=== PATIENT | female | born 1930 | race Caucasian/White ===

== ENCOUNTER → 2016-11-27 | Outpatient (CLI) | payer MEDICARE, OTHER | LOC: OD 15:04 | PROVIDERS: ATTEND Internal Medicine Pulmonary Disease | DX: J44.9 Chronic obstructive pulmonary disease, unspecified (principal) | CPT/HCPCS: 71020 ==

== ENCOUNTER → 2017-03-29 | Outpatient (CLI) | payer MEDICARE, OTHER ==
[2017-03-29 16:42] LABS: APPEARANCE,URINE SLIGHTLY-CLOUDY; BILIRUBIN,URINE NEGATIVE (NEGATIVE); GLUCOSE, URINE NEGATIVE (NEGATIVE); KETONES,URINE NEGATIVE (NEGATIVE); LEUKOCYTE ESTERASE,URINE SMALL (NEGATIVE); NITRITE,URINE NEGATIVE (NEGATIVE); PROTEIN,URINE NEGATIVE (NEGATIVE); URINE SPECIFIC GRAVITY 1.018
[2017-03-29 17:01] LABS: ANION GAP 9 (5-19); BLOOD UREA NITROGEN 18 mg/dL (7-20); CALCIUM 9.7 mg/dL (8.4-10.2); CARBON DIOXIDE 32 mmol/L (22-30); CHLORIDE 98 mmol/L (98-107); CREATININE RESULT 0.92 mg/dL (0.52-1.25); GLUCOSE 86 mg/dL (75-110); SODIUM 138.5 mmol/L (137-145)
[2017-03-29 17:18] LABS: POTASSIUM 6.1 mmol/L (3.6-5.0)
[2017-03-31 11:38] LABS: CREATININE URINE 171.4 mg/dL (Not Estab.); MICROALBUMIN URINE 16.4 ug/mL (Not Estab.)
== END ==
LOC: OD 15:03
PROVIDERS: ATTEND Internal Medicine Nephrology
DX: N28.9 Disorder of kidney and ureter, unspecified (principal); R80.9 Proteinuria, unspecified
CPT/HCPCS: 36415; 80048; 81001; 82043; 82570

== ENCOUNTER → 2017-04-02 | Outpatient (CLI) | payer MEDICARE, OTHER | LOC: OD 15:08 | PROVIDERS: ATTEND Internal Medicine Nephrology | DX: E87.5 Hyperkalemia (principal) | CPT/HCPCS: 36415; 84132 ==

== ENCOUNTER → 2017-05-01 | Outpatient (CLI) | payer MEDICARE, OTHER ==
[2017-05-01 16:41] LABS: ANION GAP 9 (5-19); BLOOD UREA NITROGEN 21 mg/dL (7-20); CALCIUM 9.3 mg/dL (8.4-10.2); CARBON DIOXIDE 30 mmol/L (22-30); CHLORIDE 100 mmol/L (98-107); CREATININE RESULT 0.91 mg/dL (0.52-1.25); GLUCOSE 107 mg/dL (75-110); MAGNESIUM 1.9 mg/dL (1.6-2.3); POTASSIUM 5.2 mmol/L (3.6-5.0); SODIUM 138.5 mmol/L (137-145)
== END ==
LOC: OD 15:44
PROVIDERS: ATTEND Internal Medicine Nephrology
DX: N28.9 Disorder of kidney and ureter, unspecified (principal); E87.5 Hyperkalemia
CPT/HCPCS: 36415; 80048; 83735

== ENCOUNTER → 2017-05-09 | Outpatient (CLI) | payer MEDICARE, OTHER ==
--- NOTE | 2017-05-09 14:48 | WOMENS IMAGING REPORT ---
EXAM DESCRIPTION: BILAT SCREENING MAMMO W/CAD COMPLETED DATE/TIME: 05/09/2017 8:40 am REASON FOR STUDY: Z12.31, LAUREN SCREENING MAMMO Z12.31 ENCNTR SCREEN MAMMOGRAM FOR MALIGNANT NEOPL ASM OF MP COMPARISON: 2013, 2015 TECHNIQUE: Standard craniocaudal and mediolateral oblique views of each breast recorded using [employer] acquisition. LIMITATIONS: None. FINDINGS: Findings present which are benign by mammographic criteria. No suspicious masses, calcifi cations or architectural distortion. Pertinent benign findings: Stable left breast masses. Read with the assistance of CAD. .[facility] - R2 Cenova Version 1.3 .[facility] - R2 Cenova Version 1.3 .[facility] - R2 Cenova Version 2.4 .[facility] [place] - R2 Cenova Version 2.4 .[facility] - R2 Reimbursement Liaison Version 9.2 Benign mammographic findings may include one or more of the following: Smooth masses, popcorn/rim/co arse calcifications, asymmetries, post-procedure changes, and lesions with long-standing stability. IMPRESSION: BENIGN MAMMOGRAPHIC FINDINGS. BIRADS 2 BREAST DENSITY: c. The breasts are heterogeneously dense, which may obscure small masses. BIRAD: 2 BENIGN FINDING(S) RECOMMENDATION: ROUTINE SCREENING COMMENT: The patient has been notified of the results by letter per SA requirements. Additional no tification policies are in place for contacting patient with suspicious or incomplete findings. Quality ID #[id number]: The [employer] recommends an annual screening mammogram for women aged 40 years or over. This facility utilizes a reminder system to ensure that all patients receive reminder letters, and/or direct phone calls for appointments. This includes reminders for routine scr eening mammograms, diagnostic mammograms, or other Breast Imaging Interventions when appropriate. Th is patient will be placed in the appropriate reminder system. The [employer] (ACR) has developed recommendations for screening MRI of the breast s in certain patient populations, to be used in conjunction with mammography. Breast MRI surveillanc e may be appropriate for women with more than 20% lifetime risk of developing breast cancer as deter mined by genetic testing, significant family history of the disease, or history of mantle radiation f or Hodgkins Disease. ACR Practice Guidelines 2008. TECHNICAL DOCUMENTATION: FINDING NUMBER: (1) ASSESSMENT: (1) JOB ID: [id number] [employer]- All Rights Reserved
== END ==
LOC: WI 08:10
PROVIDERS: ATTEND Specialist
DX: Z12.31 Encounter for screening mammogram for malignant neoplasm of breast (principal)
CPT/HCPCS: 77067; G0202

== ENCOUNTER → 2017-07-02 | Outpatient (CLI) | payer MEDICARE, OTHER ==
[2017-07-02 16:35] LABS: ANION GAP 9 (5-19); BLOOD UREA NITROGEN 13 mg/dL (7-20); CALCIUM 9.5 mg/dL (8.4-10.2); CARBON DIOXIDE 30 mmol/L (22-30); CHLORIDE 96 mmol/L (98-107); CREATININE RESULT 0.77 mg/dL (0.52-1.25); GLUCOSE 97 mg/dL (75-110); SODIUM 135.3 mmol/L (137-145)
== END ==
LOC: OD 15:12
PROVIDERS: ATTEND Internal Medicine Nephrology
DX: N28.9 Disorder of kidney and ureter, unspecified (principal); E87.5 Hyperkalemia
CPT/HCPCS: 36415; 80048

== ENCOUNTER 2017-10-03 20:43 | Emergency (ER) | payer MEDICARE, OTHER ==
[2017-10-03] MEDS ORDERED: HYDROCHLOROTHIAZIDE 25 MG TABLET PO ONE (22:14)
[2017-10-03] MEDS ORDERED: PROCHLORPERAZINE EDISYLATE INJ 10 MG/2 ML VIAL IV ONE (22:33)
--- NOTE | 2017-10-03 22:34 | ER Document Report ---
ED General - General Chief Complaint: Dizziness Stated Complaint: HEADACHE/ DIZZY Time Seen by Provider: 10/03/17 22:13 Notes: Patient is an 87-year-old female with past medical history of hypertension, hyperlipidemia, coronary artery disease who presents with a headache, as well as concerns about her blood pressure. Patient reports that since waking up this morning she has had a dull, constant, throbbing global headache with associated left shoulder and neck pain. Patient reports the pain is been progressively worsening throughout the day. She has not noted that anything improves or worsens the pain. She denies any focal weakness, numbness, fever, or altered mental status. She reports a history of similar headaches in the past. She has not seen her primary doctor regarding today's concerns of the office was not open when she called. She notes that her blood pressure was elevated tonight and she got scared given the headaches and wanted to be evaluated in the emergency department. She denies any associated chest pain, shortness of breath, nausea, vomiting, weakness or numbness. She notes that she did have a nosebleed from her left nares which has stopped. TRAVEL OUTSIDE OF THE [place] IN LAST 30 DAYS: No - Related Data Allergies/Adverse Reactions: ACEINHIBITORS [DC Inhibitors] Allergy (Verified 06/12/17 10:59) latex [Latex] Allergy (Verified 06/12/17 10:59) Generalized edema Tuberculin,Ppd,Multi-Puncture [From Tuberculin PPD Jeimy Test] Allergy (Verified 06/12/17 10:59) codeine [Codeine] Adverse Reaction (Verified 06/12/17 10:59) doxycycline [Doxycycline] Adverse Reaction (Verified 06/12/17 10:59) erythromycin base [Erythromycin Base] Adverse Reaction (Verified 06/12/17 10:59) Past Medical History - General Information source: Patient - Social History Smoking Status: Never Smoker Frequency of alcohol use: None Drug Abuse: None Lives with: Alone Family History: Reviewed & Not Pertinent - Past Medical History Cardiac Medical History: Reports: Hx Coronary Artery Disease, Hx Hypercholesterolemia, Hx Hypertension Denies: Hx Heart Attack Pulmonary Medical History: Reports: Hx COPD Denies: Hx Asthma Neurological Medical History: Reports: Hx Migraine. Denies: Hx Cerebrovascular Accident, Hx Seizures Endocrine Medical History: Reports: Hx Hypothyroidism Renal/ Medical History: Denies: Hx Peritoneal Dialysis Malignancy Medical History: Reports: Hx Skin Cancer GI Medical History: Reports: Hx Gastritis, Hx Gastroesophageal Reflux Disease, Hx Ulcer - TREATED. Denies: Hx Hepatitis, Hx Hiatal Hernia Musculoskeltal Medical History: Reports Hx Arthritis Skin Medical History: Reports Hx Psoriasis Psychiatric Medical History: Reports: Hx Depression Infectious Medical History: Denies: Hx Hepatitis Past Surgical History: Reports: Hx Abdominal Surgery, Hx Appendectomy, Hx Breast Surgery - bx, Hx Cardiac Catheterization - 2003--DONE IN [place], WAS NOT GIVEN AND DETAILS, Hx Cardiac Surgery - pacemaker, Hx Orthopedic Surgery - rib surgery, Hx Pacemaker - DEX. Denies: Hx Mastectomy, Hx Nose Surgery, Hx Open Heart Surgery - Immunizations Immunizations up to date: No Hx Diphtheria, Pertussis, Tetanus Vaccination: Yes Hx Pneumococcal Vaccination: 10/15/07 Review of Systems - Review of Systems Notes: Constitutional: Negative for fever. HENT: Negative for sore throat. Eyes: Negative for visual changes. Cardiovascular: Negative for chest pain. Respiratory: Negative for shortness of breath. Gastrointestinal: Negative for abdominal pain, vomiting or diarrhea. Genitourinary: Negative for dysuria. Musculoskeletal: Negative for back pain. Skin: Negative for rash. Neurological: Positive for headache 10 point ROS negative except as marked above and in HPI. Physical Exam - Vital signs Vitals: Temp Pulse Resp BP Pulse Ox 97.9 F 63 18 183/71 H 96 10/03/17 20:53 10/03/17 20:53 10/03/17 20:53 10/03/17 20:53 10/03/17 20:53 Interpretation: Hypertensive Notes: PHYSICAL EXAMINATION: GENERAL: Well-appearing, well-nourished and in no acute distress. HEAD: Atraumatic, normocephalic. EYES: Pupils equal round and reactive to light, extraocular movements intact, sclera anicteric, conjunctiva are normal. ENT: nares patent, oropharynx clear without exudates. Moist mucous membranes. NECK: Normal range of motion, supple without lymphadenopathy LUNGS: Breath sounds clear to auscultation bilaterally and equal. No wheezes rales or rhonchi. HEART: Regular rate and rhythm without murmurs ABDOMEN: Soft, nontender, normoactive bowel sounds. No guarding, no rebound. No masses appreciated. EXTREMITIES: Normal range of motion, no pitting or edema. No cyanosis. NEUROLOGICAL: Face symmetric. Tongue protrudes midline. Extraocular motions intact. Pupils are 2 mm and equally reactive. Normal speech, normal gait. 5 out of 5 strength in both the distal and proximal upper and lower extremities bilaterally. Sensation is grossly intact throughout. Finger to nose testing normal. Pronator drift normal. PSYCH: Normal mood, normal affect. SKIN: Warm, Dry, normal turgor, no rashes or lesions noted. Course - Re-evaluation Re-evalutation: 10/03/17 22:34 Presentation of a headache that appears to be most consistent with tension versus migrainous type headache. Headache was not maximal in onset, patient has no focal neurologic deficits, no nuchal rigidity, vital signs within normal limits, no papilledema, and patient is overall well in appearance. Based on clinical history and examination I do not suspect an acute subarachnoid hemorrhage, dural venous sinus thrombosis, acute meningitis, or intercranial mass. However, given patient's age will obtain a CT of the head without contrast to evaluate for any evidence of an intracranial mass. Will also obtain basic laboratories. Patient has not taken her normal dose of nifedipine today and this may be the reason for her high blood pressure and I have asked her to take it here while in the emergency department. 10/04/17 00:28 CT head does not show any acute bleed or mass, white matter lesion not clinically relevant to presentation but the patient has been informed of this finding and the need for follow-up. Her headache has now completely resolved. The remainder of her laboratories are unremarkable. At this time will discharge with return precautions and follow-up recommendations. Verbal discharge instructions given a the bedside and opportunity for questions given. Medication warnings reviewed. Patient is in agreement with this plan and has verbalized understanding of return precautions and the need for primary care follow-up in the next 24-72 hours. - Vital Signs Vital signs: Temp Pulse Resp BP Pulse Ox 97.9 F 63 11 L 178/89 H 96 10/03/17 20:53 10/03/17 20:53 10/04/17 00:03 10/04/17 00:03 10/04/17 00:03 - Laboratory Result Diagrams: 10/03/17 23:13 10/03/17 23:13 Laboratory results interpreted by me: 10/03/17 10/03/17 23:13 23:13 Hgb 11.8 L Hct 34.4 L Carbon Dioxide 31 H BUN 22 H Est GFR (Non-Af Amer) 59 L - Diagnostic Test Radiology reviewed: Image reviewed, Reports reviewed Radiology results interpreted by me: 10/04/17 00:29 CT head: No acute intracranial bleed or mass Discharge - Discharge Clinical Impression: Essential hypertension Headache Qualifiers: Headache type: unspecified Headache chronicity pattern: acute headache Intractability: not intractable Qualified Code(s): R51 - Headache Condition: Good Disposition: HOME, SELF-CARE Additional Instructions: You have been seen in the Emergency Department (ED) for a headache. Please use Tylenol (acetaminophen) or Motrin (ibuprofen) as needed for symptoms, but only as written on the box. As we have discussed, please follow up with your primary care doctor as soon as possible regarding today's ED visit and your headache symptoms. Call your doctor or return to the ED if you have a worsening headache, sudden and severe headache, confusion, slurred speech, facial droop, weakness or numbness in any arm or leg, extreme fatigue, or other symptoms that concern you. Referrals: LISA OSCAR MD [Primary Care Provider] - Follow up as needed
[2017-10-03 23:31] LABS: ABSOLUTE EOSINOPHILS # (AUTO) 0.3 10^3/uL (0.0-0.6); ABSOLUTE LYMPHOCYTES (AUTO) 1.3 10^3/uL (0.5-4.7); ABSOLUTE MONOCYTES (AUTO) 0.5 10^3/uL (0.1-1.4); ABSOLUTE NEUT (AUTO) 4.7 10^3/uL (1.7-8.2); BASOPHILS % (AUTO) 0.5 % (0-2); EOSINOPHILS % (AUTO) 4.8 % (0-6); HEMATOCRIT 34.4 % (36.0-47.0); HEMOGLOBIN 11.8 g/dL (12.0-15.5); LYMPHOCYTES % (AUTO) 18.5 % (13-45); MEAN CORPUSCULAR HEMOGLOBIN 30.7 pg (27.0-33.4); MEAN CORPUSCULAR HGB CONC 34.5 g/dL (32.0-36.0); MEAN CORPUSCULAR VOLUME 89 fl (80-97); MONOCYTES % (AUTO) 7.8 % (3-13); RED BLOOD COUNT 3.86 10^6/uL (3.72-5.28); RED CELL DISTRIBUTION WIDTH 13.5 % (11.5-14.0); SEGMENTED NEUTROPHILS % (AUTO) 68.4 % (42-78); WHITE BLOOD COUNT 6.9 10^3/uL (4.0-10.5)
[2017-10-03 23:35] LABS: ANION GAP 10 (5-19); BLOOD UREA NITROGEN 22 mg/dL (7-20); CALCIUM 9.7 mg/dL (8.4-10.2); CARBON DIOXIDE 31 mmol/L (22-30); CHLORIDE 98 mmol/L (98-107); CREATININE RESULT 0.91 mg/dL (0.52-1.25); GLUCOSE 106 mg/dL (75-110); POTASSIUM 4.4 mmol/L (3.6-5.0); SODIUM 138.8 mmol/L (137-145)
--- NOTE | 2017-10-04 00:17 | RADIOLOGY REPORT (SQ) ---
EXAM DESCRIPTION: CT HEAD WITHOUT CLINICAL HISTORY: 87 years Female, headache COMPARISON: None. TECHNIQUE: No contrast. This exam was performed according to our departmental dose-optimization program, which includes automated exposure control, adjustment of the mA and/or kV according to patient size and/or use of iterative reconstruction technique. FINDINGS: Relatively new 0.8 cm low-attenuation left parietal white matter lesion probably due to a lacunar infarct as compared with prior CT from January 20, 2015. Mild white matter microangiopathy, mild-moderate cerebral volume loss, chronic 0.9 Center pineal calcification, intracranial atherosclerotic calcification, IMPRESSION: Relatively new 0.8 cm low-attenuation left parietal white matter lesion probably due to a lacunar infarct as compared with prior CT from January 20, 2015. Otherwise white matter processes cannot be excluded. Recommend contrast MRI/CT surveillance.
[2017-10-04 01:15] VITALS: BP 175/73
--- NOTE | 2017-10-04 07:52 | EKG REPORT ---
SEVERITY:- ABNORMAL ECG - ATRIAL-PACED COMPLEXES LOW VOLTAGE IN FRONTAL LEADS : Confirmed by: Juan Montesinos MD 04-Oct-2017 07:52:06
== END 2017-10-04 01:14 | disposition home or self-care (01) ==
LOC: ER 20:43
DX: I10 Essential (primary) hypertension (principal); R51 Headache; M25.512 Pain in left shoulder; M54.2 Cervicalgia; G93.89 Other specified disorders of brain; J44.9 Chronic obstructive pulmonary disease, unspecified; I25.10 Atherosclerotic heart disease of native coronary artery without angina pectoris; Z88.8 Allergy status to other drugs, medicaments and biological substances; Z91.040 Latex allergy status; Z88.7 Allergy status to serum and vaccine; Z85.828 Personal history of other malignant neoplasm of skin; Z95.0 Presence of cardiac pacemaker
CPT/HCPCS: 93005; 99284; 96374; 36415; 85025; 80048; 84484; 70450; 93010; J0780

== ENCOUNTER → 2017-11-06 | Outpatient (CLI) | payer MEDICARE, OTHER ==
[2017-11-06 15:43] LABS: APPEARANCE,URINE CLEAR; BILIRUBIN,URINE NEGATIVE (NEGATIVE); COLOR,URINE YELLOW; GLUCOSE, URINE NEGATIVE (NEGATIVE); KETONES,URINE NEGATIVE (NEGATIVE); LEUKOCYTE ESTERASE,URINE NEGATIVE (NEGATIVE); NITRITE,URINE NEGATIVE (NEGATIVE); PROTEIN,URINE NEGATIVE (NEGATIVE); URINE SPECIFIC GRAVITY 1.014; UROBILINOGEN,URINE NEGATIVE mg/dL (<2.0)
[2017-11-06 16:04] LABS: BLOOD UREA NITROGEN 22 mg/dL (7-20); CHLORIDE 99 mmol/L (98-107); GLUCOSE 77 mg/dL (75-110); POTASSIUM 5.4 mmol/L (3.6-5.0)
[2017-11-06 16:14] LABS: ANION GAP 7 (5-19); CARBON DIOXIDE 32 mmol/L (22-30); SODIUM 138.3 mmol/L (137-145)
[2017-11-08 12:39] LABS: CREATININE URINE 62.8 mg/dL (Not Estab.); MICROALBUMIN URINE 4.3 ug/mL (Not Estab.)
== END ==
LOC: OD 14:46
PROVIDERS: ATTEND Internal Medicine Nephrology
DX: R80.9 Proteinuria, unspecified (principal); N28.9 Disorder of kidney and ureter, unspecified; I10 Essential (primary) hypertension
CPT/HCPCS: 36415; 80048; 81001; 82043; 82570

== ENCOUNTER → 2017-11-14 | Outpatient (CLI) | payer MEDICARE, OTHER | LOC: OD 15:09 | PROVIDERS: ATTEND Internal Medicine Nephrology | DX: E87.5 Hyperkalemia (principal) | CPT/HCPCS: 36415; 84132 ==

== ENCOUNTER → 2018-02-13 | Outpatient (CLI) | payer MEDICARE, OTHER ==
--- NOTE | 2018-02-13 17:20 | RADIOLOGY REPORT (SQ) ---
EXAM DESCRIPTION: CT HEAD WITH COMPLETED DATE/TIME: 02/13/2018 5:05 pm REASON FOR STUDY: R51 HEADACHE R51 HEADACHE COMPARISON: 10/03/2017 TECHNIQUE: Axial images acquired through the brain with intravenous contrast. Images reviewed with b one, brain and subdural windows. Additional sagittal and coronal reconstructions were generated. Tasneem ges stored on PACS. All CT scanners at this facility use dose modulation, iterative reconstruction, and/or weight based d osing when appropriate to reduce radiation dose to as low as reasonably achievable (ALARA). [facility]: Dose Right [facility]: CareDose [facility]: Dose Right [facility]: Teradose 4D [facility]: [employer] CONTRAST TYPE AND DOSE: contrast/concentration: Isovue mg/ml; Total Contrast Delivered: 50.0 ml; To kenneth Saline Delivered: 55.0 ml RENAL FUNCTION: BUN 13 creatinine 0.7 RADIATION DOSE: CT Rad equipment meets quality standard of care and radiation dose reduction techniq ues were employed. CTDIvol: 48.6 mGy. DLP: 929 mGy-cm.. LIMITATIONS: None. FINDINGS: VENTRICLES: Normal size and contour. CEREBRUM: No masses. No hemorrhage. No midline shift. Normal grider/white matter differentiation. No ev idence for acute infarction. No enhancing lesions. There are few scattered areas decreased attenuati on in the white matter. CEREBELLUM: No masses. No hemorrhage. No alteration of density. No evidence for acute infarction. No enhancing lesions. EXTRA-AXIAL SPACES: No fluid collections. No enhancing lesions. ORBITS AND GLOBE: No intra- or extraconal masses. Normal contour of globe without masses. CALVARIUM: No fracture. PARANASAL SINUSES: No fluid or mucosal thickening. SOFT TISSUES: No mass or hematoma. OTHER: No other significant finding. IMPRESSION: Mild microvascular ischemic changes with no acute intracranial pathology. EVIDENCE OF ACUTE STROKE: NO. TECHNICAL DOCUMENTATION: JOB ID: [id number] Quality ID # [id number]: Final reports with documentation of one or more dose reduction techniques (e.g., Au tomated exposure control, adjustment of the mA and/or kV according to patient size, use of iterative reconstruction technique) 2010 [email or web address]- All Rights Reserved Reading location - IP/workstation name: [email or web address]
== END ==
LOC: RAD 16:18
PROVIDERS: ATTEND Internal Medicine Hematology & Oncology
DX: R51 Headache (principal)
CPT/HCPCS: 70460

== ENCOUNTER → 2018-03-05 | Outpatient (CLI) | payer MEDICARE, OTHER ==
[2018-03-05 17:56] LABS: ANION GAP 7 (5-19); BLOOD UREA NITROGEN 16 mg/dL (7-20); CALCIUM 9.4 mg/dL (8.4-10.2); CARBON DIOXIDE 34 mmol/L (22-30); CHLORIDE 100 mmol/L (98-107); GLUCOSE 97 mg/dL (75-110); POTASSIUM 5.5 mmol/L (3.6-5.0); SODIUM 140.6 mmol/L (137-145)
== END ==
LOC: OD 16:10
PROVIDERS: ATTEND Internal Medicine Nephrology
DX: E87.5 Hyperkalemia (principal); N28.9 Disorder of kidney and ureter, unspecified
CPT/HCPCS: 36415; 80048

== ENCOUNTER 2018-03-11 21:28 | Observation (INO) | payer MEDICARE, OTHER ==
[2018-03-11] MEDS ORDERED: ASPIRIN 81 MG TABLET, CHEWABLE PO ONE (21:41)
--- NOTE | 2018-03-11 22:01 | ER Document Report ---
ED General - General Mode of Arrival: Medic Information source: Patient TRAVEL OUTSIDE OF THE [place] IN LAST 30 DAYS: No <ROSHNI HERNANDEZ - Last Filed: 03/11/18 23:57> <GEOVANNAHARRIETTALAYNA - Last Filed: 03/12/18 00:02> - General Chief Complaint: Chest Pain Stated Complaint: CHEST PAIN Time Seen by Provider: 03/11/18 21:39 Notes: Patient is an 88 year old female with hypertension, hyperlipidemiam CAD, COPD, and a pacemaker presents to the emergency department complaining of left sided chest pain onset today. Patient describes her chest pain as non radiating and intermittent further stating she would feel a sharp pain every minute. Patient also complained of a headache and chronic shortness of breath. At bedside patient states her chest pain is no longer sharp but sore. EMS states they gave the patient 1x nitro and recorded an blood pressure of 180/ 110. EMS states the patient reported recent potassium elevations. Patient is on 2L of O2 at home. Patient states she was told by her family practice doctor the battery in her pacemaker is about to and to observe any changes. Patients PCP is Dr. Mike. ( ROSHNI HERNANDEZ) - Related Data Allergies/Adverse Reactions: ACEINHIBITORS [DC Inhibitors] Allergy (Verified 06/12/17 10:59) latex [Latex] Allergy (Verified 06/12/17 10:59) Generalized edema Tuberculin,Ppd,Multi-Puncture [From Tuberculin PPD Jeimy Test] Allergy (Verified 06/12/17 10:59) codeine [Codeine] Adverse Reaction (Verified 06/12/17 10:59) doxycycline [Doxycycline] Adverse Reaction (Verified 06/12/17 10:59) erythromycin base [Erythromycin Base] Adverse Reaction (Verified 06/12/17 10:59) Past Medical History - General Information source: Patient - Social History Smoking Status: Former Smoker Cigarette use (# per day): No Chew tobacco use (# tins/day): No Smoking Education Provided: No Frequency of alcohol use: None Drug Abuse: None Family History: Reviewed & Not Pertinent - Past Medical History Cardiac Medical History: Reports: Hx Coronary Artery Disease, Hx Hypercholesterolemia, Hx Hypertension Pulmonary Medical History: Reports: Hx COPD Neurological Medical History: Reports: Hx Migraine Endocrine Medical History: Reports: Hx Hypothyroidism Malignancy Medical History: Reports: Hx Skin Cancer GI Medical History: Reports: Hx Gastritis, Hx Gastroesophageal Reflux Disease, Hx Ulcer - TREATED Musculoskeltal Medical History: Reports Hx Arthritis Skin Medical History: Reports Hx Psoriasis Psychiatric Medical History: Reports: Hx Depression Past Surgical History: Reports: Hx Abdominal Surgery, Hx Appendectomy, Hx Breast Surgery - bx, Hx Cardiac Catheterization - 2004--DONE IN [place], WAS NOT GIVEN AND DETAILS, Hx Cardiac Surgery - pacemaker, Hx Orthopedic Surgery - rib surgery, Hx Pacemaker - DEX - Immunizations Immunizations up to date: No Hx Diphtheria, Pertussis, Tetanus Vaccination: Yes Hx Pneumococcal Vaccination: 10/15/07 <ROSHNI HERNANDEZ - Last Filed: 03/11/18 23:57> Review of Systems - Review of Systems Constitutional: No symptoms reported EENT: No symptoms reported Cardiovascular: See HPI, Chest pain Respiratory: See HPI, Short of breath Gastrointestinal: No symptoms reported Genitourinary: No symptoms reported Female Genitourinary: No symptoms reported Musculoskeletal: No symptoms reported Skin: No symptoms reported Hematologic/Lymphatic: No symptoms reported Neurological/Psychological: No symptoms reported -: Yes All other systems reviewed and negative <ROSHNI HERNANDEZ - Last Filed: 03/11/18 23:57> Physical Exam <ROSHNI HERNANDEZ - Last Filed: 03/11/18 23:57> <ALAYNA URRUTIA - Last Filed: 03/12/18 00:02> - Vital signs Vitals: Resp BP Pulse Ox 16 147/97 H 96 03/11/18 21:41 03/11/18 21:41 03/11/18 21:41 - Notes Notes: GENERAL: Alert, interacts well. No acute distress. HEAD: Normocephalic, atraumatic. EYES: Pupils equal, round, and reactive to light. Extraocular movements intact. ENT: Oral mucosa moist, tongue midline. NECK: Full range of motion. Supple. Trachea midline. LUNGS: Clear to auscultation bilaterally, no wheezes, rales, or rhonchi. No respiratory distress. HEART: Regular rate and rhythm. No murmurs, gallops, or rubs. ABDOMEN: Soft. Epigastric tenderness to palpaiton. Non-distended. Bowel sounds present in all 4 quadrants. EXTREMITIES: Moves all 4 extremities spontaneously. Radial and dorsalis pedis pulses 2/4 bilaterally. NEUROLOGICAL: Alert and oriented x3. Normal speech. PSYCH: Normal affect, normal mood. SKIN: Warm, dry, and normal turgor. (ROSHNI HERNANDEZ) Course - Laboratory Result Diagrams: 03/11/18 21:07 03/11/18 21:07 <ROSHNI HERNANDEZ - Last Filed: 03/11/18 23:57> - Laboratory Result Diagrams: 03/11/18 21:07 03/11/18 21:07 <ALAYNA URRUTIA - Last Filed: 03/12/18 00:02> - Re-evaluation Re-evalutation: 03/11/18 23:16 CBC grossly unremarkable, CMP does not show anything that would explain the chest pain, glucose slightly elevated 145, this is not fasting, cardiac enzymes negative 1, 03/11/18 23:17 Chest x-ray is negative. Patient is chest pain-free. Discussed patient with Dr. Natarajan who is covering for Dr. Bermudez, accepts the patient to Dr. Bermudez service. Patient is on a fentanyl patch, states that is due to be replaced tonight. I have ordered her replacement fentanyl patch. Patient also requests to be allowed to take her home medications as they are quite expensive when she is admitted. I have passed this request to Dr. Natarajan who will see if he can make this work with our pharmacy. (ALAYNA URRUTIA) - Vital Signs Vital signs: Temp Pulse Resp BP Pulse Ox 15 127/75 H 96 03/11/18 23:01 03/11/18 23:01 03/11/18 21:41 - Laboratory Laboratory results interpreted by me: 03/11/18 03/11/18 21:07 21:07 Hct 35.5 L Eosinophils % 6.3 H Chloride 97 L Carbon Dioxide 31 H Glucose 145 H - EKG Interpretation by Me Additional EKG results interpreted by me: 03/11/18 23:17 EKG shows T-wave inversions in V1 through V3, the T-wave inversions in V3 are negative otherwise unchanged, atrially paced rhythm at a rate of 62, borderline left axis deviation, no ST segment elevations or depressions per my interpretation. (ALAYNA URRUTIA) Discharge <ROSHNI HERNANDEZ - Last Filed: 03/11/18 23:57> - Discharge Admitting Provider: Lara Unit Admitted: Telemetry <ALAYNA URRUTIA - Last Filed: 03/12/18 00:02> - Discharge Clinical Impression: Chest pain, rule out acute myocardial infarction Condition: Fair Disposition: ADMITTED OBSERVATION Scribe Attestation: 03/12/18 00:01 I personally performed the services described in the documentation, reviewed and edited the documentation which was dictated to the scribe in my presence, and it accurately records my words and actions. (ALAYNA URRUTIA) Scribe Documentation - Scribe Written by Quirinoibe:: Guadalupe Smith, 03/11/2018 22:03 acting as scribe for :: Kerri <ROSHNI HERNANDEZ - Last Filed: 03/11/18 23:57>
[2018-03-11 22:03] LABS: ABSOLUTE EOSINOPHILS # (AUTO) 0.3 10^3/uL (0.0-0.6); ABSOLUTE LYMPHOCYTES (AUTO) 1.2 10^3/uL (0.5-4.7); ABSOLUTE MONOCYTES (AUTO) 0.4 10^3/uL (0.1-1.4); ABSOLUTE NEUT (AUTO) 2.8 10^3/uL (1.7-8.2); BASOPHILS % (AUTO) 0.8 % (0-2); EOSINOPHILS % (AUTO) 6.3 % (0-6); HEMATOCRIT 35.5 % (36.0-47.0); HEMOGLOBIN 12.2 g/dL (12.0-15.5); LYMPHOCYTES % (AUTO) 24.6 % (13-45); MEAN CORPUSCULAR HEMOGLOBIN 30.9 pg (27.0-33.4); MEAN CORPUSCULAR HGB CONC 34.4 g/dL (32.0-36.0); MEAN CORPUSCULAR VOLUME 90 fl (80-97); MONOCYTES % (AUTO) 9.3 % (3-13); PLATELET COUNT 196 10^3/uL (150-450); RED BLOOD COUNT 3.97 10^6/uL (3.72-5.28); RED CELL DISTRIBUTION WIDTH 13.1 % (11.5-14.0); TOTAL CELLS COUNTED % (AUTO) 100 %; WHITE BLOOD COUNT 4.8 10^3/uL (4.0-10.5)
--- NOTE | 2018-03-11 22:14 | RADIOLOGY REPORT (SQ) ---
EXAM DESCRIPTION: CHEST SINGLE VIEW COMPLETED DATE/TIME: 03/11/2018 10:01 pm REASON FOR STUDY: chest pain COMPARISON: 11/27/2016. NUMBER OF VIEWS: One view. TECHNIQUE: Single frontal radiographic view of the chest acquired. LIMITATIONS: None. FINDINGS: LUNGS AND PLEURA: No opacities, masses or pneumothorax. No pleural effusion. Attenuated bl ood vessels and flattened sydni-diaphragms. MEDIASTINUM AND HILAR STRUCTURES: No masses. Contour normal. HEART AND VASCULAR STRUCTURES: Heart normal in size. Normal vasculature. BONES: No acute findings. Old rib fractures. HARDWARE: Pacemaker. OTHER: No other significant finding. IMPRESSION: COPD. NO ACUTE RADIOGRAPHIC FINDING IN THE CHEST. TECHNICAL DOCUMENTATION: JOB ID: [id number] [employer]- All Rights Reserved Reading location - IP/workstation name: [email or web address]
[2018-03-11 22:17] LABS: ALANINE AMINOTRANSFERASE 19 U/L (9-52); ALKALINE PHOSPHATASE 64 U/L (38-126); ANION GAP 11 (5-19); ASPARTATE AMINO TRANSFERASE 29 U/L (14-36); BILIRUBIN,DIRECT 0.3 mg/dL (0.0-0.4); BILIRUBIN,TOTAL 0.4 mg/dL (0.2-1.3); BLOOD UREA NITROGEN 18 mg/dL (7-20); CALCIUM 9.6 mg/dL (8.4-10.2); CARBON DIOXIDE 31 mmol/L (22-30); CHLORIDE 97 mmol/L (98-107); CREATINE KINASE 112 U/L (30-135); GLUCOSE 145 mg/dL (75-110); POTASSIUM 3.6 mmol/L (3.6-5.0); SODIUM 138.8 mmol/L (137-145); TOTAL PROTEIN 6.7 g/dL (6.3-8.2)
[2018-03-11 22:28] LABS: CREATINE KINASE MB 1.66 ng/mL (<4.55); TROPONIN I < 0.012 ng/mL
[2018-03-11] MEDS ORDERED: FENTANYL 50 MCG/HR PATCH.TD72 TD ONE (23:15)
[2018-03-12] MEDS ORDERED: PROPYLENE GLYCOL BTH_EYE PRN (03:24)
[2018-03-12] MEDS ORDERED: HYDROCODONE/ACETAMINOPHEN 5-325 MG TABLET PO PRN (03:24)
[2018-03-12] MEDS ORDERED: ALBUTEROL SULFATE HFA (90 MCG/PUFF) 8 GM MDI (1 MDI/ER DISP) IH PRN ×2 (03:24→04:00)
[2018-03-12] MEDS ORDERED: POLYETHYLENE GLYCOL 3350 POWDER 17 GM/1 PACKET PO PRN (03:24)
[2018-03-12] MEDS ORDERED: [UNRECOGNIZED DRUG - OTHER] BTH_EYE PRN (03:24)
[2018-03-12] MEDS ORDERED: PEG BTH_EYE PRN (03:24)
[2018-03-12] MEDS ORDERED: NIFEDIPINE 30 MG TAB.ER.24 PO ONE (04:00)
[2018-03-12] MEDS ORDERED: KETOROLAC TROMETHAMINE OD SCH (06:00)
[2018-03-12] MEDS: LANSOPRAZOLE 30 MG TAB.RAP.DR PO SCH (07:54)
[2018-03-12] MEDS: LEVOTHYROXINE SODIUM 0.075 MG TABLET PO SCH (07:55)
[2018-03-12 08:26] LABS: CREATINE KINASE MB 2.43 ng/mL (<4.55)
[2018-03-12 08:30] LABS: TROPONIN I < 0.012 ng/mL
--- NOTE | 2018-03-12 09:05 | EKG REPORT ---
SEVERITY:- ABNORMAL ECG - ATRIAL-PACED RHYTHM NONSPECIFIC T ABNORMALITIES, ANTERIOR LEADS : Confirmed by: Russ Goodman 12-Mar-2018 09:04:55
[2018-03-12] MEDS ORDERED: ALBUTEROL SULFATE HFA (90 MCG/PUFF) 200 PUFF/8.5 GM MDI IH PRN (09:40)
[2018-03-12] MEDS ORDERED: FENTANYL 50 MCG/HR PATCH.TD72 TD SCH (10:00)
[2018-03-12] MEDS ORDERED: BIOTIN 1 MG PO SCH (10:00)
[2018-03-12] MEDS: FLUTICASONE/SALMETEROL DISKUS 250-50 MCG/DOSE IH SCH ×2 (10:25→22:38)
[2018-03-12] MEDS: METOPROLOL TARTRATE 25 MG TABLET PO SCH ×2 (10:26→22:37)
[2018-03-12 13:59] LABS: CREATINE KINASE MB 2.19 ng/mL (<4.55)
[2018-03-12 14:00] LABS: TROPONIN I < 0.012 ng/mL
[2018-03-12] MEDS ORDERED: NIFEDIPINE 30 MG TAB.ER.24 PO SCH (14:00)
--- NOTE | 2018-03-12 19:05 | PDOC H&P ---
History of Present Illness Admission Date/PCP: 03/11/18 23:27 History of Present Illness: MAIRA ALVAREZ is a 88 year old female, She has a history of chronic obstructive pulmonary disease, pacemaker placement, she came to emergency room for evaluation of chest pain the chest pain is sharp it is not typical ischemic chest pain it is not provoked by activity or emotional outbursts not relieved by rest. EKG there is no acute change on EKG I saw her today on the floor she is comfortable so far 3 sets of cardiac enzymes negative for acute myocardial infarction, she be scheduled for a nuclear stress test in the morning, she brought in for observation. Past Medical History Cardiac Medical History: Reports: Coronary Artery Disease, Hyperlipidema, Hypertension Pulmonary Medical History: Reports: Chronic Obstructive Pulmonary Disease (COPD) Neurological Medical History: Reports: Migraine Endocrine Medical History: Reports: Hypothyroidism Malignancy Medical History: Reports: Skin Cancer GI Medical History: Reports: Gastroesophageal Reflux Disease Musculoskeltal Medical History: Reports: Arthritis Skin Medical History: Reports: Psoriasis Psychiatric Medical History: Reports: Depression Past Surgical History Past Surgical History: Reports: Appendectomy, Cardiac Catheterization - 2003-- DONE IN [place], WAS NOT GIVEN AND DETAILS, Orthopedic Surgery - rib surgery, Pacemaker - DEX Social History Smoking Status: Former Smoker Last Time Smoked: 25 years ago Frequency of Alcohol Use: None Hx Recreational Drug Use: No Hx Prescription Drug Abuse: No Family History Family History: Reviewed & Not Pertinent Parental Family History Reviewed: Yes Children Family History Reviewed: Yes Sibling(s) Family History Reviewed.: Yes Medication/Allergy Home Medications: Fentanyl [Duragesic 50 Mcg/Hr Transdermal Patch] 1 each TD Q48H MDD PREFERS MYLAN BRAND 01/11/13 Levothyroxine Sodium [Synthroid 0.075 mg Tablet] 0.075 mg PO Q6AM 01/11/13 Metoprolol Tartrate [Lopressor 25 mg Tablet] 25 mg PO Q12 01/11/13 Nifedipine [Nifedipine ER] 30 mg PO DAILYP PRN 01/11/13 Paroxetine HCl [Paxil] 10 mg PO DAILY 01/11/13 Clopidogrel Bisulfate [Plavix 75 mg Tablet] 75 mg PO QHS 07/27/13 Pravastatin Sodium [Pravachol] 40 mg PO QHS 07/27/13 Albuterol Sulfate [Proair HFA] 2 puff IH Q4HP PRN 01/14/16 Biotin 1 mg PO DAILY 01/14/16 Fluticasone/Salmeterol [Advair 250-50 Diskus 28 dose] 1 inh IH Q12 01/14/16 Aspirin [Aspirin EC] 81 mg PO DAILY 03/12/18 Carboxymethylcellulose Sodium [Refresh Plus 0.5% Oph Soln 0.4 ml Droperette] 1 drop OU QHS 03/12/18 Cholecalciferol (Vitamin D3) [Vitamin D3 5000 unit Capsule] 5,000 unit PO DAILY 03/12/18 Omeprazole 20 mg PO Q6AM 03/12/18 Polyvinyl Alcohol/Povidone/Pf [Refresh Classic Eye Drops] 1 each OU BID Allergies/Adverse Reactions: ACEINHIBITORS [DC Inhibitors] Allergy (Verified 06/12/17 10:59) latex [Latex] Allergy (Verified 06/12/17 10:59) Generalized edema Tuberculin,Ppd,Multi-Puncture [From Tuberculin PPD Jeimy Test] Allergy (Verified 06/12/17 10:59) codeine [Codeine] Adverse Reaction (Verified 06/12/17 10:59) doxycycline [Doxycycline] Adverse Reaction (Verified 06/12/17 10:59) erythromycin base [Erythromycin Base] Adverse Reaction (Verified 06/12/17 10:59) Review of Systems Constitutional: ABSENT: chills, fever(s), headache(s), weight gain, weight loss Eyes: ABSENT: visual disturbances Ears: ABSENT: hearing changes Cardiovascular: PRESENT: chest pain. ABSENT: dyspnea on exertion, edema, orthropnea, palpitations Respiratory: ABSENT: cough, hemoptysis Gastrointestinal: ABSENT: abdominal pain, constipation, diarrhea, hematemesis, hematochezia, nausea, vomiting Genitourinary: ABSENT: dysuria, hematuria Musculoskeletal: ABSENT: joint swelling Integumentary: ABSENT: rash, wounds Neurological: ABSENT: abnormal gait, abnormal speech, confusion, dizziness, focal weakness, syncope Psychiatric: ABSENT: anxiety, depression, homidical ideation, suicidal ideation Endocrine: ABSENT: cold intolerance, heat intolerance, menstrual abnormalities, polydipsia, polyuria Hematologic/Lymphatic: ABSENT: easy bleeding, easy bruising, lymphadenopathy Physical Exam Vital Signs: Temp Pulse Resp BP Pulse Ox 98.6 F 73 18 140/68 H 100 03/12/18 15:30 03/12/18 15:30 03/12/18 15:30 03/12/18 15:30 03/12/18 15:30 Intake & Output 03/11/18 03/12/18 03/13/18 06:59 06:59 06:59 Intake Total 145 660 Output Total 0 Balance 145 660 Weight 54.3 kg General appearance: PRESENT: no acute distress, well-developed, well-nourished Head exam: PRESENT: atraumatic, normocephalic Eye exam: PRESENT: conjunctiva pink, EOMI, PERRLA Ear exam: PRESENT: normal external ear exam Mouth exam: PRESENT: moist, tongue midline Neck exam: PRESENT: full ROM Respiratory exam: PRESENT: clear to auscultation mimi Cardiovascular exam: PRESENT: RRR, +S1, +S2 Pulses: PRESENT: normal dorsalis pedis pul, +2 pedal pulses bilateral Vascular exam: PRESENT: normal capillary refill GI/Abdominal exam: PRESENT: normal bowel sounds, soft Rectal exam: PRESENT: deferred Neurological exam: PRESENT: alert, awake, oriented to person, oriented to place , oriented to time, oriented to situation, CN II-XII grossly intact Psychiatric exam: PRESENT: appropriate affect, normal mood Skin exam: PRESENT: dry, intact, warm Results Laboratory Results: 03/12/18 03/12/18 03/12/18 01:40 07:38 07:38 Creatine Kinase 101 CK-MB (CK-2) 2.43 Troponin I < 0.012 < 0.012 03/12/18 03/12/18 13:25 13:25 Creatine Kinase 110 CK-MB (CK-2) 2.19 Troponin I < 0.012 Impressions: Chest X-Ray 03/11/18 21:41 IMPRESSION: COPD. NO ACUTE RADIOGRAPHIC FINDING IN THE CHEST. Assessment & Plan - Diagnosis (1) Chest pain Qualifiers: Chest pain type: unspecified Qualified Code(s): R07.9 - Chest pain, unspecified Is this a current diagnosis for this admission?: Yes Plan: She is admitted for the management of chest pain, history of CAD, acute [place] rule out, scheduled for stress test in the morning
[2018-03-12 20:49] LABS: CREATINE KINASE MB 2.03 ng/mL (<4.55)
[2018-03-12 20:59] LABS: TROPONIN I < 0.012 ng/mL
[2018-03-12] MEDS ORDERED: PAROXETINE HCL 20 MG TABLET PO SCH (22:00)
[2018-03-12] MEDS ORDERED: ASPIRIN 81 MG TABLET, CHEWABLE PO SCH (22:00)
[2018-03-12] MEDS ORDERED: ATORVASTATIN CALCIUM 40 MG TABLET PO SCH (22:00)
[2018-03-12] MEDS ORDERED: CLOPIDOGREL BISULFATE 75 MG TABLET PO SCH (22:00)
[2018-03-13] MEDS: LANSOPRAZOLE 30 MG TAB.RAP.DR PO SCH (08:12)
[2018-03-13] MEDS: LEVOTHYROXINE SODIUM 0.075 MG TABLET PO SCH (09:14)
[2018-03-13] MEDS: FLUTICASONE/SALMETEROL DISKUS 250-50 MCG/DOSE IH SCH (09:15)
[2018-03-13] MEDS: METOPROLOL TARTRATE 25 MG TABLET PO SCH (09:15)
[2018-03-13 10:02] VITALS: BP 203/90
[2018-03-13] MEDS ORDERED: NIFEDIPINE 30 MG TAB.ER.24 PO SCH (14:00)
--- NOTE | 2018-03-13 14:31 | PDOC DISCHARGE SUMMARY ---
General - Admit/Disc Date/PCP Admission Date/Primary Care Provider: 03/11/18 23:27 Discharge Date: 03/13/18 - Discharge Diagnosis (1) Chest pain Is this a current diagnosis for this admission?: Yes (2) Chronic obstructive pulmonary disease Is this a current diagnosis for this admission?: Yes - Additional Information Discharge Diet: As Tolerated Discharge Activity: Activity As Tolerated Home Medications: Fentanyl [Duragesic 50 Mcg/Hr Transdermal Patch] 1 each TD Q48H MDD PREFERS MYLAN BRAND 01/11/13 Levothyroxine Sodium [Synthroid 0.075 mg Tablet] 0.075 mg PO Q6AM 01/11/13 Metoprolol Tartrate [Lopressor 25 mg Tablet] 25 mg PO Q12 01/11/13 Nifedipine [Nifedipine ER] 30 mg PO DAILYP PRN 01/11/13 Paroxetine HCl [Paxil] 10 mg PO DAILY 01/11/13 Clopidogrel Bisulfate [Plavix 75 mg Tablet] 75 mg PO QHS 07/27/13 Pravastatin Sodium [Pravachol] 40 mg PO QHS 07/27/13 Albuterol Sulfate [Proair HFA] 2 puff IH Q4HP PRN 01/14/16 Biotin 1 mg PO DAILY 01/14/16 Fluticasone/Salmeterol [Advair 250-50 Diskus 28 dose] 1 inh IH Q12 01/14/16 Aspirin [Aspirin EC] 81 mg PO DAILY 03/12/18 Carboxymethylcellulose Sodium [Refresh Plus 0.5% Oph Soln 0.4 ml Droperette] 1 drop OU QHS 03/12/18 Cholecalciferol (Vitamin D3) [Vitamin D3 5000 unit Capsule] 5,000 unit PO DAILY 03/12/18 Omeprazole 20 mg PO Q6AM 03/12/18 Polyvinyl Alcohol/Povidone/Pf [Refresh Classic Eye Drops] 1 each OU BID History of Present Illness History of Present Illness: MAIRA ALVAREZ is a 88 year old female, She has a history of chronic obstructive pulmonary disease, pacemaker placement, she came to emergency room for evaluation of chest pain the chest pain is sharp it is not typical ischemic chest pain it is not provoked by activity or emotional outbursts not relieved by rest. EKG there is no acute change on EKG I saw her today on the floor she is comfortable so far 3 sets of cardiac enzymes negative for acute myocardial infarction, she be scheduled for a nuclear stress test in the morning, she brought in for observation. Hospital Course Hospital Course: She was admitted for the management of chest pain, the chest pain is atypical she has a low pretest probability for acute MD or for ischemic heart disease, history of COPD, CAD, 3 sets of cardiac enzymes were negative for acute MD. She was supposed to have a nuclear stress test today but there was no nuclear material available for today, patient is not willing to stay any longer in the hospital, she will get outpatient stress test with the primary physician internist, she could be discharged home, she has been chest pain-free for the last 36 hours. Physical Exam Vital Signs: Temp Pulse Resp BP Pulse Ox 97.8 F 65 12 203/90 H 98 03/13/18 10:01 03/13/18 10:01 03/13/18 10:01 03/13/18 10:01 03/13/18 10:01 Intake & Output 03/12/18 03/13/18 03/14/18 06:59 06:59 06:59 Intake Total 145 690 Output Total 0 Balance 145 690 Weight 54.3 kg 54.3 kg General appearance: PRESENT: no acute distress, well-developed, well-nourished Head exam: PRESENT: atraumatic, normocephalic Eye exam: PRESENT: conjunctiva pink, EOMI, PERRLA Ear exam: PRESENT: normal external ear exam Mouth exam: PRESENT: moist, tongue midline Neck exam: PRESENT: full ROM Respiratory exam: PRESENT: clear to auscultation mimi Cardiovascular exam: PRESENT: RRR, +S2 Murmur grade: 3 Vascular exam: PRESENT: normal capillary refill GI/Abdominal exam: PRESENT: normal bowel sounds, soft Rectal exam: PRESENT: deferred Neurological exam: PRESENT: alert, awake, oriented to person, oriented to place , oriented to time, oriented to situation, CN II-XII grossly intact Psychiatric exam: PRESENT: appropriate affect, normal mood Skin exam: PRESENT: dry, intact, warm Results Laboratory Results: 03/12/18 03/12/18 03/12/18 01:40 07:38 07:38 Creatine Kinase 101 CK-MB (CK-2) 2.43 Troponin I < 0.012 < 0.012 03/12/18 03/12/18 03/12/18 13:25 13:25 19:50 Creatine Kinase 110 86 CK-MB (CK-2) 2.19 Troponin I < 0.012 03/12/18 19:50 Creatine Kinase CK-MB (CK-2) 2.03 Troponin I < 0.012 Impressions: Chest X-Ray 03/11/18 21:41 IMPRESSION: COPD. NO ACUTE RADIOGRAPHIC FINDING IN THE CHEST. Qualifiers - * PATIENT BEING DISCHARGED WITH ANY OF THE FOLLOWING DIAGNOSIS: No
[2018-03-14] MEDS ORDERED: LANSOPRAZOLE 30 MG TAB.RAP.DR PO SCH (08:00)
== END 2018-03-13 12:05 | disposition home or self-care (01) ==
LOC: ER 21:28 → EH 23:27 → 3W 03-12 01:34
PROVIDERS: ADMIT Internal Medicine; ATTEND Internal Medicine
DX: R07.9 Chest pain, unspecified (principal); J44.9 Chronic obstructive pulmonary disease, unspecified; I25.10 Atherosclerotic heart disease of native coronary artery without angina pectoris; E03.9 Hypothyroidism, unspecified; K21.9 Gastro-esophageal reflux disease without esophagitis; I10 Essential (primary) hypertension; E78.5 Hyperlipidemia, unspecified; R51 Headache; R06.02 Shortness of breath; Z79.02 Long term (current) use of antithrombotics/antiplatelets; Z79.82 Long term (current) use of aspirin; Z95.0 Presence of cardiac pacemaker; Z85.828 Personal history of other malignant neoplasm of skin; Z90.49 Acquired absence of other specified parts of digestive tract; Z87.891 Personal history of nicotine dependence; Z99.81 Dependence on supplemental oxygen; Z79.891 Long term (current) use of opiate analgesic
CPT/HCPCS: 93005; 99285; 36415 ×2; 82553 ×2; 82550 ×2; 85025; 80053; 84484 ×2; 71045; 93010; G0378 ×2; A9270 ×10; J3490 ×2

== ENCOUNTER → 2018-05-01 | Outpatient (CLI) | payer MEDICARE, OTHER ==
--- NOTE | 2018-05-01 14:36 | WOMENS IMAGING REPORT ---
EXAM DESCRIPTION: BONE DENSITY HIP/SPINE COMPLETED DATE/TIME: 05/01/2018 2:28 pm REASON FOR STUDY: OSTEOPOROSIS M81.0 AGE-RELATED OSTEOPOROSIS W/O CURRENT PATHOLOGICAL FRAC COMPARISON: 04/26/2016. TECHNIQUE: Dual-Energy X-ray Absorptiometry (DEXA) of the AP Spine and Hip. LIMITATIONS: None. FINDINGS: LUMBAR SPINE: The bone mineral density (BMD) measured from L1-L4 in the AP projection correlates with a T-score of 0.5, which is normal as defined by the World Health Organization. HIP: The bone mineral density (BMD) measured in the left hip correlates with a T-score of -2.3, which is o steopenia as defined by the World Health Organization. IMPRESSION: 1. LUMBAR SPINE: NORMAL. 2. HIP: OSTEOPENIA. COMMENT: The World Health Organization defines low BMD as follows: T-score: Normal: Greater than -1.0 Osteopenia: Between -1.0 and -2.5 Osteoporosis: Less than -2.5 without fractures Established osteoporosis: Less than -2.5 with fractures In general, you may wish to consider: Diagnosis Treatment Follow-up DEXA Normal BMD Prevention 2-3 years Osteopenia Prevention/Therapy 1-2 years Osteoporosis Therapy Yearly TECHNICAL DOCUMENTATION: JOB ID: [id number] [employer]- All Rights Reserved Reading location - IP/workstation name: [email or web address]
== END ==
LOC: WI 13:44
PROVIDERS: ATTEND Internal Medicine Hematology & Oncology
DX: M81.0 Age-related osteoporosis without current pathological fracture (principal)
CPT/HCPCS: 77080

== ENCOUNTER → 2018-05-13 | Outpatient (CLI) | payer MEDICARE, OTHER ==
--- NOTE | 2018-05-13 12:15 | WOMENS IMAGING REPORT ---
EXAM DESCRIPTION: 3D SCREENING MAMMO BILAT COMPLETED DATE/TIME: 05/13/2018 10:43 am REASON FOR STUDY: ROUTINE BILATERAL SCREENING;Z12.31 Z12.31 ENCNTR SCREEN MAMMOGRAM FOR MALIGNANT N EOPLASM OF MP COMPARISON: 05/11/2017, 05/09/2016, and 04/01/2014. TECHNIQUE: Standard craniocaudal and mediolateral oblique views of each breast recorded using digita l acquisition and breast tomosynthesis. LIMITATIONS: None. FINDINGS: Findings present which are benign by mammographic criteria. No suspicious masses, calcifi cations or architectural distortion. Pertinent benign findings: Stable circumscribed masses in the left breast. Read with the assistance of CAD. .[facility] - R2 Cenova Version 1.3 .[facility] Imaging - R2 Cenova Version 1.3 .[facility] Imaging - R2 Cenova Version 2.4 .[facility] - R2 Cenova Version 2.4 .[facility] - R2 It Admin Version 9.2 Benign mammographic findings may include one or more of the following: Smooth masses, popcorn/rim/co arse calcifications, asymmetries, post-procedure changes, and lesions with long-standing stability. IMPRESSION: BENIGN MAMMOGRAPHIC FINDINGS. BIRADS 2 BREAST DENSITY: c. The breasts are heterogeneously dense, which may obscure small masses. BIRAD: 2 BENIGN FINDING(S) RECOMMENDATION: RECOMMENDATION: ROUTINE SCREENING COMMENT: The patient has been notified of the results by letter per SA requirements. Additional no tification policies are in place for contacting patient with suspicious or incomplete findings. Quality ID #[id number]: The [employer] recommends an annual screening mammogram for women aged 40 years or over. This facility utilizes a reminder system to ensure that all patients receive reminder letters, and/or direct phone calls for appointments. This includes reminders for routine scr eening mammograms, diagnostic mammograms, or other Breast Imaging Interventions when appropriate. Th is patient will be placed in the appropriate reminder system. The [employer] (ACR) has developed recommendations for screening MRI of the breast s in certain patient populations, to be used in conjunction with mammography. Breast MRI surveillanc e may be appropriate for women with more than 20% lifetime risk of developing breast cancer as deter mined by genetic testing, significant family history of the disease, or history of mantle radiation f or Hodgkins Disease. ACR Practice Guidelines 2008. DBT Technology DBT is a type of tomographic mammography. With conventional mammography, overlapping breast tissue ma y make lesions difficult to detect, even with good compression. DBT uses an x-ray tube that rotates a round the breast, taking images at different angles. These images are then combined to create thin sl ices of the breast that the radiologist can view as a 3D reconstruction. The Hologic unit can perform full-field digital mammograms (2D imaging); or DBT (3D imaging); or both, in a combination mode that quickly performs both the mammogram and the tomosynthesis scan while the breast is still compressed. PQRS 6045F: Fluoroscopic imaging is not utilized for breast tomosynthesis. TECHNICAL DOCUMENTATION: FINDING NUMBER: (1) ASSESSMENT: (1) JOB ID: [id number] [employer]- All Rights Reserved Reading location - IP/workstation name: [email or web address]
== END ==
LOC: WI 10:11
PROVIDERS: ATTEND Internal Medicine Hematology & Oncology
DX: D24.2 Benign neoplasm of left breast (principal)
CPT/HCPCS: 77063; 77067

== ENCOUNTER → 2018-06-13 | Outpatient (CLI) | payer MEDICARE, OTHER ==
[2018-06-13 15:21] LABS: ANION GAP 10 (5-19); BLOOD UREA NITROGEN 19 mg/dL (7-20); CALCIUM 8.8 mg/dL (8.4-10.2); CARBON DIOXIDE 28 mmol/L (22-30); CHLORIDE 103 mmol/L (98-107); GLUCOSE 92 mg/dL (75-110); POTASSIUM 4.9 mmol/L (3.6-5.0); SODIUM 141.2 mmol/L (137-145)
== END ==
LOC: OD 13:58
PROVIDERS: ATTEND Internal Medicine Nephrology
DX: N28.9 Disorder of kidney and ureter, unspecified (principal); E87.5 Hyperkalemia
CPT/HCPCS: 36415; 80048

== ENCOUNTER 2018-07-03 05:07 | Inpatient (IN) | payer MEDICARE, OTHER ==
--- NOTE | 2018-07-03 05:19 | ER Document Report ---
ED Respiratory Problem - General Stated Complaint: RESPIRATORY DISTRESS Mode of Arrival: Medic Information source: Patient TRAVEL OUTSIDE OF THE [place] IN LAST 30 DAYS: No - HPI Notes: 88-year-old female with history of pacemaker placement presents with dyspnea. She awoke this morning with this. She is oxygen dependent at 2 L/min continuously. With the dyspnea she had some lower central chest discomfort. She was given a nebulizer treatment as well as placed on CPAP with Nitropaste. She transfers to the stretcher stating she is feeling so much better. Her chest discomfort is absent currently. Her PCP is Dr. Bermudez and her tech ed teacher is Dr. Maria. She denies any fever or purulent cough though she states she has had a little bit of a mild runny nose. No purulent cough noted. No radiating chest discomfort except as noted above. Initial oxygen saturation was 75% on patient's oxygen. Her blood pressure was greater than 200 /100 prior to treatment. - Related Data Allergies/Adverse Reactions: ACEINHIBITORS [DC Inhibitors] Allergy (Verified 07/03/18 05:43) latex [Latex] Allergy (Verified 07/03/18 05:43) Generalized edema Tuberculin,Ppd,Multi-Puncture [From Tuberculin PPD Jeimy Test] Allergy (Verified 07/03/18 05:43) codeine [Codeine] Adverse Reaction (Verified 07/03/18 05:43) doxycycline [Doxycycline] Adverse Reaction (Verified 07/03/18 05:43) erythromycin base [Erythromycin Base] Adverse Reaction (Verified 07/03/18 05:43) Past Medical History - Social History Smoking Status: Never Smoker Family History: Reviewed & Not Pertinent - Past Medical History Cardiac Medical History: Reports: Hx Coronary Artery Disease, Hx Hypercholesterolemia, Hx Hypertension Denies: Hx Heart Attack Pulmonary Medical History: Reports: Hx COPD Denies: Hx Asthma Neurological Medical History: Reports: Hx Migraine. Denies: Hx Cerebrovascular Accident, Hx Seizures Endocrine Medical History: Reports: Hx Hypothyroidism Renal/ Medical History: Denies: Hx Peritoneal Dialysis Malignancy Medical History: Reports: Hx Skin Cancer GI Medical History: Reports: Hx Gastritis, Hx Gastroesophageal Reflux Disease, Hx Ulcer - TREATED. Denies: Hx Hepatitis, Hx Hiatal Hernia Musculoskeletal Medical History: Reports Hx Arthritis Skin Medical History: Reports Hx Psoriasis Psychiatric Medical History: Reports: Hx Depression Infectious Medical History: Denies: Hx Hepatitis Past Surgical History: Reports: Hx Abdominal Surgery, Hx Appendectomy, Hx Breast Surgery - bx, Hx Cardiac Catheterization - 2004--DONE IN [place], WAS NOT GIVEN AND DETAILS, Hx Cardiac Surgery - pacemaker, Hx Orthopedic Surgery - rib surgery, Hx Pacemaker - DEX. Denies: Hx Mastectomy, Hx Nose Surgery, Hx Open Heart Surgery - Immunizations Immunizations up to date: No Hx Diphtheria, Pertussis, Tetanus Vaccination: Yes Hx Pneumococcal Vaccination: 10/15/07 Review of Systems - Review of Systems -: Yes All other systems reviewed and negative Physical Exam - Vital signs Vitals: Pulse Ox 100 07/03/18 05:10 - Notes Notes: Physical Exam: GENERAL: VS as per nursing doc. Well-appearing, well-nourished and in no acute distress except for some mild tachypnea. HEAD: Atraumatic, normocephalic. EYES: Pupils equal round and reactive to light, extraocular movements intact, sclera anicteric, no conjunctival injection or discharge. ENT: Nares patent, oropharynx clear without exudates. Moist mucous membranes. NECK: Normal range of motion, supple without lymphadenopathy. Borderline JVD. LUNGS: Breath sounds clear to auscultation bilaterally and equal with the exception of some mild fine crackles noted HEART: Normal S1S2. Regular rate and rhythm without murmurs. Equal peripheral pulses. ABDOMEN: Soft, non-tender exscept minimally in the epigastrium. No pulsatile mass or clear hernia. EXTREMITIES: No calf tenderness. No edema. NEUROLOGICAL: Cranial nerves grossly intact. Normal speech. Normal sensory and motor exams. No gross cerebellar abnormalities. PSYCH: Normal mood, normal affect. SKIN: Warm, dry, no cyanosis, Cap refill < 2 sec. Course - Re-evaluation Re-evalutation: 07/03/18 08:[address] Lainez who will evaluate for admission. - Vital Signs Vital signs: Temp Pulse Resp BP Pulse Ox 98.2 F 23 H 126/77 H 100 07/03/18 05:19 07/03/18 07:01 07/03/18 07:01 07/03/18 07:01 - Laboratory Result Diagrams: 07/03/18 05:20 07/03/18 05:20 Laboratory results interpreted by me: 07/03/18 07/03/18 07/03/18 05:20 05:20 05:20 Hgb 11.5 L Hct 34.7 L Carbonic Acid ABG pCO2 ABG HCO3 ABG Total CO2 Carbon Dioxide 32 H Est GFR ( Amer) 50 L Est GFR (Non-Af Amer) 41 L Glucose 120 H Direct Bilirubin 0.5 H AST 61 H NT-Pro-B Natriuret Pep 43809 H Urine Protein Urine Blood Ur Leukocyte Esterase 07/03/18 07/03/18 06:48 07:40 Hgb Hct Carbonic Acid 1.39 H ABG pCO2 46.3 H ABG HCO3 27.0 H ABG Total CO2 28.4 H Carbon Dioxide Est GFR ( Amer) Est GFR (Non-Af Amer) Glucose Direct Bilirubin AST NT-Pro-B Natriuret Pep Urine Protein 30 H Urine Blood SMALL H Ur Leukocyte Esterase TRACE H - EKG Interpretation by Hi Rhythm: Other - AV dual paced complexes. Wide QRS. Heart rate interpreted incorrectly appears closer to 70. Discharge - Discharge Clinical Impression: Pneumonia, Dyspnea, Chest pain Condition: Good Disposition: ADMITTED INPATIENT Admitting Provider: Hospitalist Unit Admitted: Medical Floor Referrals: MARQUIS HYATT MD [Primary Care Provider] - Follow up as needed
[2018-07-03 05:29] LABS: ABSOLUTE BASOPHILS # (AUTO) 0.1 10^3/uL (0.0-0.2); ABSOLUTE EOSINOPHILS # (AUTO) 0.4 10^3/uL (0.0-0.6); ABSOLUTE LYMPHOCYTES (AUTO) 1.7 10^3/uL (0.5-4.7); ABSOLUTE MONOCYTES (AUTO) 0.6 10^3/uL (0.1-1.4); ABSOLUTE NEUT (AUTO) 5.3 10^3/uL (1.7-8.2); BASOPHILS % (AUTO) 0.7 % (0-2); EOSINOPHILS % (AUTO) 5.3 % (0-6); HEMATOCRIT 34.7 % (36.0-47.0); HEMOGLOBIN 11.5 g/dL (12.0-15.5); LYMPHOCYTES % (AUTO) 20.9 % (13-45); MEAN CORPUSCULAR HEMOGLOBIN 30.4 pg (27.0-33.4); MEAN CORPUSCULAR HGB CONC 33.1 g/dL (32.0-36.0); MEAN CORPUSCULAR VOLUME 92 fl (80-97); PLATELET COUNT 231 10^3/uL (150-450); RED BLOOD COUNT 3.78 10^6/uL (3.72-5.28); RED CELL DISTRIBUTION WIDTH 13.7 % (11.5-14.0); SEGMENTED NEUTROPHILS % (AUTO) 65.1 % (42-78); TOTAL CELLS COUNTED % (AUTO) 100 %; WHITE BLOOD COUNT 8.1 10^3/uL (4.0-10.5)
[2018-07-03] MEDS ORDERED: FENTANYL 50 MCG/HR PATCH.TD72 TD ONE (05:29)
[2018-07-03 05:48] LABS: ALANINE AMINOTRANSFERASE 27 U/L (9-52); ALBUMIN 3.9 g/dL (3.5-5.0); ALKALINE PHOSPHATASE 56 U/L (38-126); ANION GAP 7 (5-19); ASPARTATE AMINO TRANSFERASE 61 U/L (14-36); BILIRUBIN,DIRECT 0.5 mg/dL (0.0-0.4); BILIRUBIN,TOTAL 0.8 mg/dL (0.2-1.3); BLOOD UREA NITROGEN 20 mg/dL (7-20); CALCIUM 9.1 mg/dL (8.4-10.2); CARBON DIOXIDE 32 mmol/L (22-30); CHLORIDE 99 mmol/L (98-107); GLUCOSE 120 mg/dL (75-110); POTASSIUM 4.6 mmol/L (3.6-5.0); SODIUM 138.4 mmol/L (137-145)
[2018-07-03 05:58] LABS: TROPONIN I 0.022 ng/mL
[2018-07-03 07:04] LABS: APPEARANCE,URINE CLEAR; BILIRUBIN,URINE NEGATIVE (NEGATIVE); COLOR,URINE YELLOW; GLUCOSE, URINE NEGATIVE (NEGATIVE); KETONES,URINE NEGATIVE (NEGATIVE); LEUKOCYTE ESTERASE,URINE TRACE (NEGATIVE); NITRITE,URINE NEGATIVE (NEGATIVE); PROTEIN,URINE 30 mg/dL (NEGATIVE); URINE SPECIFIC GRAVITY 1.005; UROBILINOGEN,URINE NEGATIVE mg/dL (<2.0)
--- NOTE | 2018-07-03 07:15 | RADIOLOGY REPORT (SQ) ---
EXAM DESCRIPTION: X-ray single view chest CLINICAL HISTORY: 88 years Female, Dyspnea COMPARISON: Prior chest x-ray performed on 03/11/2018 TECHNIQUE: Single portable view of the chest performed on 07/03/2018 at 6:15 AM FINDINGS: The lungs are hyperinflated. There is new patchy airspace disease in the right inferior hemithorax suspicious for a possible pneumonic infiltrate. There is mild patchy parenchymal opacification in the left inferior hemithorax which may be due to atelectasis or inflammatory changes. There is no evidence of a pneumothorax. The cardiac silhouette is mildly enlarged and may be accentuated by the portable technique. There is a grossly stable left subclavian bipolar pacemaker. The mediastinal contours are normal. No acute osseous abnormality is identified. There are multiple old right-sided rib fractures. There are degenerative changes of the visualized spine. No focal soft tissue abnormalities are seen. IMPRESSION: 1. Patchy airspace disease in the right inferior hemithorax suspicious for a pneumonic infiltrate. 2. Probable atelectasis, fibrosis or inflammatory changes in the left lung base. 3. Prominence of the cardiac silhouette which may be accentuated by the portable technique. 4. Grossly stable bipolar pacemaker.
[2018-07-03] MEDS ORDERED: LEVOFLOXACIN 750 MG/D5W RTU 750 MG/150 ML RTUPB IV ONE (07:20)
[2018-07-03] MEDS ORDERED: CEFTRIAXONE 1 GM/D5W RTU 1 GM/50 ML RTUPB IV ONE (07:38)
[2018-07-03] MEDS ORDERED: CEFTRIAXONE INJ 1000 MG VIAL ONE (07:45)
[2018-07-03 07:56] LABS: ARTERIAL BLOOD BASE EXCESS 1.5 mmol/L; ARTERIAL BLOOD H2CO3 1.39 mmol/L (1.05-1.35); ARTERIAL BLOOD O2 SATURATION 97.4 % (94-98); ARTERIAL BLOOD PCO2 46.3 mmHg (35-45); ARTERIAL BLOOD PH 7.38 (7.35-7.45); ARTERIAL BLOOD PO2 99.6 mmHg (80-100); ARTERIAL BLOOD TOTAL CO2 28.4 mmol/L (21-25)
[2018-07-03 07:58] LABS: ARTERIAL BLOOD FIO2 2L
--- NOTE | 2018-07-03 11:45 | EKG REPORT ---
SEVERITY:- ABNORMAL ECG - A-V DUAL-PACED COMPLEXES W/ SOME INHIBITION PVC : Confirmed by: Jadyn Farmer MD 03-Jul-2018 11:44:25
[2018-07-03] MEDS ORDERED: NIFEDIPINE 30 MG TAB.ER.24 PO PRN (13:53)
[2018-07-03] MEDS ORDERED: ALBUTEROL SULFATE HFA (90 MCG/PUFF) 8 GM MDI (1 MDI/ER DISP) IH PRN (13:53)
[2018-07-03] MEDS ORDERED: LEVOTHYROXINE SODIUM 0.075 MG TABLET PO SCH (14:00)
[2018-07-03] MEDS ORDERED: (PENDING PHARMACY ID) (Paroxetine Hcl [Paxil] 10 MG) PO SCH (14:00)
[2018-07-03] MEDS ORDERED: CEFTRIAXONE 1 GM/D5W RTU 50 ML IV SCH (14:00)
[2018-07-03] MEDS ORDERED: ALBUTEROL SULFATE HFA (90 MCG/PUFF) 200 PUFF/8.5 GM MDI IH PRN (14:27)
[2018-07-03] MEDS ORDERED: ASPIRIN 81 MG TABLET, ENT COATED PO SCH (15:00)
--- NOTE | 2018-07-03 15:24 | RADIOLOGY REPORT (SQ) ---
EXAM DESCRIPTION: CT CHEST WITHOUT COMPLETED DATE/TIME: 07/03/2018 3:11 pm REASON FOR STUDY: PNEUMONIA COMPARISON: Report from 2013 study. Radiographs from earlier today. TECHNIQUE: CT scan performed of the chest without intravenous contrast. Images reviewed with lung, soft tissue and bone windows. Reconstructed coronal and sagittal MPR images reviewed. All images st ored on PACS. All CT scanners at this facility use dose modulation, iterative reconstruction, and/or weight based d osing when appropriate to reduce radiation dose to as low as reasonably achievable (ALARA). [facility]: Dose Right [facility]: CareDose [facility]: Dose Right [facility]: Teradose 4D [facility]: Smart [employer] RADIATION DOSE: CT Rad equipment meets quality standard of care and radiation dose reduction techniq ues were employed. CTDIvol: 6.0 mGy. DLP: 225 mGy-cm. mGy. LIMITATIONS: No technical limitations. FINDINGS: LUNGS AND PLEURA: Hyperinflated lungs, suspect COPD. Fairly small- moderate bilateral ple ural effusions. Mild areas of streaky linear subsegmental atelectasis. HILAR AND MEDIASTINAL STRUCTURES: No identified masses or abnormal nodes. No obvious aneurysm. HEART AND VASCULAR STRUCTURES: Cardiac enlargement. No pericardial effusion. No suggestion of aorti c aneurysm. Prominent central pulmonary arteries may be related to pulmonary arterial hypertension. Moderate coronary calcification. Pacer artifact. UPPER ABDOMEN: Chronic small left adrenal adenoma. THYROID AND OTHER SOFT TISSUES: No masses. No adenopathy. BONES: Osteopenic in generally kyphotic without focal compression fracture evident. Old rib and ster nal fractures. HARDWARE: As above. OTHER: No other significant findings. IMPRESSION: 1. Bilateral effusions. No definite pneumonia. Other findings as above. TECHNICAL DOCUMENTATION: JOB ID: [id number] Quality ID # [id number]: Final reports with documentation of one or more dose reduction techniques (e.g., Au tomated exposure control, adjustment of the mA and/or kV according to patient size, use of iterative reconstruction technique) 2010 [employer]- All Rights Reserved Reading location - IP/workstation name: [email or web address]
[2018-07-03 15:25] LABS: CREATINE KINASE MB 3.12 ng/mL (<4.55)
[2018-07-03] MEDS: METOPROLOL TARTRATE 25 MG TABLET PO SCH ×2 (15:28→21:37)
[2018-07-03 15:40] LABS: TROPONIN I 0.333 ng/mL
[2018-07-03] MEDS ORDERED: CEFTRIAXONE SODIUM 1,000 MG in NORMAL SALINE 50 ML IV SCH (16:00)
--- NOTE | 2018-07-03 17:01 | PDOC H&P ---
History of Present Illness Admission Date/PCP: 07/03/18 08:08 MARQUIS HYATT MD History of Present Illness: MAIRA ALVAREZ is a 88 year old female,She came to the emergency room for evaluation of progressive shortness of breath for the last 7 days, there is associated epigastric pain, she also described a feeling of some heaviness in the chest. In the emergency room a chest x-ray was done, it demonstrated hyperinflated lungs also found was a new patchy airspace disease in the right inferior hemithorax suspicious for possible pneumonic infiltrate. There is mild patchy parenchyma opacification in the left inferior hemithorax findings on the chest x-ray was suspicious for pneumonia, the arterial blood gas on FiO2 2 L, pH 7.38, PO2 99.6, PCO2 46.3, bicarbonate 27. CT chest without contrast was normal, he demonstrated hyperinflated lungs, fairly small to moderate bilateral pleural effusions. Mild area of streaky linear subsegmental atelectasis., The BNP is elevated, suggesting CHF,though there are possible other differential diagnosis.,The CT scan of the lung did not demonstrate any pneumonia, that was suspected on chest x-ray Past Medical History Cardiac Medical History: Reports: Coronary Artery Disease, Hyperlipidema, Hypertension Pulmonary Medical History: Reports: Chronic Obstructive Pulmonary Disease (COPD) Neurological Medical History: Reports: Migraine Endocrine Medical History: Reports: Hypothyroidism, Other - Osteoporosis Malignancy Medical History: Reports: Skin Cancer GI Medical History: Reports: Gastroesophageal Reflux Disease Musculoskeltal Medical History: Reports: Arthritis Skin Medical History: Reports: Psoriasis Psychiatric Medical History: Reports: Depression Past Surgical History Past Surgical History: Reports: Appendectomy, Cardiac Catheterization - 2003-- DONE IN [place], WAS NOT GIVEN AND DETAILS, Orthopedic Surgery - rib surgery, Pacemaker - DEX Denies: Mastectomy Social History Smoking Status: Never Smoker Frequency of Alcohol Use: None Hx Recreational Drug Use: No Hx Prescription Drug Abuse: No Family History Family History: Reviewed & Not Pertinent Parental Family History Reviewed: Yes Children Family History Reviewed: Yes Sibling(s) Family History Reviewed.: Yes Medication/Allergy Home Medications: Fentanyl [Duragesic 50 Mcg/Hr Transdermal Patch] 1 each TD Q48H MDD PREFERS MYLAN BRAND 01/11/13 Levothyroxine Sodium [Synthroid 0.075 mg Tablet] 0.075 mg PO Q6AM 01/11/13 Metoprolol Tartrate [Lopressor 25 mg Tablet] 25 mg PO Q12 01/11/13 Nifedipine [Nifedipine ER] 30 mg PO DAILYP PRN 01/11/13 Paroxetine HCl [Paxil] 10 mg PO DAILY 01/11/13 Clopidogrel Bisulfate [Plavix 75 mg Tablet] 75 mg PO QHS 07/27/13 Pravastatin Sodium [Pravachol] 40 mg PO QHS 07/27/13 Albuterol Sulfate [Proair HFA] 2 puff IH Q4HP PRN 01/14/16 Biotin 1 mg PO DAILY 01/14/16 Fluticasone/Salmeterol [Advair 250-50 Diskus 28 dose] 1 inh IH Q12 01/14/16 Aspirin [Aspirin EC] 81 mg PO DAILY 03/12/18 Carboxymethylcellulose Sodium [Refresh Plus 0.5% Oph Soln 0.4 ml Droperette] 1 drop OU QHS 03/12/18 Cholecalciferol (Vitamin D3) [Vitamin D3 5000 unit Capsule] 5,000 unit PO DAILY 03/12/18 Omeprazole 40 mg PO Q6AM 03/12/18 Polyvinyl Alcohol/Povidone/Pf [Refresh Classic Eye Drops] 1 each OU BID Allergies/Adverse Reactions: ACEINHIBITORS [DC Inhibitors] Allergy (Verified 07/03/18 05:43) latex [Latex] Allergy (Verified 07/03/18 05:43) Generalized edema Tuberculin,Ppd,Multi-Puncture [From Tuberculin PPD Jeimy Test] Allergy (Verified 07/03/18 05:43) codeine [Codeine] Adverse Reaction (Verified 07/03/18 05:43) doxycycline [Doxycycline] Adverse Reaction (Verified 07/03/18 05:43) erythromycin base [Erythromycin Base] Adverse Reaction (Verified 07/03/18 05:43) levofloxacin [From Levaquin] Adverse Reaction (Verified 07/03/18 12:14) Dizziness Review of Systems Constitutional: ABSENT: chills, fever(s), headache(s), weight gain, weight loss Eyes: ABSENT: visual disturbances Ears: ABSENT: hearing changes Cardiovascular: PRESENT: chest pain, dyspnea on exertion Respiratory: ABSENT: cough, hemoptysis Gastrointestinal: ABSENT: abdominal pain, constipation, diarrhea, hematemesis, hematochezia, nausea, vomiting Genitourinary: ABSENT: dysuria, hematuria Musculoskeletal: ABSENT: joint swelling Integumentary: ABSENT: rash, wounds Neurological: ABSENT: abnormal gait, abnormal speech, confusion, dizziness, focal weakness, syncope Psychiatric: ABSENT: anxiety, depression, homidical ideation, suicidal ideation Endocrine: ABSENT: cold intolerance, heat intolerance, menstrual abnormalities, polydipsia, polyuria Hematologic/Lymphatic: ABSENT: easy bleeding, easy bruising, lymphadenopathy Physical Exam Vital Signs: Temp Pulse Resp BP Pulse Ox 98.2 F 76 14 114/73 100 07/03/18 05:19 07/03/18 12:12 07/03/18 15:01 07/03/18 15:01 07/03/18 15:01 Intake & Output 07/02/18 07/03/18 07/04/18 06:59 06:59 06:59 Intake Total 50 Output Total 700 Balance -650 General appearance: PRESENT: mild distress Head exam: PRESENT: atraumatic, normocephalic Eye exam: PRESENT: conjunctiva pink, EOMI, PERRLA Ear exam: PRESENT: normal external ear exam Mouth exam: PRESENT: moist, tongue midline Neck exam: PRESENT: full ROM Respiratory exam: PRESENT: decreased breath sounds, rhonchi Cardiovascular exam: PRESENT: RRR, +S1, +S2 Pulses: PRESENT: normal dorsalis pedis pul, +2 pedal pulses bilateral Vascular exam: PRESENT: normal capillary refill GI/Abdominal exam: PRESENT: normal bowel sounds, soft Rectal exam: PRESENT: deferred Neurological exam: PRESENT: alert, CN II-XII grossly intact Psychiatric exam: PRESENT: appropriate affect, normal mood Skin exam: PRESENT: dry, intact, warm Results Laboratory Results: 07/03/18 07/03/18 14:47 14:47 Creatine Kinase 141 H CK-MB (CK-2) 3.12 Troponin I 0.333 NT-Pro-B Natriuret Pep [id number] H Impressions: Chest CT 07/03/18 00:00 IMPRESSION: 1. Bilateral effusions. No definite pneumonia. Other findings as above. Chest X-Ray 07/03/18 05:19 IMPRESSION: 1. Patchy airspace disease in the right inferior hemithorax suspicious for a pneumonic infiltrate. 2. Probable atelectasis, fibrosis or inflammatory changes in the left lung base. 3. Prominence of the cardiac silhouette which may be accentuated by the portable technique. 4. Grossly stable bipolar pacemaker. Assessment & Plan - Diagnosis (1) Non-ST elevated myocardial infarction Is this a current diagnosis for this admission?: Yes Plan: The chief presenting complaint is progressive shortness of breath for the last 7 days, the differential diagnosis includes COPD, ischemic heart disease, pulmonary hypertension, pulmonary embolism, pneumonia. the presentation does not suggest pneumonia, she has no fever, she has no cough, she has no leukocytosis, the initial chest x-ray suggests pneumonia but a subsequent CT scan of the chest was negative for pneumonia. The BNP is elevated, this could be elevated also in COPD, CHF, she also had elevated serum troponin ,that suggest PR she also complained of chest pain, epigastric pain, chest pressure heart disease ,suggestive of ischemic heart disease (2) COPD (chronic obstructive pulmonary disease) Qualifiers: COPD type: unspecified COPD Qualified Code(s): J44.9 - Chronic obstructive pulmonary disease, unspecified Is this a current diagnosis for this admission?: Yes (3) Bilateral pleural effusion Is this a current diagnosis for this admission?: Yes Plan: This is probably due to CHF, thoracentesis will be ordered, 2D echo will be ordered, she would not be treated with anti-ischemic drug for now until thoracentesis done.
[2018-07-03 18:39] LABS: INTERNATIONAL RATION (INR) 0.97; PROTHROMBIN TIME 13.4 SEC (11.4-15.4)
[2018-07-03 18:40] LABS: PARTIAL THROMBOPLASTIN TIME 27.6 SEC (23.5-35.8)
[2018-07-03] MEDS: IPRATROPIUM/ALBUTEROL 0.5-2.5 MG/3 ML AMPUL NEB PRN (18:44)
[2018-07-03 18:55] LABS: ALANINE AMINOTRANSFERASE 36 U/L (9-52); ALBUMIN 3.1 g/dL (3.5-5.0); ALKALINE PHOSPHATASE 51 U/L (38-126); ANION GAP 5 (5-19); ASPARTATE AMINO TRANSFERASE 32 U/L (14-36); BILIRUBIN,DIRECT 0.2 mg/dL (0.0-0.4); BILIRUBIN,TOTAL 0.4 mg/dL (0.2-1.3); BLOOD UREA NITROGEN 17 mg/dL (7-20); CALCIUM 8.8 mg/dL (8.4-10.2); CARBON DIOXIDE 31 mmol/L (22-30); CHLORIDE 102 mmol/L (98-107); GLUCOSE 104 mg/dL (75-110); POTASSIUM 4.4 mmol/L (3.6-5.0); SODIUM 138.2 mmol/L (137-145); TOTAL PROTEIN 5.3 g/dL (6.3-8.2)
--- NOTE | 2018-07-03 18:55 | XCELERA REPORT ---
[address] [address] Transthoracic Echocardiogram Report Name: MAIRA ALVAREZ Age: 88 yrs Gender: Female : 1930 Patient Status: Inpatient Patient Location: [place] [id number] Study Date: 07/03/2018 05:26 PM Height: 59 in Weight: 125 lb BSA: 1.5 m2 Procedure: A complete two-dimensional transthoracic echocardiogram was performed (2D, M-mode, spectral and color flow Doppler). The study was technically difficult with many images being suboptimal in quality. Reason For Study: shortness of breath ,hgh BNP Ordering Physician: LISA OSCAR Performed By: Tegan Fleming Interpretation Summary LV EF is 45% Left ventricular systolic function is mildly reduced. There is mild concentric left ventricular hypertrophy. The left ventricle is grossly normal size. Doppler measurements suggest reversible restrictive left ventricular relaxation, which is associated with grade III/IV or moderate diastolic dysfunction Regional wall motion abnormalities cannot be excluded due to limited visualization. The right ventricle is mild to moderately dilated. The right ventricular systolic function is normal. The right atrium is mildly dilated. The left atrial size is normal. There is a mild amount of mitral regurgitation There is no mitral valve stenosis. There is a mild to moderate amount of aortic regurgitation There is no aortic valve stenosis There is a mild amount of tricuspid regurgitation There is moderate pulmonary hypertension by echo Right ventricular systolic pressure is estimated to be elevated at 40-50mmHg. The aortic root is not well visualized. The inferior vena cava was not well visualized Minimal pericardial effusion. MMode/2D Measurements & Calculations RVDd: 2.2 cm LVIDd: 4.0 cm FS: 29.1 % Ao root diam: 2.7 cm IVSd: 0.81 cm LVIDs: 2.9 cm EDV(Teich): 72.0 ml Ao root area: 5.5 cm2 LVPWd: 0.97 cm ESV(Teich): 31.4 ml LA dimension: 3.0 cm EF(Teich): 56.4 % Doppler Measurements & Calculations MV E max rachid: MV P1/2t max rachid: Ao V2 max: AI max rachid: 95.3 cm/sec 124.3 cm/sec 98.2 cm/sec 467.4 cm/sec MV A max rachid: MV P1/2t: 46.7 msec Ao max PG: AI max P.9 cm/sec MVA(P1/2t): 4.7 cm2 3.9 mmHg 87.4 mmHg MV E/A: 1.9 MV dec slope: AI dec slope: 210.2 cm/sec2 778.8 cm/sec2 AI P1/2t: MV dec time: 0.15 sec 651.2 msec LV V1 max PG: PA V2 max: PI end-d rachid: TR max rachid: 1.5 mmHg 93.7 cm/sec 93.7 cm/sec 319.1 cm/sec LV V1 max: PA max P.5 mmHg TR max P.4 cm/sec 40.7 mmHg AV P1/2t-pr_phl: MV P1/2t-pr_phl: 658.1 msec 46.7 msec Left Ventricle The left ventricle is grossly normal size. There is mild concentric left ventricular hypertrophy. Left ventricular systolic function is mildly reduced. LV EF is 45%. Doppler measurements suggest reversible restrictive left ventricular relaxation, which is associated with grade III/IV or moderate diastolic dysfunction. Regional wall motion abnormalities cannot be excluded due to limited visualization. Right Ventricle The right ventricle is mild to moderately dilated. There is normal right ventricular wall thickness. The right ventricular systolic function is normal. Atria The right atrium is mildly dilated. The left atrial size is normal. Interarterial septum not well visualized and not well dopplered. Cannot comment on ASD/PFO presence. Mitral Valve The mitral valve is grossly normal. There is no mitral valve stenosis. There is a mild amount of mitral regurgitation. Aortic Valve The aortic valve is not well visualized secondary to technical limitations. There is no aortic valve stenosis. There is a mild to moderate amount of aortic regurgitation. Tricuspid Valve The tricuspid valve is not well visualized secondary to technical limitations. There is no tricuspid stenosis. There is a mild amount of tricuspid regurgitation. There is moderate pulmonary hypertension by echo. Right ventricular systolic pressure is estimated to be elevated at 40-50mmHg. Pulmonic Valve The pulmonic valve is not well visualized. Great Vessels The aortic root is not well visualized. The inferior vena cava was not well visualized. Effusions Minimal pericardial effusion. : LISA OSCAR > Russ Goodman
[2018-07-03] MEDS: ATORVASTATIN CALCIUM 10 MG TABLET PO SCH (21:37)
[2018-07-03] MEDS: ASPIRIN 81 MG TABLET, ENT COATED PO SCH (21:38)
[2018-07-03] MEDS: FLUTICASONE/SALMETEROL DISKUS 250-50 MCG/DOSE IH SCH (21:38)
[2018-07-03] MEDS ORDERED: (PENDING PHARMACY ID) (Pravastatin Sodium [Pravachol] 40 MG) PO SCH (22:00)
[2018-07-04] MEDS: IPRATROPIUM/ALBUTEROL 0.5-2.5 MG/3 ML AMPUL NEB PRN ×3 (04:26→17:43)
[2018-07-04 04:43] LABS: APPEARANCE,URINE SLIGHTLY-CLOUDY; BILIRUBIN,URINE NEGATIVE (NEGATIVE); COLOR,URINE YELLOW; GLUCOSE, URINE NEGATIVE (NEGATIVE); KETONES,URINE NEGATIVE (NEGATIVE); LEUKOCYTE ESTERASE,URINE TRACE (NEGATIVE); NITRITE,URINE NEGATIVE (NEGATIVE); PROTEIN,URINE NEGATIVE (NEGATIVE); URINE SPECIFIC GRAVITY 1.011; UROBILINOGEN,URINE NEGATIVE mg/dL (<2.0)
[2018-07-04 05:20] LABS: ABSOLUTE EOSINOPHILS # (AUTO) 0.3 10^3/uL (0.0-0.6); ABSOLUTE LYMPHOCYTES (AUTO) 1.5 10^3/uL (0.5-4.7); ABSOLUTE MONOCYTES (AUTO) 0.7 10^3/uL (0.1-1.4); ABSOLUTE NEUT (AUTO) 4.7 10^3/uL (1.7-8.2); BASOPHILS % (AUTO) 0.6 % (0-2); EOSINOPHILS % (AUTO) 4.7 % (0-6); HEMATOCRIT 33.4 % (36.0-47.0); HEMOGLOBIN 11.1 g/dL (12.0-15.5); LYMPHOCYTES % (AUTO) 20.4 % (13-45); MEAN CORPUSCULAR HEMOGLOBIN 30.3 pg (27.0-33.4); MEAN CORPUSCULAR HGB CONC 33.3 g/dL (32.0-36.0); MEAN CORPUSCULAR VOLUME 91 fl (80-97); MONOCYTES % (AUTO) 9.6 % (3-13); PLATELET COUNT 182 10^3/uL (150-450); RED BLOOD COUNT 3.67 10^6/uL (3.72-5.28); RED CELL DISTRIBUTION WIDTH 13.6 % (11.5-14.0); SEGMENTED NEUTROPHILS % (AUTO) 64.7 % (42-78); TOTAL CELLS COUNTED % (AUTO) 100 %; WHITE BLOOD COUNT 7.2 10^3/uL (4.0-10.5)
[2018-07-04 05:26] LABS: INTERNATIONAL RATION (INR) 0.94; PROTHROMBIN TIME 13.1 SEC (11.4-15.4)
[2018-07-04 05:27] LABS: PARTIAL THROMBOPLASTIN TIME 28.8 SEC (23.5-35.8)
[2018-07-04 05:45] LABS: ALANINE AMINOTRANSFERASE 35 U/L (9-52); ALBUMIN 3.4 g/dL (3.5-5.0); ALKALINE PHOSPHATASE 55 U/L (38-126); ANION GAP 8 (5-19); ASPARTATE AMINO TRANSFERASE 45 U/L (14-36); BILIRUBIN,DIRECT 0.5 mg/dL (0.0-0.4); BILIRUBIN,TOTAL 0.8 mg/dL (0.2-1.3); BLOOD UREA NITROGEN 18 mg/dL (7-20); CARBON DIOXIDE 31 mmol/L (22-30); CHLORIDE 99 mmol/L (98-107); GLUCOSE 125 mg/dL (75-110); POTASSIUM 4.7 mmol/L (3.6-5.0); SODIUM 137.9 mmol/L (137-145); TOTAL PROTEIN 6.1 g/dL (6.3-8.2)
[2018-07-04] MEDS: LEVOTHYROXINE SODIUM 0.075 MG TABLET PO SCH (05:47)
[2018-07-04] MEDS: LANSOPRAZOLE 30 MG TAB.RAP.DR PO SCH (05:47)
[2018-07-04] MEDS ORDERED: ALBUTEROL SULFATE HFA (90 MCG/PUFF) 8 GM MDI (1 MDI/ER DISP) IH PRN (08:37)
[2018-07-04] MEDS ORDERED: (PENDING PHARMACY ID) (Pravastatin Sodium [Pravachol] 40 MG) PO SCH (08:45)
[2018-07-04] MEDS: ENOXAPARIN SODIUM INJ 40 MG/0.4 ML DISP.SYRIN SUBCUT SCH (09:21)
[2018-07-04] MEDS: CEFTRIAXONE SODIUM 1,000 MG in NORMAL SALINE 50 ML IV SCH (09:21)
[2018-07-04] MEDS: CHOLECALCIFEROL (D3) 1,000 UNIT TABLET PO SCH (09:21)
[2018-07-04] MEDS: PAROXETINE HCL 20 MG TABLET PO SCH (09:22)
[2018-07-04] MEDS: FLUTICASONE/SALMETEROL DISKUS 250-50 MCG/DOSE IH SCH ×2 (09:23→22:09)
[2018-07-04] MEDS: METOPROLOL TARTRATE 25 MG TABLET PO SCH (09:23)
[2018-07-04] MEDS ORDERED: LEVOFLOXACIN 750 MG/D5W RTU 750 MG/150 ML RTUPB IV SCH (10:00)
[2018-07-04] MEDS ORDERED: (PENDING PHARMACY ID) (Paroxetine Hcl [Paxil] 10 MG) PO SCH (10:00)
[2018-07-04] MEDS ORDERED: METOPROLOL TARTRATE 25 MG TABLET PO SCH (10:00)
[2018-07-04] MEDS ORDERED: FLUTICASONE/SALMETEROL DISKUS 250-50 MCG/DOSE IH SCH (10:00)
[2018-07-04] MEDS ORDERED: (PENDING PHARMACY ID) (Cholecalciferol (Vitamin D3) [Vitamin D3] 5,000 UNIT) PO SCH (10:00)
[2018-07-04] MEDS ORDERED: FUROSEMIDE 40 MG TABLET PO SCH (18:00)
--- NOTE | 2018-07-04 19:49 | PDOC PROGRESS REPORT ---
Subjective Progress Note for:: 07/04/18 Subjective:: Patient was seen by the bedside, 2D echo was done yesterday when she presented to the emergency room with symptoms of progressive shortness of breath, the 2D echo demonstrated estimated ejection fraction of left ventricle about 45% with associated grade 3 diastolic dysfunction of the left ventricle there is also moderate pulmonary hypertension. Patient is very symptomatic with shortness of breath on very minimal exertion, the combination of combined systolic and diastolic heart failure with very severe. COPD and secondary pulmonary hypertension with estimated shortness of breath. She has pleural effusion she was supposed to have thoracentesis but because she is on Plavix this was held Reason For Visit: PNEUMONIA,EPIGASTRIC PAIN Physical Exam Vital Signs: Temp Pulse Resp BP Pulse Ox 98.2 F 70 18 106/61 98 07/04/18 15:54 07/04/18 17:43 07/04/18 17:43 07/04/18 15:54 07/04/18 17:43 Intake & Output 07/03/18 07/04/18 07/05/18 06:59 06:59 06:59 Intake Total 550 598 Output Total 1450 1700 Balance -900 -1102 Weight 55.1 kg General appearance: PRESENT: mild distress Eye exam: PRESENT: PERRLA Respiratory exam: PRESENT: decreased breath sounds Cardiovascular exam: PRESENT: +S1, +S2 GI/Abdominal exam: PRESENT: soft Neurological exam: PRESENT: alert Results Laboratory Results: 07/04/18 04:43 07/04/18 04:43 07/04/18 07/04/18 07/04/18 04:15 04:43 04:43 WBC 7.2 RBC 3.67 L Hgb 11.1 L Hct 33.4 L MCV 91 MCH 30.3 MCHC 33.3 RDW 13.6 Plt Count 182 Seg Neutrophils % 64.7 Lymphocytes % 20.4 Monocytes % 9.6 Eosinophils % 4.7 Basophils % 0.6 Absolute Neutrophils 4.7 Absolute Lymphocytes 1.5 Absolute Monocytes 0.7 Absolute Eosinophils 0.3 Absolute Basophils 0.0 Sodium 137.9 Potassium 4.7 Chloride 99 Carbon Dioxide 31 H Anion Gap 8 BUN 18 Creatinine 1.22 Est GFR ( Amer) 50 L Est GFR (Non-Af Amer) 42 L Glucose 125 H Calcium 9.0 Total Bilirubin 0.8 AST 45 H ALT 35 Alkaline Phosphatase 55 Total Protein 6.1 L Albumin 3.4 L Urine Color YELLOW Urine Appearance SLIGHTLY-CLOUDY Urine pH 5.0 Ur Specific [place] 1.011 Urine Protein NEGATIVE Urine Glucose (UA) NEGATIVE Urine Ketones NEGATIVE Urine Blood SMALL H Urine Nitrite NEGATIVE Ur Leukocyte Esterase TRACE H Urine WBC (Auto) 12 Urine RBC (Auto) 2 07/03/18 07/03/18 14:47 14:47 Creatine Kinase 141 H CK-MB (CK-2) 3.12 Troponin I 0.333 NT-Pro-B Natriuret Pep [id number] H Impressions: Chest CT 07/03/18 00:00 IMPRESSION: 1. Bilateral effusions. No definite pneumonia. Other findings as above. Chest X-Ray 07/03/18 05:19 IMPRESSION: 1. Patchy airspace disease in the right inferior hemithorax suspicious for a pneumonic infiltrate. 2. Probable atelectasis, fibrosis or inflammatory changes in the left lung base. 3. Prominence of the cardiac silhouette which may be accentuated by the portable technique. 4. Grossly stable bipolar pacemaker. Assessment & Plan - Diagnosis (1) Non-ST elevated myocardial infarction Is this a current diagnosis for this admission?: Yes (2) COPD (chronic obstructive pulmonary disease) Qualifiers: COPD type: unspecified COPD Qualified Code(s): J44.9 - Chronic obstructive pulmonary disease, unspecified Is this a current diagnosis for this admission?: Yes (3) Bilateral pleural effusion Is this a current diagnosis for this admission?: Yes (4) Acute combined systolic and diastolic heart failure Is this a current diagnosis for this admission?: Yes Plan: She has combined systolic and diastolic heart failure, patient will be started on entresto , furosemide, She is very symptomatic she follows with a local anesthesiologists' assistant Dr. Maria of [facility] physician [facility]. The shortness of breath is from combination of many factors including acute systolic and diastolic heart failure, COPD, pulmonary hypertension (5) Pulmonary hypertension Is this a current diagnosis for this admission?: Yes
[2018-07-04] MEDS ORDERED: METOPROLOL SUCCINATE 50 MG TAB.SR.24H PO SCH (21:00)
[2018-07-04] MEDS: SACUBITRIL/VALSARTAN 24 MG/26 MG TABLET PO SCH (22:08)
[2018-07-04] MEDS: ASPIRIN 81 MG TABLET, ENT COATED PO SCH (22:08)
[2018-07-04] MEDS: ATORVASTATIN CALCIUM 10 MG TABLET PO SCH (22:08)
[2018-07-05 05:46] LABS: ABSOLUTE EOSINOPHILS # (AUTO) 0.2 10^3/uL (0.0-0.6); ABSOLUTE MONOCYTES (AUTO) 0.7 10^3/uL (0.1-1.4); ABSOLUTE NEUT (AUTO) 5.4 10^3/uL (1.7-8.2); BASOPHILS % (AUTO) 0.6 % (0-2); EOSINOPHILS % (AUTO) 2.6 % (0-6); HEMATOCRIT 35.2 % (36.0-47.0); HEMOGLOBIN 11.8 g/dL (12.0-15.5); LYMPHOCYTES % (AUTO) 13.6 % (13-45); MEAN CORPUSCULAR HEMOGLOBIN 30.3 pg (27.0-33.4); MEAN CORPUSCULAR HGB CONC 33.6 g/dL (32.0-36.0); MEAN CORPUSCULAR VOLUME 90 fl (80-97); PLATELET COUNT 208 10^3/uL (150-450); RED CELL DISTRIBUTION WIDTH 13.4 % (11.5-14.0); SEGMENTED NEUTROPHILS % (AUTO) 74.2 % (42-78); TOTAL CELLS COUNTED % (AUTO) 100 %; WHITE BLOOD COUNT 7.3 10^3/uL (4.0-10.5)
[2018-07-05] MEDS ORDERED: LEVOTHYROXINE SODIUM 0.075 MG TABLET PO SCH (06:00)
[2018-07-05] MEDS: LANSOPRAZOLE 30 MG TAB.RAP.DR PO SCH (06:15)
[2018-07-05] MEDS: LEVOTHYROXINE SODIUM 0.075 MG TABLET PO SCH (06:15)
[2018-07-05 06:25] LABS: ALANINE AMINOTRANSFERASE 34 U/L (9-52); ALBUMIN 3.8 g/dL (3.5-5.0); ALKALINE PHOSPHATASE 59 U/L (38-126); ANION GAP 9 (5-19); ASPARTATE AMINO TRANSFERASE 40 U/L (14-36); BILIRUBIN,DIRECT 0.6 mg/dL (0.0-0.4); BILIRUBIN,TOTAL 1.1 mg/dL (0.2-1.3); BLOOD UREA NITROGEN 15 mg/dL (7-20); CALCIUM 9.8 mg/dL (8.4-10.2); CARBON DIOXIDE 33 mmol/L (22-30); CHLORIDE 98 mmol/L (98-107); GLUCOSE 101 mg/dL (75-110); POTASSIUM 3.6 mmol/L (3.6-5.0); SODIUM 140.2 mmol/L (137-145); TOTAL PROTEIN 6.7 g/dL (6.3-8.2)
[2018-07-05] MEDS: FUROSEMIDE 40 MG TABLET PO SCH (09:52)
[2018-07-05] MEDS: PAROXETINE HCL 20 MG TABLET PO SCH (09:52)
[2018-07-05] MEDS: METOPROLOL SUCCINATE 50 MG TAB.SR.24H PO SCH (09:52)
[2018-07-05] MEDS: CHOLECALCIFEROL (D3) 1,000 UNIT TABLET PO SCH (09:53)
[2018-07-05] MEDS: FENTANYL 50 MCG/HR PATCH.TD72 TD SCH (09:53)
[2018-07-05] MEDS: ENOXAPARIN SODIUM INJ 40 MG/0.4 ML DISP.SYRIN SUBCUT SCH (09:54)
[2018-07-05] MEDS: SACUBITRIL/VALSARTAN 24 MG/26 MG TABLET PO SCH ×2 (09:54→21:45)
[2018-07-05] MEDS: FLUTICASONE/SALMETEROL DISKUS 250-50 MCG/DOSE IH SCH ×2 (09:54→21:45)
[2018-07-05] MEDS: CEFTRIAXONE SODIUM 1,000 MG in NORMAL SALINE 50 ML IV SCH (09:56)
[2018-07-05] MEDS ORDERED: FENTANYL 50 MCG/HR PATCH.TD72 TD SCH (10:00)
--- NOTE | 2018-07-05 20:24 | PDOC CONSULTATION ---
Consultation Consult Date: 07/05/18 Attending physician:: LISA OSCAR Consult reason:: Positive troponin I History of Present Illness Admission Date/PCP: 07/03/18 08:08 MARQUIS HYATT MD Patient complains of: Shortness of breath History of Present Illness: MAIRA ALVAREZ is a 88 year old female,She came to the emergency room for evaluation of progressive shortness of breath for the last 7 days, there is associated epigastric pain, she also described a feeling of some heaviness in the chest. In the emergency room a chest x-ray was done, it demonstrated hyperinflated lungs also found was a new patchy airspace disease in the right inferior hemithorax suspicious for possible pneumonic infiltrate. There is mild patchy parenchyma opacification in the left inferior hemithorax findings on the chest x-ray was suspicious for pneumonia, the arterial blood gas on FiO2 2 L, pH 7.38, PO2 99.6, PCO2 46.3, bicarbonate 27. CT chest without contrast was normal, demonstrated hyperinflated lungs, fairly small to moderate bilateral pleural effusions. Mild area of streaky linear subsegmental atelectasis., The BNP is elevated, suggesting CHF,though there are possible other differential diagnosis.,The CT scan of the lung did not demonstrate any pneumonia, that was suspected on chest x-ray. Patient was also noted to have elevated troponin I. I was therefore asked to evaluate this patient. This history reviewed by the primary care physician was reviewed and confirmed. Patient did not add much to above history. Past Medical History Cardiac Medical History: Reports: Coronary Artery Disease, Hyperlipidema, Hypertension Denies: Myocardial Infarction Pulmonary Medical History: Reports: Chronic Obstructive Pulmonary Disease (COPD) Denies: Asthma Neurological Medical History: Reports: Migraine Denies: Seizures Endocrine Medical History: Reports: Hypothyroidism, Other - Osteoporosis Malignancy Medical History: Reports: Skin Cancer GI Medical History: Reports: Gastroesophageal Reflux Disease Denies: Hepatitis, Hiatal Hernia Musculoskeltal Medical History: Reports: Arthritis Skin Medical History: Reports: Psoriasis Psychiatric Medical History: Reports: Depression Past Surgical History Past Surgical History: Reports: Appendectomy, Cardiac Catheterization - 2003-- DONE IN [place], WAS NOT GIVEN AND DETAILS, Orthopedic Surgery - rib surgery, Pacemaker - DEX Denies: Mastectomy Social History Information Source: Patient Smoking Status: Former Smoker Number of Years Smokin Last Time Smoked: quit 97 Frequency of Alcohol Use: None Hx Recreational Drug Use: No Drugs: None Hx Prescription Drug Abuse: No - Advance Directive Resuscitation Status: Full Code Family History Family History: DM, Hypertension Parental Family History Reviewed: Yes Children Family History Reviewed: Yes Sibling(s) Family History Reviewed.: Yes Medication/Allergy Home Medications: Albuterol Sulfate [Proair HFA] 2 puff IH Q4HP PRN 07/03/18 Aspirin [Adult Low Dose Aspirin EC] 81 mg PO QHS 07/03/18 Biotin [Biotin 1 mg Tablet] 1 mg PO BID 07/03/18 Carboxymethylcellulose Sodium [Refresh Liquigel] 1 drop OU QHS 07/03/18 Cholecalciferol (Vitamin D3) [Vitamin D3] 5,000 unit PO DAILY 07/03/18 Clopidogrel Bisulfate [Plavix 75 mg Tablet] 75 mg PO QHS 07/03/18 Fentanyl [Duragesic 50 Mcg/Hr Transdermal Patch] 1 patch TD Q48H 07/03/18 Fluticasone/Salmeterol [Advair 250-50 Diskus 14 Dose/Diskus] 1 puff IH Q12 07/03 Ketotifen Fumarate [Refresh] 1 drop OU BID 07/03/18 Levothyroxine Sodium [Synthroid] 75 mcg PO Q6AM 07/03/18 Metoprolol Tartrate [Lopressor 25 mg Tablet] 25 mg PO Q12 07/03/18 Nifedipine [Nifedipine ER] 30 mg PO DAILYP PRN 07/03/18 Omeprazole 40 mg PO QAM 07/03/18 Paroxetine HCl [Paxil] 10 mg PO DAILY 07/03/18 Pravastatin Sodium [Pravachol] 40 mg PO QHS 07/03/18 Allergies/Adverse Reactions: ACEINHIBITORS [DC Inhibitors] Allergy (Verified 07/03/18 05:43) latex [Latex] Allergy (Verified 07/03/18 05:43) Generalized edema Tuberculin,Ppd,Multi-Puncture [From Tuberculin PPD Jeimy Test] Allergy (Verified 07/03/18 05:43) codeine [Codeine] Adverse Reaction (Verified 07/03/18 05:43) doxycycline [Doxycycline] Adverse Reaction (Verified 07/03/18 05:43) erythromycin base [Erythromycin Base] Adverse Reaction (Verified 07/03/18 05:43) levofloxacin [From Levaquin] Adverse Reaction (Verified 07/03/18 12:14) Dizziness Review of Systems Review of Systems: Please see history of present illness and past medical history as wall. Constitutional: No fever or chills reported. Head : No recent chronic headaches, recent head injury. Eyes: No recent eye pain, diplopia, redness, discharge, acute visual changes. Ears: No recent chronic ear pain, acute hearing loss, ear discharge. Oral cavity: No recent ulcerations, bleeding, oral cavity discomfort. Neck: No recent acute neck pain reported. Hematologic: No recent easy bruising or bleeding. Lymphatic: No recent lymph node enlargement reported. Cardiovascular system review: See history of present illness. Respiratory system review: No hemoptysis or blood clots in the lungs reported. Mild Shortness of breath on exertion Gastrointestinal system review: Negative for any recent acute hematemesis, melena. Genitourinary system review: No recent acute or chronic hematuria, flank pain, UTI etc. reported. Skin system review: Negative for any recent abnormal bruising, no rash, no pruritus reported. Neurologic: No prior history of strokes, mini strokes, seizure disorder. Psychologic: No history of major psychosis or major depression reported. Musculoskeletal: Minor aches and pains reported. No acute joint swelling reported. Endocrine: No recent polyuria, polydipsia, recent heat or cold intolerance. Physical Exam Vital Signs: Temp Pulse Resp BP Pulse Ox 97.6 F 71 20 104/73 100 07/05/18 16:21 07/05/18 16:21 07/05/18 16:21 07/05/18 16:21 07/05/18 16:21 Intake & Output 07/04/18 07/05/18 07/06/18 06:59 06:59 06:59 Intake Total 550 1298 770 Output Total 1450 4500 800 Balance -900 -3202 -30 Weight 55.1 kg 52.4 kg Exam: GENERAL: well-nourished and in no acute distress. Alert and oriented x3 HEAD: Atraumatic, normocephalic. EYES: Pupils equal round and reactive to light, extraocular movements intact, sclera anicteric, conjunctiva are normal. ENT: TMs normal, nares patent, oropharynx clear without exudates. Moist mucous membranes. No oral ulcerations or bleeding gums noted NECK: supple without lymphadenopathy. Trachea is central. No cervical or axillary lymphadenopathy noted. Carotids are 2+, JVD WNL LUNGS: Respiration seems nonlabored, no significant accessory muscle action noted. Bibasilar fine crackles are noted. No wheezes rales or rhonchi noted. No significant dullness noted on percussion. CHEST: Palpation of the chest wall shows no significant chest wall tenderness. 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 ABDOMEN: Soft, no significant tenderness appreciated, normoactive bowel sounds. No guarding, no rebound. No rigidity noted . No masses appreciated. EXTREMITIES: Pedal pulses are 1-2+, no calf tenderness noted. No clubbing or cyanosis. negative pedal edema noted NEUROLOGICAL: Focused neurological exam showed no significant neurologic deficit. Normal speech, no focal weakness appreciated. PSYCH: Normal mood, normal affect. Judgment and insight within normal limits. SKIN: No significant ecchymosis, skin is noted to be warm. MUSCULOSKELETAL EXAM: No significant acute joint swelling noted. Results Laboratory Results: 07/05/18 04:51 07/05/18 04:51 07/05/18 07/05/18 04:51 04:51 WBC 7.3 RBC 3.90 Hgb 11.8 L Hct 35.2 L MCV 90 MCH 30.3 MCHC 33.6 RDW 13.4 Plt Count 208 Seg Neutrophils % 74.2 Lymphocytes % 13.6 Monocytes % 9.0 Eosinophils % 2.6 Basophils % 0.6 Absolute Neutrophils 5.4 Absolute Lymphocytes 1.0 Absolute Monocytes 0.7 Absolute Eosinophils 0.2 Absolute Basophils 0.0 Sodium 140.2 Potassium 3.6 Chloride 98 Carbon Dioxide 33 H Anion Gap 9 BUN 15 Creatinine 1.01 Est GFR ( Amer) > 60 Est GFR (Non-Af Amer) 52 L Glucose 101 Calcium 9.8 Total Bilirubin 1.1 AST 40 H ALT 34 Alkaline Phosphatase 59 Total Protein 6.7 Albumin 3.8 07/03/18 07/03/18 14:47 14:47 Creatine Kinase 141 H CK-MB (CK-2) 3.12 Troponin I 0.333 NT-Pro-B Natriuret Pep 31014 H EKG Comments: Twelve-lead EKG shows ventricular paced rhythm, underlying atrial rhythm seems to be in atrial fibrillation. Impressions: Chest CT 07/03/18 00:00 IMPRESSION: 1. Bilateral effusions. No definite pneumonia. Other findings as above. Chest X-Ray 07/03/18 05:19 IMPRESSION: 1. Patchy airspace disease in the right inferior hemithorax suspicious for a pneumonic infiltrate. 2. Probable atelectasis, fibrosis or inflammatory changes in the left lung base. 3. Prominence of the cardiac silhouette which may be accentuated by the portable technique. 4. Grossly stable bipolar pacemaker. Assessment & Plan - Diagnosis (1) Non-ST elevated myocardial infarction Is this a current diagnosis for this admission?: Yes (2) Acute combined systolic and diastolic heart failure Is this a current diagnosis for this admission?: Yes (3) COPD (chronic obstructive pulmonary disease) Qualifiers: COPD type: unspecified COPD Qualified Code(s): J44.9 - Chronic obstructive pulmonary disease, unspecified Is this a current diagnosis for this admission?: Yes (4) Chest pain Qualifiers: Chest pain type: unspecified Qualified Code(s): R07.9 - Chest pain, unspecified Is this a current diagnosis for this admission?: Yes (5) Pulmonary hypertension Is this a current diagnosis for this admission?: Yes - Notes Notes: Non-STEMI: Patient did present with chest pain and has positive troponin I therefore did ruling with non-STEMI. Patient has ventricular paced beats therefore EKG is unhelpful. 2D echo does show depressed LVEF. Patient however is felt to have severe COPD on clinical exam, therefore I am recommending medical management especially if her symptoms can be controlled. This is also given her frail status and general debility. Have added Ranexa to the regimen. Continue with beta-kaushik. Continue with statin therapy. LDL goal should be less than 70. Acute combined systolic and diastolic heart failure: Continue with current management. Patient seems to be in beta-kaushik, entresto therapy and also diuretic therapy therefore on a good regimen. Continue with it. COPD: [place] to be severe. Continue oxygen supplementation. Chest pain: Today chest pain-free. Have recommended medical management given her other significant comorbid diagnosis and patient is felt not a candidate for CABG. Therefore any coronary intervention would be considered if he cannot relieve her symptoms by medical management. Pulmonary hypertension: Continue with oxygen supplementation. May consider chronic anticoagulation since patient also has atrial fibrillation. Atrial fibrillation: Patient is noted to have this as underlying atrial rhythm. May consider chronic anticoagulation with Eliquis at 2.5 mg p.o. twice daily if there are no contraindication. - Time Time Spent: 50 to 70 Minutes Medications reviewed and adjusted accordingly: Yes
[2018-07-05] MEDS: RANOLAZINE 500 MG TAB.SR.12H PO SCH (21:45)
[2018-07-05] MEDS: ASPIRIN 81 MG TABLET, ENT COATED PO SCH (21:45)
[2018-07-05] MEDS: ATORVASTATIN CALCIUM 10 MG TABLET PO SCH (21:45)
[2018-07-06 05:46] LABS: ABSOLUTE EOSINOPHILS # (AUTO) 0.4 10^3/uL (0.0-0.6); ABSOLUTE LYMPHOCYTES (AUTO) 1.3 10^3/uL (0.5-4.7); ABSOLUTE MONOCYTES (AUTO) 0.6 10^3/uL (0.1-1.4); ABSOLUTE NEUT (AUTO) 3.2 10^3/uL (1.7-8.2); BASOPHILS % (AUTO) 0.8 % (0-2); EOSINOPHILS % (AUTO) 6.6 % (0-6); HEMATOCRIT 32.9 % (36.0-47.0); HEMOGLOBIN 11.2 g/dL (12.0-15.5); LYMPHOCYTES % (AUTO) 23.9 % (13-45); MEAN CORPUSCULAR HEMOGLOBIN 30.6 pg (27.0-33.4); MEAN CORPUSCULAR VOLUME 90 fl (80-97); MONOCYTES % (AUTO) 11.1 % (3-13); PLATELET COUNT 196 10^3/uL (150-450); RED BLOOD COUNT 3.66 10^6/uL (3.72-5.28); RED CELL DISTRIBUTION WIDTH 13.5 % (11.5-14.0); SEGMENTED NEUTROPHILS % (AUTO) 57.6 % (42-78); TOTAL CELLS COUNTED % (AUTO) 100 %; WHITE BLOOD COUNT 5.6 10^3/uL (4.0-10.5)
[2018-07-06 06:14] LABS: ALANINE AMINOTRANSFERASE 27 U/L (9-52); ALBUMIN 3.2 g/dL (3.5-5.0); ALKALINE PHOSPHATASE 51 U/L (38-126); ANION GAP 7 (5-19); ASPARTATE AMINO TRANSFERASE 31 U/L (14-36); BILIRUBIN,DIRECT 0.3 mg/dL (0.0-0.4); BILIRUBIN,TOTAL 0.7 mg/dL (0.2-1.3); BLOOD UREA NITROGEN 14 mg/dL (7-20); CALCIUM 9.3 mg/dL (8.4-10.2); CARBON DIOXIDE 36 mmol/L (22-30); CHLORIDE 95 mmol/L (98-107); GLUCOSE 98 mg/dL (75-110); SODIUM 138.2 mmol/L (137-145); TOTAL PROTEIN 5.8 g/dL (6.3-8.2)
[2018-07-06] MEDS: LEVOTHYROXINE SODIUM 0.075 MG TABLET PO SCH (06:44)
[2018-07-06] MEDS: LANSOPRAZOLE 30 MG TAB.RAP.DR PO SCH (06:44)
[2018-07-06] MEDS: FLUTICASONE/SALMETEROL DISKUS 250-50 MCG/DOSE IH SCH ×2 (10:52→21:51)
[2018-07-06] MEDS: RANOLAZINE 500 MG TAB.SR.12H PO SCH ×3 (10:52→21:51)
[2018-07-06] MEDS: METOPROLOL SUCCINATE 50 MG TAB.SR.24H PO SCH ×2 (10:53→16:24)
[2018-07-06] MEDS: FUROSEMIDE 40 MG TABLET PO SCH ×2 (10:53→16:23)
[2018-07-06] MEDS: CHOLECALCIFEROL (D3) 1,000 UNIT TABLET PO SCH (10:53)
[2018-07-06] MEDS: SACUBITRIL/VALSARTAN 24 MG/26 MG TABLET PO SCH ×3 (10:53→21:51)
[2018-07-06] MEDS: PAROXETINE HCL 20 MG TABLET PO SCH (10:56)
[2018-07-06] MEDS: ENOXAPARIN SODIUM INJ 40 MG/0.4 ML DISP.SYRIN SUBCUT SCH (10:57)
--- NOTE | 2018-07-06 11:50 | PDOC PROGRESS REPORT ---
Subjective Progress Note for:: 07/06/18 Subjective:: Patient claims low-grade fever. She is describing some right-sided chest pain towards the back of the chest. No frontal chest pain of precordial chest pain reported. Patient seems to be doing better with gradual improvement. Patient denying any PND, orthopnea. Patient denied any sustained palpitations, dizziness, syncope, near syncope. Patient denying any fever chills. Patient denying any other significant discomfort. Patient is maintaining sinus rhythm. Review of systems: Rest review of systems negative. Medications: Medications have been reviewed. Reason For Visit: PNEUMONIA,EPIGASTRIC PAIN Physical Exam Vital Signs: Temp Pulse Resp BP Pulse Ox 98.2 F 74 16 95/67 L 97 07/06/18 07:56 07/06/18 08:07 07/06/18 08:07 07/06/18 07:56 07/06/18 08:07 Intake & Output 07/05/18 07/06/18 07/07/18 06:59 06:59 06:59 Intake Total 1298 1348 Output Total 4500 1650 Balance -3202 -302 Weight 52.4 kg 52.4 kg Exam: GENERAL: well-nourished and in no acute distress. Alert and oriented x3 HEAD: Atraumatic, normocephalic. EYES: Pupils equal round and reactive to light, extraocular movements intact, sclera anicteric, conjunctiva are normal. ENT: TMs normal, nares patent, oropharynx clear without exudates. Moist mucous membranes. No oral ulcerations or bleeding gums noted NECK: supple without lymphadenopathy. Trachea is central. No cervical or axillary lymphadenopathy noted. Carotids are 2+, JVD WNL LUNGS: Respiration seems nonlabored, no significant accessory muscle action noted. Bibasilar fine crackles, right more than left and scattered bilateral wheezes rales or rhonchi noted. No significant dullness noted on percussion. CHEST: Palpation of the chest wall shows no significant chest wall tenderness. 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 ABDOMEN: Soft, no significant tenderness appreciated, normoactive bowel sounds. No guarding, no rebound. No rigidity noted . No masses appreciated. EXTREMITIES: Pedal pulses are 1-2+, no calf tenderness noted. No clubbing or cyanosis. negative pedal edema noted NEUROLOGICAL: Focused neurological exam showed no significant neurologic deficit. Normal speech, no focal weakness appreciated. PSYCH: Normal mood, normal affect. Judgment and insight within normal limits. SKIN: No significant ecchymosis, skin is noted to be warm. MUSCULOSKELETAL EXAM: No significant acute joint swelling noted. Results Laboratory Results: 07/06/18 04:41 07/06/18 04:41 07/06/18 07/06/18 04:41 04:41 WBC 5.6 RBC 3.66 L Hgb 11.2 L Hct 32.9 L MCV 90 MCH 30.6 MCHC 34.0 RDW 13.5 Plt Count 196 Seg Neutrophils % 57.6 Lymphocytes % 23.9 Monocytes % 11.1 Eosinophils % 6.6 H Basophils % 0.8 Absolute Neutrophils 3.2 Absolute Lymphocytes 1.3 Absolute Monocytes 0.6 Absolute Eosinophils 0.4 Absolute Basophils 0.0 Sodium 138.2 Potassium 4.0 Chloride 95 L Carbon Dioxide 36 H Anion Gap 7 BUN 14 Creatinine 1.09 Est GFR ( Amer) 57 L Est GFR (Non-Af Amer) 47 L Glucose 98 Calcium 9.3 Total Bilirubin 0.7 AST 31 ALT 27 Alkaline Phosphatase 51 Total Protein 5.8 L Albumin 3.2 L 07/03/18 07/03/18 14:47 14:47 Creatine Kinase 141 H CK-MB (CK-2) 3.12 Troponin I 0.333 NT-Pro-B Natriuret Pep [id number] H EKG Comments: No significant cardiac dysrhythmia noted Impressions: Chest CT 07/03/18 00:00 IMPRESSION: 1. Bilateral effusions. No definite pneumonia. Other findings as above. Chest X-Ray 07/03/18 05:19 IMPRESSION: 1. Patchy airspace disease in the right inferior hemithorax suspicious for a pneumonic infiltrate. 2. Probable atelectasis, fibrosis or inflammatory changes in the left lung base. 3. Prominence of the cardiac silhouette which may be accentuated by the portable technique. 4. Grossly stable bipolar pacemaker. Assessment & Plan - Diagnosis (1) Non-ST elevated myocardial infarction Is this a current diagnosis for this admission?: Yes (2) Acute combined systolic and diastolic heart failure Is this a current diagnosis for this admission?: Yes (3) COPD (chronic obstructive pulmonary disease) Qualifiers: COPD type: unspecified COPD Qualified Code(s): J44.9 - Chronic obstructive pulmonary disease, unspecified Is this a current diagnosis for this admission?: Yes (4) Chest pain Qualifiers: Chest pain type: unspecified Is this a current diagnosis for this admission?: Yes (5) Pulmonary hypertension Is this a current diagnosis for this admission?: Yes - Notes Notes: Patient has history of significant COPD, scoliosis, currently on O2 at home. Would recommend medical management for presumed non-STEMI and CAD. For CHF, recommend optimization of medical management. Non-STEMI: Patient did present with chest pain and has positive troponin I therefore did ruling with non-STEMI. Patient has ventricular paced beats therefore EKG is unhelpful. 2D echo does show depressed LVEF. Patient however is felt to have severe COPD on clinical exam, therefore I am recommending medical management especially if her symptoms can be controlled. This is also given her frail status and general debility. Have added Ranexa to the regimen. Continue with beta-kaushik. Continue with statin therapy. LDL goal should be less than 70. Acute combined systolic and diastolic heart failure: Continue with current management. Patient seems to be in beta-kaushik, entresto therapy and also diuretic therapy therefore on a good regimen. Continue with it. COPD: [place] to be severe. Continue oxygen supplementation. Chest pain: Today chest pain-free. Have recommended medical management given her other significant comorbid diagnosis and patient is felt not a candidate for CABG. Therefore any coronary intervention would be considered if he cannot relieve her symptoms by medical management. Pulmonary hypertension: Continue with oxygen supplementation. May consider chronic anticoagulation since patient also has atrial fibrillation. Atrial fibrillation: Patient is noted to have this as underlying atrial rhythm. May consider chronic anticoagulation with Eliquis at 2.5 mg p.o. twice daily if there are no contraindication. - Time Time with patient: Greater than 35 minutes - CODE STATUS was discussed, patient remains full code. Multiple medical problems were addressed. More than 50% of the time spent coordinating care, discussing management plans with involved caregivers. Management plans discussed with involved personnels. Medical decision making was of moderate to high complexity, patient's has multiple comorbidities. Medications reviewed and adjusted accordingly: Yes
--- NOTE | 2018-07-06 17:29 | PDOC PROGRESS REPORT ---
Subjective Progress Note for:: 07/05/18 Subjective:: Patient was seen by the bedside she feels better, she was seen by cardiology Dr. Goodman. Reason For Visit: PNEUMONIA,EPIGASTRIC PAIN Physical Exam Vital Signs: Temp Pulse Resp BP Pulse Ox 98.2 F 76 16 104/55 L 95 07/06/18 12:00 07/06/18 14:00 07/06/18 12:00 07/06/18 12:00 07/06/18 12:00 Intake & Output 07/05/18 07/06/18 07/07/18 06:59 06:59 06:59 Intake Total 1298 1348 658 Output Total 4500 1650 200 Balance -3202 -302 458 Weight 52.4 kg 52.4 kg General appearance: PRESENT: no acute distress Eye exam: PRESENT: PERRLA Respiratory exam: PRESENT: rhonchi, wheezes Cardiovascular exam: PRESENT: +S1, +S2 GI/Abdominal exam: PRESENT: soft Neurological exam: PRESENT: alert Results Laboratory Results: 07/06/18 04:41 07/06/18 04:41 07/06/18 07/06/18 04:41 04:41 WBC 5.6 RBC 3.66 L Hgb 11.2 L Hct 32.9 L MCV 90 MCH 30.6 MCHC 34.0 RDW 13.5 Plt Count 196 Seg Neutrophils % 57.6 Lymphocytes % 23.9 Monocytes % 11.1 Eosinophils % 6.6 H Basophils % 0.8 Absolute Neutrophils 3.2 Absolute Lymphocytes 1.3 Absolute Monocytes 0.6 Absolute Eosinophils 0.4 Absolute Basophils 0.0 Sodium 138.2 Potassium 4.0 Chloride 95 L Carbon Dioxide 36 H Anion Gap 7 BUN 14 Creatinine 1.09 Est GFR ( Amer) 57 L Est GFR (Non-Af Amer) 47 L Glucose 98 Calcium 9.3 Total Bilirubin 0.7 AST 31 ALT 27 Alkaline Phosphatase 51 Total Protein 5.8 L Albumin 3.2 L 07/04/18 04:15 Clean Catch Midstream Urine Culture - Final NO GROWTH 2 DAYS 07/03/18 07/03/18 14:47 14:47 Creatine Kinase 141 H CK-MB (CK-2) 3.12 Troponin I 0.333 NT-Pro-B Natriuret Pep 11235 H Impressions: Chest CT 07/03/18 00:00 IMPRESSION: 1. Bilateral effusions. No definite pneumonia. Other findings as above. Chest X-Ray 07/03/18 05:19 IMPRESSION: 1. Patchy airspace disease in the right inferior hemithorax suspicious for a pneumonic infiltrate. 2. Probable atelectasis, fibrosis or inflammatory changes in the left lung base. 3. Prominence of the cardiac silhouette which may be accentuated by the portable technique. 4. Grossly stable bipolar pacemaker. Assessment & Plan - Diagnosis (1) Non-ST elevated myocardial infarction Is this a current diagnosis for this admission?: Yes (2) COPD (chronic obstructive pulmonary disease) Qualifiers: COPD type: unspecified COPD Qualified Code(s): J44.9 - Chronic obstructive pulmonary disease, unspecified Is this a current diagnosis for this admission?: Yes (3) Bilateral pleural effusion Is this a current diagnosis for this admission?: Yes (4) Acute combined systolic and diastolic heart failure Is this a current diagnosis for this admission?: Yes (5) Pulmonary hypertension Is this a current diagnosis for this admission?: Yes - Plan Summary Plan Summary: She will continue present treatment.
--- NOTE | 2018-07-06 17:34 | PDOC PROGRESS REPORT ---
Subjective Progress Note for:: 07/06/18 Subjective:: No new complaints Reason For Visit: PNEUMONIA,EPIGASTRIC PAIN Physical Exam Vital Signs: Temp Pulse Resp BP Pulse Ox 98.2 F 76 16 104/55 L 95 07/06/18 12:00 07/06/18 14:00 07/06/18 12:00 07/06/18 12:00 07/06/18 12:00 Intake & Output 07/05/18 07/06/18 07/07/18 06:59 06:59 06:59 Intake Total 1298 1348 658 Output Total 4500 1650 200 Balance -3202 -302 458 Weight 52.4 kg 52.4 kg General appearance: PRESENT: no acute distress Eye exam: PRESENT: PERRLA Respiratory exam: PRESENT: clear to auscultation mimi Cardiovascular exam: PRESENT: +S1, +S2 GI/Abdominal exam: PRESENT: soft Neurological exam: PRESENT: alert Results Laboratory Results: 07/06/18 04:41 07/06/18 04:41 07/06/18 07/06/18 04:41 04:41 WBC 5.6 RBC 3.66 L Hgb 11.2 L Hct 32.9 L MCV 90 MCH 30.6 MCHC 34.0 RDW 13.5 Plt Count 196 Seg Neutrophils % 57.6 Lymphocytes % 23.9 Monocytes % 11.1 Eosinophils % 6.6 H Basophils % 0.8 Absolute Neutrophils 3.2 Absolute Lymphocytes 1.3 Absolute Monocytes 0.6 Absolute Eosinophils 0.4 Absolute Basophils 0.0 Sodium 138.2 Potassium 4.0 Chloride 95 L Carbon Dioxide 36 H Anion Gap 7 BUN 14 Creatinine 1.09 Est GFR ( Amer) 57 L Est GFR (Non-Af Amer) 47 L Glucose 98 Calcium 9.3 Total Bilirubin 0.7 AST 31 ALT 27 Alkaline Phosphatase 51 Total Protein 5.8 L Albumin 3.2 L 07/04/18 04:15 Clean Catch Midstream Urine Culture - Final NO GROWTH 2 DAYS 07/03/18 07/03/18 14:47 14:47 Creatine Kinase 141 H CK-MB (CK-2) 3.12 Troponin I 0.333 NT-Pro-B Natriuret Pep [id number] H Impressions: Chest CT 07/03/18 00:00 IMPRESSION: 1. Bilateral effusions. No definite pneumonia. Other findings as above. Chest X-Ray 07/03/18 05:19 IMPRESSION: 1. Patchy airspace disease in the right inferior hemithorax suspicious for a pneumonic infiltrate. 2. Probable atelectasis, fibrosis or inflammatory changes in the left lung base. 3. Prominence of the cardiac silhouette which may be accentuated by the portable technique. 4. Grossly stable bipolar pacemaker. Assessment & Plan - Diagnosis (1) Non-ST elevated myocardial infarction Is this a current diagnosis for this admission?: Yes (2) COPD (chronic obstructive pulmonary disease) Qualifiers: COPD type: unspecified COPD Qualified Code(s): J44.9 - Chronic obstructive pulmonary disease, unspecified Is this a current diagnosis for this admission?: Yes (3) Bilateral pleural effusion Is this a current diagnosis for this admission?: Yes (4) Acute combined systolic and diastolic heart failure Is this a current diagnosis for this admission?: Yes (5) Pulmonary hypertension Is this a current diagnosis for this admission?: Yes
[2018-07-06] MEDS: ATORVASTATIN CALCIUM 10 MG TABLET PO SCH (21:51)
[2018-07-06] MEDS: ASPIRIN 81 MG TABLET, ENT COATED PO SCH (21:51)
[2018-07-07] MEDS: LANSOPRAZOLE 30 MG TAB.RAP.DR PO SCH (05:34)
[2018-07-07] MEDS: LEVOTHYROXINE SODIUM 0.075 MG TABLET PO SCH (05:34)
[2018-07-07] MEDS: FLUTICASONE/SALMETEROL DISKUS 250-50 MCG/DOSE IH SCH ×2 (10:34→21:59)
[2018-07-07] MEDS: FENTANYL 50 MCG/HR PATCH.TD72 TD SCH (10:34)
[2018-07-07] MEDS: METOPROLOL SUCCINATE 50 MG TAB.SR.24H PO SCH (10:35)
[2018-07-07] MEDS: RANOLAZINE 500 MG TAB.SR.12H PO SCH ×2 (10:35→22:00)
[2018-07-07] MEDS: CHOLECALCIFEROL (D3) 1,000 UNIT TABLET PO SCH (10:36)
[2018-07-07] MEDS: PAROXETINE HCL 20 MG TABLET PO SCH (10:36)
[2018-07-07] MEDS: ENOXAPARIN SODIUM INJ 40 MG/0.4 ML DISP.SYRIN SUBCUT SCH (10:37)
[2018-07-07] MEDS: FUROSEMIDE 40 MG TABLET PO SCH (10:37)
[2018-07-07] MEDS: SACUBITRIL/VALSARTAN 24 MG/26 MG TABLET PO SCH ×2 (10:40→22:28)
--- NOTE | 2018-07-07 12:10 | PDOC PROGRESS REPORT ---
Subjective Progress Note for:: 07/07/18 Subjective:: Patient claims she had low blood pressure last night and she has some concern about taking medications. Patient is denying any chest pains. Patient seems to be doing better with gradual improvement. Patient denying any PND, orthopnea. Patient denied any sustained palpitations, dizziness, syncope, near syncope. Patient denying any fever chills. Patient denying any other significant discomfort. Patient is maintaining sinus rhythm. Review of systems: Rest review of systems negative. Medications: Medications have been reviewed. Reason For Visit: PNEUMONIA,EPIGASTRIC PAIN Physical Exam Vital Signs: Temp Pulse Resp BP Pulse Ox 97.9 F 70 13 103/58 L 97 07/07/18 07:45 07/07/18 07:45 07/07/18 07:45 07/07/18 07:45 07/07/18 07:45 Intake & Output 07/06/18 07/07/18 07/08/18 06:59 06:59 06:59 Intake Total 1348 1353 Output Total 1650 1200 Balance -302 153 Weight 52.4 kg 52.4 kg Exam: GENERAL: well-nourished and in no acute distress. Alert and oriented x3 HEAD: Atraumatic, normocephalic. EYES: Pupils equal round and reactive to light, extraocular movements intact, sclera anicteric, conjunctiva are normal. ENT: TMs normal, nares patent, oropharynx clear without exudates. Moist mucous membranes. No oral ulcerations or bleeding gums noted NECK: supple without lymphadenopathy. Trachea is central. No cervical or axillary lymphadenopathy noted. Carotids are 2+, JVD WNL LUNGS: Respiration seems nonlabored, no significant accessory muscle action noted. Bibasilar fine crackles are noted right more than left, occasional wheezes rales or rhonchi noted. No significant dullness noted on percussion. CHEST: Palpation of the chest wall shows no significant chest wall tenderness. 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 ABDOMEN: Soft, no significant tenderness appreciated, normoactive bowel sounds. No guarding, no rebound. No rigidity noted . No masses appreciated. EXTREMITIES: Pedal pulses are 1-2+, no calf tenderness noted. No clubbing or cyanosis. negative pedal edema noted NEUROLOGICAL: Focused neurological exam showed no significant neurologic deficit. Normal speech, no focal weakness appreciated. PSYCH: Normal mood, normal affect. Judgment and insight within normal limits. SKIN: No significant ecchymosis, skin is noted to be warm. MUSCULOSKELETAL EXAM: No significant acute joint swelling noted. Results Laboratory Results: 07/06/18 04:41 07/06/18 04:41 07/04/18 04:15 Clean Catch Midstream Urine Culture - Final NO GROWTH 2 DAYS 07/03/18 07/03/18 14:47 14:47 Creatine Kinase 141 H CK-MB (CK-2) 3.12 Troponin I 0.333 NT-Pro-B Natriuret Pep 20443 H EKG Comments: Telemetry strip shows V paced rhythm, underlying atrial fibrillation, no sustained tachycardia or bradycardia arrhythmias noted. Impressions: Chest CT 07/03/18 00:00 IMPRESSION: 1. Bilateral effusions. No definite pneumonia. Other findings as above. Chest X-Ray 07/03/18 05:19 IMPRESSION: 1. Patchy airspace disease in the right inferior hemithorax suspicious for a pneumonic infiltrate. 2. Probable atelectasis, fibrosis or inflammatory changes in the left lung base. 3. Prominence of the cardiac silhouette which may be accentuated by the portable technique. 4. Grossly stable bipolar pacemaker. Assessment & Plan - Diagnosis (1) Non-ST elevated myocardial infarction Is this a current diagnosis for this admission?: Yes (2) Acute combined systolic and diastolic heart failure Is this a current diagnosis for this admission?: Yes (3) COPD (chronic obstructive pulmonary disease) Qualifiers: COPD type: unspecified COPD Qualified Code(s): J44.9 - Chronic obstructive pulmonary disease, unspecified Is this a current diagnosis for this admission?: Yes (4) Chest pain Qualifiers: Chest pain type: unspecified Is this a current diagnosis for this admission?: Yes (5) Pulmonary hypertension Is this a current diagnosis for this admission?: Yes - Notes Notes: Because of low blood pressure, have reduced her Lasix to 20 mg a day. Patient seems to be doing reasonably well on medical management. Will recommend continuing with it. Non-STEMI: Patient did present with chest pain and has positive troponin I therefore did rule in with non-STEMI. Patient has ventricular paced beats therefore EKG is unhelpful. 2D echo does show depressed LVEF. Patient however is felt to have severe COPD on clinical exam, therefore I am recommending medical management especially if her symptoms can be controlled. This is also given her frail status and general debility. Have added Ranexa to the regimen. Continue with beta-kaushik. Continue with statin therapy. LDL goal should be less than 70. Acute combined systolic and diastolic heart failure: Continue with current management. Patient seems to be in beta-kaushik, entresto therapy and also diuretic therapy therefore on a good regimen. Continue with it. COPD: [place] to be severe. Continue oxygen supplementation. Chest pain: Today chest pain-free. Have recommended medical management given her other significant comorbid diagnosis and patient is felt not a candidate for CABG. Therefore any coronary intervention would be considered if he cannot relieve her symptoms by medical management. Pulmonary hypertension: Continue with oxygen supplementation. May consider chronic anticoagulation since patient also has atrial fibrillation. Atrial fibrillation: Patient is noted to have this as underlying atrial rhythm. May consider chronic anticoagulation with Eliquis at 2.5 mg p.o. twice daily if there are no contraindication. - Time Time with patient: Greater than 35 minutes - More than 50% of the time spent coordinating care, discussing management plans with involved caregivers. Management plans discussed with involved personnels. Medical decision making was of moderate to high complexity, patient's has multiple comorbidities. Medications reviewed and adjusted accordingly: Yes
[2018-07-07] MEDS: APIXABAN 2.5 MG TABLET PO SCH (17:13)
--- NOTE | 2018-07-07 18:46 | PDOC PROGRESS REPORT ---
Subjective Progress Note for:: 07/07/18 Subjective:: She complained of episode of acute paroxysmal shortness of breath while she was sleeping, this symptoms consistent with PND, I explained to the natural history of diastolic and systolic heart failure. I advised that it is not uncommon to experience PND in patient with diastolic and systolic heart failure., Reason For Visit: PNEUMONIA,EPIGASTRIC PAIN Physical Exam Vital Signs: Temp Pulse Resp BP Pulse Ox 97.9 F 69 16 109/76 97 07/07/18 15:37 07/07/18 15:37 07/07/18 15:37 07/07/18 15:37 07/07/18 15:37 Intake & Output 07/06/18 07/07/18 07/08/18 06:59 06:59 06:59 Intake Total 1348 1353 1585 Output Total 1650 1200 1250 Balance -302 153 335 Weight 52.4 kg 52.4 kg General appearance: PRESENT: no acute distress Eye exam: PRESENT: PERRLA Respiratory exam: PRESENT: clear to auscultation mimi Cardiovascular exam: PRESENT: +S1, +S2 GI/Abdominal exam: PRESENT: soft Neurological exam: PRESENT: alert Results Laboratory Results: 07/06/18 04:41 07/06/18 04:41 07/03/18 07/03/18 14:47 14:47 Creatine Kinase 141 H CK-MB (CK-2) 3.12 Troponin I 0.333 NT-Pro-B Natriuret Pep 00814 H Impressions: Chest CT 07/03/18 00:00 IMPRESSION: 1. Bilateral effusions. No definite pneumonia. Other findings as above. Chest X-Ray 07/03/18 05:19 IMPRESSION: 1. Patchy airspace disease in the right inferior hemithorax suspicious for a pneumonic infiltrate. 2. Probable atelectasis, fibrosis or inflammatory changes in the left lung base. 3. Prominence of the cardiac silhouette which may be accentuated by the portable technique. 4. Grossly stable bipolar pacemaker. Assessment & Plan - Diagnosis (1) Non-ST elevated myocardial infarction Is this a current diagnosis for this admission?: Yes (2) COPD (chronic obstructive pulmonary disease) Qualifiers: COPD type: unspecified COPD Qualified Code(s): J44.9 - Chronic obstructive pulmonary disease, unspecified Is this a current diagnosis for this admission?: Yes (3) Bilateral pleural effusion Is this a current diagnosis for this admission?: Yes (4) Acute combined systolic and diastolic heart failure Is this a current diagnosis for this admission?: Yes (5) Pulmonary hypertension Is this a current diagnosis for this admission?: Yes (6) Paroxysmal atrial fibrillation Is this a current diagnosis for this admission?: Yes Plan: She has very high eliceo S2 score, CHF = 1, hypertension = 1, age more than 75 years = 1 she has 3 points she needs chronic anticoagulant to prevent stroke, start Eliquis 2.5 mg p.o. twice daily, discontinue antiplatelet
[2018-07-07] MEDS: ATORVASTATIN CALCIUM 10 MG TABLET PO SCH (22:00)
[2018-07-08] MEDS: LEVOTHYROXINE SODIUM 0.075 MG TABLET PO SCH (05:47)
[2018-07-08] MEDS: LANSOPRAZOLE 30 MG TAB.RAP.DR PO SCH (05:48)
--- NOTE | 2018-07-08 08:54 | EKG REPORT ---
SEVERITY:- ABNORMAL ECG - VENTRICULAR-PACED RHYTHM : Confirmed by: Jadyn Farmer MD 08-Jul-2018 08:53:51
[2018-07-08] MEDS: METOPROLOL SUCCINATE 50 MG TAB.SR.24H PO SCH (09:15)
[2018-07-08] MEDS: SACUBITRIL/VALSARTAN 24 MG/26 MG TABLET PO SCH ×2 (09:16→21:01)
[2018-07-08] MEDS: RANOLAZINE 500 MG TAB.SR.12H PO SCH ×2 (09:18→21:02)
[2018-07-08] MEDS: PAROXETINE HCL 20 MG TABLET PO SCH (09:48)
[2018-07-08] MEDS: POLYETHYLENE GLYCOL 3350 POWDER 17 GM/1 PACKET PO SCH (09:48)
[2018-07-08] MEDS: FLUTICASONE/SALMETEROL DISKUS 250-50 MCG/DOSE IH SCH ×2 (09:48→21:03)
[2018-07-08] MEDS: ONDANSETRON 4 MG TAB.RAPDIS PO PRN (09:49)
[2018-07-08] MEDS: CHOLECALCIFEROL (D3) 1,000 UNIT TABLET PO SCH (09:49)
[2018-07-08] MEDS ORDERED: FUROSEMIDE 40 MG TABLET PO SCH (10:00)
[2018-07-08] MEDS ORDERED: FUROSEMIDE 20 MG TABLET PO SCH (10:00)
--- NOTE | 2018-07-08 20:00 | PDOC PROGRESS REPORT ---
Subjective Progress Note for:: 07/08/18 Subjective:: Patient is alert she was seen by Dr. Farmer, cardiology Reason For Visit: PNEUMONIA,EPIGASTRIC PAIN Physical Exam Vital Signs: Temp Pulse Resp BP Pulse Ox 97.7 F 70 16 79/45 L 96 07/08/18 15:40 07/08/18 15:40 07/08/18 15:40 07/08/18 15:40 07/08/18 15:40 Intake & Output 07/07/18 07/08/18 07/09/18 06:59 06:59 06:59 Intake Total 1353 1585 711 Output Total 1200 1250 250 Balance 153 335 461 Weight 52.4 kg 52.4 kg General appearance: PRESENT: no acute distress Eye exam: PRESENT: PERRLA Respiratory exam: PRESENT: clear to auscultation mimi Cardiovascular exam: PRESENT: +S1, +S2 GI/Abdominal exam: PRESENT: soft Neurological exam: PRESENT: alert Results Laboratory Results: 07/06/18 04:41 07/06/18 04:41 07/03/18 08:33 Blood Blood Culture - Final NO GROWTH IN 5 DAYS 07/03/18 07/03/18 14:47 14:47 Creatine Kinase 141 H CK-MB (CK-2) 3.12 Troponin I 0.333 NT-Pro-B Natriuret Pep 06279 H Impressions: Chest CT 07/03/18 00:00 IMPRESSION: 1. Bilateral effusions. No definite pneumonia. Other findings as above. Chest X-Ray 07/03/18 05:19 IMPRESSION: 1. Patchy airspace disease in the right inferior hemithorax suspicious for a pneumonic infiltrate. 2. Probable atelectasis, fibrosis or inflammatory changes in the left lung base. 3. Prominence of the cardiac silhouette which may be accentuated by the portable technique. 4. Grossly stable bipolar pacemaker. Assessment & Plan - Diagnosis (1) Non-ST elevated myocardial infarction Is this a current diagnosis for this admission?: Yes (2) COPD (chronic obstructive pulmonary disease) Qualifiers: COPD type: unspecified COPD Qualified Code(s): J44.9 - Chronic obstructive pulmonary disease, unspecified Is this a current diagnosis for this admission?: Yes (3) Bilateral pleural effusion Is this a current diagnosis for this admission?: Yes (4) Acute combined systolic and diastolic heart failure Is this a current diagnosis for this admission?: Yes (5) Pulmonary hypertension Is this a current diagnosis for this admission?: Yes (6) Paroxysmal atrial fibrillation Is this a current diagnosis for this admission?: Yes
[2018-07-08 20:25] LABS: ABSOLUTE EOSINOPHILS # (AUTO) 0.4 10^3/uL (0.0-0.6); ABSOLUTE LYMPHOCYTES (AUTO) 1.5 10^3/uL (0.5-4.7); ABSOLUTE MONOCYTES (AUTO) 0.7 10^3/uL (0.1-1.4); ABSOLUTE NEUT (AUTO) 4.3 10^3/uL (1.7-8.2); BASOPHILS % (AUTO) 0.5 % (0-2); EOSINOPHILS % (AUTO) 5.5 % (0-6); HEMATOCRIT 33.5 % (36.0-47.0); HEMOGLOBIN 11.5 g/dL (12.0-15.5); LYMPHOCYTES % (AUTO) 21.4 % (13-45); MEAN CORPUSCULAR HEMOGLOBIN 30.8 pg (27.0-33.4); MEAN CORPUSCULAR HGB CONC 34.3 g/dL (32.0-36.0); MEAN CORPUSCULAR VOLUME 90 fl (80-97); PLATELET COUNT 228 10^3/uL (150-450); RED BLOOD COUNT 3.73 10^6/uL (3.72-5.28); RED CELL DISTRIBUTION WIDTH 13.3 % (11.5-14.0); SEGMENTED NEUTROPHILS % (AUTO) 62.6 % (42-78); TOTAL CELLS COUNTED % (AUTO) 100 %; WHITE BLOOD COUNT 6.9 10^3/uL (4.0-10.5)
[2018-07-08 20:44] LABS: ALANINE AMINOTRANSFERASE 29 U/L (9-52); ALBUMIN 3.3 g/dL (3.5-5.0); ALKALINE PHOSPHATASE 43 U/L (38-126); ANION GAP 7 (5-19); ASPARTATE AMINO TRANSFERASE 31 U/L (14-36); BILIRUBIN,DIRECT 0.5 mg/dL (0.0-0.4); BILIRUBIN,TOTAL 0.6 mg/dL (0.2-1.3); BLOOD UREA NITROGEN 25 mg/dL (7-20); CALCIUM 8.9 mg/dL (8.4-10.2); CARBON DIOXIDE 35 mmol/L (22-30); CHLORIDE 87 mmol/L (98-107); GLUCOSE 98 mg/dL (75-110); POTASSIUM 4.2 mmol/L (3.6-5.0); TOTAL PROTEIN 5.6 g/dL (6.3-8.2)
[2018-07-08] MEDS: ATORVASTATIN CALCIUM 10 MG TABLET PO SCH (21:02)
--- NOTE | 2018-07-08 22:32 | Progress Note ---
Provider Note Provider Note: CARDIOLOGY PROGRESS NOTE by Dr. Jadyn Farmer on 07/08/2018. SUBJECTIVE: The patient is concerned with her medications, and her low blood pressure. But she has no symptoms from a low blood pressure. She denies any chest pain or discomfort. There is no cough or sputum production she denies any shortness of breath, In spite of physical examination showing significant COPD. She has underlying atrial fibrillation with ventricular paced rhythm. There is no bleeding on Eliquis. She denies any PND orthopnea. There is no TIA CVA symptoms. Note that the patient's renal function is much compromise, and the patient does not appear to be volume overloaded. Hence will discontinue the patient's Lasix. There is no leg edema. There is no TIA or CVA symptoms.. PHYSICAL EXAMINATION: 07/08/18 12:25 Temperature 98.5 F Temperature Oral Source Pulse Rate 71 Respiratory 13 Rate Blood Pressure 104/64 Blood Pressure 77 Mean O2 Sat by Pulse 100 Oximetry Oxygen Flow 0.50 Rate Oxygen Delivery Nasal Cannula Method The patient is a frail build, but does not seem to be in any acute distress. HEAD is atraumatic, normocephalic. Pupils are equal round regular reactive to light accommodation. Extraocular movements are normal. There is no conjunctival pallor, and there is no scleral icterus. ENT: Is negative. NECK: Is supple. There is no JVD. Carotids are equal there is no bruits. There is no lymphadenopathy there is no goiter. There is no accessory muscles of respiration in use. Trachea central. LUNGS: There is scattered rhonchi throughout without any rales or wheezing. There is very much diminished air entry and prolonged expiration. On percussion there is hyperresonance. There is no chest wall tenderness. HEART: S1-S2 is heard. S1 is of variable intensity. There is no S3 gallop there is no S4 gallop. There is a systolic murmur left sternal border and apex. There is no rub. ABDOMEN: Soft. Nontender. There is no hepatosplenomegaly. Bowel sounds well heard. EXTREMITIES: Femorals are diminished. There is no femoral bruits. Leg pulses are diminished. There is no pedal edema. There is no DVT or cellulitis. There is no calf tenderness. There is no sinus or clubbing. 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 Psychiatric the patient appears to be slightly anxious, and fixated on her blood pressure being low, with the dose of various medications, and is very anxious about pacemaker reaching end of life status. 07/08/18 07/08/18 20:05 20:05 WBC 6.9 Hgb 11.5 L Hct 33.5 L Plt Count 228 Sodium 129.0 L Potassium 4.2 Chloride 87 L Carbon Dioxide 35 H BUN 25 H Creatinine 1.62 H Est GFR (Non-Af Amer) 30 L Glucose 98 Calcium 8.9 Total Bilirubin 0.6 Direct Bilirubin 0.5 H Neonat Total Bilirubin Not Reportable Neonat Direct Bilirubin Not Reportable Neonat Indirect Bili Not Reportable AST 31 ALT 29 Alkaline Phosphatase 43 Total Protein 5.6 L Albumin 3.3 L IMPRESSION/RECOMMENDATIONS: 1. NON ST ELEVATION IN: Continue beta-blockers and Ranexa. The patient has no anginal symptoms. We will recheck the patient's troponin I in the a.m. 2. Acute combined systolic and diastolic heart failure: At present seems to be compensated. Continue the patient on Entresto, and beta-kaushik as tolerated by blood pressure. 3. RELATIVE HYPOTENSION: We will continue to observe the patient's blood pressure, to see if this comes up with the stopping of Lasix. If not we will try a small dose of Midodrine, to see if this will bring the blood pressure up if it does or if the blood pressure does not come up, and then will increase the dose of Midodrine. 4. CARDIOMYOPATHY: Mildly reduced LV ejection fraction. Patient is allergic to DC INHIBITOR hence continue beta-kaushik and Entresto. 5. ATRIAL FIBRILLATION: Seems to be either persistent or chronic. Continue beta-kaushik, and Eliquis. 6. CHRONIC KIDNEY DISEASE: Stage III. We will see if there is improvement in the GFR with stopping the patient's Lasix. 7. COPD: Seems to be very severe. Although the patient's examination shows rhonchi throughout, this seems to be at baseline. Continue anti-COPD medication and nasal oxygen. 8. PULMONARY HYPERTENSION: There is no overt evidence of right heart failure present. 9. PERMANENT PACEMAKER: Patient claims she has an appointment day after tomorrow with Dr. Akbar for battery change.. Medications have been reviewed, and adjusted. Discussed with other caregiving providers on the case. Medical decision making is of moderate to high complexity. Note 40 minutes spent on this patient more than 50% of time spent in direct patient care.
[2018-07-09] MEDS: LEVOTHYROXINE SODIUM 0.075 MG TABLET PO SCH (05:26)
[2018-07-09] MEDS: LANSOPRAZOLE 30 MG TAB.RAP.DR PO SCH (05:26)
[2018-07-09 10:12] LABS: ALANINE AMINOTRANSFERASE 31 U/L (9-52); ALBUMIN 3.6 g/dL (3.5-5.0); ALKALINE PHOSPHATASE 52 U/L (38-126); ANION GAP 11 (5-19); ASPARTATE AMINO TRANSFERASE 35 U/L (14-36); BILIRUBIN,DIRECT 0.3 mg/dL (0.0-0.4); BILIRUBIN,TOTAL 0.8 mg/dL (0.2-1.3); BLOOD UREA NITROGEN 22 mg/dL (7-20); CALCIUM 9.2 mg/dL (8.4-10.2); CARBON DIOXIDE 33 mmol/L (22-30); CHLORIDE 89 mmol/L (98-107); GLUCOSE 93 mg/dL (75-110); POTASSIUM 4.4 mmol/L (3.6-5.0); SODIUM 133.1 mmol/L (137-145); TOTAL PROTEIN 6.1 g/dL (6.3-8.2)
[2018-07-09] MEDS: POLYETHYLENE GLYCOL 3350 POWDER 17 GM/1 PACKET PO SCH (10:39)
[2018-07-09] MEDS: FLUTICASONE/SALMETEROL DISKUS 250-50 MCG/DOSE IH SCH ×2 (10:39→22:55)
[2018-07-09] MEDS: FENTANYL 50 MCG/HR PATCH.TD72 TD SCH (10:40)
[2018-07-09] MEDS: RANOLAZINE 500 MG TAB.SR.12H PO SCH (10:49)
[2018-07-09] MEDS: PAROXETINE HCL 20 MG TABLET PO SCH (10:50)
[2018-07-09] MEDS: SACUBITRIL/VALSARTAN 24 MG/26 MG TABLET PO SCH ×2 (10:50→22:45)
[2018-07-09] MEDS: CHOLECALCIFEROL (D3) 1,000 UNIT TABLET PO SCH (10:51)
[2018-07-09] MEDS: METOPROLOL SUCCINATE 50 MG TAB.SR.24H PO SCH (10:51)
[2018-07-09] MEDS ORDERED: MIDODRINE HCL 5 MG TABLET PO ONE (13:00)
--- NOTE | 2018-07-09 20:34 | Progress Note ---
Provider Note Provider Note: CARDIOLOGY PROGRESS NOTE for 07/09/[address] Jadyn Farmer. SUBJECTIVE: The patient denies any chest pain or discomfort there is no PND orthopnea her blood pressure is on the low side in the high 80s, but the patient is asymptomatic. The patient is fixated on getting her pacemaker battery change done she wants it done immediately and states that she wants to keep her appointment with Dr. Akbar tomorrow. But with the patient's blood pressure being low the patient not ready to be discharged. There is no leg edema. There is no anginal symptoms. She denies any PND orthopnea. The patient's underlying rhythm seems to be atrial fibrillation with a ventricular paced rhythm. There is no ventricular arrhythmias seen. The patient denies any cough or shortness of breath. There is no TIA or CVA symptoms. Note in view of her low blood pressure, in spite of Lasix being held, her Entresto was held this morning. Selected Entries 07/09/18 07/09/18 15:59 16:00 Temperature 97.7 F Temperature Oral Source Pulse Rate 70 Blood Pressure 88/76 90/60 L [Right Upper Arm] Blood Pressure 70 Mean [Right Upper Arm] Blood Pressure Supine Position [Right Upper Arm] O2 Sat by Pulse 100 Oximetry Oxygen Flow 0.50 Rate Oxygen Delivery Nasal Cannula Method PHYSICAL EXAMINATION: The patient is a frail build, but does not seem to be in any acute distress. HEAD is atraumatic, normocephalic. Pupils are equal round regular reactive to light accommodation. Extraocular movements are normal. There is no conjunctival pallor, and there is no scleral icterus. ENT: Is negative. NECK: Is supple. There is no JVD. Carotids are equal there is no bruits. There is no lymphadenopathy there is no goiter. There is no accessory muscles of respiration in use. Trachea central. LUNGS: There is scattered rhonchi throughout without any rales or wheezing. There is very much diminished air entry and prolonged expiration. On percussion there is hyperresonance. There is no chest wall tenderness. HEART: S1-S2 is heard. S1 is of variable intensity. There is no S3 gallop there is no S4 gallop. There is a systolic murmur left sternal border and apex. There is no rub. ABDOMEN: Soft. Nontender. There is no hepatosplenomegaly. Bowel sounds well heard. EXTREMITIES: Femorals are diminished. There is no femoral bruits. Leg pulses are diminished. There is no pedal edema. There is no DVT or cellulitis. There is no calf tenderness. There is no sinus or clubbing. 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 Psychiatric the patient appears to be slightly anxious, and fixated on her blood pressure being low, with the dose of various medications, and is very anxious about pacemaker reaching end of life status. 07/09/18 09:38 Sodium 133.1 L Potassium 4.4 Chloride 89 L Carbon Dioxide 33 H BUN 22 H Creatinine 1.48 H Est GFR (Non-Af Amer) 33 L Glucose 93 Calcium 9.2 Total Bilirubin 0.8 Direct Bilirubin 0.3 Neonat Total Bilirubin Not Reportable Neonat Direct Bilirubin Not Reportable Neonat Indirect Bili Not Reportable AST 35 ALT 31 Alkaline Phosphatase 52 Total Protein 6.1 L Albumin 3.6 IMPRESSION/RECOMMENDATIONS: 1. NON ST ELEVATION [place]: Continue beta-blockers and Ranexa. The patient has no anginal symptoms. We will recheck the patient's troponin I in the a.m. 2. Acute combined systolic and diastolic heart failure: At present seems to be compensated. Continue the patient on Entresto, and beta-kaushik as tolerated by blood pressure. 3. HYPOTENSION: We will try a small dose of Midrin, to see if this will bring the blood pressure up if it does or if the blood pressure does not come up, and then will increase the dose of Midrin. 4. CARDIOMYOPATHY: Mildly reduced LV ejection fraction. Patient is allergic to DC INHIBITOR hence continue beta-kaushik and Entresto. 5. ATRIAL FIBRILLATION: Seems to be either persistent or chronic. Continue beta-kaushik, and Eliquis. 6. CHRONIC KIDNEY DISEASE: Stage III. Slight improvement in the GFR with stopping the patient's Lasix. 7. COPD: Seems to be very severe. Although the patient's examination shows rhonchi throughout, this seems to be at baseline. Continue anti-COPD medication and nasal oxygen. 8. PULMONARY HYPERTENSION: There is no overt evidence of right heart failure present. 9. PERMANENT PACEMAKER: Discussed with Dr. Akbar as requested by the patient. He agrees that the patient needs a pacemaker change of battery, since there is reached end-of-life parameters, but he states that this can wait at least 1- 2 weeks. The patient has an appointment tomorrow, he will reschedule the patient's appointment for later in a week to 10 days. Hopefully patient can be discharged, and she can be sent for outpatient pacemaker battery change. This has been discussed with the patient. Note medications have been reviewed and adjusted. Note the patient is a full code, her brother is a surrogate healthcare decision maker. Medical decision making is of high complexity in view of the patient's blood pressure and multiple medical problems. Discussed with the other caregiving providers on the case. Note 40 minutes spent on this patient including the time spent with Dr. Akbar on the telephone discussing the patient's pacemaker status, with more than 50% of the time spent in direct patient care. We will follow with you. Thanking you end of dictation
--- NOTE | 2018-07-09 20:38 | PDOC PROGRESS REPORT ---
Subjective Progress Note for:: 07/09/18 Subjective:: Patient was seen by the bedside, the blood pressure has been low today, she has not been able to tolerate entresto. She was started on metoprolol succinate , she used to be on metoprolol tartrate,she will be restarted back on metoprolol tartrate Reason For Visit: PNEUMONIA,EPIGASTRIC PAIN Physical Exam Vital Signs: Temp Pulse Resp BP Pulse Ox 97.7 F 70 16 90/60 L 100 07/09/18 15:59 07/09/18 19:00 07/09/18 15:59 07/09/18 16:00 07/09/18 15:59 Intake & Output 07/08/18 07/09/18 07/10/18 06:59 06:59 06:59 Intake Total 1557 640 3644 Output Total 8440 725 4347 Balance 335 -139 185 Weight 52.4 kg 52.4 kg General appearance: PRESENT: no acute distress Eye exam: PRESENT: PERRLA Respiratory exam: PRESENT: rhonchi Cardiovascular exam: PRESENT: +S1, +S2 GI/Abdominal exam: PRESENT: soft Neurological exam: PRESENT: alert Results Laboratory Results: 07/08/18 20:05 07/09/18 09:38 07/08/18 07/09/18 20:05 09:38 Sodium 129.0 L 133.1 L Potassium 4.2 4.4 Chloride 87 L 89 L Carbon Dioxide 35 H 33 H Anion Gap 7 11 BUN 25 H 22 H Creatinine 1.62 H 1.48 H Est GFR ( Amer) 36 L 40 L Est GFR (Non-Af Amer) 30 L 33 L Glucose 98 93 Calcium 8.9 9.2 Total Bilirubin 0.6 0.8 AST 31 35 ALT 29 31 Alkaline Phosphatase 43 52 Total Protein 5.6 L 6.1 L Albumin 3.3 L 3.6 07/03/18 07/03/18 14:47 14:47 Creatine Kinase 141 H CK-MB (CK-2) 3.12 Troponin I 0.333 NT-Pro-B Natriuret Pep 48319 H Impressions: Chest CT 07/03/18 00:00 IMPRESSION: 1. Bilateral effusions. No definite pneumonia. Other findings as above. Chest X-Ray 07/03/18 05:19 IMPRESSION: 1. Patchy airspace disease in the right inferior hemithorax suspicious for a pneumonic infiltrate. 2. Probable atelectasis, fibrosis or inflammatory changes in the left lung base. 3. Prominence of the cardiac silhouette which may be accentuated by the portable technique. 4. Grossly stable bipolar pacemaker. Assessment & Plan - Diagnosis (1) Non-ST elevated myocardial infarction Is this a current diagnosis for this admission?: Yes (2) COPD (chronic obstructive pulmonary disease) Qualifiers: COPD type: unspecified COPD Qualified Code(s): J44.9 - Chronic obstructive pulmonary disease, unspecified Is this a current diagnosis for this admission?: Yes (3) Bilateral pleural effusion Is this a current diagnosis for this admission?: Yes (4) Acute combined systolic and diastolic heart failure Is this a current diagnosis for this admission?: Yes (5) Pulmonary hypertension Is this a current diagnosis for this admission?: Yes (6) Paroxysmal atrial fibrillation Is this a current diagnosis for this admission?: Yes Plan: Continue Eliquis
[2018-07-09] MEDS: ATORVASTATIN CALCIUM 10 MG TABLET PO SCH (22:55)
[2018-07-10] MEDS: LEVOTHYROXINE SODIUM 0.075 MG TABLET PO SCH (06:23)
[2018-07-10] MEDS: LANSOPRAZOLE 30 MG TAB.RAP.DR PO SCH (06:23)
[2018-07-10] MEDS: RANOLAZINE 500 MG TAB.SR.12H PO SCH ×3 (09:24→22:50)
[2018-07-10] MEDS: CHOLECALCIFEROL (D3) 1,000 UNIT TABLET PO SCH (09:35)
[2018-07-10] MEDS: APIXABAN 2.5 MG TABLET PO SCH ×2 (09:35→18:04)
[2018-07-10] MEDS: PAROXETINE HCL 20 MG TABLET PO SCH (09:36)
[2018-07-10] MEDS: METOPROLOL TARTRATE 25 MG TABLET PO SCH ×2 (09:36→22:27)
[2018-07-10] MEDS: POLYETHYLENE GLYCOL 3350 POWDER 17 GM/1 PACKET PO SCH (09:36)
[2018-07-10] MEDS: FLUTICASONE/SALMETEROL DISKUS 250-50 MCG/DOSE IH SCH ×2 (09:37→22:32)
[2018-07-10] MEDS: SACUBITRIL/VALSARTAN 24 MG/26 MG TABLET PO SCH ×2 (09:38→22:27)
[2018-07-10] MEDS: MIDODRINE HCL 5 MG TABLET PO SCH ×2 (12:40→18:04)
--- NOTE | 2018-07-10 18:21 | PDOC PROGRESS REPORT ---
Subjective Progress Note for:: 07/10/18 Subjective:: Patient was seen by the bedside, she complained of epigastric pain, the challenge is the blood pressure consistently low. Reason For Visit: PNEUMONIA,EPIGASTRIC PAIN Physical Exam Vital Signs: Temp Pulse Resp BP Pulse Ox 97.5 F 69 20 98/61 L 100 07/10/18 15:17 07/10/18 15:17 07/10/18 15:17 07/10/18 15:17 07/10/18 15:17 Intake & Output 07/09/18 07/10/18 07/11/18 06:59 06:59 06:59 Intake Total 711 1285 829 Output Total 850 1900 800 Balance -139 -615 29 Weight 52.4 kg 52.4 kg General appearance: PRESENT: no acute distress Eye exam: PRESENT: PERRLA Respiratory exam: PRESENT: clear to auscultation mimi Cardiovascular exam: PRESENT: +S1, +S2 GI/Abdominal exam: PRESENT: soft Neurological exam: PRESENT: alert Results Laboratory Results: 07/08/18 20:05 07/09/18 09:38 07/03/18 07/03/18 14:47 14:47 Creatine Kinase 141 H CK-MB (CK-2) 3.12 Troponin I 0.333 NT-Pro-B Natriuret Pep 10311 H Impressions: Chest CT 07/03/18 00:00 IMPRESSION: 1. Bilateral effusions. No definite pneumonia. Other findings as above. Chest X-Ray 07/03/18 05:19 IMPRESSION: 1. Patchy airspace disease in the right inferior hemithorax suspicious for a pneumonic infiltrate. 2. Probable atelectasis, fibrosis or inflammatory changes in the left lung base. 3. Prominence of the cardiac silhouette which may be accentuated by the portable technique. 4. Grossly stable bipolar pacemaker. Assessment & Plan - Diagnosis (1) Non-ST elevated myocardial infarction Is this a current diagnosis for this admission?: Yes (2) COPD (chronic obstructive pulmonary disease) Qualifiers: COPD type: unspecified COPD Qualified Code(s): J44.9 - Chronic obstructive pulmonary disease, unspecified Is this a current diagnosis for this admission?: Yes (3) Bilateral pleural effusion Is this a current diagnosis for this admission?: Yes (4) Acute combined systolic and diastolic heart failure Is this a current diagnosis for this admission?: Yes (5) Pulmonary hypertension Is this a current diagnosis for this admission?: Yes (6) Paroxysmal atrial fibrillation Is this a current diagnosis for this admission?: Yes (7) Hypotension Qualifiers: Hypotension type: unspecified hypotension type Qualified Code(s): I95.9 - Hypotension, unspecified Is this a current diagnosis for this admission?: Yes
--- NOTE | 2018-07-10 20:47 | Progress Note ---
Provider Note Provider Note: CARDIOLOGY PROGRESS NOTE by Dr. Jadyn Farmer for 07/10/2018. OBJECTIVE: The patient's blood pressure still on the low side but slightly better. I have increased the patient's midodrine to 5 mg p.o. 3 times daily. She denies any chest pain. Earlier this morning she had a brief episode of shortness of breath with difficulty taking in a deep breath. This resolved when the patient increased the nasal O2 by itself. There was no wheezing or cough. At present he has she has had no shortness of breath. She states that the episode of shortness of breath as resolved. She denies any chest pain or discomfort. There is no PND orthopnea or leg edema. There is no ventricular arrhythmias seen on the monitor. There is no leg edema. There is no bleeding on Eliquis. There is no TIA CVA symptoms. PHYSICAL EXAMINATION: The patient is a frail build and looks chronically ill. But at present she is in no acute distres 07/10/18 15:17 Temperature 97.5 F Temperature Oral Source Pulse Rate 69 Respiratory 20 Rate Blood Pressure 98/61 L Blood Pressure 73 Mean BP Location Left Arm BP Position Supine O2 Sat by Pulse 100 Oximetry Oxygen Flow 0.50 Rate Oxygen Delivery Nasal Cannula Method HEAD is atraumatic, normocephalic. Pupils are equal round regular reactive to light accommodation. Extraocular movements are normal. There is no conjunctival pallor, and there is no scleral icterus. ENT: Is negative. NECK: Is supple. There is no JVD. Carotids are equal there is no bruits. There is no lymphadenopathy there is no goiter. There is no accessory muscles of respiration in use. Trachea central. LUNGS: There is scattered rhonchi throughout without any rales or wheezing. There is very much diminished air entry and prolonged expiration. On percussion there is hyperresonance. There is no chest wall tenderness. HEART: S1-S2 is heard. S1 is of variable intensity. There is no S3 gallop there is no S4 gallop. There is a systolic murmur left sternal border and apex. There is no rub. ABDOMEN: Soft. Nontender. There is no hepatosplenomegaly. Bowel sounds well heard. EXTREMITIES: Femorals are diminished. There is no femoral bruits. Leg pulses are diminished. There is no pedal edema. There is no DVT or cellulitis. There is no calf tenderness. There is no sinus or clubbing. 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 PSYCHIATRIC: Today the patient does not appear to be anxious, and I have allayed her fears of sudden failure of pacemaker battery. Her judgment and insight are intact. Her affect appears to be normal. IMPRESSION/RECOMMENDATION: 1. NON ST ELEVATION [place]: Continue beta-blockers and Ranexa. The patient has no anginal symptoms. We will recheck the patient's troponin I in the a.m. 2. Acute combined systolic and diastolic heart failure: At present seems to be compensated. Continue the patient on Entresto, and beta-kaushik as tolerated by blood pressure. 3. HYPOTENSION: We will increase the patient's Midodrine to 5 mg p.o. 3 times daily, to see if this will bring the blood pressure. If she continues to have low blood pressure in spite of Midodrine, then we may be forced to stop the patient's Entresto. 4. CARDIOMYOPATHY: Mildly reduced LV ejection fraction. Patient is allergic to DC INHIBITOR hence continue beta-kaushik and Entresto. 5. ATRIAL FIBRILLATION: Seems to be either persistent or chronic. Continue beta-kaushik, and Eliquis. 6. CHRONIC KIDNEY DISEASE: Stage III. Slight improvement in the GFR with stopping the patient's Lasix. 7. COPD: Seems to be very severe. Although the patient's examination shows rhonchi throughout, this seems to be at baseline. Note patient had an earlier episode of acute exacerbation of COPD, which resolved spontaneously with increasing the O2. I have advised the patient to ask for a breathing treatment when this occurs. 8. PULMONARY HYPERTENSION: There is no overt evidence of right heart failure at present. 9. PERMANENT PACEMAKER: She has an appointment to see Dr. Akbar next week for a scheduled for battery change. Hopefully she can be discharged in the next couple of days. Note of medications have been reviewed her medications have been adjusted and added. Note 40 minutes spent on this patient more than 50% of time spent in direct patient care medical decision making is of still high complexity. This is in view of the patient's blood pressure not responding favorably as expected to treatment. Discussed with other caregiving providers on the case. Will follow with you.
[2018-07-10] MEDS: ATORVASTATIN CALCIUM 10 MG TABLET PO SCH (22:32)
[2018-07-11] MEDS: ONDANSETRON 4 MG TAB.RAPDIS PO PRN ×2 (04:02→22:36)
[2018-07-11] MEDS ORDERED: LACTULOSE SYRUP 20 GM/30 ML UDCUP PO ONE (04:30)
[2018-07-11] MEDS: LEVOTHYROXINE SODIUM 0.075 MG TABLET PO SCH (05:01)
[2018-07-11] MEDS: LANSOPRAZOLE 30 MG TAB.RAP.DR PO SCH (05:01)
[2018-07-11] MEDS: FENTANYL 50 MCG/HR PATCH.TD72 TD SCH (09:40)
[2018-07-11] MEDS: MIDODRINE HCL 5 MG TABLET PO SCH ×3 (09:43→22:36)
[2018-07-11] MEDS: CHOLECALCIFEROL (D3) 1,000 UNIT TABLET PO SCH (09:43)
[2018-07-11] MEDS: APIXABAN 2.5 MG TABLET PO SCH (09:48)
[2018-07-11] MEDS: METOPROLOL TARTRATE 25 MG TABLET PO SCH ×2 (09:49→22:38)
[2018-07-11] MEDS: SACUBITRIL/VALSARTAN 24 MG/26 MG TABLET PO SCH ×2 (09:51→22:38)
[2018-07-11] MEDS: PAROXETINE HCL 20 MG TABLET PO SCH (10:05)
[2018-07-11] MEDS: FLUTICASONE/SALMETEROL DISKUS 250-50 MCG/DOSE IH SCH ×2 (10:06→22:36)
[2018-07-11] MEDS: POLYETHYLENE GLYCOL 3350 POWDER 17 GM/1 PACKET PO SCH (10:06)
[2018-07-11] MEDS: RANOLAZINE 500 MG TAB.SR.12H PO SCH ×2 (10:06→22:38)
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
--- NOTE | 2018-07-11 19:31 | PDOC PROGRESS REPORT ---
Subjective Progress Note for:: 07/11/18 Subjective:: Patient was seen today by the surgeon, CT scan of the abdomen and pelvis ordered Reason For Visit: PNEUMONIA,EPIGASTRIC PAIN Physical Exam Vital Signs: Temp Pulse Resp BP Pulse Ox 98.0 F 70 18 101/50 L 98 07/11/18 15:43 07/11/18 15:43 07/11/18 15:43 07/11/18 15:43 07/11/18 15:43 Intake & Output 07/10/18 07/11/18 07/12/18 06:59 06:59 06:59 Intake Total 1285 1619 150 Output Total 1900 1100 700 Balance -615 519 -550 Weight 52.4 kg 55.3 kg General appearance: PRESENT: no acute distress Respiratory exam: PRESENT: rhonchi Cardiovascular exam: PRESENT: +S1, +S2 GI/Abdominal exam: PRESENT: soft Neurological exam: PRESENT: alert Results Laboratory Results: 07/08/18 20:05 07/09/18 09:38 07/03/18 07/03/18 14:47 14:47 Creatine Kinase 141 H CK-MB (CK-2) 3.12 Troponin I 0.333 NT-Pro-B Natriuret Pep 88301 H Impressions: Chest CT 07/03/18 00:00 IMPRESSION: 1. Bilateral effusions. No definite pneumonia. Other findings as above. Chest X-Ray 07/03/18 05:19 IMPRESSION: 1. Patchy airspace disease in the right inferior hemithorax suspicious for a pneumonic infiltrate. 2. Probable atelectasis, fibrosis or inflammatory changes in the left lung base. 3. Prominence of the cardiac silhouette which may be accentuated by the portable technique. 4. Grossly stable bipolar pacemaker. Assessment & Plan - Diagnosis (1) Non-ST elevated myocardial infarction Is this a current diagnosis for this admission?: Yes (2) COPD (chronic obstructive pulmonary disease) Qualifiers: COPD type: unspecified COPD Qualified Code(s): J44.9 - Chronic obstructive pulmonary disease, unspecified Is this a current diagnosis for this admission?: Yes (3) Bilateral pleural effusion Is this a current diagnosis for this admission?: Yes (4) Acute combined systolic and diastolic heart failure Is this a current diagnosis for this admission?: Yes (5) Pulmonary hypertension Is this a current diagnosis for this admission?: Yes (6) Paroxysmal atrial fibrillation Is this a current diagnosis for this admission?: Yes (7) Hypotension Qualifiers: Hypotension type: unspecified hypotension type Qualified Code(s): I95.9 - Hypotension, unspecified Is this a current diagnosis for this admission?: Yes - Plan Summary Plan Summary: Continue present treatment
--- NOTE | 2018-07-11 20:42 | Progress Note ---
Provider Note Provider Note: CARDIOLOGY PROGRESS NOTE by Dr. Jadyn Farmer on 07/11/2018. SUBJECTIVE: The patient's blood pressure did come up and she was able to get metoprolol, but the patient refused to take Entresto. At present her blood pressure is 101 systolic. She denies any chest pain shortness of breath PND orthopnea, although she states that often and she has short episodes of shortness of breath. There is no TIA CVA symptoms. There is no leg edema. There is no PND orthopnea. The patient is being investigated for epigastric pain off and on which is been there for a long time. The patient claims that this episodes of increased now. She was seen by his surgical list who will get further tests prior to doing an endoscopy. Since the endoscopy would be beneficial to the patient, to make sure that she does not have any potential bleeding pathology, since she is on Eliquis. Hence I have discussed with the surgical risks that since the patient is at present stable and the troponins eyes have come down, if the patient has no further angina, then it would be safe to do endoscopy. But would prefer that the patient remain on Eliquis for anticoagulation. We will see if the patient blood pressure does not warrant the continuation of Entresto, then will switch to an ARB, since the patient is allergic to DC inhibitors. PHYSICAL EXAMINATION: The patient is a frail build, and appears chronically ill. But at present she is not in acute distress. 07/11/18 15:43 Temperature 98.0 F Temperature Oral Source Pulse Rate 70 Respiratory 18 Rate Blood Pressure 101/50 L Blood Pressure 67 Mean BP Location Left Arm BP Position Supine O2 Sat by Pulse 98 Oximetry Oxygen Flow 2.00 Rate Oxygen Delivery Nasal Cannula Method HEAD is atraumatic, normocephalic. Pupils are equal round regular reactive to light accommodation. Extraocular movements are normal. There is no conjunctival pallor, and there is no scleral icterus. ENT: Is negative. NECK: Is supple. There is no JVD. Carotids are equal there is no bruits. There is no lymphadenopathy there is no goiter. There is no accessory muscles of respiration in use. Trachea central. LUNGS: There is scattered rhonchi throughout without any rales or wheezing. There is very much diminished air entry and prolonged expiration. On percussion there is hyperresonance. There is no chest wall tenderness. HEART: S1-S2 is heard. S1 is of variable intensity. There is no S3 gallop there is no S4 gallop. There is a systolic murmur left sternal border and apex. There is no rub. ABDOMEN: Soft. Nontender. There is no hepatosplenomegaly. Bowel sounds well heard. EXTREMITIES: Femorals are diminished. There is no femoral bruits. Leg pulses are diminished. There is no pedal edema. There is no DVT or cellulitis. There is no calf tenderness. There is no sinus or clubbing. 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 PSYCHIATRIC: Today the patient does not appear to be anxious, and I have allayed her fears of sudden failure of pacemaker battery. Her judgment and insight are intact. Her affect appears to be normal. IMPRESSION/RECOMMENDATION: 1. NON ST ELEVATION [place]: Continue beta-blockers and Ranexa. The patient has no anginal symptoms. We will recheck the patient's troponin I in the a.m. 2. Acute combined systolic and diastolic heart failure: At present seems to be compensated. Continue the patient on Entresto, and beta-kaushik as tolerated by blood pressure. 3. HYPOTENSION: We will increase the patient's Midodrine to 5 mg p.o. 3 times daily, to see if this will bring the blood pressure. Her blood pressure has improved so that she can get metoprolol without dropping her pressure below 100. If she continues to have low blood pressure in spite of Midodrine, then we may be forced to stop the patient's Entresto, and switch to ARB. 4. CARDIOMYOPATHY: Mildly reduced LV ejection fraction. Patient is allergic to DC INHIBITOR hence continue beta-kaushik and Entresto. 5. ATRIAL FIBRILLATION: Seems to be either persistent or chronic. Continue beta-kaushik, and Eliquis. 6. CHRONIC KIDNEY DISEASE: Stage III. Slight improvement in the GFR with stopping the patient's Lasix. 7. COPD: Seems to be very severe. Although the patient's examination shows rhonchi throughout, this seems to be at baseline. Note patient had an earlier episode of acute exacerbation of COPD, which resolved spontaneously with increasing the O2. I have advised the patient to ask for a breathing treatment when this occurs. 8. PULMONARY HYPERTENSION: There is no overt evidence of right heart failure at present. 9. PERMANENT PACEMAKER: She has an appointment to see Dr. Akbar next week for a scheduled for battery change. Hopefully she can be discharged in the next couple of days. 10. EPIGASTRIC discomfort: Patient seen by surgicalist. Note of medications have been reviewed. Discussed with attending physician on the plans to change her medication to an ARB, if necessary due to a low blood pressure. At present we will continue the patient on Entresto and midodrine. Medical decision making is a moderate to high complexity. This is in view of the patient's ongoing low blood pressure. Note 40 minutes spent on this patient more than 50% of time spent on direct patient care. Discussed with attending physician on the case Dr. Tong, and with the surgicalist
[2018-07-11] MEDS ORDERED: ONDANSETRON HCL INJ/PF 4 MG/2 ML SDV IV ONE (20:45)
--- NOTE | 2018-07-11 22:05 | RADIOLOGY REPORT (SQ) ---
CT ABDOMEN PELVIS WITHOUT IV CONTRAST HISTORY: Abdominal pain COMPARISON: 05/26/2016 TECHNIQUE: CT scan of the abdomen and pelvis. This exam was performed according to our departmental dose-optimization program, which includes automated exposure control, adjustment of the mA and/or kV according to patient size and/or use of iterative reconstruction technique. FINDINGS: Small bilateral pleural effusions, right greater than left. Liver, gallbladder, spleen, pancreas, and adrenal glands are unremarkable. The kidneys are normal without hydronephrosis. Bilateral renal cysts with the largest measuring 3.8 cm in the upper pole left kidney. No bowel obstruction. Appendix is normal. No free air or free fluid. Normal caliber aorta with atherosclerotic calcifications. No abdominal wall hernia is seen. Degenerative changes of the spine. Grade 1 anterolisthesis of L5-S1. IMPRESSION: No acute abdominopelvic pathology. Small bilateral pleural effusions, right greater than left.
[2018-07-11] MEDS: ATORVASTATIN CALCIUM 10 MG TABLET PO SCH (22:38)
[2018-07-11] MEDS ORDERED: DEXTROSE 50%-WATER 25 GM/50 ML DISP.SYRIN IV PRN ×2 (22:43)
[2018-07-11] MEDS ORDERED: DEXTROSE 40% GEL 15 GM TUBE PO PRN ×2 (22:43)
[2018-07-11] MEDS ORDERED: GLUCAGON,HUMAN RECOMB 1 MG INJ SUBCUT PRN (22:43)
[2018-07-12] MEDS: LEVOTHYROXINE SODIUM 0.075 MG TABLET PO SCH (05:36)
[2018-07-12] MEDS: LANSOPRAZOLE 30 MG TAB.RAP.DR PO SCH (05:37)
[2018-07-12] MEDS: APIXABAN 2.5 MG TABLET PO SCH ×3 (08:44→17:41)
[2018-07-12] MEDS: FLUTICASONE/SALMETEROL DISKUS 250-50 MCG/DOSE IH SCH (10:10)
[2018-07-12] MEDS ORDERED: DIPHENHYDRAMINE HCL 50 MG/ML VIAL ONE (12:26)
[2018-07-12] MEDS ORDERED: FENTANYL CITRATE INJ/PF 100 MCG/2 ML AMPUL ONE (12:26)
[2018-07-12] MEDS ORDERED: ONDANSETRON HCL INJ/PF 4 MG/2 ML SDV ONE (12:26)
[2018-07-12] MEDS ORDERED: EPINEPHRINE INJ 1 MG/10 ML DISP.SYRIN ONE (12:27)
[2018-07-12] MEDS ORDERED: FLUMAZENIL INJ 0.5 MG/5 ML VIAL ONE (12:27)
[2018-07-12] MEDS ORDERED: NALOXONE HCL INJ/PF 0.4 MG/1 ML SDV ONE (12:27)
[2018-07-12] MEDS ORDERED: GLUCAGON,HUMAN RECOMB 1 MG INJ ONE (12:27)
[2018-07-12] MEDS: METOPROLOL TARTRATE 25 MG TABLET PO SCH (13:38)
[2018-07-12] MEDS: PAROXETINE HCL 20 MG TABLET PO SCH (13:43)
[2018-07-12] MEDS: MIDODRINE HCL 5 MG TABLET PO SCH ×3 (13:43→17:41)
[2018-07-12] MEDS: CHOLECALCIFEROL (D3) 1,000 UNIT TABLET PO SCH (13:45)
[2018-07-12] MEDS: RANOLAZINE 500 MG TAB.SR.12H PO SCH (13:46)
[2018-07-12] MEDS: SACUBITRIL/VALSARTAN 24 MG/26 MG TABLET PO SCH (13:47)
[2018-07-12] MEDS: POLYETHYLENE GLYCOL 3350 POWDER 17 GM/1 PACKET PO SCH (13:47)
[2018-07-12] MEDS: MIDAZOLAM 2 MG/2 ML INJ ONE ×4 (14:22→14:30)
--- NOTE | 2018-07-12 14:44 | Operative Report ---
Operative Report DATE OF SURGERY: 07/12/18 PREOPERATIVE DIAGNOSIS: Abdominal pain POSTOPERATIVE DIAGNOSIS: Same with hiatal hernia OPERATION: Esophagogastroduodenoscopy with photodocumentation SURGEON: HERON VILLARREAL ANESTHESIA: Moderate Sedation TISSUE REMOVED OR ALTERED: None COMPLICATIONS: None ESTIMATED BLOOD LOSS: None INTRAOPERATIVE FINDINGS: See below PROCEDURE: Patient was taken from the floor to the endoscopy suite where light IV sedation was induced with 3 mg of Versed. Surgical and surgical timeout were conducted. Oral mouthpiece inserted and dentures removed. The pediatric upper endoscope was advanced to the hypopharynx uneventfully down the esophagus into the stomach and into the duodenum. This was a well tolerated procedure. We visualized the second the first portion of the duodenum which were completely normal. The pylorus was normal. The stomach had no evidence of retained gastric contents, masses tumor strictures or bleeding. The scope was retroflexed in the stomach with good visualization of the GE junction. There was a small hiatal hernia. Scope was withdrawn to the GE junction in a retrograde fashion. The Z line was at 38 cm from the incisor. There was no significant inflammation. There was no evidence of esophageal varices. No other pathology seen. The scope was withdrawn from the patient's oropharynx. She tolerated procedure well. Discharge instructions provided to nursing staff.
[2018-07-12 17:08] LABS: ABSOLUTE EOSINOPHILS # (AUTO) 0.1 10^3/uL (0.0-0.6); ABSOLUTE LYMPHOCYTES (AUTO) 0.6 10^3/uL (0.5-4.7); ABSOLUTE MONOCYTES (AUTO) 0.4 10^3/uL (0.1-1.4); ABSOLUTE NEUT (AUTO) 5.1 10^3/uL (1.7-8.2); BASOPHILS % (AUTO) 0.3 % (0-2); EOSINOPHILS % (AUTO) 2.3 % (0-6); HEMOGLOBIN 10.9 g/dL (12.0-15.5); LYMPHOCYTES % (AUTO) 9.6 % (13-45); MEAN CORPUSCULAR HEMOGLOBIN 30.6 pg (27.0-33.4); MEAN CORPUSCULAR HGB CONC 34.1 g/dL (32.0-36.0); MEAN CORPUSCULAR VOLUME 90 fl (80-97); MONOCYTES % (AUTO) 7.1 % (3-13); PLATELET COUNT 206 10^3/uL (150-450); RED BLOOD COUNT 3.57 10^6/uL (3.72-5.28); RED CELL DISTRIBUTION WIDTH 13.3 % (11.5-14.0); SEGMENTED NEUTROPHILS % (AUTO) 80.7 % (42-78); TOTAL CELLS COUNTED % (AUTO) 100 %; WHITE BLOOD COUNT 6.3 10^3/uL (4.0-10.5)
[2018-07-12 17:34] LABS: ALANINE AMINOTRANSFERASE 41 U/L (9-52); ALBUMIN 3.3 g/dL (3.5-5.0); ALKALINE PHOSPHATASE 48 U/L (38-126); ANION GAP 11 (5-19); ASPARTATE AMINO TRANSFERASE 40 U/L (14-36); BILIRUBIN,DIRECT 0.3 mg/dL (0.0-0.4); BILIRUBIN,TOTAL 0.7 mg/dL (0.2-1.3); BLOOD UREA NITROGEN 20 mg/dL (7-20); CALCIUM 8.8 mg/dL (8.4-10.2); CARBON DIOXIDE 31 mmol/L (22-30); CHLORIDE 86 mmol/L (98-107); GLUCOSE 88 mg/dL (75-110); POTASSIUM 4.4 mmol/L (3.6-5.0); SODIUM 127.9 mmol/L (137-145); TOTAL PROTEIN 5.7 g/dL (6.3-8.2)
[2018-07-12 18:18] VITALS: BP 90/60
--- NOTE | 2018-07-12 20:39 | PDOC DISCHARGE SUMMARY ---
General - Admit/Disc Date/PCP Admission Date/Primary Care Provider: 07/03/18 08:08 MARQUIS HYATT MD Discharge Date: 07/12/18 - Discharge Diagnosis (1) Non-ST elevated myocardial infarction Is this a current diagnosis for this admission?: Yes (2) COPD (chronic obstructive pulmonary disease) Is this a current diagnosis for this admission?: Yes (3) Bilateral pleural effusion Is this a current diagnosis for this admission?: Yes (4) Acute combined systolic and diastolic heart failure Is this a current diagnosis for this admission?: Yes (5) Pulmonary hypertension Is this a current diagnosis for this admission?: Yes (6) Paroxysmal atrial fibrillation Is this a current diagnosis for this admission?: Yes (7) Hypotension Is this a current diagnosis for this admission?: Yes - Additional Information Resuscitation Status: Full Code Discharge Diet: Cardiac Discharge Activity: Activity As Tolerated, Balance Activity w/Rest, Energy Conservation, Weigh Daily Prescriptions: Apixaban [Eliquis 2.5 mg Tablet] 2.5 mg PO BID #180 tablet Sacubitril/Valsartan [Entresto 24 mg/26 mg Tablet] 1 tab PO Q12 #180 tablet Home Medications: Albuterol Sulfate [Proair HFA] 2 puff IH Q4HP PRN 07/03/18 Biotin [Biotin 1 mg Tablet] 1 mg PO BID 07/03/18 Carboxymethylcellulose Sodium [Refresh Liquigel] 1 drop OU QHS 07/03/18 Cholecalciferol (Vitamin D3) [Vitamin D3] 5,000 unit PO DAILY 07/03/18 Fentanyl [Duragesic 50 Mcg/Hr Transdermal Patch] 1 patch TD Q48H 07/03/18 Fluticasone/Salmeterol [Advair 250-50 Diskus 14 Dose/Diskus] 1 puff IH Q12 07/03 Ketotifen Fumarate [Refresh] 1 drop OU BID 07/03/18 Levothyroxine Sodium [Synthroid] 75 mcg PO Q6AM 07/03/18 Metoprolol Tartrate [Lopressor 25 mg Tablet] 25 mg PO Q12 07/03/18 Omeprazole 40 mg PO QAM 07/03/18 Paroxetine HCl [Paxil] 10 mg PO DAILY 07/03/18 Pravastatin Sodium [Pravachol] 40 mg PO QHS 07/03/18 Apixaban [Eliquis 2.5 mg Tablet] 2.5 mg PO BID #180 tablet 07/12/18 Fluticasone/Salmeterol [Advair 250-50 Diskus 14 Dose/Diskus] 1 inh IH Q12 inhaler 07/12/18 Levothyroxine Sodium [Synthroid 0.075 mg Tablet] 0.075 mg PO DAILY@0600 tablet 07/12/18 Metoprolol Tartrate [Lopressor 25 mg Tablet] 25 mg PO Q12 tablet 07/12/18 Sacubitril/Valsartan [Entresto 24 mg/26 mg Tablet] 1 tab PO Q12 #180 tablet History of Present Illness History of Present Illness: MAIRA ALVAREZ is a 88 year old female,She came to the emergency room for evaluation of progressive shortness of breath for the last 7 days, there is associated epigastric pain, she also described a feeling of some heaviness in the chest. In the emergency room a chest x-ray was done, it demonstrated hyperinflated lungs also found was a new patchy airspace disease in the right inferior hemithorax suspicious for possible pneumonic infiltrate. There is mild patchy parenchyma opacification in the left inferior hemithorax findings on the chest x-ray was suspicious for pneumonia, the arterial blood gas on FiO2 2 L, pH 7.38, PO2 99.6, PCO2 46.3, bicarbonate 27. CT chest without contrast was normal, he demonstrated hyperinflated lungs, fairly small to moderate bilateral pleural effusions. Mild area of streaky linear subsegmental atelectasis., The BNP is elevated, suggesting CHF,though there are possible other differential diagnosis.,The CT scan of the lung did not demonstrate any pneumonia, that was suspected on chest x-ray Hospital Course Hospital Course: Patient was admitted for the management of acute systolic and diastolic heart failure, atrial fibrillation. 2D echo was done, it demonstrated grade 3 diastolic heart failure,The estimated ejection fraction of left ventricle, 45% she was started on Entresto, she also started on anticoagulant Eliquis because of atrial fibrillation. She complained of epigastric pain upper endoscopy was done, it was normal she was also seen by cardiology, she had episode of low blood pressure, she required midodrine at one point during hospital stay Physical Exam Vital Signs: Temp Pulse Resp BP Pulse Ox 97.6 F 78 15 90/60 L 92 07/12/18 18:05 07/12/18 18:05 07/12/18 18:05 07/12/18 18:05 07/12/18 18:05 Intake & Output 07/11/18 07/12/18 07/13/18 06:59 06:59 06:59 Intake Total 1619 150 400 Output Total 1100 800 600 Balance 519 -650 -200 Weight 55.3 kg 55.6 kg General appearance: PRESENT: no acute distress Head exam: PRESENT: atraumatic, normocephalic Eye exam: PRESENT: conjunctiva pink, EOMI, PERRLA Ear exam: PRESENT: normal external ear exam Mouth exam: PRESENT: moist, tongue midline Neck exam: PRESENT: full ROM Respiratory exam: PRESENT: clear to auscultation mimi Cardiovascular exam: PRESENT: RRR, +S1, +S2 Pulses: PRESENT: normal dorsalis pedis pul, +2 pedal pulses bilateral Vascular exam: PRESENT: normal capillary refill GI/Abdominal exam: PRESENT: normal bowel sounds, soft Rectal exam: PRESENT: deferred Neurological exam: PRESENT: alert, awake, oriented to person, oriented to place , oriented to time, oriented to situation, CN II-XII grossly intact Psychiatric exam: PRESENT: appropriate affect, normal mood Skin exam: PRESENT: dry, intact, warm Results Laboratory Results: 07/12/18 16:55 07/12/18 16:55 07/12/18 07/12/18 16:55 16:55 WBC 6.3 RBC 3.57 L Hgb 10.9 L Hct 32.0 L MCV 90 MCH 30.6 MCHC 34.1 RDW 13.3 Plt Count 206 Seg Neutrophils % 80.7 H Lymphocytes % 9.6 L Monocytes % 7.1 Eosinophils % 2.3 Basophils % 0.3 Absolute Neutrophils 5.1 Absolute Lymphocytes 0.6 Absolute Monocytes 0.4 Absolute Eosinophils 0.1 Absolute Basophils 0.0 Sodium 127.9 L Potassium 4.4 Chloride 86 L Carbon Dioxide 31 H Anion Gap 11 BUN 20 Creatinine 1.25 Est GFR ( Amer) 49 L Est GFR (Non-Af Amer) 41 L Glucose 88 Calcium 8.8 Total Bilirubin 0.7 AST 40 H ALT 41 Alkaline Phosphatase 48 Total Protein 5.7 L Albumin 3.3 L 07/03/18 07/03/18 14:47 14:47 Creatine Kinase 141 H CK-MB (CK-2) 3.12 Troponin I 0.333 NT-Pro-B Natriuret Pep 06934 H Impressions: Chest CT 07/03/18 00:00 IMPRESSION: 1. Bilateral effusions. No definite pneumonia. Other findings as above. Chest X-Ray 07/03/18 05:19 IMPRESSION: 1. Patchy airspace disease in the right inferior hemithorax suspicious for a pneumonic infiltrate. 2. Probable atelectasis, fibrosis or inflammatory changes in the left lung base. 3. Prominence of the cardiac silhouette which may be accentuated by the portable technique. 4. Grossly stable bipolar pacemaker. Abdomen/Pelvis CT 07/11/18 00:00 IMPRESSION: No acute abdominopelvic pathology. Small bilateral pleural effusions, right greater than left. Qualifiers - * PATIENT BEING DISCHARGED WITH ANY OF THE FOLLOWING DIAGNOSIS: No
[2018-07-13] MEDS ORDERED: FENTANYL 50 MCG/HR PATCH.TD72 TD SCH (10:00)
== END 2018-07-12 19:58 | disposition home or self-care (01) | DRG 280 ==
LOC: ER 05:07 → EH 08:08 → 3W 19:00
PROVIDERS: ADMIT Emergency Medicine; ATTEND Internal Medicine
PROC: 3E0F73Z Introduction of Anti-inflammatory into Respiratory Tract, Via Natural or Artificial Opening (ICD-10-PCS; principal; 2018-07-04)
PROC: 0DJ08ZZ Inspection of Upper Intestinal Tract, Via Natural or Artificial Opening Endoscopic (ICD-10-PCS; 2018-07-12)
DX: I21.4 Non-ST elevation (NSTEMI) myocardial infarction (principal); I50.41 Acute combined systolic (congestive) and diastolic (congestive) heart failure; I13.0 Hypertensive heart and chronic kidney disease with heart failure and stage 1 through stage 4 chronic kidney disease, or unspecified chronic kidney disease; I48.0 Paroxysmal atrial fibrillation; I95.9 Hypotension, unspecified; K59.00 Constipation, unspecified; M19.90 Unspecified osteoarthritis, unspecified site; I25.10 Atherosclerotic heart disease of native coronary artery without angina pectoris; E78.00 Pure hypercholesterolemia, unspecified; G43.909 Migraine, unspecified, not intractable, without status migrainosus; E03.9 Hypothyroidism, unspecified; M81.0 Age-related osteoporosis without current pathological fracture; K21.9 Gastro-esophageal reflux disease without esophagitis; L40.9 Psoriasis, unspecified; F32.9 Major depressive disorder, single episode, unspecified; I27.20 Pulmonary hypertension, unspecified; J44.9 Chronic obstructive pulmonary disease, unspecified; M41.9 Scoliosis, unspecified; N18.3 Chronic kidney disease, stage 3 (moderate); Z99.81 Dependence on supplemental oxygen; Z79.899 Other long term (current) drug therapy; Z79.82 Long term (current) use of aspirin; Z95.0 Presence of cardiac pacemaker; Z87.11 Personal history of peptic ulcer disease; Z85.828 Personal history of other malignant neoplasm of skin; Z88.7 Allergy status to serum and vaccine; Z88.6 Allergy status to analgesic agent; Z88.1 Allergy status to other antibiotic agents; Z88.3 Allergy status to other anti-infective agents; Z91.040 Latex allergy status; Z87.891 Personal history of nicotine dependence; Z83.3 Family history of diabetes mellitus; Z82.49 Family history of ischemic heart disease and other diseases of the circulatory system
CPT/HCPCS: 36415; 43235; 71045; 71250; 74176; 80053; 81001; 82550; 82553; 82803; 83036; 83615; 83880; 84484; 85025; 85610; 85730; 87040; 87086; 93005; 93010; 93306; 99285; J0171; J0696; J1200; J1610; J1650; J1956; J2250; J2310; J2405; J3010; J3490; J7620; S0119

== ENCOUNTER → 2018-07-15 | Outpatient (CLI) | payer MEDICARE, OTHER ==
--- NOTE | 2018-07-15 12:59 | RADIOLOGY REPORT (SQ) ---
EXAM DESCRIPTION: CT HEAD WITHOUT COMPLETED DATE/TIME: 07/15/2018 12:50 pm REASON FOR STUDY: I63.9 CEREBRAL INFARCTION, UNSPECIFIED I63.9 CEREBRAL INFARCTION, UNSPECIFIED COMPARISON: 02/13/2018 TECHNIQUE: Axial images acquired through the brain without intravenous contrast. Images reviewed wi th bone, brain and subdural windows. Additional sagittal and coronal reconstructions were generated. Images stored on PACS. All CT scanners at this facility use dose modulation, iterative reconstruction, and/or weight based d osing when appropriate to reduce radiation dose to as low as reasonably achievable (ALARA). [facility]: Dose Right [facility]: CareDose [facility]: Dose Right [facility]: Teradose 4D [facility]: Idea Device RADIATION DOSE: CT Rad equipment meets quality standard of care and radiation dose reduction techniq ues were employed. CTDIvol: 48.5 mGy. DLP: 903 mGy-cm.mGy. LIMITATIONS: None. FINDINGS: VENTRICLES: Prominent. CEREBRUM: Stable calcified pineal cyst. No hemorrhage. No midline shift. Areas of low density in t he white matter most likely due to chronic micro-vascular ischemic change. No evidence for acute inf arction. CEREBELLUM: No masses. No hemorrhage. No alteration of density. No evidence for acute infarction. EXTRAAXIAL SPACES: Age-related involutional change. No fluid collections. No masses. ORBITS AND GLOBE: No intra- or extraconal masses. Normal contour of globe without masses. CALVARIUM: No fracture. PARANASAL SINUSES: No fluid or mucosal thickening. SOFT TISSUES: No mass or hematoma. OTHER: No other significant finding. IMPRESSION: CHRONIC CHANGES OF ATROPHY AND MICROVASCULAR ISCHEMIA. NO ACUTE PROCESS. EVIDENCE OF ACUTE STROKE: NO. TECHNICAL DOCUMENTATION: JOB ID: [id number] Quality ID # [id number]: Final reports with documentation of one or more dose reduction techniques (e.g., Au tomated exposure control, adjustment of the mA and/or kV according to patient size, use of iterative reconstruction technique) 2010 [employer]- All Rights Reserved Reading location - IP/workstation name: [email or web address]
== END ==
LOC: RAD 15:14
PROVIDERS: ATTEND Internal Medicine
DX: I63.9 Cerebral infarction, unspecified (principal)
CPT/HCPCS: 70450

== ENCOUNTER → 2018-07-22 | Outpatient (CLI) | payer MEDICARE, OTHER ==
[2018-07-22 15:02] LABS: ANION GAP 13 (5-19); BLOOD UREA NITROGEN 20 mg/dL (7-20); CALCIUM 9.5 mg/dL (8.4-10.2); CARBON DIOXIDE 31 mmol/L (22-30); CHLORIDE 82 mmol/L (98-107); GLUCOSE 93 mg/dL (75-110); POTASSIUM 5.1 mmol/L (3.6-5.0); SODIUM 126.3 mmol/L (137-145)
[2018-07-22 15:48] LABS: ADD MANUAL MICROSCOPIC YES; APPEARANCE,URINE CLEAR; BILIRUBIN,URINE NEGATIVE (NEGATIVE); COLOR,URINE LIGHT YELLOW; GLUCOSE, URINE NEGATIVE (NEGATIVE); KETONES,URINE NEGATIVE (NEGATIVE); LEUKOCYTE ESTERASE,URINE NEGATIVE (NEGATIVE); NITRITE,URINE NEGATIVE (NEGATIVE); PROTEIN,URINE NEGATIVE (NEGATIVE); URINE SPECIFIC GRAVITY 1.012; UROBILINOGEN,URINE NEGATIVE mg/dL (<2.0)
[2018-07-22 15:49] LABS: BACTERIA,URINE TRACE /HPF
== END ==
LOC: OD 13:49
PROVIDERS: ATTEND Internal Medicine Nephrology
DX: N17.9 Acute kidney failure, unspecified (principal)
CPT/HCPCS: 36415; 80048; 81001

== ENCOUNTER → 2018-08-12 | Outpatient (CLI) | payer MEDICARE, OTHER ==
--- NOTE | 2018-08-12 16:12 | RADIOLOGY REPORT (SQ) ---
EXAM DESCRIPTION: CHEST PA/LATERAL COMPLETED DATE/TIME: 08/12/2018 3:57 pm REASON FOR STUDY: PLEURISY R09.1 PLEURISY COMPARISON: 07/03/2018. NUMBER OF VIEWS: Two view. TECHNIQUE: Frontal and lateral radiographic views of the chest acquired. LIMITATIONS: None. FINDINGS: LUNGS AND PLEURA: Chronic pleural and parenchymal scarring. Previously seen airspace dise ase in the right lower lobe has resolved. No opacities, masses or pneumothorax. No pleural effusion. Attenuated blood vessels and flattened sydni-diaphragms. MEDIASTINUM AND HILAR STRUCTURES: No masses. No contour abnormalities. HEART AND VASCULAR STRUCTURES: Heart normal in size and contour. No evidence for failure. BONES: No acute findings. Old rib fractures. Chronic changes in the spine. HARDWARE: Pacemaker. OTHER: No other significant finding. IMPRESSION: COPD. CHRONIC SCARRING. PREVIOUSLY SEEN AIRSPACE DISEASE IN THE RIGHT LOWER LOBE HAS R ESOLVED. NO ACUTE RADIOGRAPHIC FINDING IN THE CHEST. TECHNICAL DOCUMENTATION: JOB ID: [id number] [employer]- All Rights Reserved Reading location - IP/workstation name: [email or web address]
== END ==
LOC: OD 15:41
PROVIDERS: ATTEND Internal Medicine
DX: J44.9 Chronic obstructive pulmonary disease, unspecified (principal); R09.1 Pleurisy
CPT/HCPCS: 71046

== ENCOUNTER → 2018-08-13 | Outpatient (CLI) | payer MEDICARE, OTHER ==
[2018-08-13 16:53] LABS: APPEARANCE,URINE CLEAR; BILIRUBIN,URINE NEGATIVE (NEGATIVE); COLOR,URINE YELLOW; GLUCOSE, URINE NEGATIVE (NEGATIVE); KETONES,URINE NEGATIVE (NEGATIVE); LEUKOCYTE ESTERASE,URINE SMALL (NEGATIVE); NITRITE,URINE NEGATIVE (NEGATIVE); PROTEIN,URINE NEGATIVE (NEGATIVE); UROBILINOGEN,URINE NEGATIVE mg/dL (<2.0)
== END ==
LOC: OD 15:20
PROVIDERS: ATTEND Internal Medicine Nephrology
DX: N39.0 Urinary tract infection, site not specified (principal)
CPT/HCPCS: 81001; 87086

== ENCOUNTER → 2018-08-19 | Outpatient (CLI) | payer MEDICARE, OTHER ==
[2018-08-19 18:16] LABS: ANION GAP 9 (5-19); BLOOD UREA NITROGEN 17 mg/dL (7-20); CALCIUM 9.8 mg/dL (8.4-10.2); CARBON DIOXIDE 34 mmol/L (22-30); CHLORIDE 95 mmol/L (98-107); GLUCOSE 122 mg/dL (75-110); POTASSIUM 4.6 mmol/L (3.6-5.0); SODIUM 137.5 mmol/L (137-145)
== END ==
LOC: OD 16:42
PROVIDERS: ATTEND Internal Medicine Nephrology
DX: E87.1 Hypo-osmolality and hyponatremia (principal); N28.9 Disorder of kidney and ureter, unspecified
CPT/HCPCS: 36415; 80048

== ENCOUNTER 2018-08-24 17:54 | Emergency (ER) | payer MEDICARE ==
[2018-08-24 18:37] LABS: ABSOLUTE BASOPHILS # (AUTO) 0.1 10^3/uL (0.0-0.2); ABSOLUTE EOSINOPHILS # (AUTO) 0.2 10^3/uL (0.0-0.6); ABSOLUTE LYMPHOCYTES (AUTO) 0.9 10^3/uL (0.5-4.7); ABSOLUTE MONOCYTES (AUTO) 0.5 10^3/uL (0.1-1.4); ABSOLUTE NEUT (AUTO) 4.9 10^3/uL (1.7-8.2); EOSINOPHILS % (AUTO) 3.6 % (0-6); HEMOGLOBIN 10.9 g/dL (12.0-15.5); LYMPHOCYTES % (AUTO) 13.3 % (13-45); MEAN CORPUSCULAR HEMOGLOBIN 30.6 pg (27.0-33.4); MEAN CORPUSCULAR HGB CONC 34.2 g/dL (32.0-36.0); MEAN CORPUSCULAR VOLUME 90 fl (80-97); PLATELET COUNT 265 10^3/uL (150-450); RED BLOOD COUNT 3.57 10^6/uL (3.72-5.28); RED CELL DISTRIBUTION WIDTH 13.3 % (11.5-14.0); SEGMENTED NEUTROPHILS % (AUTO) 74.1 % (42-78); TOTAL CELLS COUNTED % (AUTO) 100 %; WHITE BLOOD COUNT 6.7 10^3/uL (4.0-10.5)
[2018-08-24 18:54] LABS: ALANINE AMINOTRANSFERASE 25 U/L (9-52); ALBUMIN 3.9 g/dL (3.5-5.0); ALKALINE PHOSPHATASE 73 U/L (38-126); ANION GAP 11 (5-19); ASPARTATE AMINO TRANSFERASE 31 U/L (14-36); BILIRUBIN,DIRECT 0.3 mg/dL (0.0-0.4); BILIRUBIN,TOTAL 0.4 mg/dL (0.2-1.3); BLOOD UREA NITROGEN 23 mg/dL (7-20); CALCIUM 9.7 mg/dL (8.4-10.2); CARBON DIOXIDE 31 mmol/L (22-30); CHLORIDE 95 mmol/L (98-107); GLUCOSE 108 mg/dL (75-110); POTASSIUM 4.3 mmol/L (3.6-5.0); SODIUM 137.4 mmol/L (137-145); TOTAL PROTEIN 6.6 g/dL (6.3-8.2)
[2018-08-24 19:06] LABS: NT PRO BNP 167 pg/mL (<450)
[2018-08-24 19:07] LABS: TROPONIN I < 0.012 ng/mL
--- NOTE | 2018-08-24 19:37 | ER Document Report ---
ED General - General Chief Complaint: Shortness Of Breath Stated Complaint: SHORTNESS OF BREATH Time Seen by Provider: 08/24/18 18:21 Notes: Patient is an 88-year-old female with a past medical history of emphysema, coronary artery disease, hypertension, hyperlipidemia, who presents with complaints of 2 months of progressively worsening shortness of breath although states this became much worse this afternoon. She states that this dyspnea is primarily on exertion. She states it does improve with rest. She states that she has had dyspnea on exertion in the past but never to this degree of severity. Denies chest pain. Contrary to triage assessment she denies any abdominal pain. No syncope or lightheadedness. She has not yet seen her primary care doctor regarding today's concerns. She is currently on rivaroxaban for atrial fibrillation. Denies any history of pulmonary embolus. States that she has had approximately 10 pound weight loss over the past 1 month. TRAVEL OUTSIDE OF THE [place] IN LAST 30 DAYS: No - Related Data Allergies/Adverse Reactions: ACEINHIBITORS [DC Inhibitors] Allergy (Verified 08/24/18 18:00) latex [Latex] Allergy (Verified 08/24/18 18:00) Generalized edema Tuberculin,Ppd,Multi-Puncture [From Tuberculin PPD Jeimy Test] Allergy (Verified 08/24/18 18:00) codeine [Codeine] Adverse Reaction (Verified 08/24/18 18:00) doxycycline [Doxycycline] Adverse Reaction (Verified 08/24/18 18:00) erythromycin base [Erythromycin Base] Adverse Reaction (Verified 08/24/18 18:00) levofloxacin [From Levaquin] Adverse Reaction (Verified 08/24/18 18:00) Dizziness Past Medical History - General Information source: Patient - Social History Smoking Status: Former Smoker Frequency of alcohol use: None Drug Abuse: None Lives with: Alone Family History: DM, Hypertension Patient has suicidal ideation: No Patient has homicidal ideation: No - Past Medical History Cardiac Medical History: Reports: Hx Congestive Heart Failure, Hx Coronary Artery Disease, Hx Hypercholesterolemia, Hx Hypertension Denies: Hx Heart Attack Pulmonary Medical History: Reports: Hx COPD Denies: Hx Asthma Neurological Medical History: Reports: Hx Migraine. Denies: Hx Cerebrovascular Accident, Hx Seizures Endocrine Medical History: Reports: Hx Hypothyroidism Renal/ Medical History: Denies: Hx Peritoneal Dialysis Malignancy Medical History: Reports: Hx Skin Cancer GI Medical History: Reports: Hx Gastritis, Hx Gastroesophageal Reflux Disease, Hx Ulcer - TREATED. Denies: Hx Hepatitis, Hx Hiatal Hernia Musculoskeletal Medical History: Reports Hx Arthritis Skin Medical History: Reports Hx Psoriasis Psychiatric Medical History: Reports: Hx Depression Infectious Medical History: Denies: Hx Hepatitis Past Surgical History: Reports: Hx Abdominal Surgery, Hx Appendectomy, Hx Breast Surgery - bx, Hx Cardiac Catheterization - 2004--DONE IN [place], WAS NOT GIVEN AND DETAILS, Hx Cardiac Surgery - pacemaker, Hx Orthopedic Surgery - rib surgery, Hx Pacemaker - DEX. Denies: Hx Hysterectomy, Hx Mastectomy, Hx Nose Surgery, Hx Open Heart Surgery - Immunizations Immunizations up to date: No Hx Diphtheria, Pertussis, Tetanus Vaccination: Yes Hx Pneumococcal Vaccination: 07/15/12 Review of Systems - Review of Systems Notes: Constitutional: Negative for fever. HENT: Negative for sore throat. Eyes: Negative for visual changes. Cardiovascular: Negative for chest pain. Respiratory: Positive for shortness of breath. Gastrointestinal: Negative for abdominal pain, vomiting or diarrhea. Genitourinary: Negative for dysuria. Musculoskeletal: Negative for back pain. Skin: Negative for rash. Neurological: Negative for headaches, weakness or numbness. 10 point ROS negative except as marked above and in HPI. Physical Exam - Vital signs Vitals: Temp Pulse Resp BP Pulse Ox 98.2 F 65 20 151/68 H 100 08/24/18 17:58 08/24/18 17:58 08/24/18 17:58 08/24/18 17:58 08/24/18 17:58 Interpretation: Hypertensive Notes: PHYSICAL EXAMINATION: GENERAL: Appears moderately uncomfortable but in no acute distress HEAD: Atraumatic, normocephalic. EYES: Pupils equal round and reactive to light, extraocular movements intact, sclera anicteric, conjunctiva are normal. ENT: nares patent, oropharynx clear without exudates. Moist mucous membranes. NECK: Normal range of motion, supple without lymphadenopathy LUNGS: Breath sounds clear to auscultation bilaterally although to mildly diminished at the bases bilaterally. Mildly tachypneic and dyspneic but no overt respiratory distress. No wheezes rales or rhonchi. HEART: Irregularly irregular rate and rhythm without murmurs ABDOMEN: Soft, nontender, normoactive bowel sounds. No guarding, no rebound. No masses appreciated. EXTREMITIES: Normal range of motion, no pitting or edema. No cyanosis. NEUROLOGICAL: No focal neurological deficits. Moves all extremities spontaneously and on command. PSYCH: Moderately anxious SKIN: Warm, Dry, normal turgor, no rashes or lesions noted. Course - Re-evaluation Re-evalutation: 08/24/18 19:33 Patient presents with dyspnea on exertion which she states has become acutely worse over the last 12 hours. Patient does appear somewhat dyspneic particular after getting off the bedside commode, unable to speak in full sentences initially which does resolve after rest. The patient is not wheezing on exam, no leg swelling, no clinical evidence of pulmonary edema. Chest x-ray appears relatively unchanged from previous. No evidence of pneumothorax or acute infiltrate. EKG without ischemic changes and troponin negative. BNP normal. Insert for possible pulmonary embolus although this seems somewhat unlikely as the patient is anticoagulated. Patient is also highly anxious and some of this could be related to anxiety but this will be a diagnosis of exclusion. Patient' s pulse oximetry does remain within acceptable levels although we will ambulate the patient on pulse ox to see if she does become hypoxic in this context. 08/24/18 20:30 Patient appears to be having an anxiety picture. She ambulated on pulse oximetry without any difficulty, no hypoxia, maintained 98-100% the entire time. I did attempt to order the patient a small dose of olanzapine to calm her and she refused. She then began to refuse the CT of the chest, having a clear panic attack. Continued to refuse treatment for this concern. 08/24/18 21:04 Patient will now except CT of the chest, does not wish to have any medication to help her calm with her anxiety reaction. Will proceed with CTA of the chest as planned 08/24/18 22:34 CTA is normal. Patient remains well in appearance, vitals within normal limits. At this time will discharge with return precautions and follow-up recommendations. Verbal discharge instructions given a the bedside and opportunity for questions given. Medication warnings reviewed. Patient is in agreement with this plan and has verbalized understanding of return precautions and the need for primary care follow-up in the next 24-72 hours. - Vital Signs Vital signs: Temp Pulse Resp BP Pulse Ox 98.2 F 65 21 H 156/73 H 97 08/24/18 17:58 08/24/18 17:58 08/24/18 21:01 08/24/18 21:01 08/24/18 21:01 - Laboratory Result Diagrams: 08/24/18 18:33 08/24/18 18:33 Laboratory results interpreted by me: 08/24/18 08/24/18 18:33 18:33 RBC 3.57 L Hgb 10.9 L Hct 32.0 L Chloride 95 L Carbon Dioxide 31 H BUN 23 H - Diagnostic Test Radiology reviewed: Image reviewed, Reports reviewed Radiology results interpreted by me: 08/24/18 19:34 Chest x-ray: Emphysematous changes, no acute infiltrate - EKG Interpretation by Me Additional EKG results interpreted by me: 08/24/18 19:37 Atrial fibrillation. Rate approximately 60. No ST elevations or depressions. QTC is 436. Discharge - Discharge Clinical Impression: Dyspnea on exertion, Anxiety reaction Condition: Good Disposition: HOME, SELF-CARE Additional Instructions: Your labs and CT scan are reassuring today. Your EKG is also normal. Please return for any additional concerns you may have including chest pain, worsening shortness of breath. Please to follow-up with your primary care doctor within the next 24-48 hours. Referrals: LISA OSCAR MD [Primary Care Provider] - Follow up as needed
--- NOTE | 2018-08-24 19:41 | RADIOLOGY REPORT (SQ) ---
EXAM DESCRIPTION: CHEST SINGLE VIEW COMPLETED DATE/TIME: 08/24/2018 7:16 pm REASON FOR STUDY: sob COMPARISON: 08/12/2018 and earlier EXAM PARAMETERS: NUMBER OF VIEWS: One view. TECHNIQUE: Single frontal radiographic view of the chest acquired. RADIATION DOSE: NA LIMITATIONS: None. FINDINGS: LUNGS AND PLEURA: Small right basilar opacity. No left lung opacity. No pleural effusion or pneumothorax. Lungs are hyperlucent with flattening of the hemidiaphragms. MEDIASTINUM AND HILAR STRUCTURES: No masses. Contour normal. HEART AND VASCULAR STRUCTURES: Heart normal in size. Normal vasculature. BONES: Chronic right-sided rib fractures. HARDWARE: Dual lead left-sided cardiac pacing device. OTHER: No other significant finding. IMPRESSION: 1. Small right basilar opacity. Atelectasis versus pneumonia, in the appropriate clinical setting. 2. Sequela of COPD. TECHNICAL DOCUMENTATION: JOB ID: [id number] [email or web address]- All Rights Reserved Reading location - IP/workstation name: [email or web address]
[2018-08-24] MEDS ORDERED: OLANZAPINE 2.5 MG TABLET PO ONE (20:03)
[2018-08-24] MEDS ORDERED: OLANZAPINE 2.5 MG TABLET ONE (21:19)
--- NOTE | 2018-08-24 22:15 | RADIOLOGY REPORT (SQ) ---
CT CHEST ANGIOGRAPHY WITHOUT THEN WITH IV CONTRAST HISTORY: Shortness of breath. Evaluate for pulmonary embolism. COMPARISON: None. TECHNIQUE: CT angiogram of the chest with IV contrast. 3-D MIP images were obtained in coronal and sagittal reconstructions. This exam was performed according to our departmental dose-optimization program, which includes automated exposure control, adjustment of the mA and/or kV according to patient size and/or use of iterative reconstruction technique. FINDINGS: No acute pulmonary embolism is seen. No thoracic aortic aneurysm or dissection. Normal heart size. No pericardial effusion. Thyroid gland is unremarkable. No mediastinal, hilar, or axillary adenopathy is seen. No consolidation, pleural effusion, or pneumothorax is identified. Diffuse centrilobular emphysema is present. Multiple cysts are seen in both kidneys. Small hiatal hernia is seen. Old sternal fracture. Degenerative changes of the spine. IMPRESSION: No acute pulmonary embolism.
[2018-08-25 01:04] VITALS: BP 168/91
--- NOTE | 2018-08-25 09:59 | EKG REPORT ---
SEVERITY:- OTHERWISE NORMAL ECG - ATRIAL PACED RHYTHM (APVS) LOW VOLTAGE IN FRONTAL LEADS : Confirmed by: Juan Montesinos MD 25-Aug-2018 09:59:11
== END 2018-08-25 01:10 | disposition home or self-care (01) ==
LOC: ER 17:54
DX: F41.1 Generalized anxiety disorder (principal); R06.09 Other forms of dyspnea; I25.10 Atherosclerotic heart disease of native coronary artery without angina pectoris; I11.0 Hypertensive heart disease with heart failure; I50.9 Heart failure, unspecified; E78.5 Hyperlipidemia, unspecified; Z91.040 Latex allergy status; Z88.6 Allergy status to analgesic agent; Z88.3 Allergy status to other anti-infective agents; Z95.0 Presence of cardiac pacemaker
CPT/HCPCS: 36415; 71045; 71275; 80053; 83880; 84484; 85025; 93005; 93010; 99285

== ENCOUNTER → 2018-09-02 | Outpatient (CLI) | payer MEDICARE, OTHER ==
--- NOTE | 2018-09-02 15:10 | WOMENS IMAGING REPORT ---
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 TECHNIQUE: Dynamic and static grayscale images acquired of the kidneys and bladder and recorded on P ACS. Additional selected color Doppler and spectral images recorded. LIMITATIONS: None. FINDINGS: RIGHT KIDNEY: Normal size. Normal echogenicity. Cortical cysts measuring 2.8 cm and 2 .7 cm. No solid or suspicious masses. No hydronephrosis. No calcifications. LEFT KIDNEY: Normal size. Normal echogenicity. 5.1 cm cortical cyst. No solid or suspicious mas ses. No hydronephrosis. No calcifications. BLADDER: No masses. OTHER FINDINGS: No other significant finding. IMPRESSION: BILATERAL CORTICAL CYSTS. NO HYDRONEPHROSIS OR OTHER SIGNIFICANT FINDINGS. TECHNICAL DOCUMENTATION: JOB ID: [id number] [email or web address]- All Rights Reserved Reading location - IP/workstation name: [email or web address]
== END ==
LOC: WI 09:57
PROVIDERS: ATTEND Internal Medicine Nephrology
DX: R10.9 Unspecified abdominal pain (principal); I12.9 Hypertensive chronic kidney disease with stage 1 through stage 4 chronic kidney disease, or unspecified chronic kidney disease; N18.9 Chronic kidney disease, unspecified
CPT/HCPCS: 76770

== ENCOUNTER 2018-09-13 20:53 | Emergency (ER) | payer MEDICARE ==
--- NOTE | 2018-09-14 00:21 | ER Document Report ---
ED General - General Chief Complaint: High Blood Pressure Stated Complaint: HYPERTENSION Time Seen by Provider: 09/13/18 23:45 Notes: Patient is an 88-year old female with a past medical history of hypertension, anxiety, who presents with concerns of elevated blood pressure at home. Patient states that she was lying on her couch watching television, decided that she would check her blood pressure for the fourth time today. She states that it was elevated into the 180s systolic so she rechecked at 3 subsequent times each of which resulted in a higher reading. She states that this left her very concerned and prompted her to contact 911 and come to the hospital by EMS. 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 Was recently started on losartan 100 mg in addition to her prior medications. She denies any symptoms of any kind. Initially there was concern of headache which the patient now denies. She denies chest pain or shortness of breath. States that she has had fluctuant blood pressures for many years. TRAVEL OUTSIDE OF THE [place] IN LAST 30 DAYS: No - HPI Quality of pain: No pain Associated symptoms: None Exacerbated by: Denies Relieved by: Denies, Sitting Recently seen / treated by doctor: Yes - Related Data Allergies/Adverse Reactions: ACEINHIBITORS [DC Inhibitors] Allergy (Verified 08/24/18 18:00) latex [Latex] Allergy (Verified 08/24/18 18:00) Generalized edema Tuberculin,Ppd,Multi-Puncture [From Tuberculin PPD Jeimy Test] Allergy (Verified 08/24/18 18:00) codeine [Codeine] Adverse Reaction (Verified 08/24/18 18:00) doxycycline [Doxycycline] Adverse Reaction (Verified 08/24/18 18:00) erythromycin base [Erythromycin Base] Adverse Reaction (Verified 08/24/18 18:00) levofloxacin [From Levaquin] Adverse Reaction (Verified 08/24/18 18:00) Dizziness Past Medical History - General Information source: Patient - Social History Smoking Status: Never Smoker Frequency of alcohol use: None Drug Abuse: None Lives with: Alone Family History: DM, Hypertension - Past Medical History Cardiac Medical History: Reports: Hx Congestive Heart Failure, Hx Coronary Artery Disease, Hx Hypercholesterolemia, Hx Hypertension Denies: Hx Heart Attack Pulmonary Medical History: Reports: Hx COPD Denies: Hx Asthma Neurological Medical History: Reports: Hx Migraine. Denies: Hx Cerebrovascular Accident, Hx Seizures Endocrine Medical History: Reports: Hx Hypothyroidism Renal/ Medical History: Denies: Hx Peritoneal Dialysis Malignancy Medical History: Reports: Hx Skin Cancer GI Medical History: Reports: Hx Gastritis, Hx Gastroesophageal Reflux Disease, Hx Ulcer - TREATED. Denies: Hx Hepatitis, Hx Hiatal Hernia Musculoskeletal Medical History: Reports Hx Arthritis Skin Medical History: Reports Hx Psoriasis Psychiatric Medical History: Reports: Hx Depression Infectious Medical History: Denies: Hx Hepatitis Past Surgical History: Reports: Hx Abdominal Surgery, Hx Appendectomy, Hx Breast Surgery - bx, Hx Cardiac Catheterization - 2003--DONE IN [place], WAS NOT GIVEN AND DETAILS, Hx Cardiac Surgery - pacemaker, Hx Orthopedic Surgery - rib surgery, Hx Pacemaker - DEX. Denies: Hx Hysterectomy, Hx Mastectomy, Hx Nose Surgery, Hx Open Heart Surgery - Immunizations Immunizations up to date: No Hx Diphtheria, Pertussis, Tetanus Vaccination: Yes Hx Pneumococcal Vaccination: 07/15/12 Review of Systems - Review of Systems Notes: Constitutional: Negative for fever. HENT: Negative for sore throat. Eyes: Negative for visual changes. Cardiovascular: Negative for chest pain. Respiratory: Negative for shortness of breath. Gastrointestinal: Negative for abdominal pain, vomiting or diarrhea. Genitourinary: Negative for dysuria. Musculoskeletal: Negative for back pain. Skin: Negative for rash. Neurological: Negative for headaches, weakness or numbness. 10 point ROS negative except as marked above and in HPI. Physical Exam - Vital signs Vitals: Temp Pulse Resp BP Pulse Ox 98.4 F 64 18 159/66 H 99 09/13/18 21:15 09/13/18 21:15 09/13/18 21:15 09/13/18 21:15 09/13/18 21:15 Interpretation: Hypertensive Notes: PHYSICAL EXAMINATION: GENERAL: Well-appearing, well-nourished and in no acute distress. HEAD: Atraumatic, normocephalic. EYES: Pupils equal round and reactive to light, extraocular movements intact, sclera anicteric, conjunctiva are normal. ENT: nares patent, oropharynx clear without exudates. Moist mucous membranes. NECK: Normal range of motion, supple without lymphadenopathy LUNGS: Breath sounds clear to auscultation bilaterally and equal. No wheezes rales or rhonchi. HEART: Regular rate and rhythm without murmurs ABDOMEN: Soft, nontender, normoactive bowel sounds. No guarding, no rebound. No masses appreciated. EXTREMITIES: Normal range of motion, no pitting or edema. No cyanosis. NEUROLOGICAL: No focal neurological deficits. Moves all extremities spontaneously and on command. PSYCH: Normal mood, normal affect. SKIN: Warm, Dry, normal turgor, no rashes or lesions noted. Course - Re-evaluation Re-evalutation: 09/14/18 00:21 Presentation of asymptomatic hypertension. Patient denies any symptoms concerning for SAH, dissection, FL, or encephalopaty. Alert, oriented, and denies any symptoms at time of assessment. Normal neuro exam. Per ACEP policy guidelines, will therefore not obtain any labs or EKG at this time and will not initiate new BP treatment. I have discussed critical importance of follow up with PCP within 1 week and increased risk of devastating stroke, heart attack, respiratory distress, and other life threatening complications if blood pressure is not reduced appropriately. Diet and exercise habits also discussed. Patient will be discharged with return precautions and follow-up recommendations. - Vital Signs Vital signs: Temp Pulse Resp BP Pulse Ox 98.4 F 64 18 159/66 H 99 09/13/18 21:15 09/13/18 21:15 09/13/18 21:15 09/13/18 21:15 09/13/18 21:15 Discharge - Discharge Clinical Impression: Essential hypertension Condition: Good Disposition: HOME, SELF-CARE Additional Instructions: You were seen today for blood pressure that was high. This is a long-term risk factor for multiple medical problems including heart attack and stroke. However, the blood pressure in of itself will not cause you to have an acute stroke or heart attack over the course of just several days or weeks. You need to have a gradual reduction of your blood pressure back to normal levels over the next several months in conjunction with your primary care physician. Return if you develop headache, weakness, numbness, chest pain, pass out, or have any other symptoms that are concerning to you. Referrals: LISA OSCAR MD [Primary Care Provider] - Follow up as needed
[2018-09-14 01:41] VITALS: BP 160/68
== END 2018-09-14 01:46 | disposition home or self-care (01) ==
LOC: ER 20:53
DX: I10 Essential (primary) hypertension (principal); F41.9 Anxiety disorder, unspecified; I50.9 Heart failure, unspecified; I25.10 Atherosclerotic heart disease of native coronary artery without angina pectoris; I11.0 Hypertensive heart disease with heart failure; E78.00 Pure hypercholesterolemia, unspecified; J44.9 Chronic obstructive pulmonary disease, unspecified; Z88.6 Allergy status to analgesic agent; Z91.040 Latex allergy status; Z95.0 Presence of cardiac pacemaker
CPT/HCPCS: 99283

== ENCOUNTER 2018-10-06 01:19 | Emergency (ER) | payer MEDICARE, OTHER ==
--- NOTE | 2018-10-06 02:05 | ER Document Report ---
ED General - General Chief Complaint: Urinary Retention Stated Complaint: URINARY PROBLEM Time Seen by Provider: 10/06/18 01:40 Notes: Patient is an 88-year-old female who presents to the emergency department with a chief complaint of urinary retention and abdominal pain. She states the last time she voided was 14 hours ago. She is normally able to void with no problem and voids about 200 mls every time she voids. She is complaining of pain and saying pain is excruciating. She states that the pain is in her lower abdomen. She states that her last bowel movement was 2 days ago and she states that she normally goes every other day. She takes MiraLAX every day, but only consumes 1 teaspoon. She was attempting to have a bowel movement when she called EMS, but she states she did not feel she emptied her bowels enough. She has history of an appendectomy. Her medical history includes chronic back pain, in which she takes fentanyl, and hypertension. She placed a fentanyl patch on herself tonight. TRAVEL OUTSIDE OF THE [place] IN LAST 30 DAYS: No - Related Data Allergies/Adverse Reactions: ACEINHIBITORS [DC Inhibitors] Allergy (Verified 08/24/18 18:00) latex [Latex] Allergy (Verified 08/24/18 18:00) Generalized edema Tuberculin,Ppd,Multi-Puncture [From Tuberculin PPD Jeimy Test] Allergy (Verified 08/24/18 18:00) codeine [Codeine] Adverse Reaction (Verified 08/24/18 18:00) doxycycline [Doxycycline] Adverse Reaction (Verified 08/24/18 18:00) erythromycin base [Erythromycin Base] Adverse Reaction (Verified 08/24/18 18:00) levofloxacin [From Levaquin] Adverse Reaction (Verified 08/24/18 18:00) Dizziness Past Medical History - Social History Smoking Status: Never Smoker Frequency of alcohol use: None Drug Abuse: None Lives with: Alone Family History: DM, Hypertension - Past Medical History Cardiac Medical History: Reports: Hx Congestive Heart Failure, Hx Coronary Artery Disease, Hx Hypercholesterolemia, Hx Hypertension Denies: Hx Heart Attack Pulmonary Medical History: Reports: Hx COPD Denies: Hx Asthma Neurological Medical History: Reports: Hx Migraine. Denies: Hx Cerebrovascular Accident, Hx Seizures Endocrine Medical History: Reports: Hx Hypothyroidism Renal/ Medical History: Denies: Hx Peritoneal Dialysis Malignancy Medical History: Reports: Hx Skin Cancer GI Medical History: Reports: Hx Gastritis, Hx Gastroesophageal Reflux Disease, Hx Ulcer - TREATED. Denies: Hx Hepatitis, Hx Hiatal Hernia Musculoskeletal Medical History: Reports Hx Arthritis Skin Medical History: Reports Hx Psoriasis Psychiatric Medical History: Reports: Hx Depression Infectious Medical History: Denies: Hx Hepatitis Past Surgical History: Reports: Hx Abdominal Surgery, Hx Appendectomy, Hx Breast Surgery - bx, Hx Cardiac Catheterization - 2004--DONE IN [place], WAS NOT GIVEN AND DETAILS, Hx Cardiac Surgery - pacemaker, Hx Orthopedic Surgery - rib surgery, Hx Pacemaker - DXE. Denies: Hx Hysterectomy, Hx Mastectomy, Hx Nose Surgery, Hx Open Heart Surgery - Immunizations Immunizations up to date: No Hx Diphtheria, Pertussis, Tetanus Vaccination: Yes Hx Pneumococcal Vaccination: 07/15/12 Review of Systems - Review of Systems Notes: REVIEW OF SYSTEMS: CONSTITUTIONAL : Denies recent illness. Denies recent unintentional weight loss. Denies fever, chills, or sweats. EENT: Denies eye, ear, throat, or mouth pain, discharge, or symptoms. Denies nasal or sinus congestion. CARDIOVASCULAR: Denies chest pain. RESPIRATORY: Denies shortness of breath, cough, congestion, difficulty breathing , or wheezing. GASTROINTESTINAL: See HPI GENITOURINARY: See HPI MUSCULOSKELETAL: Denies neck and back pain. Denies joint pain or swelling. SKIN: Denies rash, itchiness, or lesions HEMATOLOGIC : Denies easy bruising or bleeding. LYMPHATIC: Denies swollen, painful, enlarged glands. NEUROLOGICAL: Denies no numbness or tingling denies weakness. Denies headache. Denies altered mental status. Denies alteration in speech. PSYCHIATRIC: Denies stress, anxiety, alteration in sleep patterns, or depression. All other systems reviewed and negative. Physical Exam - Vital signs Vitals: Temp Pulse Resp BP Pulse Ox 98.1 F 58 L 17 155/81 H 98 10/06/18 01:19 10/06/18 01:19 10/06/18 01:19 10/06/18 01:19 10/06/18 01:19 - Notes Notes: PHYSICAL EXAMINATION: GENERAL: Appears well, healthy, well-nourished, no acute distress. HEAD: Normocephalic, atraumatic. EYES: PERRL, conjunctiva normal, all extraocular movements intact, sclera nonicteric ENT: Moist mucous membranes. NECK: Supple, no noticeable swelling, redness, rash. Normal range of motion. LUNGS: Equal breath sounds bilaterally and clear to auscultation. No wheezes rales or rhonchi. CARDIOVASCULAR: S1-S2, regular rate, regular rhythm. Radial pulses 2+, normal. ABDOMEN: Normoactive bowel sounds. Soft, very tender, guarding noted, no rebound tenderness, and masses palpated, that could possibly be stool. EXTREMITIES: Normal strength and range of motion, no pitting or edema. No cyanosis. NEUROLOGICAL: Moves all extremities upon command. Strength 5/5 in all extremities. PSYCH: Normal mood, normal affect. SKIN: Warm, dry. No rash, lesions, ulcerations noted. Normal skin turgor. Course - Re-evaluation Re-evalutation: 10/06/18 02:06 Staff had notified me that the patient was in excruciating pain and asked to have a Roach catheter placed. A Roach catheter was placed and she continued to have abdominal pain. Her pain is mainly in the lower abdomen. She will be sent for a CT of the abdomen and pelvis with IV contrast. 10/06/18 03:[address] shows she has an enterocele and moderate amounts of stool, consistent with constipation. I suspect the patient has been straining to use have a bowel movement, therefore causing an enterocele. The patient was reevaluated and I did not notice an obvious bulge in her perineum. She did actually state that the pain has subsided. I discussed giving her an enema to help with her constipation and to increase her MiraLAX to a full cup a day. She is in agre ement with this plan. 10/06/18 04:49 I have reassessed the patient and she had a bowel movement. She states she feels better. Her abdomen is benign at this time. The areas that were painful earlier, are now nontender and still patches were not palpated. Her Roach catheter will be discontinued. I have instructed her to increase her MiraLAX to 1 capful a day, and adjust as needed. She will follow up with gynecology for her enterocele. Verbal discharge instructions were given to the patient. They verbalized understanding. They are stable for discharge. The patient will not be able to get a ride until daylight. She remained in the emergency department until her ride arrives. - Vital Signs Vital signs: Temp Pulse Resp BP Pulse Ox 98.1 F 58 L 16 159/67 H 100 10/06/18 01:19 10/06/18 01:19 10/06/18 04:36 10/06/18 04:36 10/06/18 04:36 - Laboratory Result Diagrams: 10/06/18 02:15 10/06/18 02:15 Laboratory results interpreted by me: 10/06/18 10/06/18 10/06/18 01:59 02:15 02:15 RBC 3.70 L Hgb 11.3 L Hct 33.5 L Eosinophils % 6.7 H Sodium 134.1 L Chloride 95 L Carbon Dioxide 32 H BUN 27 H Est GFR (Non-Af Amer) 51 L AST 40 H Total Protein 6.2 L Urine Blood SMALL H Discharge - Discharge Clinical Impression: Enterocele Constipation Qualifiers: Constipation type: unspecified constipation type Qualified Code(s): K59.00 - Constipation, unspecified Condition: Stable Disposition: HOME, SELF-CARE Additional Instructions: You were seen today in the emergency department for abdominal and pelvic pain. Your abdominal pain is caused by an enterocele, which is similar to a hernia that occurs anterior pelvic region. You are also constipated. You were given an enema to help relieve your constipation. Please increase your MiraLAX to 1 capful a day to prevent constipation. Please follow up with [facility] within the next week to be evaluated for your enterocele. You may follow-up with your primary care doctor as needed. If you develop a fever greater than 100.4 F, have the same pain again, or have any symptoms that are worrisome to you, please return to the emergency department. Referrals: LISA OSCAR MD [Primary Care Provider] - Follow up as needed [facility] [Provider Group] - Follow up in 1 week
[2018-10-06 02:28] LABS: ABSOLUTE BASOPHILS # (AUTO) 0.1 10^3/uL (0.0-0.2); ABSOLUTE EOSINOPHILS # (AUTO) 0.4 10^3/uL (0.0-0.6); ABSOLUTE LYMPHOCYTES (AUTO) 1.1 10^3/uL (0.5-4.7); ABSOLUTE MONOCYTES (AUTO) 0.6 10^3/uL (0.1-1.4); ABSOLUTE NEUT (AUTO) 4.2 10^3/uL (1.7-8.2); BASOPHILS % (AUTO) 0.9 % (0-2); EOSINOPHILS % (AUTO) 6.7 % (0-6); HEMATOCRIT 33.5 % (36.0-47.0); HEMOGLOBIN 11.3 g/dL (12.0-15.5); LYMPHOCYTES % (AUTO) 16.9 % (13-45); MEAN CORPUSCULAR HEMOGLOBIN 30.4 pg (27.0-33.4); MEAN CORPUSCULAR HGB CONC 33.6 g/dL (32.0-36.0); MEAN CORPUSCULAR VOLUME 91 fl (80-97); MONOCYTES % (AUTO) 9.7 % (3-13); PLATELET COUNT 204 10^3/uL (150-450); SEGMENTED NEUTROPHILS % (AUTO) 65.8 % (42-78); TOTAL CELLS COUNTED % (AUTO) 100 %; WHITE BLOOD COUNT 6.3 10^3/uL (4.0-10.5)
[2018-10-06 02:35] LABS: APPEARANCE,URINE CLEAR; BILIRUBIN,URINE NEGATIVE (NEGATIVE); COLOR,URINE YELLOW; GLUCOSE, URINE NEGATIVE (NEGATIVE); KETONES,URINE NEGATIVE (NEGATIVE); LEUKOCYTE ESTERASE,URINE NEGATIVE (NEGATIVE); NITRITE,URINE NEGATIVE (NEGATIVE); PROTEIN,URINE NEGATIVE (NEGATIVE); URINE SPECIFIC GRAVITY 1.009; UROBILINOGEN,URINE NEGATIVE mg/dL (<2.0)
[2018-10-06 02:36] LABS: ALANINE AMINOTRANSFERASE 32 U/L (9-52); ALBUMIN 3.7 g/dL (3.5-5.0); ALKALINE PHOSPHATASE 88 U/L (38-126); ANION GAP 7 (5-19); ASPARTATE AMINO TRANSFERASE 40 U/L (14-36); BILIRUBIN,DIRECT 0.2 mg/dL (0.0-0.4); BILIRUBIN,TOTAL 0.3 mg/dL (0.2-1.3); BLOOD UREA NITROGEN 27 mg/dL (7-20); CALCIUM 9.3 mg/dL (8.4-10.2); CARBON DIOXIDE 32 mmol/L (22-30); CHLORIDE 95 mmol/L (98-107); GLUCOSE 93 mg/dL (75-110); POTASSIUM 4.2 mmol/L (3.6-5.0); SODIUM 134.1 mmol/L (137-145); TOTAL PROTEIN 6.2 g/dL (6.3-8.2)
--- NOTE | 2018-10-06 03:30 | RADIOLOGY REPORT (SQ) ---
EXAM DESCRIPTION: CT ABDOMEN PELVIS WITH IV CONTRAST COMPLETED DATE/TME: 10/06/2018 01:56 CLINICAL HISTORY: 88 years, Female, abdominal pain COMPARISON: 07/11/2016 TECHNIQUE: Axial CT images of the abdomen and pelvis were obtained after the administration of IV contrast. DLP 934 Images stored on PACS. All CT scanners at this facility use dose modulation, iterative reconstruction, and/or weight based dosing when appropriate to reduce radiation dose to as low as reasonably achievable (ALARA). [facility]: Dose Right [facility]: CareDose [facility]: Dose Right [facility]: Teradose 4D [facility]: [employer] LIMITATIONS: None. FINDINGS: The lung bases are clear. The liver, gallbladder, pancreas, spleen, and adrenal glands are unremarkable. Bilateral renal cysts are noted. There is no evidence of hydronephrosis or hydroureter bilaterally. There is no intraperitoneal free air or fluid. There is no lymphadenopathy. There are atherosclerotic calcifications of the abdominal aorta without evidence of aneurysm. The stomach is unremarkable. An enterocele is noted. The appendix is not uniquely identified, however there are no pericecal inflammatory changes. The colon contains a moderate amount of stool. There is no evidence of diverticulitis. A Roach catheter is in place. The uterus is not visualized likely surgically absent. There is grade 1 anterolisthesis of L5 over S1. IMPRESSION: No acute findings. Enterocele TECHNICAL DOCUMENTATION: Quality ID # [id number]: Final reports with documentation of one or more dose reduction techniques (e.g., Automated exposure control, adjustment of the mA and/or kV according to patient size, use of iterative reconstruction technique) copyright 2011 [employer]- All Rights Reserved
[2018-10-06 07:37] VITALS: BP 156/75
== END 2018-10-06 08:15 | disposition home or self-care (01) ==
LOC: ER 01:19
DX: K46.9 Unspecified abdominal hernia without obstruction or gangrene (principal); K59.00 Constipation, unspecified; R33.9 Retention of urine, unspecified; R10.9 Unspecified abdominal pain; I50.9 Heart failure, unspecified; I25.10 Atherosclerotic heart disease of native coronary artery without angina pectoris; E78.00 Pure hypercholesterolemia, unspecified; I11.0 Hypertensive heart disease with heart failure; J44.9 Chronic obstructive pulmonary disease, unspecified; E03.9 Hypothyroidism, unspecified; Z88.6 Allergy status to analgesic agent; Z85.828 Personal history of other malignant neoplasm of skin; Z88.3 Allergy status to other anti-infective agents; Z91.040 Latex allergy status; Z95.0 Presence of cardiac pacemaker
CPT/HCPCS: 36415; 51702; 74177; 80053; 81001; 85025; 99284

== ENCOUNTER 2018-11-28 15:28 | Emergency (ER) | payer MEDICARE, OTHER ==
--- NOTE | 2018-11-28 15:52 | ER Document Report ---
ED General - General Chief Complaint: Urinary Retention Stated Complaint: URINARY ISSUES Time Seen by Provider: 11/28/18 15:38 Primary Care Provider: LISA OSCAR MD [Primary Care Provider] - Follow up in 3-5 days TRAVEL OUTSIDE OF THE [place] IN LAST 30 DAYS: No - HPI Notes: Patient is a 88-year-old female that presents to the emergency department for chief complaint of constipation and urinary retention. Patient reports an inability to empty her bladder well since yesterday. She states she has had a few episodes of urination today that were very minimal. She now feels a lower abdominal fullness and pressure. She states she has felt constipated over the last few days but had a normal bowel movement yesterday. She did have a small hard bowel movement today with straining. She denied any pain with her bowel movement or blood/melena. She denies any associated fever, chills, nausea and vomiting. She states she has had the same thing happen a few months ago after being severely constipated. She was referred to [facility] after that episode for concern of cystocele but never had her appointment. Past Medical History: Reviewed in chart Past Surgical History: Reviewed in chart Social History: Denies tobacco Family History: Reviewed and noncontributory for presenting illness Allergies: Reviewed, see documented allergy list. REVIEW OF SYSTEMS: CONSTITUTIONAL : No fever No chills No diaphoresis No recent illness EENT: No vision changes No congestion No sore throat CARDIOVASCULAR: No chest pain No palpitations RESPIRATORY: No shortness of breath No cough No difficulty breathing GASTROINTESTINAL: abdominal pain No nausea No vomiting No diarrhea GENITOURINARY: No dysuria No hematuria difficulty urinating MUSCULOSKELETAL: No back pain No leg pain No arm pain SKIN: No rashes No lesions LYMPHATIC: No swollen, enlarged glands. NEUROLOGICAL: No lightheadedness No headache No weakness No paresthesias PSYCHIATRIC: No anxiety No depression PHYSICAL EXAMINATION: Vital signs reviewed, nursing noted reviewed. GENERAL: Well-appearing, well-nourished and in no acute distress. HEAD: Atraumatic, normocephalic. EYES: Eyes appear normal, extraocular movements intact, sclera anicteric, conjunctiva are normal. ENT: nares patent, oropharynx clear without exudates. Moist mucous membranes. NECK: Normal range of motion, supple without lymphadenopathy LUNGS: Breath sounds clear to auscultation bilaterally and equal. No wheezes rales or rhonchi. HEART: Regular rate and rhythm without murmurs ABDOMEN: Soft, mild suprapubic tenderness, normoactive bowel sounds. No rebound, guarding, or rigidity. No masses appreciated. EXTREMITIES: Nontender, good range of motion, no pitting or edema. NEUROLOGICAL: No focal neurological deficits. Moves all extremities spontaneously Motor and sensory grossly intact on exam. PSYCH: Normal mood, normal affect. SKIN: Warm, Dry, normal turgor, no rashes or lesions noted on exposed skin - Related Data Allergies/Adverse Reactions: ACEINHIBITORS [DC Inhibitors] Allergy (Verified 08/24/18 18:00) latex [Latex] Allergy (Verified 08/24/18 18:00) Generalized edema Tuberculin,Ppd,Multi-Puncture [From Tuberculin PPD Jeimy Test] Allergy (Verified 08/24/18 18:00) codeine [Codeine] Adverse Reaction (Verified 08/24/18 18:00) doxycycline [Doxycycline] Adverse Reaction (Verified 08/24/18 18:00) erythromycin base [Erythromycin Base] Adverse Reaction (Verified 08/24/18 18:00) levofloxacin [From Levaquin] Adverse Reaction (Verified 08/24/18 18:00) Dizziness Past Medical History - Social History Smoking Status: Never Smoker Family History: DM, Hypertension - Past Medical History Cardiac Medical History: Reports: Hx Congestive Heart Failure, Hx Coronary Artery Disease, Hx Hypercholesterolemia, Hx Hypertension Denies: Hx Heart Attack Pulmonary Medical History: Reports: Hx COPD Denies: Hx Asthma Neurological Medical History: Reports: Hx Migraine. Denies: Hx Cerebrovascular Accident, Hx Seizures Endocrine Medical History: Reports: Hx Hypothyroidism Renal/ Medical History: Denies: Hx Peritoneal Dialysis Malignancy Medical History: Reports: Hx Skin Cancer GI Medical History: Reports: Hx Gastritis, Hx Gastroesophageal Reflux Disease, Hx Ulcer - TREATED. Denies: Hx Hepatitis, Hx Hiatal Hernia Musculoskeletal Medical History: Reports Hx Arthritis Skin Medical History: Reports Hx Psoriasis Psychiatric Medical History: Reports: Hx Depression Denies: Hx Attention Deficit Hyperactivity Disorder Infectious Medical History: Denies: Hx Hepatitis Past Surgical History: Reports: Hx Abdominal Surgery, Hx Appendectomy, Hx Breast Surgery - bx, Hx Cardiac Catheterization - 2003--DONE IN [place], WAS NOT GIVEN AND DETAILS, Hx Cardiac Surgery - pacemaker, Hx Orthopedic Surgery - rib surgery, Hx Pacemaker - DEX. Denies: Hx Hysterectomy, Hx Mastectomy, Hx Nose Surgery, Hx Open Heart Surgery - Immunizations Immunizations up to date: No Hx Diphtheria, Pertussis, Tetanus Vaccination: Yes Hx Pneumococcal Vaccination: 07/15/12 Physical Exam - Vital signs Vitals: Temp Pulse Resp BP Pulse Ox 98.5 F 59 L 18 147/61 H 100 11/28/18 15:37 11/28/18 15:37 11/28/18 15:37 11/28/18 15:37 11/28/18 15:37 Course - Re-evaluation Re-evalutation: 11/28/18 17:19 Vitals reviewed. Nursing notes reviewed. Patient was able to void about 150 mL's on her own and had about 125 postvoid residual. She was given a soapsuds enema for her constipation. She has been able to have bowel movements today. Patient's urine is negative for acute infection. Patient be discharged home in stable condition and will follow with her primary care provider in the next few days for close reevaluation. She will return to the emergency room for any new or concerning symptoms including retention. Laboratory 11/28/18 16:15 Urine Color STRAW Urine Appearance CLEAR Urine pH 8.0 Ur Specific [place] 1.004 Urine Protein NEGATIVE Urine Glucose (UA) NEGATIVE Urine Ketones NEGATIVE Urine Blood NEGATIVE Urine Nitrite NEGATIVE Urine Bilirubin NEGATIVE Urine Urobilinogen NEGATIVE Ur Leukocyte Esterase SMALL H Urine WBC (Auto) 2 Urine RBC (Auto) 1 Urine Ascorbic Acid NEGATIVE - Vital Signs Vital signs: Temp Pulse Resp BP Pulse Ox 98.5 F 59 L 18 147/61 H 100 11/28/18 15:37 11/28/18 15:37 11/28/18 15:37 11/28/18 15:37 11/28/18 15:37 - Laboratory Laboratory results interpreted by me: 11/28/18 16:15 Ur Leukocyte Esterase SMALL H Discharge - Discharge Clinical Impression: Urinary retention Constipation Qualifiers: Constipation type: other constipation type Qualified Code(s): K59.09 - Other constipation Condition: Stable Disposition: HOME, SELF-CARE Instructions: Constipation ([facility]), Urinary Retention ([facility]) Additional Instructions: Please return to the emergency department if you have any worsening, or concern of your symptoms. Please return to the emergency department if you develop chest pain, difficulty breathing, severe abdominal pain, or ongoing vomiting. Please follow-up with your primary care physician in 2-3 days and any other recommended physicians. If prescribed, take all medications as directed. If you have any questions or concerns do not hesitate to return the emergency department for evaluation. Referrals: LISA OSCAR MD [Primary Care Provider] - Follow up in 3-5 days
[2018-11-28 16:53] LABS: APPEARANCE,URINE CLEAR; BILIRUBIN,URINE NEGATIVE (NEGATIVE); COLOR,URINE STRAW; GLUCOSE, URINE NEGATIVE (NEGATIVE); KETONES,URINE NEGATIVE (NEGATIVE); LEUKOCYTE ESTERASE,URINE SMALL (NEGATIVE); NITRITE,URINE NEGATIVE (NEGATIVE); PROTEIN,URINE NEGATIVE (NEGATIVE); URINE SPECIFIC GRAVITY 1.004; UROBILINOGEN,URINE NEGATIVE mg/dL (<2.0)
[2018-11-28 17:59] VITALS: BP 192/82
== END 2018-11-28 17:59 | disposition home or self-care (01) ==
LOC: ER 15:28
DX: K59.00 Constipation, unspecified (principal); R33.9 Retention of urine, unspecified; I25.10 Atherosclerotic heart disease of native coronary artery without angina pectoris; I10 Essential (primary) hypertension; J44.9 Chronic obstructive pulmonary disease, unspecified; Z88.8 Allergy status to other drugs, medicaments and biological substances; Z91.040 Latex allergy status; Z88.7 Allergy status to serum and vaccine
CPT/HCPCS: 51702; 81001; 99283

== ENCOUNTER → 2018-12-23 | Outpatient (CLI) | payer MEDICARE, OTHER ==
[2018-12-23 14:26] LABS: ABSOLUTE EOSINOPHILS # (AUTO) 0.2 10^3/uL (0.0-0.6); ABSOLUTE LYMPHOCYTES (AUTO) 0.7 10^3/uL (0.5-4.7); ABSOLUTE MONOCYTES (AUTO) 0.4 10^3/uL (0.1-1.4); ABSOLUTE NEUT (AUTO) 3.9 10^3/uL (1.7-8.2); BASOPHILS % (AUTO) 0.6 % (0-2); HEMATOCRIT 34.1 % (36.0-47.0); HEMOGLOBIN 11.8 g/dL (12.0-15.5); MEAN CORPUSCULAR HEMOGLOBIN 30.9 pg (27.0-33.4); MEAN CORPUSCULAR HGB CONC 34.6 g/dL (32.0-36.0); MEAN CORPUSCULAR VOLUME 89 fl (80-97); MONOCYTES % (AUTO) 8.1 % (3-13); PLATELET COUNT 211 10^3/uL (150-450); RED BLOOD COUNT 3.83 10^6/uL (3.72-5.28); RED CELL DISTRIBUTION WIDTH 13.6 % (11.5-14.0); SEGMENTED NEUTROPHILS % (AUTO) 75.3 % (42-78); TOTAL CELLS COUNTED % (AUTO) 100 %; WHITE BLOOD COUNT 5.1 10^3/uL (4.0-10.5)
[2018-12-23 14:49] LABS: ANION GAP 6 (5-19); BLOOD UREA NITROGEN 17 mg/dL (7-20); CALCIUM 9.5 mg/dL (8.4-10.2); CARBON DIOXIDE 32 mmol/L (22-30); CHLORIDE 94 mmol/L (98-107); GLUCOSE 108 mg/dL (75-110); SODIUM 132.4 mmol/L (137-145)
[2018-12-23 15:27] LABS: APPEARANCE,URINE SLIGHTLY-CLOUDY; BILIRUBIN,URINE NEGATIVE (NEGATIVE); COLOR,URINE YELLOW; GLUCOSE, URINE NEGATIVE (NEGATIVE); KETONES,URINE TRACE mg/dL (NEGATIVE); LEUKOCYTE ESTERASE,URINE SMALL (NEGATIVE); NITRITE,URINE NEGATIVE (NEGATIVE); PROTEIN,URINE NEGATIVE (NEGATIVE); URINE SPECIFIC GRAVITY 1.023; UROBILINOGEN,URINE NEGATIVE mg/dL (<2.0)
[2018-12-25 13:38] LABS: CREATININE URINE 132.2 mg/dL (Not Estab.); MICROALBUMIN URINE 19.7 ug/mL (Not Estab.)
== END ==
LOC: OD 13:41
PROVIDERS: ATTEND Internal Medicine Nephrology
DX: I12.9 Hypertensive chronic kidney disease with stage 1 through stage 4 chronic kidney disease, or unspecified chronic kidney disease (principal); N18.2 Chronic kidney disease, stage 2 (mild); D63.1 Anemia in chronic kidney disease
CPT/HCPCS: 36415; 80048; 81001; 82043; 82570; 85025

== ENCOUNTER 2019-02-18 14:11 | Emergency (ER) | payer MEDICARE, OTHER ==
--- NOTE | 2019-02-18 15:10 | ER Document Report ---
ED Medical Screen (RME) - General Chief Complaint: Abdominal Pain Stated Complaint: ABDOMINAL PAIN Time Seen by Provider: 02/18/19 15:07 Primary Care Provider: LISA OSCAR MD [Primary Care Provider] - Follow up as needed Mode of Arrival: Wheelchair Information source: Patient Notes: 88-year-old female presented to ED for complaint of abdominal pain dizziness nausea chest pain. She states she just came in Sunday to the emergency room for rectal impaction was disimpacted had enemas felt better. Patient had some relief and then has started having abdominal pain again. She states she also has chest pain and went to her primary care doctor they sent her to her fruit cutter her fruit cutter sent her to the emergency room to be evaluated for her high blood pressure dizziness and nausea. She states they did a EKG at the doctor's office. 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 She is a former smoker does not drink or do any drugs she is a and lives by herself. Patient is alert oriented she does have hyperactive bowel sounds tender to palpation. She has clear lung sounds heart sounds are regular. I have greeted and performed a rapid initial assessment of this patient. A comprehensive ED assessment and evaluation of the patient, analysis of test results and completion of medical decision making process will be conducted by an additional ED providers. TRAVEL OUTSIDE OF THE [place] IN LAST 30 DAYS: No - Related Data Allergies/Adverse Reactions: ACEINHIBITORS [DC Inhibitors] Allergy (Verified 08/24/18 18:00) latex [Latex] Allergy (Verified 08/24/18 18:00) Generalized edema Tuberculin,Ppd,Multi-Puncture [From Tuberculin PPD Jeimy Test] Allergy (Verified 08/24/18 18:00) codeine [Codeine] Adverse Reaction (Verified 08/24/18 18:00) doxycycline [Doxycycline] Adverse Reaction (Verified 08/24/18 18:00) erythromycin base [Erythromycin Base] Adverse Reaction (Verified 08/24/18 18:00) levofloxacin [From Levaquin] Adverse Reaction (Verified 08/24/18 18:00) Dizziness sacubitril [From Entresto] Adverse Reaction (Verified 02/07/19 14:17) valsartan [From Entresto] Adverse Reaction (Verified 02/07/19 14:17) codeine Allergy (Uncoded 02/07/19 14:11) Past Medical History - Past Medical History Cardiac Medical History: Reports: Hx Congestive Heart Failure, Hx Coronary Artery Disease, Hx Hypercholesterolemia, Hx Hypertension Denies: Hx Heart Attack Pulmonary Medical History: Reports: Hx COPD Denies: Hx Asthma Neurological Medical History: Reports: Hx Migraine. Denies: Hx Cerebrovascular Accident, Hx Seizures Endocrine Medical History: Reports: Hx Hypothyroidism Renal/ Medical History: Denies: Hx Peritoneal Dialysis Malignancy Medical History: Reports: Hx Skin Cancer GI Medical History: Reports: Hx Gastritis, Hx Gastroesophageal Reflux Disease, Hx Ulcer - TREATED. Denies: Hx Hepatitis, Hx Hiatal Hernia Musculoskeltal Medical History: Reports Hx Arthritis Skin Medical History: Reports Hx Psoriasis Psychiatric Medical History: Reports: Hx Depression Denies: Hx Attention Deficit Hyperactivity Disorder Infectious Medical History: Denies: Hx Hepatitis Past Surgical History: Reports: Hx Abdominal Surgery, Hx Appendectomy, Hx Breast Surgery - bx, Hx Cardiac Catheterization - 2003--DONE IN [place], WAS NOT GIVEN AND DETAILS, Hx Cardiac Surgery - pacemaker, Hx Orthopedic Surgery - rib surgery, Hx Pacemaker - DEX. Denies: Hx Hysterectomy, Hx Mastectomy, Hx Nose Surgery, Hx Open Heart Surgery - Immunizations Immunizations up to date: No Hx Diphtheria, Pertussis, Tetanus Vaccination: Yes History of Influenza Vaccine for 07/2017 - 12/2017 Season: Yes Physical Exam - Vital signs Vitals: Temp Pulse Resp BP Pulse Ox 98.1 F 59 L 16 127/58 H 99 02/18/19 14:32 02/18/19 14:32 02/18/19 14:32 02/18/19 14:32 02/18/19 14:32 Course - Vital Signs Vital signs: Temp Pulse Resp BP Pulse Ox 98.1 F 59 L 16 127/58 H 99 02/18/19 14:32 02/18/19 14:32 02/18/19 14:32 02/18/19 14:32 02/18/19 14:32 Doctor's Discharge - Discharge Referrals: LISA OSCAR MD [Primary Care Provider] - Follow up as needed
--- NOTE | 2019-02-18 16:19 | RADIOLOGY REPORT (SQ) ---
EXAM DESCRIPTION: CHEST 2 VIEWS COMPLETED DATE/TIME: 02/18/2019 3:50 pm REASON FOR STUDY: chest pain COMPARISON: 08/24/2018 EXAM PARAMETERS: NUMBER OF VIEWS: two views TECHNIQUE: Digital Frontal and Lateral radiographic views of the chest acquired. RADIATION DOSE: NA LIMITATIONS: none FINDINGS: LUNGS AND PLEURA: The lungs are hyperexpanded. There is no infiltrate, effusion, or mass. MEDIASTINUM AND HILAR STRUCTURES: No masses or contour abnormalities. HEART AND VASCULAR STRUCTURES: Borderline heart size. BONES: Old rib fractures on the right. HARDWARE: None in the chest. OTHER: No other significant finding. IMPRESSION: Borderline cardiomegaly without pulmonary edema. Chronic lung changes. TECHNICAL DOCUMENTATION: JOB ID: [id number] [employer]- All Rights Reserved Reading location - IP/workstation name: [email or web address]
[2019-02-18 16:23] LABS: APPEARANCE,URINE CLEAR; BILIRUBIN,URINE NEGATIVE (NEGATIVE); COLOR,URINE STRAW; GLUCOSE, URINE NEGATIVE (NEGATIVE); KETONES,URINE NEGATIVE (NEGATIVE); LEUKOCYTE ESTERASE,URINE NEGATIVE (NEGATIVE); NITRITE,URINE NEGATIVE (NEGATIVE); PROTEIN,URINE NEGATIVE (NEGATIVE); URINE SPECIFIC GRAVITY 1.005; UROBILINOGEN,URINE NEGATIVE mg/dL (<2.0)
[2019-02-18 16:42] LABS: ABSOLUTE EOSINOPHILS # (AUTO) 0.1 10^3/uL (0.0-0.6); ABSOLUTE LYMPHOCYTES (AUTO) 0.7 10^3/uL (0.5-4.7); ABSOLUTE MONOCYTES (AUTO) 0.4 10^3/uL (0.1-1.4); ABSOLUTE NEUT (AUTO) 4.5 10^3/uL (1.7-8.2); BASOPHILS % (AUTO) 0.6 % (0-2); HEMATOCRIT 34.2 % (36.0-47.0); HEMOGLOBIN 11.5 g/dL (12.0-15.5); LYMPHOCYTES % (AUTO) 12.2 % (13-45); MEAN CORPUSCULAR HEMOGLOBIN 30.3 pg (27.0-33.4); MEAN CORPUSCULAR HGB CONC 33.7 g/dL (32.0-36.0); MEAN CORPUSCULAR VOLUME 90 fl (80-97); MONOCYTES % (AUTO) 7.1 % (3-13); PLATELET COUNT 201 10^3/uL (150-450); RED CELL DISTRIBUTION WIDTH 13.5 % (11.5-14.0); SEGMENTED NEUTROPHILS % (AUTO) 78.1 % (42-78); TOTAL CELLS COUNTED % (AUTO) 100 %; WHITE BLOOD COUNT 5.7 10^3/uL (4.0-10.5)
[2019-02-18 17:07] LABS: ALANINE AMINOTRANSFERASE 44 U/L (9-52); ALBUMIN 3.7 g/dL (3.5-5.0); ALKALINE PHOSPHATASE 82 U/L (38-126); ANION GAP 5 (5-19); ASPARTATE AMINO TRANSFERASE 48 U/L (14-36); BILIRUBIN,DIRECT 0.2 mg/dL (0.0-0.4); BILIRUBIN,TOTAL 0.7 mg/dL (0.2-1.3); BLOOD UREA NITROGEN 17 mg/dL (7-20); CALCIUM 9.8 mg/dL (8.4-10.2); CARBON DIOXIDE 33 mmol/L (22-30); CHLORIDE 96 mmol/L (98-107); GLUCOSE 97 mg/dL (75-110); LIPASE 244.8 U/L (23-300); POTASSIUM 5.2 mmol/L (3.6-5.0); SODIUM 134.4 mmol/L (137-145); TOTAL PROTEIN 6.3 g/dL (6.3-8.2)
[2019-02-18 17:19] LABS: CREATINE KINASE MB 6.99 ng/mL (<4.55)
[2019-02-18 17:21] LABS: TROPONIN I < 0.012 ng/mL
--- NOTE | 2019-02-18 17:45 | EKG REPORT ---
SEVERITY:- OTHERWISE NORMAL ECG - SINUS RHYTHM LOW VOLTAGE IN FRONTAL LEADS : Confirmed by: Jadyn Farmer MD 18-Feb-2019 17:44:31
[2019-02-18] MEDS ORDERED: NORMAL SALINE 1000 ML 500 ML IV ONE (20:34)
--- NOTE | 2019-02-18 20:57 | ER Document Report ---
ED GI/ - General Chief Complaint: Abdominal Pain Stated Complaint: ABDOMINAL PAIN Time Seen by Provider: 02/18/19 15:07 Primary Care Provider: LISA OSCAR MD [Primary Care Provider] - Follow up as needed Mode of Arrival: Wheelchair TRAVEL OUTSIDE OF THE [place] IN LAST 30 DAYS: No - HPI Notes: 02/18/19 20:30 Patient is an 88-year-old female who presents to the emergency department with a chief complaint of generalized abdominal pain and chest pain. Reports that this morning she was having a bowel movement which she reports was soft and brown in color. Denies blood or dark stool. Patient states that at the same time she was extremely nauseous and while attempting not to vomit she developed some chest pain while straining. Patient states that she called your doctor who told her to follow-up with her heart doctor Dr. Maria. Patient went to bottle washer and sent her via EMS to the emergency department to get evaluated for the abdominal pain and chest pain. Patient denies chest pain or palpitations since being in the emergency department. Patient does complain of nausea. Patient has had no vomiting. Patient reports that she was last seen in the emergency department last week for constipation. Patient reports that she d oes take Movantik for opioid constipation. Patient is on chronic pain management with Dr. Whalen at [facility]. Patient states that her biggest complaint is the abdominal discomfort which is throughout her whole abdomen worse to the left side of the umbilicus. - Related Data Allergies/Adverse Reactions: ACEINHIBITORS [DC Inhibitors] Allergy (Verified 08/24/18 18:00) latex [Latex] Allergy (Verified 08/24/18 18:00) Generalized edema Tuberculin,Ppd,Multi-Puncture [From Tuberculin PPD Jeimy Test] Allergy (Verified 08/24/18 18:00) codeine [Codeine] Adverse Reaction (Verified 08/24/18 18:00) doxycycline [Doxycycline] Adverse Reaction (Verified 08/24/18 18:00) erythromycin base [Erythromycin Base] Adverse Reaction (Verified 08/24/18 18:00) levofloxacin [From Levaquin] Adverse Reaction (Verified 08/24/18 18:00) Dizziness sacubitril [From Entresto] Adverse Reaction (Verified 02/07/19 14:17) valsartan [From Entresto] Adverse Reaction (Verified 02/07/19 14:17) codeine Allergy (Uncoded 02/07/19 14:11) Past Medical History - General Information source: Patient - Social History Smoking Status: Never Smoker Cigarette use (# per day): No Chew tobacco use (# tins/day): No Frequency of alcohol use: None Drug Abuse: None Lives with: Alone Family History: DM, Hypertension Patient has suicidal ideation: No Patient has homicidal ideation: No - Past Medical History Cardiac Medical History: Reports: Hx Congestive Heart Failure, Hx Coronary Artery Disease, Hx Hypercholesterolemia, Hx Hypertension Denies: Hx Heart Attack Pulmonary Medical History: Reports: Hx COPD Denies: Hx Asthma Neurological Medical History: Reports: Hx Migraine. Denies: Hx Cerebrovascular Accident, Hx Seizures Endocrine Medical History: Reports: Hx Hypothyroidism Renal/ Medical History: Denies: Hx Peritoneal Dialysis Malignancy Medical History: Reports: Hx Skin Cancer GI Medical History: Reports: Hx Gastritis, Hx Gastroesophageal Reflux Disease, Hx Ulcer - TREATED. Denies: Hx Hepatitis, Hx Hiatal Hernia Musculoskeletal Medical History: Reports Hx Arthritis Skin Medical History: Reports Hx Psoriasis Psychiatric Medical History: Reports: Hx Depression Denies: Hx Attention Deficit Hyperactivity Disorder Infectious Medical History: Denies: Hx Hepatitis Past Surgical History: Reports: Hx Abdominal Surgery, Hx Appendectomy, Hx Breast Surgery - bx, Hx Cardiac Catheterization - 2003--DONE IN [place], WAS NOT GIVEN AND DETAILS, Hx Cardiac Surgery - pacemaker, Hx Orthopedic Surgery - rib surgery, Hx Pacemaker - DEX. Denies: Hx Hysterectomy, Hx Mastectomy, Hx Nose Surgery, Hx Open Heart Surgery - Immunizations Immunizations up to date: No Hx Diphtheria, Pertussis, Tetanus Vaccination: Yes Hx Pneumococcal Vaccination: 07/15/12 Review of Systems - Review of Systems Constitutional: See HPI EENT: See HPI Cardiovascular: See HPI Respiratory: No symptoms reported Gastrointestinal: See HPI Genitourinary: No symptoms reported Female Genitourinary: No symptoms reported Musculoskeletal: No symptoms reported Skin: No symptoms reported Hematologic/Lymphatic: No symptoms reported Neurological/Psychological: No symptoms reported Physical Exam - Vital signs Vitals: Temp Pulse Resp BP Pulse Ox 98.1 F 59 L 16 127/58 H 99 02/18/19 14:32 02/18/19 14:32 02/18/19 14:32 02/18/19 14:32 02/18/19 14:32 Interpretation: Normal - Notes Notes: GENERAL: Well-appearing, mild distress. HEAD: Atraumatic, normocephalic. EYES: Pupils equal round and reactive to light, extraocular movements intact, sclera anicteric, conjunctiva are normal. ENT: Dry lips and mucous membranes. NECK: Normal range of motion, supple without lymphadenopathy or JVD. LUNGS: Breath sounds clear to auscultation bilaterally and equal. No wheezes rales or rhonchi. HEART: Regular rate and rhythm without murmurs, rubs or gallops. ABDOMEN: Soft, mildy tender throughout abdomen, more tender left of umbilicus, hyperactive bowel sounds. No guarding, no rebound. No masses appreciated. EXTREMITIES: Normal range of motion, no pitting or edema. No clubbing or cyanosis. NEUROLOGICAL: Cranial nerves II through XII grossly intact. Normal speech, normal gait. PSYCH: Normal mood, normal affect. SKIN: Warm, Dry, normal turgor, no rashes or lesions noted. Course - Re-evaluation Re-evalutation: 02/18/19 20:30 Upon initial evaluation patient sitting upright on stretcher. Patient complains of dry mouth and nausea. Patient continues to complain of abdominal pain. When asked for patient to point to the area and when she hurts she points to the left side of the umbilicus. Abdomen is soft and generally tender throughout. No masses are palpated. No bruising or discoloration noted to the abdomen. Will obtain abdominal x-ray, patient on roof technician, fluid bolus 500 cc. We will continue to monitor and reevaluate. Patient does deny any chest pain or shortness of breath at this time will repeat troponin and CK-MB. 02/18/19 21:40 Patient receiving IV fluids. Repeat troponin and blood work pending. Upon reevaluation patient reports that she has been having intermittent dizziness. Patient states that this has been present since she took the GoLYTELY last week. Patient also complaint of dry mouth. Will reevaluate after IV fluids. Patient's repeat troponin was negative. Her repeat CK-MB and CK did show an elevation. Discussed these findings with Dr. Ortiz. Due to the 2 serial negative troponins and negative chest pain is not concerned with these findings. She continues to tolerate oral contrast. Patient CT showed stool in the rectum. The CT was negative for perforation, obstruction, or any acute emergent finding. Discussed these findings with Dr. Ortiz who reviewed the chart. Per the recommendation of Dr. Ortiz patient to receive an enema and if feeling better can be discharged home. After receiving enema patient reports feeling much better, patient reports that her stool was semi-soft and brown in color. Patient is concerned going home with her nausea. Patient did receive a prescription for Zofran from her primary care physician yesterday Dr. Oscar. Patient has also seen her pain management doctor and her bottle washer yesterday. Patient reports that she has close follow-up with all of her providers. Informed patient to use this prescription for her nausea as needed. Patient has been tolerating liquids after receiving the results of the CT scan. Patient has had no vomiting. Abdomen remains soft. Given strict return precautions to include severe a bdominal pain, vomiting, blood in the stool, vomiting blood, chest pain, shortness of breath, dizziness, or any other concerning signs or symptoms. Patient states that she has not had much to eat or drink since using the GoLYTELY last week. Informed patient that this may be why she is feeling weak. Informed patient to start out with a bland diet, to avoid spicy or greasy foods. And to use the antinausea medicine as needed. Verbalized understanding and is in agreement with going home and returning if symptoms worsen. - Vital Signs Vital signs: Temp Pulse Resp BP Pulse Ox 98.1 F 86 17 158/91 H 96 02/19/19 05:32 02/19/19 05:32 02/19/19 05:32 02/19/19 05:32 02/19/19 05:32 - Laboratory Result Diagrams: 02/18/19 16:23 02/18/19 16:23 Laboratory results interpreted by me: 02/18/19 02/18/19 02/18/19 16:23 16:23 16:23 Hgb 11.5 L Hct 34.2 L Seg Neutrophils % 78.1 H Lymphocytes % 12.2 L Sodium 134.4 L Potassium 5.2 H Chloride 96 L Carbon Dioxide 33 H AST 48 H Creatine Kinase CK-MB (CK-2) 6.99 H 02/18/19 02/18/19 02/18/19 16:23 21:30 21:30 Hgb Hct Seg Neutrophils % Lymphocytes % Sodium Potassium Chloride Carbon Dioxide AST Creatine Kinase 271 H 361 H CK-MB (CK-2) 10.10 H 02/19/19 Patient did have two normal troponins. A CK-MB was ordered in triage and resulted at 6.99 a repeat was placed which revealed a slight elevation at one 0.10. CK was also added on the initial blood work which is 271 and a repeat was 361. Discussed these findings with Dr. Ortiz. Due to the negative troponins and no active chest pain there is no concern for this elevation in lab work. - Diagnostic Test Radiology reviewed: Image reviewed, Reports reviewed Radiology results interpreted by me: 02/19/19 Patient is chest x-ray that was ordered in triage showed borderline cardiomegaly without pulmonary edema. Due to patient's complaint of continued abdominal pain and x-ray was obtained and showed scattered nondilated loops of bowel and several air-fluid levels. CT scan was then obtained due to patient's continued abdominal pain. The CT was reviewed with Dr. Ortiz. It was found that patient did not have an obstruction, perforation, or any other emergent f indings. It was noted that patient had a stool in her rectum. Per Dr. Ortiz recommendations patient to receive a enema in the emergency department. If patient tolerates well she will be able to be discharged. - EKG Interpretation by Me Additional EKG results interpreted by me: 02/19/19 Patient's EKG showed a normal sinus rhythm at a rate of 60. Patient's MT interval is 200, QRS D 82, QT [address] elevation noted or ectopy. Patient did have slight peaked T waves. Patient's potassium was 5.2. Discharge - Discharge Clinical Impression: Nausea Abdominal pain Qualifiers: Abdominal location: lower abdomen, unspecified Qualified Code(s): R10.30 - Lower abdominal pain, unspecified Constipation Qualifiers: Constipation type: unspecified constipation type Qualified Code(s): K59.00 - Constipation, unspecified Condition: Stable Disposition: HOME, SELF-CARE Instructions: Abdominal Pain ([facility]), Antinausea Medication ([facility]) Additional Instructions: Today you were seen in the emergency department for nausea, abdominal pain and c hest pain. We did check your cardiac enzymes as well as perform an EKG which were negative for any acute process. We performed a CT of your abdomen which showed stool. There was no signs of a blockage, perforation or an emergent problem. For your nausea you were prescribed Zofran by Dr. Oscar yesterday. Please get this filled and take as needed. Please follow-up with Dr. Oscar for further management of your nausea and abdominal pain. You have stated that your blood pressure was elevated earlier yesterday as well as multiple times throughout the ER visit. Please continue your blood pressure medications as prescribed. Please keep a diary of your blood pressures at home. Please check these daily and follow-up with your primary for alterations in your medications. Follow-up with Dr. Kilpatrick's office for your pain management. Follow-up with Dr. Cardona as previously scheduled. And please follow-up with your bottle washer for management of your cardiac problems. Return to the emergency department for any worsening symptoms such as severe abdominal pain, vomiting, diarrhea, fever, chest pain, or any other concerning signs or symptoms. Abdominal Pain There are many causes of abdominal pain. Pain can mean a serious problem requiring surgery (such as appendicitis). It can also be an innocent problem that goes away on its own (such as a viral infection). Often, time must pass to determine the cause of pain. The physician does not feel that hospitalization is necessary, at present. Things may change within the next 24 hours. Call the doctor or come back for re- examination if any problems occur, such as: (1) Pain that becomes more severe, steady, or becomes concentrated in one specific area. Also, pain that is more severe with movement or coughing. (2) Vomiting that persists or becomes more frequent. (3) Blood in the vomitus, urine, or bowel movements. Blood in the stool may have a tarry or black appearance. (4) Shaking chills or fever greater than 100 degrees F. (5) The abdomen becomes more distended or swollen. (6) Bowel movements cease. (7) Failure to improve as expected. Referrals: LISA OSCAR MD [Primary Care Provider] - Follow up as needed
--- NOTE | 2019-02-18 22:11 | RADIOLOGY REPORT (SQ) ---
EXAM DESCRIPTION: XR ABDOMEN 2 VIEWS SUPINE ERECT COMPLETED DATE/TME: 02/18/2019 20:34 CLINICAL: 88 years, Female, ABDOMINAL PAIN COMPARISON: Prior study from 02/07/2019 NUMBER OF VIEWS: Two TECHNIQUE: Two frontal radiographs of the abdomen were obtained LIMITATIONS: None. FINDINGS: Scattered nondilated loops of bowel are visible throughout the abdomen. However, several air-fluid levels are noted. Moderate bilateral hip joint osteoarthrosis is evident, designated by joint space narrowing. Multilevel lumbar spondylosis is noted. Assessment for subdiaphragmatic free air is limited by supine technique. No indirect signs are noted. A few scattered phleboliths project over the pelvic inlet. IMPRESSION: Indeterminate bowel gas pattern secondary to several air-fluid levels about the visualized bowel loops. No obvious dilatation is identified. copyright 2010 [employer]- All Rights Reserved
[2019-02-18 22:25] LABS: TROPONIN I < 0.012 ng/mL
--- NOTE | 2019-02-19 02:05 | RADIOLOGY REPORT (SQ) ---
EXAM DESCRIPTION: CT ABDOMEN PELVIS WITH IV CONTRAST COMPLETED DATE/TME: 02/19/2019 00:00 CLINICAL HISTORY: 88 years Female, ABDOMINAL PAIN Comparison: February 07, 2019, October 06, 2018. Technique: IV contrast. Coronal and sagittal reformat. This exam was performed according to our departmental dose-optimization program, which includes automated exposure control, adjustment of the mA and/or kV according to patient size and/or use of iterative reconstruction technique. [facility]: Dose Right [facility]: CareDose [facility]: Dose Right [facility]: Teradose 4D [facility]: [email or web address] LIMITATIONS: None Findings: Grade 2, 1.1-cm L5 anterolisthesis, mild posterior L5 vertebral height loss, bony demineralization. Cardiac stimulator leads partially imaged. Likely benign renal cyst(s) including a 5.1 cm exophytic cyst of the upper pole of the left kidney contacting the left hemidiaphragm, not definitively characterized. Likely benign, low-attenuation splenic lesion(s) not definitively characterized. Atelectasis/scar. Rectal stool retention. No ascites. No evidence of appendicitis. Appendix not definitively discerned. No gross evidence of gallbladder inflammation or hepatobiliary obstruction. No bowel obstruction. No hydronephrosis or hydroureter. No renal/ureteral stone. No evidence of abdominal aortic aneurysm. Inferior thorax, liver, gallbladder, pancreas, spleen, adrenals, renal system, gastrointestinal tract, pelvic organs, lymphatics, vasculature, and musculoskeleton appear otherwise unremarkable. IMPRESSION: No acute abdominal findings. Chronic Grade II L5 anterolisthesis.
[2019-02-19] MEDS ORDERED: MINERAL OIL 30 ML UDCUP PR ONE (02:30)
[2019-02-19 05:32] VITALS: BP 158/91
== END 2019-02-19 05:52 | disposition home or self-care (01) ==
LOC: ER 14:11
DX: R11.0 Nausea (principal); R10.30 Lower abdominal pain, unspecified; K59.00 Constipation, unspecified; I50.9 Heart failure, unspecified; I25.10 Atherosclerotic heart disease of native coronary artery without angina pectoris; E78.00 Pure hypercholesterolemia, unspecified; I11.0 Hypertensive heart disease with heart failure; Z91.040 Latex allergy status; Z88.6 Allergy status to analgesic agent; Z88.3 Allergy status to other anti-infective agents
CPT/HCPCS: 93005; 94640; 99285; 96360; 96361; 36415; 82553; 82550; 83690; 85025; 80053; 81001; 84484; 74019; 71046; 74177; 93010; J3490; J7030

== ENCOUNTER 2019-03-13 18:52 | Emergency (ER) | payer MEDICARE, OTHER ==
--- NOTE | 2019-03-13 19:51 | ER Document Report ---
ED Medical Screen (RME) - General Chief Complaint: Constipation Stated Complaint: CONSTIPATION Time Seen by Provider: 03/13/19 19:40 Primary Care Provider: LISA OSCAR MD [Primary Care Provider] - Follow up as needed TRAVEL OUTSIDE OF THE [place] IN LAST 30 DAYS: No - HPI Notes: 03/13/19 19:49 Patient is an 89-year-old female with a history of hypertension, pacemaker plac ement and on blood thinners, chronic pain and on a fentanyl patch who presents complaining of constipation issues, urinating small amounts and feeling of incomplete void, and new onset bulge to her right inguinal area that is painful when she was trying to have a bowel movement today. Patient states that she did have some nausea initially without vomiting. She has had enemas at the detention today without any relief of the constipation. Denies MUSA, fever, neck pain, URI, CP, SOB, back pain, or rash. I have treated and performed a rapid initial assessment of this patient. A comprehensive ED assessment and evaluation of the patient, analysis of test results and completion of medical decision making process will be conducted by additional ED providers. PHYSICAL EXAMINATION: GENERAL: Well-appearing, well-nourished and in no acute distress. A&Ox4. Answers questions appropriately. LUNGS: Breath sounds clear to auscultation bilaterally and equal. No wheezes rales or rhonchi. HEART: Regular rate and rhythm without murmurs, rubs, gallops. ABDOMEN: Soft, nondistended abdomen. No CVA tenderness bilaterally. + tenderness lower abd and possible incarcerated hernia rt inguinal area (cannot elicit thorough abd exam w/o bed, however). Extremities: No cyanosis, clubbing, or edema b/l. NEUROLOGICAL: Normal speech, normal gait. PSYCH: Normal mood, normal affect. - Related Data Allergies/Adverse Reactions: ACEINHIBITORS [DC Inhibitors] Allergy (Verified 08/24/18 18:00) latex [Latex] Allergy (Verified 08/24/18 18:00) Generalized edema Tuberculin,Ppd,Multi-Puncture [From Tuberculin PPD Jeimy Test] Allergy (Verified 08/24/18 18:00) codeine [Codeine] Adverse Reaction (Verified 08/24/18 18:00) doxycycline [Doxycycline] Adverse Reaction (Verified 08/24/18 18:00) erythromycin base [Erythromycin Base] Adverse Reaction (Verified 08/24/18 18:00) levofloxacin [From Levaquin] Adverse Reaction (Verified 08/24/18 18:00) Dizziness sacubitril [From Entresto] Adverse Reaction (Verified 02/07/19 14:17) valsartan [From Entresto] Adverse Reaction (Verified 02/07/19 14:17) codeine Allergy (Uncoded 02/07/19 14:11) Past Medical History - Past Medical History Cardiac Medical History: Reports: Hx Congestive Heart Failure, Hx Coronary Artery Disease, Hx Hypercholesterolemia, Hx Hypertension Denies: Hx Heart Attack Pulmonary Medical History: Reports: Hx COPD Denies: Hx Asthma Neurological Medical History: Reports: Hx Migraine. Denies: Hx Cerebrovascular Accident, Hx Seizures Endocrine Medical History: Reports: Hx Hypothyroidism Renal/ Medical History: Denies: Hx Peritoneal Dialysis Malignancy Medical History: Reports: Hx Skin Cancer GI Medical History: Reports: Hx Gastritis, Hx Gastroesophageal Reflux Disease, Hx Ulcer - TREATED. Denies: Hx Hepatitis, Hx Hiatal Hernia Musculoskeltal Medical History: Reports Hx Arthritis Skin Medical History: Reports Hx Psoriasis Psychiatric Medical History: Reports: Hx Depression Denies: Hx Attention Deficit Hyperactivity Disorder Infectious Medical History: Denies: Hx Hepatitis Past Surgical History: Reports: Hx Abdominal Surgery, Hx Appendectomy, Hx Breast Surgery - bx, Hx Cardiac Catheterization - 2003--DONE IN [place], WAS NOT GIVEN AND DETAILS, Hx Cardiac Surgery - pacemaker, Hx Orthopedic Surgery - rib surgery, Hx Pacemaker - DEX. Denies: Hx Hysterectomy, Hx Mastectomy, Hx Nose Surgery, Hx Open Heart Surgery - Immunizations Immunizations up to date: No Hx Diphtheria, Pertussis, Tetanus Vaccination: Yes History of Influenza Vaccine for 07/2017 - 12/2017 Season: Yes Physical Exam - Vital signs Vitals: Temp Pulse Resp BP Pulse Ox 99.6 F 73 18 185/86 H 96 03/13/19 19:06 03/13/19 19:06 03/13/19 19:06 03/13/19 19:06 03/13/19 19:06 Course - Vital Signs Vital signs: Temp Pulse Resp BP Pulse Ox 99.6 F 73 18 185/86 H 96 03/13/19 19:06 03/13/19 19:06 03/13/19 19:06 03/13/19 19:06 03/13/19 19:06 Doctor's Discharge - Discharge Referrals: LISA OSCAR MD [Primary Care Provider] - Follow up as needed
[2019-03-13] MEDS ORDERED: ONDANSETRON HCL INJ/PF 4 MG/2 ML SDV IV ONE (19:52)
[2019-03-13 20:20] LABS: ABSOLUTE EOSINOPHILS # (AUTO) 0.3 10^3/uL (0.0-0.6); ABSOLUTE LYMPHOCYTES (AUTO) 1.4 10^3/uL (0.5-4.7); ABSOLUTE MONOCYTES (AUTO) 0.7 10^3/uL (0.1-1.4); BASOPHILS % (AUTO) 0.7 % (0-2); EOSINOPHILS % (AUTO) 4.4 % (0-6); HEMATOCRIT 35.6 % (36.0-47.0); HEMOGLOBIN 12.2 g/dL (12.0-15.5); LYMPHOCYTES % (AUTO) 21.6 % (13-45); MEAN CORPUSCULAR HEMOGLOBIN 30.9 pg (27.0-33.4); MEAN CORPUSCULAR HGB CONC 34.4 g/dL (32.0-36.0); MEAN CORPUSCULAR VOLUME 90 fl (80-97); MONOCYTES % (AUTO) 10.7 % (3-13); PLATELET COUNT 215 10^3/uL (150-450); RED BLOOD COUNT 3.95 10^6/uL (3.72-5.28); RED CELL DISTRIBUTION WIDTH 13.2 % (11.5-14.0); SEGMENTED NEUTROPHILS % (AUTO) 62.6 % (42-78); TOTAL CELLS COUNTED % (AUTO) 100 %; WHITE BLOOD COUNT 6.4 10^3/uL (4.0-10.5)
--- NOTE | 2019-03-13 20:36 | RADIOLOGY REPORT (SQ) ---
EXAM DESCRIPTION: XR ABDOMEN 1 VIEW (KUB) COMPLETED DATE/TME: 03/13/2019 19:47 CLINICAL HISTORY: 89 years Female ,abd pain COMPARISON: None. TECHNIQUE: Single view of the abdomen was provided.. FINDINGS: Cardiac enlargement. Pacemaker in place. Scarring versus fluid in the right lung base. Multilevel degenerative change in the spine. No dilated loops of bowel to suggest obstruction. No abnormal calcifications noted. IMPRESSION: No evidence to suggest bowel obstruction
[2019-03-13 20:38] LABS: ALANINE AMINOTRANSFERASE 34 U/L (9-52); ALBUMIN 4.2 g/dL (3.5-5.0); ALKALINE PHOSPHATASE 65 U/L (38-126); ANION GAP 10 (5-19); ASPARTATE AMINO TRANSFERASE 40 U/L (14-36); BILIRUBIN,DIRECT 0.3 mg/dL (0.0-0.4); BILIRUBIN,TOTAL 0.7 mg/dL (0.2-1.3); BLOOD UREA NITROGEN 13 mg/dL (7-20); CALCIUM 9.5 mg/dL (8.4-10.2); CARBON DIOXIDE 28 mmol/L (22-30); CHLORIDE 93 mmol/L (98-107); GLUCOSE 94 mg/dL (75-110); POTASSIUM 5.1 mmol/L (3.6-5.0); SODIUM 131.2 mmol/L (137-145); TOTAL PROTEIN 6.8 g/dL (6.3-8.2)
[2019-03-13 21:35] LABS: APPEARANCE,URINE CLEAR; BILIRUBIN,URINE NEGATIVE (NEGATIVE); COLOR,URINE STRAW; GLUCOSE, URINE NEGATIVE (NEGATIVE); KETONES,URINE NEGATIVE (NEGATIVE); LEUKOCYTE ESTERASE,URINE NEGATIVE (NEGATIVE); NITRITE,URINE NEGATIVE (NEGATIVE); PROTEIN,URINE NEGATIVE (NEGATIVE); URINE SPECIFIC GRAVITY 1.005; UROBILINOGEN,URINE NEGATIVE mg/dL (<2.0)
[2019-03-13] MEDS ORDERED: NORMAL SALINE 500 ML IV ONE (21:47)
--- NOTE | 2019-03-13 22:02 | ER Document Report ---
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 Patient states that she gets daily soapsuds enemas. She states today she underwent a soapsuds enema and had no stool return just brown liquid. She states that she is straining to push out stool when she felt a pop in her right lower abdomen. Her home health nurse at that time evaluated her and stated she needed to come to the emergency department because of a hernia. Patient has a surgical history of appendectomy. She denies any associated fever, chills, chest pain, shortness of breath, nausea, vomiting. She does admit to urinary frequency, pressure. TRAVEL OUTSIDE OF THE [place] IN LAST 30 DAYS: No - HPI Onset: Just prior to arrival Onset/Duration: Sudden Quality of pain: Achy Severity: Moderate Pain Level: 2 Associated symptoms: Other - Constipation, abdominal pain, chronic back pain. denies: Chest pain, Diarrhea, Fever, Nausea, Vomiting, Shortness of breath Exacerbated by: Movement, Coughing Relieved by: Denies Similar symptoms previously: Yes Recently seen / treated by doctor: No - Related Data Allergies/Adverse Reactions: ACEINHIBITORS [DC Inhibitors] Allergy (Verified 08/24/18 18:00) latex [Latex] Allergy (Verified 08/24/18 18:00) Generalized edema Tuberculin,Ppd,Multi-Puncture [From Tuberculin PPD Jeimy Test] Allergy (Verified 08/24/18 18:00) codeine [Codeine] Adverse Reaction (Verified 08/24/18 18:00) doxycycline [Doxycycline] Adverse Reaction (Verified 08/24/18 18:00) erythromycin base [Erythromycin Base] Adverse Reaction (Verified 08/24/18 18:00) levofloxacin [From Levaquin] Adverse Reaction (Verified 08/24/18 18:00) Dizziness sacubitril [From Entresto] Adverse Reaction (Verified 02/07/19 14:17) valsartan [From Entresto] Adverse Reaction (Verified 02/07/19 14:17) codeine Allergy (Uncoded 02/07/19 14:11) Past Medical History - General Information source: Patient, Relative, [facility] Records - Social History Smoking Status: Never Smoker Frequency of alcohol use: None Drug Abuse: None Lives with: Alone Family History: DM, Hypertension Patient has suicidal ideation: No Patient has homicidal ideation: No - Past Medical History Cardiac Medical History: Reports: Hx Congestive Heart Failure, Hx Coronary Artery Disease, Hx Hypercholesterolemia, Hx Hypertension Denies: Hx Heart Attack Pulmonary Medical History: Reports: Hx COPD Denies: Hx Asthma Neurological Medical History: Reports: Hx Migraine. Denies: Hx Cerebrovascular Accident, Hx Seizures Endocrine Medical History: Reports: Hx Hypothyroidism Renal/ Medical History: Denies: Hx Peritoneal Dialysis Malignancy Medical History: Reports: Hx Skin Cancer GI Medical History: Reports: Hx Gastritis, Hx Gastroesophageal Reflux Disease, Hx Ulcer - TREATED. Denies: Hx Hepatitis, Hx Hiatal Hernia Musculoskeletal Medical History: Reports Hx Arthritis Skin Medical History: Reports Hx Psoriasis Psychiatric Medical History: Reports: Hx Depression Denies: Hx Attention Deficit Hyperactivity Disorder Infectious Medical History: Denies: Hx Hepatitis Past Surgical History: Reports: Hx Abdominal Surgery, Hx Appendectomy, Hx Breast Surgery - bx, Hx Cardiac Catheterization - 2003--DONE IN [place], WAS NOT GIVEN AND DETAILS, Hx Cardiac Surgery - pacemaker, Hx Orthopedic Surgery - rib surgery, Hx Pacemaker - DEX. Denies: Hx Hysterectomy, Hx Mastectomy, Hx Nose Surgery, Hx Open Heart Surgery - Immunizations Immunizations up to date: No Hx Diphtheria, Pertussis, Tetanus Vaccination: Yes Hx Pneumococcal Vaccination: 07/15/12 Review of Systems - Review of Systems Notes: REVIEW OF SYSTEMS: CONSTITUTIONAL : Denies fever, chills, or sweats. Denies recent illness. Denies weight loss, recent hospitalizations. EENT: Denies visual changes, eye pain. Denies sore throat, oral lesions, difficulty swallowing. CARDIOVASCULAR: Denies chest pain. Denies palpitations. Denies lower extremity edema. RESPIRATORY: Denies cough. Denies shortness of breath, wheezing. GASTROINTESTINAL: + abdominal pain or distention. Denies nausea, vomiting, or diarrhea. Denies blood in vomitus, stools, or per rectum. Denies black, tarry stools. + constipation. GENITOURINARY: Denies difficulty urinating, painful urination, blood in urine, or vaginal discharge. MUSCULOSKELETAL: + back denies neck pain or stiffness. Denies joint pain or swelling. SKIN: Denies rash, lesions or sores. HEMATOLOGIC : Denies easy bruising or bleeding. LYMPHATIC: Denies swollen glands. NEUROLOGICAL: Denies confusion or altered mental status. Denies loss of con sciousness. Denies dizziness or lightheadedness. Denies headache. Denies weakness or paralysis. Denies problems difficulty with ambulation, slurred speech. Denies sensory loss, numbness, or tingling. Denies seizures. PSYCHIATRIC: Denies anxiety or stress. Denies depression, suicidal ideation, or homicidal ideation. Denies visual or auditory hallucinations. Physical Exam - Vital signs Vitals: Temp Pulse Resp BP Pulse Ox 99.6 F 73 18 185/86 H 96 03/13/19 19:06 03/13/19 19:06 03/13/19 19:06 03/13/19 19:06 03/13/19 19:06 Interpretation: Hypertensive - Notes Notes: PHYSICAL EXAMINATION: GENERAL: Well-appearing, well-nourished and in no acute distress. HEAD: Atraumatic, normocephalic. EYES: Pupils equal round and reactive to light, extraocular movements intact, conjunctiva are normal. ENT: Nares patent, oropharynx clear without exudates. Moist mucous membranes. NECK: Normal range of motion, supple without lymphadenopathy LUNGS: Breath sounds clear to auscultation bilaterally and equal. No wheezes rales or rhonchi. HEART: Regular rate and rhythm without murmurs ABDOMEN: Soft, diffuse tenderness mild distention. no guarding, no rebound. Small right inguinal mass- reduced manually. Female : deferred Musculoskeletal: Normal range of motion, no pitting or edema. No cyanosis. NEUROLOGICAL: Cranial nerves grossly intact. Normal speech, normal gait. Normal sensory, motor exams PSYCH: Normal mood, normal affect. SKIN: Warm, Dry, normal turgor, no rashes or lesions noted. Course - Re-evaluation Re-evalutation: 03/14/19 03:14 Laboratory 03/13/19 03/13/19 03/13/19 19:56 19:56 19:56 WBC 6.4 RBC 3.95 Hgb 12.2 Hct 35.6 L MCV 90 MCH 30.9 MCHC 34.4 RDW 13.2 Plt Count 215 Seg Neutrophils % 62.6 Lymphocytes % 21.6 Monocytes % 10.7 Eosinophils % 4.4 Basophils % 0.7 Absolute Neutrophils 4.0 Absolute Lymphocytes 1.4 Absolute Monocytes 0.7 Absolute Eosinophils 0.3 Absolute Basophils 0.0 Sodium 131.2 L Potassium 5.1 H Chloride 93 L Carbon Dioxide 28 Anion Gap 10 BUN 13 Creatinine 0.72 Est GFR ( Amer) > 60 Est GFR (Non-Af Amer) > 60 Glucose 94 Lactic Acid 1.3 Calcium 9.5 Total Bilirubin 0.7 Direct Bilirubin 0.3 Neonat Total Bilirubin Not Reportable Neonat Direct Bilirubin Not Reportable Neonat Indirect Bili Not Reportable AST 40 H ALT 34 Alkaline Phosphatase 65 Total Protein 6.8 Albumin 4.2 Urine Color Urine Appearance Urine pH Ur Specific [place] Urine Protein Urine Glucose (UA) Urine Ketones Urine Blood Urine Nitrite Urine Bilirubin Urine Urobilinogen Ur Leukocyte Esterase Urine WBC (Auto) Urine RBC (Auto) Squamous Epi Cells Auto Urine Mucus (Auto) Urine Ascorbic Acid 03/13/19 20:46 WBC RBC Hgb Hct MCV MCH MCHC RDW Plt Count Seg Neutrophils % Lymphocytes % Monocytes % Eosinophils % Basophils % Absolute Neutrophils Absolute Lymphocytes Absolute Monocytes Absolute Eosinophils Absolute Basophils Sodium Potassium Chloride Carbon Dioxide Anion Gap BUN Creatinine Est GFR ( Amer) Est GFR (Non-Af Amer) Glucose Lactic Acid Calcium Total Bilirubin Direct Bilirubin Neonat Total Bilirubin Neonat Direct Bilirubin Neonat Indirect Bili AST ALT Alkaline Phosphatase Total Protein Albumin Urine Color STRAW Urine Appearance CLEAR Urine pH 6.0 Ur Specific [place] 1.005 Urine Protein NEGATIVE Urine Glucose (UA) NEGATIVE Urine Ketones NEGATIVE Urine Blood NEGATIVE Urine Nitrite NEGATIVE Urine Bilirubin NEGATIVE Urine Urobilinogen NEGATIVE Ur Leukocyte Esterase NEGATIVE Urine WBC (Auto) 2 Urine RBC (Auto) 2 Squamous Epi Cells Auto <1 Urine Mucus (Auto) RARE Urine Ascorbic Acid NEGATIVE Abdomen/Pelvis CT 03/13/19 00:00 IMPRESSION: Negative for acute intra-abdominal/pelvic process. Tiny fat-containing right inguinal hernia with some equivocal associated inflammation. Similar findings were present previously. Scattered nonenlarged inguinal chain lymph nodes. TECHNICAL DOCUMENTATION: Quality ID # 436: Final reports with documentation of one or more dose reduction techniques (e.g., Automated exposure control, adjustment of the mA and/or kV according to patient size, use of iterative reconstruction technique) copyright 2010 [employer]- All Rights Reserved KUB X-Ray 03/13/19 19:47 IMPRESSION: No evidence to suggest bowel obstruction Temp Pulse Resp BP Pulse Ox 99.6 F 73 24 H 158/72 H 99 03/13/19 19:06 03/13/19 19:06 03/13/19 23:11 03/13/19 23:11 03/13/19 23:11 Right inguinal hernia reduced without complication. 03/14/19 21:51 89-year-old female presents with diffuse abdominal pain. Gives herself daily soapsuds enema. Today while straining to go the bathroom she noticed a small bulge in her right inguinal. Vital signs reviewed and patient is mildly hypertensive. She is extremely anxious, hard to direct and is fixated on me giving her another enema. Her small right inguinal hernia was easily reduced with with direct pressure. Rectal exam does not reveal fecal impaction. CT of the abdomen and pelvis were negative any acute process. I did discuss at length to the patient that she does not need to perform daily enemas especially since she eats very lightly. Her family member who is at the bedside agrees that the patient is constantly giving herself enemas. Patient advised to eat green leafy vegetables and follow-up with her primary care physician. Patient was evaluated and treated as appropriate for the patient's presenting symptoms and complaint, with consideration of any critical or life threatening conditions that may be associated with their obtained history and exam as noted above. All results were discussed with patient and her family member who is at the bedside. Patient provided the opportunity to ask questions, and express concerns. Patient was educated on treatments based on their presumed diagnosis as noted above. At this time we will discharge the patient with return precautions and follow-up recommendations. Verbal discharge instructions given a the bedside. Medication warnings reviewed. Patient is in agreement with this plan and has verbalized understanding of return precautions. After careful consideration I feel that that patient can be safely discharged from the emergency department, they were advised to followup with a primary care physician in 2-3 days. Dictation on this chart was performed using voice recognition software and may result in unintended grammatical, spelling, syntax or errors. - Vital Signs Vital signs: Temp Pulse Resp BP Pulse Ox 99.6 F 73 24 H 158/72 H 99 03/13/19 19:06 03/13/19 19:06 03/13/19 23:11 03/13/19 23:11 03/13/19 23:11 - Laboratory Result Diagrams: 03/13/19 19:56 03/13/19 19:56 Laboratory results interpreted by me: 03/13/19 03/13/19 19:56 19:56 Hct 35.6 L Sodium 131.2 L Potassium 5.1 H Chloride 93 L AST 40 H - Diagnostic Test Radiology reviewed: Image reviewed, Reports reviewed Discharge - Discharge Clinical Impression: Right inguinal hernia Abdominal pain Qualifiers: Abdominal location: right lower quadrant Qualified Code(s): R10.31 - Right lower quadrant pain Condition: Good Disposition: HOME, SELF-CARE Instructions: Abdominal Pain ([facility]), Hernia ([facility]) Additional Instructions: Follow up with your [id number] hours for further care or return to the ED IMMEDIATELY if symptoms worsen or you have any concerns. If you cannot afford to follow up with your primary care physician a list of low cost clinics have been provided at the end of your discharge papers as well. Most prescribed medications have multiple side effects. The safest thing to do is when filling your prescription speak to your pharmacist regarding possible interactions with your normal home medications and over the counter medications such as Ibuprofen, Tylenol, Benadryl. If you experience any symptoms that cause you discomfort or concern you should discontinue the medication immediately and return to the emergency room or call your primary care physician. Forms: Elevated Blood Pressure Referrals: LISA OSCAR MD [Primary Care Provider] - Follow up in 3-5 days
--- NOTE | 2019-03-13 23:09 | RADIOLOGY REPORT (SQ) ---
EXAM DESCRIPTION: CT ABDOMEN PELVIS WITH IV CONTRAST COMPLETED DATE/TME: 03/13/2019 00:00 CLINICAL HISTORY: 89 years, Female, Abd pain, ?constip, +tender bulge rt inguinal area COMPARISON: 02/19/2019 CT TECHNIQUE: 570 Images stored on PACS. All CT scanners at this facility use dose modulation, iterative reconstruction, and/or weight based dosing when appropriate to reduce radiation dose to as low as reasonably achievable (ALARA). [facility]: Dose Right [facility]: CareDose [facility]: Dose Right [facility]: Teradose 4D [facility]: [employer] LIMITATIONS: None. FINDINGS: Limited evaluation of the lung bases is unremarkable. Osseous structures show scoliosis of the lumbar spine. Grade 2 spondylolisthesis of L5 with respect to S1, unchanged. Small hiatal hernia. The liver, spleen, right adrenal gland are unremarkable. Stable subtle nodularity of the left adrenal gland. Multiple bilateral renal cysts. Kidneys are otherwise grossly unremarkable. No evidence for bowel obstruction. Moderate atheromatous changes. No free air or free fluid. Appendix not well seen. No pericecal inflammation. Small fat-containing right inguinal hernia with some equivocal associated inflammatory change. Nonenlarged inguinal chain lymph nodes. Similar findings were present previously. IMPRESSION: Negative for acute intra-abdominal/pelvic process. Tiny fat-containing right inguinal hernia with some equivocal associated inflammation. Similar findings were present previously. Scattered nonenlarged inguinal chain lymph nodes. TECHNICAL DOCUMENTATION: Quality ID # 436: Final reports with documentation of one or more dose reduction techniques (e.g., Automated exposure control, adjustment of the mA and/or kV according to patient size, use of iterative reconstruction technique) copyright 2011 [email or web address]- All Rights Reserved
[2019-03-13 23:26] VITALS: BP 158/72
== END 2019-03-13 23:35 | disposition home or self-care (01) ==
LOC: ER 18:52
DX: K46.9 Unspecified abdominal hernia without obstruction or gangrene (principal); R10.31 Right lower quadrant pain; K59.00 Constipation, unspecified; E03.9 Hypothyroidism, unspecified; Z85.828 Personal history of other malignant neoplasm of skin; Z91.040 Latex allergy status; Z88.6 Allergy status to analgesic agent; Z88.3 Allergy status to other anti-infective agents
CPT/HCPCS: 99284; 96360; 51701; 36415; 83605; 85025; 80053; 81001; 74018; 74177; J7040

== ENCOUNTER 2019-03-31 16:06 | Emergency (ER) | payer MEDICARE, OTHER ==
--- NOTE | 2019-03-31 19:29 | ER Document Report ---
ED Medical Screen (RME) - General Chief Complaint: Constipation Stated Complaint: CONSTIPATION Time Seen by Provider: 03/31/19 19:26 Primary Care Provider: LISA OSCAR MD [Primary Care Provider] - Follow up as needed Mode of Arrival: Wheelchair Information source: Patient Notes: 89-year-old female presented to ED for complaint of constipation. She was sent by Dr. Oscar to the ED to get enemas. She states she is been waiting a long time and now she feels like she is getting congestive heart failure. Her apical pulse is very irregular. She states she does have a history of A. fib in the past. She states she is getting filled up with fluid at this time. Will order blood work EKG and acute abdominal x-ray.'s. Lungs are clear to auscultation. I have greeted and performed a rapid initial assessment of this patient. A comprehensive ED assessment and evaluation of the patient, analysis of test results and completion of medical decision making process will be conducted by an additional ED providers. Dictation of this chart was performed using voice recognition software; therefore, there may be some unintended grammatical errors. TRAVEL OUTSIDE OF THE [place] IN LAST 30 DAYS: No - Related Data Allergies/Adverse Reactions: ACEINHIBITORS [DC Inhibitors] Allergy (Verified 08/24/18 18:00) latex [Latex] Allergy (Verified 08/24/18 18:00) Generalized edema Tuberculin,Ppd,Multi-Puncture [From Tuberculin PPD Jeimy Test] Allergy (Verified 08/24/18 18:00) codeine [Codeine] Adverse Reaction (Verified 08/24/18 18:00) doxycycline [Doxycycline] Adverse Reaction (Verified 08/24/18 18:00) erythromycin base [Erythromycin Base] Adverse Reaction (Verified 08/24/18 18:00) levofloxacin [From Levaquin] Adverse Reaction (Verified 08/24/18 18:00) Dizziness sacubitril [From Entresto] Adverse Reaction (Verified 02/07/19 14:17) valsartan [From Entresto] Adverse Reaction (Verified 02/07/19 14:17) codeine Allergy (Uncoded 02/07/19 14:11) Past Medical History - Past Medical History Cardiac Medical History: Reports: Hx Congestive Heart Failure, Hx Coronary Artery Disease, Hx Hypercholesterolemia, Hx Hypertension Denies: Hx Heart Attack Pulmonary Medical History: Reports: Hx COPD Denies: Hx Asthma Neurological Medical History: Reports: Hx Migraine. Denies: Hx Cerebrovascular Accident, Hx Seizures Endocrine Medical History: Reports: Hx Hypothyroidism Renal/ Medical History: Denies: Hx Peritoneal Dialysis Malignancy Medical History: Reports: Hx Skin Cancer GI Medical History: Reports: Hx Gastritis, Hx Gastroesophageal Reflux Disease, Hx Ulcer - TREATED. Denies: Hx Hepatitis, Hx Hiatal Hernia Musculoskeltal Medical History: Reports Hx Arthritis Skin Medical History: Reports Hx Psoriasis Psychiatric Medical History: Reports: Hx Depression Denies: Hx Attention Deficit Hyperactivity Disorder Infectious Medical History: Denies: Hx Hepatitis Past Surgical History: Reports: Hx Abdominal Surgery, Hx Appendectomy, Hx Breast Surgery - bx, Hx Cardiac Catheterization - 2003--DONE IN [place], WAS NOT GIVEN AND DETAILS, Hx Cardiac Surgery - pacemaker, Hx Orthopedic Surgery - rib surgery, Hx Pacemaker - DEX. Denies: Hx Hysterectomy, Hx Mastectomy, Hx Nose Surgery, Hx Open Heart Surgery - Immunizations Immunizations up to date: No Hx Diphtheria, Pertussis, Tetanus Vaccination: Yes History of Influenza Vaccine for 07/2017 - 12/2017 Season: Yes Physical Exam - Vital signs Vitals: Temp Pulse Resp BP Pulse Ox 98.1 F 59 L 18 140/68 H 97 03/31/19 16:40 03/31/19 16:40 03/31/19 16:40 03/31/19 16:40 03/31/19 16:40 Course - Vital Signs Vital signs: Temp Pulse Resp BP Pulse Ox 99 F 80 22 H 172/86 H 98 03/31/19 19:23 03/31/19 19:23 03/31/19 19:23 03/31/19 19:23 03/31/19 19:23 Doctor's Discharge - Discharge Referrals: LISA OSCAR MD [Primary Care Provider] - Follow up as needed
--- NOTE | 2019-03-31 20:29 | RADIOLOGY REPORT (SQ) ---
XR ABDOMEN SUPINE AND ERECT WITH CHEST (ABD ACUTE SERIES) HISTORY: Constipation. Atrial fibrillation. COMPARISON: None. FINDINGS: There is a nonobstructive bowel gas pattern. No intraperitoneal free air or air-fluid levels are visualized on the upright view. No abnormal soft tissue calcifications are seen. The lung bases are clear. There are multiple right-sided rib fractures which may be chronic. IMPRESSION: Normal bowel gas pattern.
[2019-03-31 21:06] LABS: ABSOLUTE EOSINOPHILS # (AUTO) 0.4 10^3/uL (0.0-0.6); ABSOLUTE LYMPHOCYTES (AUTO) 1.3 10^3/uL (0.5-4.7); ABSOLUTE MONOCYTES (AUTO) 0.6 10^3/uL (0.1-1.4); ABSOLUTE NEUT (AUTO) 4.2 10^3/uL (1.7-8.2); BASOPHILS % (AUTO) 0.5 % (0-2); EOSINOPHILS % (AUTO) 5.6 % (0-6); HEMATOCRIT 33.3 % (36.0-47.0); HEMOGLOBIN 11.7 g/dL (12.0-15.5); LYMPHOCYTES % (AUTO) 20.2 % (13-45); MEAN CORPUSCULAR HEMOGLOBIN 31.4 pg (27.0-33.4); MEAN CORPUSCULAR VOLUME 90 fl (80-97); MONOCYTES % (AUTO) 9.4 % (3-13); PLATELET COUNT 237 10^3/uL (150-450); RED BLOOD COUNT 3.72 10^6/uL (3.72-5.28); SEGMENTED NEUTROPHILS % (AUTO) 64.3 % (42-78); TOTAL CELLS COUNTED % (AUTO) 100 %; WHITE BLOOD COUNT 6.6 10^3/uL (4.0-10.5)
[2019-03-31 21:14] LABS: ALANINE AMINOTRANSFERASE 32 U/L (9-52); ALBUMIN 3.9 g/dL (3.5-5.0); ALKALINE PHOSPHATASE 63 U/L (38-126); ANION GAP 6 (5-19); ASPARTATE AMINO TRANSFERASE 38 U/L (14-36); BILIRUBIN,DIRECT 0.1 mg/dL (0.0-0.4); BILIRUBIN,TOTAL 0.8 mg/dL (0.2-1.3); BLOOD UREA NITROGEN 15 mg/dL (7-20); CALCIUM 9.4 mg/dL (8.4-10.2); CARBON DIOXIDE 30 mmol/L (22-30); CHLORIDE 91 mmol/L (98-107); GLUCOSE 85 mg/dL (75-110); POTASSIUM 5.2 mmol/L (3.6-5.0); SODIUM 126.9 mmol/L (137-145); TOTAL PROTEIN 6.5 g/dL (6.3-8.2)
--- NOTE | 2019-03-31 23:33 | EKG REPORT ---
SEVERITY:- ABNORMAL ECG - SINUS RHYTHM ATRIAL PREMATURE COMPLEX PROBABLE ANTEROSEPTAL INFARCT, AGE INDETERM : Confirmed by: Jadyn Farmer MD 31-Mar-2019 23:32:39
--- NOTE | 2019-04-01 | ER Document Report ---
ED General - General Chief Complaint: Constipation Stated Complaint: CONSTIPATION Time Seen by Provider: 03/31/19 19:26 Primary Care Provider: LISA OSCAR MD [Primary Care Provider] - 04/03/19 Mode of Arrival: Wheelchair Notes: Patient is an pleasant 89-year-old female who presents with complaint of constipation. She has history of chronic recurrent constipation and has required enemas sometimes in the past. She is followed by Dr. Oscar and said that she spoke with Dr. Oscar told her to come to the ER to receive enemas. She denies any fevers. No vomiting. She has some mild lower abdominal pain that she says she typically gets whenever she does have constipation. She has no other complaints at this time. TRAVEL OUTSIDE OF THE [place] IN LAST 30 DAYS: No - Related Data Allergies/Adverse Reactions: ACEINHIBITORS [DC Inhibitors] Allergy (Verified 08/24/18 18:00) latex [Latex] Allergy (Verified 08/24/18 18:00) Generalized edema Tuberculin,Ppd,Multi-Puncture [From Tuberculin PPD Jeimy Test] Allergy (Verified 08/24/18 18:00) codeine [Codeine] Adverse Reaction (Verified 08/24/18 18:00) doxycycline [Doxycycline] Adverse Reaction (Verified 08/24/18 18:00) erythromycin base [Erythromycin Base] Adverse Reaction (Verified 08/24/18 18:00) levofloxacin [From Levaquin] Adverse Reaction (Verified 08/24/18 18:00) Dizziness sacubitril [From Entresto] Adverse Reaction (Verified 02/07/19 14:17) valsartan [From Entresto] Adverse Reaction (Verified 02/07/19 14:17) codeine Allergy (Uncoded 02/07/19 14:11) Past Medical History - General Information source: Patient - Social History Smoking Status: Never Smoker Chew tobacco use (# tins/day): No Frequency of alcohol use: None Drug Abuse: None Family History: DM, Hypertension Patient has suicidal ideation: No Patient has homicidal ideation: No - Past Medical History Cardiac Medical History: Reports: Hx Congestive Heart Failure, Hx Coronary Artery Disease, Hx Hypercholesterolemia, Hx Hypertension Denies: Hx Heart Attack Pulmonary Medical History: Reports: Hx COPD Denies: Hx Asthma Neurological Medical History: Reports: Hx Migraine. Denies: Hx Cerebrovascular Accident, Hx Seizures Endocrine Medical History: Reports: Hx Hypothyroidism Renal/ Medical History: Denies: Hx Peritoneal Dialysis Malignancy Medical History: Reports: Hx Skin Cancer GI Medical History: Reports: Hx Gastritis, Hx Gastroesophageal Reflux Disease, Hx Ulcer - TREATED. Denies: Hx Hepatitis, Hx Hiatal Hernia Musculoskeletal Medical History: Reports Hx Arthritis Skin Medical History: Reports Hx Psoriasis Psychiatric Medical History: Reports: Hx Depression Denies: Hx Attention Deficit Hyperactivity Disorder Infectious Medical History: Denies: Hx Hepatitis Past Surgical History: Reports: Hx Abdominal Surgery, Hx Appendectomy, Hx Breast Surgery - bx, Hx Cardiac Catheterization - 2003--DONE IN [place], WAS NOT GIVEN AND DETAILS, Hx Cardiac Surgery - pacemaker, Hx Orthopedic Surgery - rib surgery, Hx Pacemaker - DEX. Denies: Hx Hysterectomy, Hx Mastectomy, Hx Nose Surgery, Hx Open Heart Surgery - Immunizations Immunizations up to date: No Hx Diphtheria, Pertussis, Tetanus Vaccination: Yes Hx Pneumococcal Vaccination: 07/15/12 Review of Systems - Review of Systems Notes: My Normal Review Basic REVIEW OF SYSTEMS: CONSTITUTIONAL : Denies fever, chills, or sweats. Denies recent illness. EENT: Denies eye, ear, throat, or mouth pain or symptoms. Denies nasal or sinus congestion. CARDIOVASCULAR: Denies chest pain. RESPIRATORY: Denies cough, cold, or chest congestion. Denies shortness of breath, difficulty breathing, or wheezing. GASTROINTESTINAL: Pressure in rectal region. Denies nausea, vomiting, or diarrhea. This patient. MUSCULOSKELETAL: Denies neck or back pain or joint pain or swelling. SKIN: Denies rash or skin lesions. NEUROLOGICAL: Denies altered mental status or loss of consciousness. Denies headache. Denies weakness or paralysis or loss of use of either side. Denies problems with gait or speech. Denies sensory or motor loss. ALL OTHER SYSTEMS REVIEWED AND NEGATIVE. Physical Exam - Vital signs Vitals: Temp Pulse Resp BP Pulse Ox 98.1 F 59 L 18 140/68 H 97 03/31/19 16:40 03/31/19 16:40 03/31/19 16:40 03/31/19 16:40 03/31/19 16:40 - Notes Notes: General Appearance: Well nourished, alert, cooperative, no acute distress, mild obvious discomfort. Vitals: reviewed, See vital signs table. Head: no swelling or tenderness to the head Eyes: PERRL, EOMI, Conjuctiva clear Mouth: No decreasd moisture Throat: No tonsillar inflammation, No airway obstruction, No lymphadenopathy Neck: Supple, no neck tenderness, No thyromegaly Lungs: No wheezing, No rales, No rhonci, No accessory muscle use, good air exchange bilaterally. Heart: Normal rate, Regular rythm, No murmur, no rub Abdomen: Normal BS, soft, No rigidity, mild suprapubic and left lower quadrant abdominal tenderness to palpation which patient says is chronically there and always worsens whenever she develops constipation., No guarding, no rebound, no abdominal masses, no organomegaly Extremities: good pulses in all extremities, no swelling or tenderness in the extremities, no edema. Skin: warm, dry, appropriate color, no rash Neuro: speech clear, oriented x 3, normal affect, responds appropriately to questions. Course - Re-evaluation Re-evalutation: 04/01/19 04:24 After 2 enemas patient is feeling much improved. She has had significant amount of stool passed after receiving enemas. Her abdominal exam is benign. She looks well. She has no vomiting. I feel she safe to be discharged home. I encouraged her to return to the ER if she has worsening pain, vomiting, bloody stools, or if she feels that she is worse in any way. Patient agrees with plan will be discharged home. Dictation of this chart was performed using voice recognition software; therefore, there may be some unintended grammatical errors. - Vital Signs Vital signs: Temp Pulse Resp BP Pulse Ox 98.0 F 60 18 150/67 H 100 04/01/19 04:41 04/01/19 04:41 04/01/19 04:41 04/01/19 04:41 04/01/19 04:41 - Laboratory Result Diagrams: 03/31/19 20:43 03/31/19 20:43 Laboratory results interpreted by me: 03/31/19 03/31/19 20:43 20:43 Hgb 11.7 L Hct 33.3 L Sodium 126.9 L Potassium 5.2 H Chloride 91 L AST 38 H - EKG Interpretation by Me Additional EKG results interpreted by me: 04/01/19 00:00 EKG is reviewed and interpreted by me. EKG shows sinus rhythm with rate [address] segment elevation or depression. No ischemic T wave inversions. GA interval, QRS duration, QT intervals are within normal range. Discharge - Discharge Clinical Impression: Fecal impaction Condition: Good Disposition: HOME, SELF-CARE Additional Instructions: Please continue to take your medications as prescribed. Please return to the ER immediately if you have vomiting, severe abdominal pain, bloody stools, or feel that you are worsening in any way. Please follow-up with Dr. Oscar in the next 1 to 2 days. Referrals: LISA OSCAR MD [Primary Care Provider] - 04/03/19
[2019-04-01] MEDS ORDERED: CLONIDINE HCL 0.2 MG TABLET PO ONE (00:29)
[2019-04-01] MEDS ORDERED: MINERAL OIL 30 ML UDCUP PR ONE ×2 (00:29→02:23)
[2019-04-01] MEDS ORDERED: CLONIDINE HCL 0.2 MG TABLET ONE (00:50)
[2019-04-01 04:45] VITALS: BP 150/67
== END 2019-04-01 04:45 | disposition home or self-care (01) ==
LOC: ER 16:06
DX: K56.41 Fecal impaction (principal); R10.30 Lower abdominal pain, unspecified; R10.814 Left lower quadrant abdominal tenderness; I25.10 Atherosclerotic heart disease of native coronary artery without angina pectoris; I10 Essential (primary) hypertension; J44.9 Chronic obstructive pulmonary disease, unspecified; Z88.8 Allergy status to other drugs, medicaments and biological substances; Z91.040 Latex allergy status; Z88.7 Allergy status to serum and vaccine; Z88.5 Allergy status to narcotic agent
CPT/HCPCS: 93005; 99284; 36415; 85025; 80053; 74022; 93010; A9270; J3490

== ENCOUNTER → 2019-04-07 | Outpatient (CLI) | payer MEDICARE, OTHER ==
[2019-04-07 11:11] LABS: ANION GAP 9 (5-19); BLOOD UREA NITROGEN 13 mg/dL (7-20); CALCIUM 9.5 mg/dL (8.4-10.2); CARBON DIOXIDE 28 mmol/L (22-30); CHLORIDE 91 mmol/L (98-107); GLUCOSE 72 mg/dL (75-110); POTASSIUM 4.8 mmol/L (3.6-5.0); SODIUM 127.9 mmol/L (137-145)
== END ==
LOC: OD 10:20
PROVIDERS: ATTEND Internal Medicine Nephrology
DX: E87.1 Hypo-osmolality and hyponatremia (principal)
CPT/HCPCS: 36415; 80048

== ENCOUNTER → 2019-04-09 | Outpatient (CLI) | payer MEDICARE, OTHER ==
--- NOTE | 2019-04-09 15:49 | RADIOLOGY REPORT (SQ) ---
EXAM DESCRIPTION: ACUTE ABDOMEN SERIES COMPLETED DATE/TIME: 04/09/2019 3:36 pm REASON FOR STUDY: K59.01 SLOW TRANSIT CONSTIPATION K59.01 SLOW TRANSIT CONSTIPATION COMPARISON: 03/31/2019. NUMBER OF VIEWS: Three views. TECHNIQUE: Frontal chest, supine abdomen and upright/decubitus abdomen radiographic images acquired. LIMITATIONS: None. FINDINGS: CHEST: Chronic pleural and parenchymal scarring. Lungs clear of infiltrates. FREE AIR: None. No abnormal gas collections. BOWEL GAS PATTERN: Nonobstructive pattern. No dilated loops or air fluid levels. CALCIFICATIONS: No suspicious calcifications. HARDWARE: None in the abdomen. Pacemaker. SOFT TISSUES: No gross mass or suggestion of organomegaly. BONES: No acute fracture. Degenerative changes in the spine. Old rib fractures. No worrisome bone lesions. OTHER: No other significant finding. IMPRESSION: NO RADIOGRAPHIC EVIDENCE FOR ACUTE ABDOMINAL DISEASE. TECHNICAL DOCUMENTATION: JOB ID: [id number] [employer]- All Rights Reserved Reading location - IP/workstation name: [email or web address]
== END ==
LOC: RAD 15:12
PROVIDERS: ATTEND Internal Medicine Gastroenterology
DX: K59.01 Slow transit constipation (principal); R10.9 Unspecified abdominal pain
CPT/HCPCS: 74022

== ENCOUNTER → 2019-04-16 | Outpatient (CLI) | payer MEDICARE, OTHER ==
[2019-04-16 12:25] LABS: ANION GAP 9 (5-19); BLOOD UREA NITROGEN 13 mg/dL (7-20); CALCIUM 9.1 mg/dL (8.4-10.2); CARBON DIOXIDE 27 mmol/L (22-30); CHLORIDE 94 mmol/L (98-107); GLUCOSE 90 mg/dL (75-110); POTASSIUM 5.1 mmol/L (3.6-5.0); SODIUM 129.6 mmol/L (137-145)
== END ==
LOC: OD 11:19
PROVIDERS: ATTEND Internal Medicine Nephrology
DX: N18.2 Chronic kidney disease, stage 2 (mild) (principal); I12.9 Hypertensive chronic kidney disease with stage 1 through stage 4 chronic kidney disease, or unspecified chronic kidney disease; D64.9 Anemia, unspecified; E87.1 Hypo-osmolality and hyponatremia
CPT/HCPCS: 36415; 80048; 83735

== ENCOUNTER 2019-04-19 10:34 | Emergency (ER) | payer MEDICARE, OTHER ==
--- NOTE | 2019-04-19 10:51 | ER Document Report ---
ED Medical Screen (RME) - General Chief Complaint: Constipation Stated Complaint: ABDOMINAL PAIN Time Seen by Provider: 04/19/19 10:43 Primary Care Provider: MARQUIS HYATT MD [Primary Care Provider] - Follow up as needed Mode of Arrival: Wheelchair Information source: Patient Notes: Patient presents to the emergency department with complaints of constipation abd ominal pain. Patient reports she has not had a bowel movement for the past 3 days. She then admits she had a small bowel movement yesterday. Has been taking [id number]'s without relief of symptoms. Denies fever vomiting. Reports she was able to eat some cereal this morning. Patient reports ever since July she has had this problem. Patient complains of rectal pain. Patient does take pain medication. Reports she has some shortness of breath but has history of COPD. Wears oxygen at night. Patient does have an appointment with Dr. Paul Nunez. Patient is very apologetic because she reports this is the fourth time she is come here with this problem. I have greeted and performed a rapid initial assessment of this patient. A comprehensive ED assessment and evaluation of the patient, analysis of test results and completion of the medical decision making process will be conducted by additional ED providers. Dictation of this chart was performed using voice recognition software; therefore, there may be some unintended grammatical errors. TRAVEL OUTSIDE OF THE [place] IN LAST 30 DAYS: No - Related Data Allergies/Adverse Reactions: ACEINHIBITORS [DC Inhibitors] Allergy (Verified 04/19/19 10:37) latex [Latex] Allergy (Verified 04/19/19 10:37) Generalized edema Tuberculin,Ppd,Multi-Puncture [From Tuberculin PPD Jeimy Test] Allergy (Verified 04/19/19 10:37) codeine [Codeine] Adverse Reaction (Verified 04/19/19 10:37) doxycycline [Doxycycline] Adverse Reaction (Verified 04/19/19 10:37) erythromycin base [Erythromycin Base] Adverse Reaction (Verified 04/19/19 10:37) levofloxacin [From Levaquin] Adverse Reaction (Verified 04/19/19 10:37) Dizziness sacubitril [From Entresto] Adverse Reaction (Verified 04/19/19 10:37) valsartan [From Entresto] Adverse Reaction (Verified 04/19/19 10:37) codeine Allergy (Uncoded 04/19/19 10:37) Past Medical History - Past Medical History Cardiac Medical History: Reports: Hx Congestive Heart Failure, Hx Coronary Artery Disease, Hx Hypercholesterolemia, Hx Hypertension Denies: Hx Heart Attack Pulmonary Medical History: Reports: Hx COPD Denies: Hx Asthma Neurological Medical History: Reports: Hx Migraine. Denies: Hx Cerebrovascular Accident, Hx Seizures Endocrine Medical History: Reports: Hx Hypothyroidism Renal/ Medical History: Denies: Hx Peritoneal Dialysis Malignancy Medical History: Reports: Hx Skin Cancer GI Medical History: Reports: Hx Gastritis, Hx Gastroesophageal Reflux Disease, Hx Ulcer - TREATED. Denies: Hx Hepatitis, Hx Hiatal Hernia Musculoskeltal Medical History: Reports Hx Arthritis Skin Medical History: Reports Hx Psoriasis Psychiatric Medical History: Reports: Hx Depression Denies: Hx Attention Deficit Hyperactivity Disorder Infectious Medical History: Denies: Hx Hepatitis Past Surgical History: Reports: Hx Abdominal Surgery, Hx Appendectomy, Hx Breast Surgery - bx, Hx Cardiac Catheterization - 2003--DONE IN [place], WAS NOT GIVEN AND DETAILS, Hx Cardiac Surgery - pacemaker, Hx Orthopedic Surgery - rib surgery, Hx Pacemaker - DEX. Denies: Hx Hysterectomy, Hx Mastectomy, Hx Nose Surgery, Hx Open Heart Surgery - Immunizations Immunizations up to date: No Hx Diphtheria, Pertussis, Tetanus Vaccination: Yes History of Influenza Vaccine for 07/2017 - 12/2017 Season: Yes Physical Exam - Vital signs Vitals: Temp Pulse Resp BP Pulse Ox 98.1 F 81 22 H 151/78 H 97 04/19/19 10:41 04/19/19 10:41 04/19/19 10:41 04/19/19 10:41 04/19/19 10:41 Course - Vital Signs Vital signs: Temp Pulse Resp BP Pulse Ox 98.1 F 81 22 H 151/78 H 97 04/19/19 10:41 04/19/19 10:41 04/19/19 10:41 04/19/19 10:41 04/19/19 10:41 Doctor's Discharge - Discharge Referrals: MARQUIS HYATT MD [Primary Care Provider] - Follow up as needed
--- NOTE | 2019-04-19 11:21 | RADIOLOGY REPORT (SQ) ---
EXAM DESCRIPTION: KUB/ABDOMEN (SINGLE VIEW) COMPLETED DATE/TIME: 04/19/2019 11:04 am REASON FOR STUDY: abd pain, constipation COMPARISON: CT abdomen pelvis 03/13/2019 Abdomen films 03/13/2019, 03/31/2019, 04/09/2019 NUMBER OF VIEWS: One view. TECHNIQUE: Supine radiographic image of the abdomen acquired. LIMITATIONS: None. FINDINGS: BOWEL GAS PATTERN: Normal bowel gas pattern. No dilated loops. CALCIFICATIONS: No suspicious calcifications. SOFT TISSUES: No gross mass or suggestion of organomegaly. HARDWARE: None in the abdomen. BONES: Multilevel disc space narrowing. No acute findings OTHER: No other significant finding. IMPRESSION: NO RADIOGRAPHIC EVIDENCE FOR ACUTE ABDOMINAL DISEASE. TECHNICAL DOCUMENTATION: JOB ID: [id number] [employer]- All Rights Reserved Reading location - IP/workstation name: [email or web address]
[2019-04-19 11:25] LABS: ABSOLUTE BASOPHILS # (AUTO) 0.1 10^3/uL (0.0-0.2); ABSOLUTE EOSINOPHILS # (AUTO) 0.1 10^3/uL (0.0-0.6); ABSOLUTE LYMPHOCYTES (AUTO) 0.6 10^3/uL (0.5-4.7); ABSOLUTE MONOCYTES (AUTO) 0.5 10^3/uL (0.1-1.4); ABSOLUTE NEUT (AUTO) 3.7 10^3/uL (1.7-8.2); HEMATOCRIT 33.7 % (36.0-47.0); HEMOGLOBIN 11.6 g/dL (12.0-15.5); LYMPHOCYTES % (AUTO) 12.8 % (13-45); MEAN CORPUSCULAR HEMOGLOBIN 31.1 pg (27.0-33.4); MEAN CORPUSCULAR HGB CONC 34.3 g/dL (32.0-36.0); MEAN CORPUSCULAR VOLUME 91 fl (80-97); MONOCYTES % (AUTO) 9.5 % (3-13); PLATELET COUNT 219 10^3/uL (150-450); RED BLOOD COUNT 3.72 10^6/uL (3.72-5.28); RED CELL DISTRIBUTION WIDTH 13.2 % (11.5-14.0); SEGMENTED NEUTROPHILS % (AUTO) 74.7 % (42-78); TOTAL CELLS COUNTED % (AUTO) 100 %; WHITE BLOOD COUNT 4.9 10^3/uL (4.0-10.5)
--- NOTE | 2019-04-19 11:29 | ER Document Report ---
ED General - General Chief Complaint: Constipation Stated Complaint: ABDOMINAL PAIN Time Seen by Provider: 04/19/19 10:43 Primary Care Provider: MARQUIS HYATT MD [Primary Care Provider] - Follow up as needed Mode of Arrival: Wheelchair Notes: 89-year-old female who is generally healthy who wears oxygen at night for history of COPD presents to the emergency department with chief complaint of constipation and a burning sensation from "taking too many laxatives". Patient reports she has not had a bowel movement for the past 3 days. She then admits she had a small bowel movement yesterday. Has been taking udri-xwp-[id number] laxative for months without relief of symptoms. She says she usually takes her Movantik and 30 minutes later is able to have a bowel movement but has not in this case. She is also complaining of rectal pain. Denies fevers or chills. Denies nausea or vomiting. Denies urinary symptoms. Reports she was able to eat some cereal this morning. Patient states that she does take narcotic pain medication. Wears oxygen at night. Patient does have an appointment with Dr. Paul Nunez. TRAVEL OUTSIDE OF THE [place] IN LAST 30 DAYS: No - Related Data Allergies/Adverse Reactions: ACEINHIBITORS [DC Inhibitors] Allergy (Verified 04/19/19 10:37) latex [Latex] Allergy (Verified 04/19/19 10:37) Generalized edema Tuberculin,Ppd,Multi-Puncture [From Tuberculin PPD Jeimy Test] Allergy (Verified 04/19/19 10:37) codeine [Codeine] Adverse Reaction (Verified 04/19/19 10:37) doxycycline [Doxycycline] Adverse Reaction (Verified 04/19/19 10:37) erythromycin base [Erythromycin Base] Adverse Reaction (Verified 04/19/19 10:37) levofloxacin [From Levaquin] Adverse Reaction (Verified 04/19/19 10:37) Dizziness sacubitril [From Entresto] Adverse Reaction (Verified 04/19/19 10:37) valsartan [From Entresto] Adverse Reaction (Verified 04/19/19 10:37) codeine Allergy (Uncoded 04/19/19 10:37) Past Medical History - General Information source: Patient - Social History Smoking Status: Never Smoker Chew tobacco use (# tins/day): No Frequency of alcohol use: None Drug Abuse: None Family History: DM, Hypertension Patient has suicidal ideation: No Patient has homicidal ideation: No - Past Medical History Cardiac Medical History: Reports: Hx Congestive Heart Failure, Hx Coronary Artery Disease, Hx Hypercholesterolemia, Hx Hypertension Denies: Hx Heart Attack Pulmonary Medical History: Reports: Hx COPD Denies: Hx Asthma Neurological Medical History: Reports: Hx Migraine. Denies: Hx Cerebrovascular Accident, Hx Seizures Endocrine Medical History: Reports: Hx Hypothyroidism Renal/ Medical History: Denies: Hx Peritoneal Dialysis Malignancy Medical History: Reports: Hx Skin Cancer GI Medical History: Reports: Hx Gastritis, Hx Gastroesophageal Reflux Disease, Hx Ulcer - TREATED. Denies: Hx Hepatitis, Hx Hiatal Hernia Musculoskeletal Medical History: Reports Hx Arthritis Skin Medical History: Reports Hx Psoriasis Psychiatric Medical History: Reports: Hx Depression Denies: Hx Attention Deficit Hyperactivity Disorder Infectious Medical History: Denies: Hx Hepatitis Past Surgical History: Reports: Hx Abdominal Surgery, Hx Appendectomy, Hx Breast Surgery - bx, Hx Cardiac Catheterization - 2003--DONE IN [place], WAS NOT GIVEN AND DETAILS, Hx Cardiac Surgery - pacemaker, Hx Orthopedic Surgery - rib surgery, Hx Pacemaker - DEX. Denies: Hx Hysterectomy, Hx Mastectomy, Hx Nose Surgery, Hx Open Heart Surgery - Immunizations Immunizations up to date: No Hx Diphtheria, Pertussis, Tetanus Vaccination: Yes Hx Pneumococcal Vaccination: 07/15/12 Review of Systems - Review of Systems Constitutional: See HPI EENT: No symptoms reported Cardiovascular: See HPI Respiratory: See HPI Gastrointestinal: See HPI Genitourinary: See HPI Female Genitourinary: No symptoms reported Musculoskeletal: No symptoms reported Skin: No symptoms reported Hematologic/Lymphatic: No symptoms reported Neurological/Psychological: No symptoms reported Physical Exam - Vital signs Vitals: Temp Pulse Resp BP Pulse Ox 98.1 F 81 22 H 151/78 H 97 04/19/19 10:41 04/19/19 10:41 04/19/19 10:41 04/19/19 10:41 04/19/19 10:41 - Notes Notes: PHYSICAL EXAMINATION: Reviewed vital signs and charting by RN GENERAL: Alert, interacts well. No acute distress. HEAD: Normocephalic, atraumatic. EYES: Pupils equal and round. Extraocular movements intact. ENT: Oral mucosa moist, tongue midline. NECK: Full range of motion. Trachea midline. LUNGS: Clear to auscultation bilaterally, no wheezes, rales, or rhonchi. No respiratory distress. HEART: Regular rate and rhythm. No murmur ABDOMEN: soft, mild tenderness to palpation lower abdomen worse on the left lower quadrant no distention. Bowel sounds present EXTREMITIES: Moves all 4 extremities spontaneously. No edema, No cyanosis. PSYCH: Normal affect, normal mood. SKIN: Warm, dry, normal turgor. No rashes or lesions noted. Course - Re-evaluation Re-evalutation: 04/19/19 11:52 Patient is overall well-appearing and presents for the fourth time in the last couple of weeks for abdominal pain. She is perseverating that she is full of "feces". She states that she needs it to be evacuated. Patient had a CT abdomen/pelvis on March 13 and only showed a very small inguinal hernia that was easily reducible. External rectal exam performed as patient declined a full rectal exam with Marta, PCT, as sql manager and it did show a nonincarcerated external hemorrhoid. Lab work pending. 04/19/19 11:58 Lab work returned and potassium is 5.5. I discussed briefly with attending physician, Dr. Carrillo, who recommended I give her Kayexalate to help with the mild hyper kalemia and will also promote a bowel movement. Plan is to also give her a short course of Kayexalate until she can follow-up with GI on Sunday. Urinalysis is still pending. Once urinalysis results plan is in place and patient will be stable for discharge. Her vital signs are all within normal limits and she has no other lab derangements. 04/19/19 13:31 Urinalysis was negative for UTI. At this point patient's vital signs are within normal limits and and I have very low concern for any acute intra-abdominal pathology. Patient is stable for discharge. - Vital Signs Vital signs: Temp Pulse Resp BP Pulse Ox 98.1 F 81 22 H 151/78 H 97 04/19/19 10:41 04/19/19 10:41 04/19/19 10:41 04/19/19 10:41 04/19/19 10:41 - Laboratory Result Diagrams: 04/19/19 11:09 04/19/19 11:09 Laboratory results interpreted by me: 04/19/19 04/19/19 04/19/19 10:40 11:09 11:09 Hgb 11.6 L Hct 33.7 L Lymphocytes % 12.8 L Sodium 131.4 L Potassium 5.5 H Chloride 95 L AST 37 H Urine Ascorbic Acid 20 H Discharge - Discharge Clinical Impression: Hyperkalemia Constipation Qualifiers: Constipation type: unspecified constipation type Qualified Code(s): K59.00 - Constipation, unspecified Condition: Good Disposition: HOME, SELF-CARE Additional Instructions: You were seen in the emergency department for constipation. Your abdominal x- ray did not show a significant fecal burden. Therefore, it is not necessary at this time to do a SS enema. Your potassium was very slightly elevated so we gave you a medication called oxalate which will gently bring it down and it will also promote a bowel movement. I have also given you a prescription for 2 days worth that you will take until you see GI on Sunday. If you develop severe acute abdominal pain, a rigid abdomen, high fevers or chills, gross blood in your stool or bloody vomitus, please return to the emergency department for reevaluation. Referrals: MARQUIS HYATT MD [Primary Care Provider] - Follow up as needed
[2019-04-19 11:46] LABS: ALANINE AMINOTRANSFERASE 28 U/L (9-52); ALBUMIN 3.9 g/dL (3.5-5.0); ALKALINE PHOSPHATASE 53 U/L (38-126); ANION GAP 8 (5-19); ASPARTATE AMINO TRANSFERASE 37 U/L (14-36); BILIRUBIN,DIRECT 0.1 mg/dL (0.0-0.4); BILIRUBIN,TOTAL 0.6 mg/dL (0.2-1.3); BLOOD UREA NITROGEN 10 mg/dL (7-20); CALCIUM 9.6 mg/dL (8.4-10.2); CARBON DIOXIDE 28 mmol/L (22-30); CHLORIDE 95 mmol/L (98-107); GLUCOSE 85 mg/dL (75-110); POTASSIUM 5.5 mmol/L (3.6-5.0); SODIUM 131.4 mmol/L (137-145); TOTAL PROTEIN 6.4 g/dL (6.3-8.2)
[2019-04-19] MEDS ORDERED: SODIUM POLYSTYRENE SULFONATE 15 GM/60 ML PO ONE (11:58)
[2019-04-19 13:17] LABS: APPEARANCE,URINE CLEAR; BILIRUBIN,URINE NEGATIVE (NEGATIVE); COLOR,URINE STRAW; GLUCOSE, URINE NEGATIVE (NEGATIVE); KETONES,URINE NEGATIVE (NEGATIVE); NITRITE,URINE NEGATIVE (NEGATIVE); PROTEIN,URINE NEGATIVE (NEGATIVE); URINE SPECIFIC GRAVITY 1.006; UROBILINOGEN,URINE NEGATIVE mg/dL (<2.0)
[2019-04-19 13:18] LABS: LEUKOCYTE ESTERASE,URINE NEGATIVE (NEGATIVE)
[2019-04-19 14:26] VITALS: BP 139/69
== END 2019-04-19 14:27 | disposition home or self-care (01) ==
LOC: ER 10:34
DX: E87.5 Hyperkalemia (principal); K59.00 Constipation, unspecified; R10.9 Unspecified abdominal pain; J44.9 Chronic obstructive pulmonary disease, unspecified; Z79.899 Other long term (current) drug therapy; I50.9 Heart failure, unspecified; I25.10 Atherosclerotic heart disease of native coronary artery without angina pectoris; I11.0 Hypertensive heart disease with heart failure
CPT/HCPCS: 36415; 74018; 80053; 81001; 85025; 99283

== ENCOUNTER → 2019-04-21 | Outpatient (CLI) | payer MEDICARE, OTHER | LOC: OD 12:05 | PROVIDERS: ATTEND Internal Medicine Nephrology | DX: E87.5 Hyperkalemia (principal) | CPT/HCPCS: 36415; 84132 ==

== ENCOUNTER → 2019-05-14 | Outpatient (CLI) | payer MEDICARE, OTHER ==
--- NOTE | 2019-05-15 14:40 | WOMENS IMAGING REPORT ---
EXAM DESCRIPTION: 3D SCREENING MAMMO BILAT COMPLETED DATE/TIME: 05/14/2019 11:23 am REASON FOR STUDY: Z12.31 ENCOUNTER FOR SCREENING MAMMOGRAM FOR MALIGNANT NEOPLASM OF BREAST Z12.31 ENCNTR SCREEN MAMMOGRAM FOR MALIGNANT NEOPLASM OF MP COMPARISON: Multiple since 2013 EXAM PARAMETERS: Standard craniocaudal and mediolateral oblique views of each breast recorded using digital acquisition. Read with the assistance of CAD. .[facility] - [employer] Version 9.2 LIMITATIONS: None. FINDINGS: Findings present which are benign by mammographic criteria. No suspicious masses, calcifi cations or architectural distortion. Pertinent benign findings: Benign bilateral breast parenchymal and vascular calcifications. Benign mammographic findings may include one or more of the following: Smooth masses, popcorn/rim/co arse calcifications, asymmetries, post-procedure changes, and lesions with long-standing stability. IMPRESSION: BENIGN MAMMOGRAPHIC FINDINGS. BIRADS 2 BREAST DENSITY: c. The breasts are heterogeneously dense, which may obscure small masses. BIRAD: ASSESSMENT: 2 BENIGN FINDING(S) RECOMMENDATION: ROUTINE SCREENING COMMENT: The patient has been notified of the results by letter per SA requirements. Additional no tification policies are in place for contacting patient with suspicious or incomplete findings. Quality ID #[id number]: The [employer] recommends an annual screening mammogram for women aged 40 years or over. This facility utilizes a reminder system to ensure that all patients receive reminder letters, and/or direct phone calls for appointments. This includes reminders for routine scr eening mammograms, diagnostic mammograms, or other Breast Imaging Interventions when appropriate. Th is patient will be placed in the appropriate reminder system. TECHNICAL DOCUMENTATION: FINDING NUMBER: (1) ASSESSMENT: (1) JOB ID: [id number] [employer]- All Rights Reserved Reading location - IP/workstation name: [email or web address] VICE [email or web address]
== END ==
LOC: WI 10:15
PROVIDERS: ATTEND Internal Medicine Hematology & Oncology
DX: Z12.31 Encounter for screening mammogram for malignant neoplasm of breast (principal)
CPT/HCPCS: 77063; 77067

== ENCOUNTER → 2019-07-01 | Outpatient (CLI) | payer MEDICARE, OTHER ==
[2019-07-01 11:09] LABS: ABSOLUTE BASOPHILS # (AUTO) 0.1 10^3/uL (0.0-0.2); ABSOLUTE EOSINOPHILS # (AUTO) 0.4 10^3/uL (0.0-0.6); ABSOLUTE LYMPHOCYTES (AUTO) 0.8 10^3/uL (0.5-4.7); ABSOLUTE MONOCYTES (AUTO) 0.7 10^3/uL (0.1-1.4); BASOPHILS % (AUTO) 0.6 % (0-2); EOSINOPHILS % (AUTO) 5.1 % (0-6); HEMATOCRIT 33.7 % (36.0-47.0); HEMOGLOBIN 11.7 g/dL (12.0-15.5); LYMPHOCYTES % (AUTO) 10.5 % (13-45); MEAN CORPUSCULAR HEMOGLOBIN 31.5 pg (27.0-33.4); MEAN CORPUSCULAR HGB CONC 34.8 g/dL (32.0-36.0); MEAN CORPUSCULAR VOLUME 91 fl (80-97); MONOCYTES % (AUTO) 8.6 % (3-13); PLATELET COUNT 264 10^3/uL (150-450); RED BLOOD COUNT 3.72 10^6/uL (3.72-5.28); RED CELL DISTRIBUTION WIDTH 13.1 % (11.5-14.0); SEGMENTED NEUTROPHILS % (AUTO) 75.2 % (42-78); TOTAL CELLS COUNTED % (AUTO) 100 %
[2019-07-01 11:26] LABS: ANION GAP 11 (5-19); BLOOD UREA NITROGEN 9 mg/dL (7-20); CALCIUM 9.3 mg/dL (8.4-10.2); CARBON DIOXIDE 28 mmol/L (22-30); CHLORIDE 91 mmol/L (98-107); GLUCOSE 86 mg/dL (75-110); POTASSIUM 4.5 mmol/L (3.6-5.0)
== END ==
LOC: OD 09:42
PROVIDERS: ATTEND Internal Medicine Nephrology
DX: I12.9 Hypertensive chronic kidney disease with stage 1 through stage 4 chronic kidney disease, or unspecified chronic kidney disease (principal); N18.2 Chronic kidney disease, stage 2 (mild); E87.1 Hypo-osmolality and hyponatremia; D64.9 Anemia, unspecified
CPT/HCPCS: 36415; 80048; 83735; 85025

== ENCOUNTER → 2019-09-22 | Outpatient (CLI) | payer MEDICARE, OTHER ==
[2019-09-22 13:47] LABS: ABSOLUTE EOSINOPHILS # (AUTO) 0.2 10^3/uL (0.0-0.6); ABSOLUTE LYMPHOCYTES (AUTO) 0.8 10^3/uL (0.5-4.7); ABSOLUTE MONOCYTES (AUTO) 0.4 10^3/uL (0.1-1.4); ABSOLUTE NEUT (AUTO) 4.1 10^3/uL (1.7-8.2); BASOPHILS % (AUTO) 0.7 % (0-2); EOSINOPHILS % (AUTO) 3.1 % (0-6); HEMATOCRIT 34.3 % (36.0-47.0); HEMOGLOBIN 11.8 g/dL (12.0-15.5); LYMPHOCYTES % (AUTO) 14.8 % (13-45); MEAN CORPUSCULAR HEMOGLOBIN 31.8 pg (27.0-33.4); MEAN CORPUSCULAR HGB CONC 34.3 g/dL (32.0-36.0); MEAN CORPUSCULAR VOLUME 93 fl (80-97); MONOCYTES % (AUTO) 7.8 % (3-13); PLATELET COUNT 200 10^3/uL (150-450); RED CELL DISTRIBUTION WIDTH 13.5 % (11.5-14.0); SEGMENTED NEUTROPHILS % (AUTO) 73.6 % (42-78); TOTAL CELLS COUNTED % (AUTO) 100 %; WHITE BLOOD COUNT 5.6 10^3/uL (4.0-10.5)
[2019-09-22 14:09] LABS: ANION GAP 8 (5-19); BLOOD UREA NITROGEN 17 mg/dL (7-20); CALCIUM 9.2 mg/dL (8.4-10.2); CARBON DIOXIDE 33 mmol/L (22-30); CHLORIDE 93 mmol/L (98-107); GLUCOSE 80 mg/dL (75-110); POTASSIUM 4.9 mmol/L (3.6-5.0)
== END ==
LOC: OD 12:53
PROVIDERS: ATTEND Internal Medicine Nephrology
DX: I12.9 Hypertensive chronic kidney disease with stage 1 through stage 4 chronic kidney disease, or unspecified chronic kidney disease (principal); N18.2 Chronic kidney disease, stage 2 (mild); E87.1 Hypo-osmolality and hyponatremia; D64.9 Anemia, unspecified
CPT/HCPCS: 36415; 80048; 83735; 85025

== ENCOUNTER → 2019-10-09 | Outpatient (CLI) | payer MEDICARE, OTHER ==
--- NOTE | 2019-10-09 16:05 | RADIOLOGY REPORT (SQ) ---
EXAM DESCRIPTION: CAROTID DOPPLER COMPLETED DATE/TIME: 10/09/2019 3:57 pm REASON FOR STUDY: AMAUROSIS FUGAX G45.3 AMAUROSIS FUGAX COMPARISON: 08/25/2015 TECHNIQUE: Grayscale ultrasound, Doppler velocity and spectra, and color Doppler images acquired of the extra-cranial carotid and vertebral arteries. Images stored on PACS. LIMITATIONS: None. FINDINGS: RIGHT CAROTID CCA Velocities: Within normal limits. ICA Velocities Peak systolic 53 cm/s. End diastolic 16 cm/s. Proximal ICA/CCA peak systolic ratio 1.47. Complex calcified plaque in the carotid bulb and proximal ICA. LEFT CAROTID CCA Velocities: Within normal limits. ICA Velocities Peak systolic 48 cm/s. End diastolic 15 cm/s. Proximal ICA/CCA peak systolic ratio 1.06. There is complex calcified plaque in the carotid bulb and proximal ICA. VERTEBRAL ARTERIES: Antegrade flow. Normal waveforms. SUBCLAVIAN ARTERIES: No finding. OTHER: No other significant finding. IMPRESSION: No hemodynamically significant stenosis. Complex plaque bilaterally. COMMENT: Quality ID #[id number]: Velocity criteria are extrapolated from the diameter data as defined by t he Society of Radiologists in Ultrasound Consensus Conference. Radiology 2003: 229; 340-346. TECHNICAL DOCUMENTATION: JOB ID: [id number] [employer] All Rights Reserved Reading location - IP/workstation name: [email or web address]
== END ==
LOC: SP 13:54
PROVIDERS: ATTEND Ophthalmology
DX: I65.23 Occlusion and stenosis of bilateral carotid arteries (principal)
CPT/HCPCS: 93880

== ENCOUNTER → 2019-11-13 | Outpatient (CLI) | payer MEDICARE, OTHER ==
--- NOTE | 2019-11-13 13:26 | RADIOLOGY REPORT (SQ) ---
EXAM DESCRIPTION: LUMBAR SPINE 2 VIEWS COMPLETED DATE/TIME: 11/13/2019 12:56 pm REASON FOR STUDY: FALL (ON) (FROM) OTHER STAIRS AND STEPS, SUBS ENCNTR W10.8XXD FALL (ON) (FROM) OT HER STAIRS AND STEPS, SUBS ENCNT COMPARISON: None. NUMBER OF VIEWS: Two views. TECHNIQUE: AP and lateral radiographic images acquired of the lumbar spine. LIMITATIONS: None. FINDINGS: MINERALIZATION: Decreased SEGMENTATION: Normal. No transitional anatomy. ALIGNMENT: Straightening of the normal lumbar lordosis. Exaggerated thoracolumbar kyphosis. Grade 2 anterolisthesis of L5 on S1. VERTEBRAE: No definite compression fracture. DISCS: Multilevel disc height loss and endplate change throughout the lumbar spine. There is most se ervin disc height loss at L3-4 and L5-S1. POSTERIOR ELEMENTS: Likely bilateral pars defects at L5. Multilevel facet arthropathy. HARDWARE: Partially visualized cardiac pacer hardware. PARASPINAL SOFT TISSUES: Aortic calcifications. PELVIS: Intact as visualized. No fractures or worrisome bone lesions. SI joints intact. OTHER: No other significant finding. IMPRESSION: 1. No definite acute bony abnormality. Decreased osseous mineralization. 2. Grade 2 anterolisthesis of L5 on S1 with likely bilateral pars defects. 3. Multilevel degenerative disc disease and facet arthropathy throughout the lumbar spine, greatest at L3-4 and L5-S1. TECHNICAL DOCUMENTATION: JOB ID: [id number] [employer]- All Rights Reserved Reading location - IP/workstation name: [email or web address]
--- NOTE | 2019-11-13 13:28 | RADIOLOGY REPORT (SQ) ---
EXAM DESCRIPTION: KUB COMPLETED DATE/TIME: 11/13/2019 12:56 pm REASON FOR STUDY: FALL (ON) (FROM) OTHER STAIRS AND STEPS, SUBS ENCNTR W10.8XXD FALL (ON) (FROM) OT HER STAIRS AND STEPS, SUBS ENCNT COMPARISON: None. NUMBER OF VIEWS: One view. TECHNIQUE: Supine radiographic image of the abdomen acquired. LIMITATIONS: None. FINDINGS: BOWEL GAS PATTERN: Normal bowel gas pattern. No dilated loops. CALCIFICATIONS: No suspicious calcifications. SOFT TISSUES: No gross mass or suggestion of organomegaly. Vascular calcifications. HARDWARE: None in the abdomen. Partially visualized pacer hardware. BONES: No definite acute abnormality. Multilevel thoracolumbar spondylosis. Degenerative changes at the hips bilaterally. OTHER: No other significant finding. IMPRESSION: NO RADIOGRAPHIC EVIDENCE FOR ACUTE ABDOMINAL DISEASE. TECHNICAL DOCUMENTATION: JOB ID: [id number] [employer]- All Rights Reserved Reading location - IP/workstation name: [email or web address]
--- NOTE | 2019-11-13 14:14 | RADIOLOGY REPORT (SQ) ---
EXAM DESCRIPTION: RIBS BILATERAL W/PA CHEST COMPLETED DATE/TIME: 11/13/2019 12:56 pm REASON FOR STUDY: FALL (ON) (FROM) OTHER STAIRS AND STEPS, SUBS ENCNTR W10.8XXD FALL (ON) (FROM) OT HER STAIRS AND STEPS, SUBS ENCNT COMPARISON: Chest films 03/31/2019, 04/09/2019 NUMBER OF VIEWS: PA chest, bilateral rib detail films 6 views TECHNIQUE: PA chest Images acquired of the right and left ribs in the area of focal concern. LIMITATIONS: None. FINDINGS: PA chest film demonstrates multiple old healed right posterior rib fractures. No acute in filtrates. No pleural effusion or pneumothorax. Borderline cardiomegaly with unchanged left-sided d ual lead pacemaker. RIBS: No acute displaced fracture. Old right posterior 6th through 8th rib fractures. No worrisome bone lesions. OTHER: No other significant finding. IMPRESSION: NO ACUTE DISPLACED RIB FRACTURE. Old healed right posterior rib fractures No pneumothorax or pleural effusion. No acute infiltrates. COMMENT: SITE OF TRAUMA/COMPLAINT MARKED/STAMP COMPLETED: Yes TECHNICAL DOCUMENTATION: JOB ID: [id number] [employer]- All Rights Reserved Reading location - IP/workstation name: [email or web address]
--- NOTE | 2019-11-13 15:03 | RADIOLOGY REPORT (SQ) ---
EXAM DESCRIPTION: SACRUM AND COCCYX; HIPS BILATERAL COMPLETED DATE/TIME: 11/13/2019 2:30 pm REASON FOR STUDY: FALL (ON) (FROM) OTHER STAIRS AND STEPS, SUBS ENCNTR COMPARISON: None. FINDINGS: Three views bilateral hips: Limiting osteopenia. Lumbar spondylosis. Bilateral symmetri c moderate hip joint space narrowing. No gross fracture or bone lesion. Four views sacrum and coccyx: Limiting osteopenia. No displaced fracture. Dense distal aortic calci fication, incompletely evaluated. No visualized aneurysm. TECHNICAL DOCUMENTATION: JOB ID: [id number] Reading location - IP/workstation name: [email or web address]
--- NOTE | 2019-11-13 15:03 | RADIOLOGY REPORT (SQ) ---
EXAM DESCRIPTION: SACRUM AND COCCYX; HIPS BILATERAL COMPLETED DATE/TIME: 11/13/2019 2:30 pm REASON FOR STUDY: FALL (ON) (FROM) OTHER STAIRS AND STEPS, SUBS ENCNTR COMPARISON: None. FINDINGS: Three views bilateral hips: Limiting osteopenia. Lumbar spondylosis. Bilateral symmetri c moderate hip joint space narrowing. No gross fracture or bone lesion. Four views sacrum and coccyx: Limiting osteopenia. No displaced fracture. Dense distal aortic calci fication, incompletely evaluated. No visualized aneurysm. TECHNICAL DOCUMENTATION: JOB ID: [id number] Reading location - IP/workstation name: [email or web address]
--- NOTE | 2019-11-14 16:59 | RADIOLOGY REPORT (SQ) ---
EXAM DESCRIPTION: ABDOMEN 2 VIEWS COMPLETED DATE/TIME: 11/14/2019 2:53 pm REASON FOR STUDY: UNSPECIFIED ABDOMINAL PAIN W10.8XXD FALL (ON) (FROM) OTHER STAIRS AND STEPS, SUBS ENCNT R10.9 UNSPECIFIED ABDOMINAL PAIN COMPARISON: Abdominal films 11/13/2019, 04/19/2019, 04/09/2019 CT abdomen pelvis 03/13/2019 NUMBER OF VIEWS: Two views. TECHNIQUE: Supine and upright radiographic images of the abdomen acquired. LIMITATIONS: None. FINDINGS: FREE AIR: No gross subdiaphragmatic free air. LUNG BASES: Clear. BOWEL GAS PATTERN: Air-fluid levels in nondistended stomach small bowel and colon, nonspecific CALCIFICATIONS: No suspicious calcifications. SOFT TISSUES: No gross mass or suggestion of organomegaly. HARDWARE: None in the abdomen. BONES: No acute fracture. No worrisome bone lesions. OTHER: No other significant finding. IMPRESSION: Nonspecific bowel gas pattern TECHNICAL DOCUMENTATION: JOB ID: [id number] [employer]- All Rights Reserved Reading location - IP/workstation name: [email or web address]
== END ==
LOC: OD 12:20
PROVIDERS: ATTEND Internal Medicine
DX: R10.9 Unspecified abdominal pain (principal); M47.896 Other spondylosis, lumbar region; W10.8XXD Fall (on) (from) other stairs and steps, subsequent encounter
CPT/HCPCS: 71111; 72100; 72220; 73522; 74018

== ENCOUNTER → 2019-11-14 | Outpatient (CLI) | payer MEDICARE, OTHER ==
--- NOTE | 2019-11-14 20:33 | RADIOLOGY REPORT (SQ) ---
EXAM DESCRIPTION: CT ABDOMEN PELVIS WITHOUT IV CONTRAST COMPLETED DATE/TME: 11/14/2019 16:13 CLINICAL HISTORY: 89 years, Female, R10.84 GENERALIZED ABDOMINAL PAIN COMPARISON: February 19, 2019 TECHNIQUE: Images stored on PACS. All CT scanners at this facility use dose modulation, iterative reconstruction, and/or weight based dosing when appropriate to reduce radiation dose to as low as reasonably achievable (ALARA). [facility]: Dose Right [facility]: CareDose [facility]: Dose Right [facility]: Teradose 4D [facility]: [employer] LIMITATIONS: None. FINDINGS: Lung bases are grossly clear. The heart is enlarged with postsurgical change. Liver is homogeneous. Gallbladder is physiologically distended. No focal inflammatory change. The pancreas is not well seen. Spleen appears grossly normal. The adrenals are poorly seen. The kidneys demonstrate a dominant cyst of the left kidney measuring approximately 3.5 cm, similar to prior. Smaller cysts of the right kidney. No urolithiasis hydronephrosis or hydroureter. The bowel is nonobstructed. It is unopacified with oral contrast. No free air. No free fluid. Pelvic contents are unremarkable. Visualized bones demonstrate age-appropriate osteoarthritis. Old posttraumatic change. 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 IMPRESSION: No acute intrapelvic process. No adverse change TECHNICAL DOCUMENTATION: Quality ID # 436: Final reports with documentation of one or more dose reduction techniques (e.g., Automated exposure control, adjustment of the mA and/or kV according to patient size, use of iterative reconstruction technique) copyright 2011 [employer]- All Rights Reserved
== END ==
LOC: RAD 16:11
PROVIDERS: ATTEND Internal Medicine
DX: R10.84 Generalized abdominal pain (principal)
CPT/HCPCS: 74176

== ENCOUNTER → 2019-12-18 | Outpatient (CLI) | payer MEDICARE, OTHER ==
--- NOTE | 2019-12-18 14:45 | RADIOLOGY REPORT (SQ) ---
EXAM DESCRIPTION: HIPS BILATERAL COMPLETED DATE/TIME: 12/18/2019 2:15 pm REASON FOR STUDY: FALL (ON) (FROM) UNSPECIFIED STAIRS AND STEPS, INIT ENCNTR COMPARISON: 11/13/2019 NUMBER OF VIEWS: Three views to include AP pelvis and bilateral individual frog lateral hip radiogra phs. LIMITATIONS: None. FINDINGS: Osteopenic. Bilateral hip joint space narrowing, moderate. No fracture or worrisome bone lesion. OTHER: No other significant finding. IMPRESSION: Osteopenia and hip DJD as before. No fracture detected. TECHNICAL DOCUMENTATION: JOB ID: [id number] Reading location - IP/workstation name: [email or web address]
--- NOTE | 2019-12-18 14:47 | RADIOLOGY REPORT (SQ) ---
EXAM DESCRIPTION: SACRUM AND COCCYX COMPLETED DATE/TIME: 12/18/2019 2:15 pm REASON FOR STUDY: FALL (ON) (FROM) UNSPECIFIED STAIRS AND STEPS, INIT ENCNTR W10.9XXA FALL (ON) (FR OM) UNSPECIFIED STAIRS AND STEPS, INIT COMPARISON: None. NUMBER OF VIEWS: Three views. TECHNIQUE: AP, lateral, and tilt views of the sacrum and coccyx. LIMITATIONS: None. FINDINGS: MINERALIZATION: Osteopenia. BONES: No acute fracture or dislocation. No worrisome bone lesions. SOFT TISSUES: No soft tissue swelling. No foreign body. OTHER: Grade 1 listhesis at the lumbosacral junction. Lower lumbar multilevel disc space narrowing. Dense aortic calcification without gross aneurysm suggested on limited assessment. IMPRESSION: NEGATIVE STUDY OF THE SACRUM AND COCCYX. TECHNICAL DOCUMENTATION: JOB ID: [id number] 2010 [employer]- All Rights Reserved Reading location - IP/workstation name: [email or web address]
--- NOTE | 2019-12-18 14:48 | RADIOLOGY REPORT (SQ) ---
EXAM DESCRIPTION: LUMBAR SPINE 2 VIEWS COMPLETED DATE/TIME: 12/18/2019 2:15 pm REASON FOR STUDY: FALL (ON) (FROM) UNSPECIFIED STAIRS AND STEPS, INIT ENCNTR COMPARISON: 11/13/2019. FINDINGS: Two views lumbosacral spine. Mild scoliosis. Osteopenic. Grade 1 listhesis at the lumbosacral junction with multilevel disc spac e narrowing and osteophytes no gross vertebral fracture. Dense aortic calcification. TECHNICAL DOCUMENTATION: JOB ID: [id number] Reading location - IP/workstation name: [email or web address]
--- NOTE | 2019-12-18 14:49 | RADIOLOGY REPORT (SQ) ---
EXAM DESCRIPTION: PELVIS W/OBLIQUES COMPLETED DATE/TIME: 12/18/2019 2:15 pm REASON FOR STUDY: FALL (ON) (FROM) UNSPECIFIED STAIRS AND STEPS, INIT ENCNTR COMPARISON: 2015. NUMBER OF VIEWS: Four views of the pelvis including AP and bilateral oblique. LIMITATIONS: None. FINDINGS: Limiting osteopenia and bowel gas. Lower lumbar spondylosis. No gross displaced fracture . OTHER: No other significant finding. IMPRESSION: Limiting factors described above. No overt fracture. TECHNICAL DOCUMENTATION: JOB ID: [id number] Reading location - IP/workstation name: [email or web address] OPERATOR HELPER CRACKING [email or web address]
--- NOTE | 2019-12-18 14:50 | RADIOLOGY REPORT (SQ) ---
EXAM DESCRIPTION: SACROILIAC JOINTS COMPLETED DATE/TIME: 12/18/2019 2:15 pm REASON FOR STUDY: FALL (ON) (FROM) UNSPECIFIED STAIRS AND STEPS, INIT ENCNTR COMPARISON: Numerous other pelvic and lumbar spine radiographs, separately dictated same date. FINDINGS: Three views of the SI joints. Limited by osteopenia and overlying bowel gas. No gross SI joint widening or erosions. TECHNICAL DOCUMENTATION: JOB ID: [id number] Reading location - IP/workstation name: [email or web address]
== END ==
LOC: OD 13:11
PROVIDERS: ATTEND Internal Medicine
DX: M16.0 Bilateral primary osteoarthritis of hip (principal); M85.88 Other specified disorders of bone density and structure, other site; W10.9XXA Fall (on) (from) unspecified stairs and steps, initial encounter
CPT/HCPCS: 72100; 72190; 72200; 72220; 73522

== ENCOUNTER 2019-12-21 10:56 | Emergency (ER) | payer MEDICARE, OTHER ==
--- NOTE | 2019-12-21 11:09 | ER Document Report ---
ED Medical Screen (RME) - General Chief Complaint: Groin Pain Stated Complaint: RIGHT LEG PAIN Time Seen by Provider: 12/21/19 10:59 Primary Care Provider: LISA OSCAR MD [Primary Care Provider] - Follow up as needed Mode of Arrival: Wheelchair Information source: Patient Notes: 89-year-old female presents to ED for complaint of pain in the right pelvis and leg. She states that she got up out of bed and she had some pain but was able to get up and Sunday she was not able to get up out of the bed. She went to the doctor they did x-rays and they said it was no fractures she had osteoporosis she is and arthritis. She states that the pain has gotten worse and she needs to know why the pain is so bad she also has pain behind the right knee with a history of a DVT. She is alert oriented respirations regular nonlabored speaking in full sentences. I have greeted and performed a rapid initial assessment of this patient. A comprehensive ED assessment and evaluation of the patient, analysis of test results and completion of medical decision making process will be conducted by an additional ED providers. TRAVEL OUTSIDE OF THE [place] IN LAST 30 DAYS: No - Related Data Allergies/Adverse Reactions: ACEINHIBITORS [DC Inhibitors] Allergy (Verified 04/19/19 10:37) latex [Latex] Allergy (Verified 04/19/19 10:37) Generalized edema Tuberculin,Ppd,Multi-Puncture [From Tuberculin PPD Jeimy Test] Allergy (Verified 04/19/19 10:37) codeine [Codeine] Adverse Reaction (Verified 04/19/19 10:37) doxycycline [Doxycycline] Adverse Reaction (Verified 04/19/19 10:37) erythromycin base [Erythromycin Base] Adverse Reaction (Verified 04/19/19 10:37) levofloxacin [From Levaquin] Adverse Reaction (Verified 04/19/19 10:37) Dizziness sacubitril [From Entresto] Adverse Reaction (Verified 04/19/19 10:37) valsartan [From Entresto] Adverse Reaction (Verified 04/19/19 10:37) codeine Allergy (Uncoded 04/19/19 10:37) Past Medical History - Past Medical History Cardiac Medical History: Reports: Hx Congestive Heart Failure, Hx Coronary Artery Disease, Hx Hypercholesterolemia, Hx Hypertension Denies: Hx Heart Attack Pulmonary Medical History: Reports: Hx COPD Denies: Hx Asthma Neurological Medical History: Reports: Hx Migraine. Denies: Hx Cerebrovascular Accident, Hx Seizures Endocrine Medical History: Reports: Hx Hypothyroidism Renal/ Medical History: Denies: Hx Peritoneal Dialysis Malignancy Medical History: Reports: Hx Skin Cancer GI Medical History: Reports: Hx Gastritis, Hx Gastroesophageal Reflux Disease, Hx Ulcer - TREATED. Denies: Hx Hepatitis, Hx Hiatal Hernia Musculoskeltal Medical History: Reports Hx Arthritis Skin Medical History: Reports Hx Psoriasis Psychiatric Medical History: Reports: Hx Depression Denies: Hx Attention Deficit Hyperactivity Disorder Infectious Medical History: Denies: Hx Hepatitis Past Surgical History: Reports: Hx Abdominal Surgery, Hx Appendectomy, Hx Breast Surgery - bx, Hx Cardiac Catheterization - 2003--DONE IN [place], WAS NOT GIVEN AND DETAILS, Hx Cardiac Surgery - pacemaker, Hx Orthopedic Surgery - rib surgery, Hx Pacemaker - DEX. Denies: Hx Hysterectomy, Hx Mastectomy, Hx Nose Surgery, Hx Open Heart Surgery - Immunizations Immunizations up to date: No Hx Diphtheria, Pertussis, Tetanus Vaccination: Yes Doctor's Discharge - Discharge Referrals: LISA OSCAR MD [Primary Care Provider] - Follow up as needed
[2019-12-21 11:47] LABS: ABSOLUTE EOSINOPHILS # (AUTO) 0.2 10^3/uL (0.0-0.6); ABSOLUTE LYMPHOCYTES (AUTO) 0.5 10^3/uL (0.5-4.7); ABSOLUTE MONOCYTES (AUTO) 0.6 10^3/uL (0.1-1.4); ABSOLUTE NEUT (AUTO) 6.4 10^3/uL (1.7-8.2); BASOPHILS % (AUTO) 0.5 % (0-2); EOSINOPHILS % (AUTO) 2.2 % (0-6); HEMATOCRIT 31.9 % (36.0-47.0); LYMPHOCYTES % (AUTO) 6.8 % (13-45); MEAN CORPUSCULAR HEMOGLOBIN 31.9 pg (27.0-33.4); MEAN CORPUSCULAR HGB CONC 34.6 g/dL (32.0-36.0); MEAN CORPUSCULAR VOLUME 92 fl (80-97); MONOCYTES % (AUTO) 8.2 % (3-13); PLATELET COUNT 241 10^3/uL (150-450); RED BLOOD COUNT 3.45 10^6/uL (3.72-5.28); SEGMENTED NEUTROPHILS % (AUTO) 82.3 % (42-78); TOTAL CELLS COUNTED % (AUTO) 100 %; WHITE BLOOD COUNT 7.7 10^3/uL (4.0-10.5)
--- NOTE | 2019-12-21 11:48 | RADIOLOGY REPORT (SQ) ---
EXAM DESCRIPTION: CT PELVIS WITHOUT COMPLETED DATE/TIME: 12/21/2019 11:28 am REASON FOR STUDY: Fall pain in the right pelvic area COMPARISON: Multiple prior radiographs TECHNIQUE: CT scan of the pelvis performed without intravenous or oral contrast. Images reviewed wi th soft tissue and bone windows. Reconstructed coronal and sagittal MPR images reviewed. All images stored on PACS. All CT scanners at this facility use dose modulation, iterative reconstruction, and/or weight based d osing when appropriate to reduce radiation dose to as low as reasonably achievable (ALARA). [facility]: Dose Right [facility]: CareDose [facility]: Dose Right [facility]: Teradose 4D [facility]: Smart [employer] RADIATION DOSE: CT Rad equipment meets quality standard of care and radiation dose reduction techniq ues were employed. CTDIvol: 8.3 mGy. DLP: 249 mGy-cm. mGy. LIMITATIONS: None. FINDINGS: PELVIC BONES: There is a nondisplaced minimal insufficiency fracture of the right sacral a la. VISUALIZED SPINE: Grade 1 spondylolisthesis L5 on S1 with bilateral spondylolysis. Chronic facet art hropathy. HIP(S): No acute fracture or dislocation. No worrisome bone lesions. PELVIC SOFT TISSUES: No significant findings. EXTRAPELVIC SOFT TISSUES: No significant findings. OTHER: No other significant finding. IMPRESSION: Minimal nondisplaced insufficiency fracture of the right sacral ala. Grade 1 spondylolisthesis with bilateral spondylolysis L5 on S1. TECHNICAL DOCUMENTATION: JOB ID: [id number] Quality ID # [id number]: Final reports with documentation of one or more dose reduction techniques (e.g., Au tomated exposure control, adjustment of the mA and/or kV according to patient size, use of iterative reconstruction technique) 2010 [employer]- All Rights Reserved Reading location - IP/workstation name: [email or web address]
[2019-12-21 12:02] LABS: APPEARANCE,URINE CLEAR; BILIRUBIN,URINE NEGATIVE (NEGATIVE); COLOR,URINE STRAW; GLUCOSE, URINE NEGATIVE (NEGATIVE); KETONES,URINE NEGATIVE (NEGATIVE); PROTEIN,URINE NEGATIVE (NEGATIVE); URINE SPECIFIC GRAVITY 1.003; UROBILINOGEN,URINE NEGATIVE mg/dL (<2.0)
[2019-12-21 12:05] LABS: ALKALINE PHOSPHATASE 105 U/L (38-126); ANION GAP 9 (5-19); ASPARTATE AMINO TRANSFERASE 41 U/L (14-36); BILIRUBIN,DIRECT 0.3 mg/dL (0.0-0.4); BILIRUBIN,TOTAL 0.7 mg/dL (0.2-1.3); BLOOD UREA NITROGEN 17 mg/dL (7-20); CALCIUM 9.2 mg/dL (8.4-10.2); CARBON DIOXIDE 32 mmol/L (22-30); CHLORIDE 87 mmol/L (98-107); GLUCOSE 102 mg/dL (75-110); POTASSIUM 5.4 mmol/L (3.6-5.0); TOTAL PROTEIN 7.1 g/dL (6.3-8.2)
[2019-12-21 12:07] LABS: INTERNATIONAL RATION (INR) 1.12; PROTHROMBIN TIME 14.5 SEC (11.4-15.4)
[2019-12-21 12:08] LABS: PARTIAL THROMBOPLASTIN TIME 39.9 SEC (23.5-35.8)
--- NOTE | 2019-12-21 14:13 | ER Document Report ---
Entered by ZACHARIAH COBOS SCRIBE 12/21/19 1230 Acting as scribe for:LOBO FELIX MD ED General - General Chief Complaint: Groin Pain Stated Complaint: RIGHT LEG PAIN Time Seen by Provider: 12/21/19 10:59 Primary Care Provider: LISA OSCAR MD [Primary Care Provider] - Follow up as needed Mode of Arrival: Wheelchair Information source: Patient Notes: This 89-year-old female patient presents to the emergency department today with complaints of low back pain and right lower extremity pain. Patient states she had a fall on October 12 and has had sacral pain since then but has been worked up for this and it was "all negative". Patient states last night she developed right groin pain and right knee pain and she is worried she might have a blood clot now as it "felt similar" to previous blood clots. Patient is on Xarelto. TRAVEL OUTSIDE OF THE [place] IN LAST 30 DAYS: No - Related Data Allergies/Adverse Reactions: ACEINHIBITORS [DC Inhibitors] Allergy (Verified 04/19/19 10:37) latex [Latex] Allergy (Verified 04/19/19 10:37) Generalized edema Tuberculin,Ppd,Multi-Puncture [From Tuberculin PPD Jeimy Test] Allergy (Verified 04/19/19 10:37) codeine [Codeine] Adverse Reaction (Verified 04/19/19 10:37) doxycycline [Doxycycline] Adverse Reaction (Verified 04/19/19 10:37) erythromycin base [Erythromycin Base] Adverse Reaction (Verified 04/19/19 10:37) levofloxacin [From Levaquin] Adverse Reaction (Verified 04/19/19 10:37) Dizziness sacubitril [From Entresto] Adverse Reaction (Verified 04/19/19 10:37) valsartan [From Entresto] Adverse Reaction (Verified 04/19/19 10:37) codeine Allergy (Uncoded 04/19/19 10:37) Past Medical History - General Information source: Patient - Social History Smoking Status: Former Smoker Cigarette use (# per day): No Frequency of alcohol use: None Drug Abuse: None Family History: DM, Hypertension Patient has suicidal ideation: No Patient has homicidal ideation: No - Past Medical History Cardiac Medical History: Reports: Hx Congestive Heart Failure, Hx Coronary Artery Disease, Hx Hypercholesterolemia, Hx Hypertension Denies: Hx Heart Attack Pulmonary Medical History: Reports: Hx COPD Denies: Hx Asthma Neurological Medical History: Reports: Hx Migraine. Denies: Hx Cerebrovascular Accident, Hx Seizures Endocrine Medical History: Reports: Hx Hypothyroidism Renal/ Medical History: Denies: Hx Peritoneal Dialysis Malignancy Medical History: Reports: Hx Skin Cancer GI Medical History: Reports: Hx Gastritis, Hx Gastroesophageal Reflux Disease, Hx Ulcer - TREATED. Denies: Hx Hepatitis, Hx Hiatal Hernia Musculoskeletal Medical History: Reports Hx Arthritis Skin Medical History: Reports Hx Psoriasis Psychiatric Medical History: Reports: Hx Depression Denies: Hx Attention Deficit Hyperactivity Disorder Infectious Medical History: Denies: Hx Hepatitis Past Surgical History: Reports: Hx Abdominal Surgery, Hx Appendectomy, Hx Breast Surgery - bx, Hx Cardiac Catheterization - 2003--DONE IN [place], WAS NOT GIVEN AND DETAILS, Hx Cardiac Surgery - pacemaker, Hx Orthopedic Surgery - rib surgery, Hx Pacemaker - DEX. Denies: Hx Hysterectomy, Hx Mastectomy, Hx Nose Surgery, Hx Open Heart Surgery - Immunizations Immunizations up to date: No Hx Diphtheria, Pertussis, Tetanus Vaccination: Yes Hx Pneumococcal Vaccination: 07/15/12 Review of Systems - Review of Systems Constitutional: No symptoms reported EENT: No symptoms reported Cardiovascular: No symptoms reported Respiratory: No symptoms reported Gastrointestinal: No symptoms reported Genitourinary: No symptoms reported Female Genitourinary: No symptoms reported Musculoskeletal: See HPI, Back pain, Joint pain Skin: No symptoms reported Hematologic/Lymphatic: No symptoms reported Neurological/Psychological: No symptoms reported -: Yes All other systems reviewed and negative Physical Exam - Vital signs Vitals: Temp Pulse Resp BP Pulse Ox 99.4 F 71 20 172/74 H 94 12/21/19 11:05 12/21/19 11:05 12/21/19 11:05 12/21/19 11:05 12/21/19 11:05 - Notes Notes: Physical Exam: General: Alert, appears well. HEENT: Normocephalic. Atraumatic. PERRL. Extraocular movements intact. Oropharynx clear. Neck: Supple. Non-tender. Respiratory: No respiratory distress. Clear and equal breath sounds bilaterally. Cardiovascular: Regular rate and rhythm. Abdominal: Normal Inspection. Non-tender. No distension. Normal Bowel Sounds. Back: No gross abnormalities. Extremities: Moves all four extremities. Upper extremities: Normal inspection. Normal ROM. Lower extremities: Complains of pain with passive movement of right lower extremity. Posterior right knee tenderness with palpation. Right lateral thigh tenderness with palpation. Neurological: Normal cognition. AAOx4. Normal speech. Psychological: Normal affect. Normal Mood. Skin: Warm. Dry. Normal color. Course - Re-evaluation Re-evalutation: 12/21/19 14:06 Patient resting comfortably. Patient does have pain in her groin area when she moves her hip and pain in her right sacral region. - Vital Signs Vital signs: Temp Pulse Resp BP Pulse Ox 99.4 F 71 20 172/74 H 94 12/21/19 11:05 12/21/19 11:05 12/21/19 11:05 12/21/19 11:05 12/21/19 11:05 - Laboratory Result Diagrams: 12/21/19 11:16 12/21/19 11:16 Laboratory results interpreted by me: 12/21/19 12/21/19 12/21/19 11:16 11:16 11:16 RBC 3.45 L Hgb 11.0 L Hct 31.9 L Lymph % (Auto) 6.8 L Seg Neutrophils % 82.3 H APTT 39.9 H Sodium 128.0 L Potassium 5.4 H Chloride 87 L Carbon Dioxide 32 H AST 41 H 12/21/19 14:07 . Hemoglobin is 11 sodium is a little bit low at 128 patient is somewhat hyp onatremic - Diagnostic Test Radiology reviewed: Image reviewed, Reports reviewed Radiology results interpreted by me: 12/21/19 14:08 CT scan of pelvis shows that there is a sacral ala fracture insufficiency on the right side. Also there is some spondylolisthesis at L1-L2. No other acute process noted. Ultrasound done of right lower extremity shows no acute process no signs of DVT. Discharge - Discharge Clinical Impression: Sacral insufficiency fracture, Hyponatremia Condition: Good Disposition: HOME, SELF-CARE Additional Instructions: Hyponatremia You have an abnormally low level of serum sodium, called hyponatremia. Low serum sodium may cause weakness, fatigue, confusion, or even seizures. Usually, low sodium is due to taking diuretics (water pills), combined with drinking too much water. It can also be due to excessive vomiting or diarrhea. If no obvious cause is evident, further evaluation will be necessary. If the hyponatremia results from taking diuretics, it's treated by restricting the amount of water you can drink. If it's due to vomiting and lex rrhea, it's treated by drinking liberal amounts of rehydration solution (for example Lytren or Pedialyte). A follow-up blood test is often done to see that the sodium is returning to normal. Call the physician if you have severe weakness, muscle twitching or cramping, palpitations (pounding or irregular heartbeat), confusion, headache, seizures, or any other new or alarming symptoms.You have a sacral fracture. We are recommending that you follow-up with orthopedic doctor as indicated on your discharge instructions continue to ambulate as tolerated inasmuch as you are already on pain medications there is no additional medications to prescribe at this time consider using cane support as you are doing and walker if need be. Further instructions per orthopedist. You have a closed sacral insufficiency fracture of the right sacral alae. Recommend you continue your activity as tolerated with cane support or walker support. You already are on pain medication so no additional medications are required please follow-up with Dr. Tan ny , orthopedist for further instructions if there is any additional management of your sacral alae fracture. It is recommended that you be as active as you can be at this time. Physical therapy may be in order as well. Referrals: LISA OSCAR MD [Primary Care Provider] - Follow up as needed RANDALL NY MD [ACTIVE PROVISIONAL STAFF] - Follow up as needed I personally performed the services described in the documentation, reviewed and edited the documentation which was dictated to the scribe in my presence, and it accurately records my words and actions.
[2019-12-21 14:34] VITALS: BP 164/64
--- NOTE | 2019-12-22 10:01 | XCELERA REPORT ---
[address] [place] [facility] [address] Lower Extremity Venous Evaluation Procedure: Color flow and duplex imaging of the veins of the right lower extremity as well as the left Common Femoral vein. Right Sided Venous Evaluation Normal vessel filling wall to wall, compression and augmentation as well as Colour flow down to the infrageniculate veins. Left Sided Venous Evaluation The left common femoral vein is fully compressible. Spontaneous and phasic flow is present in the left common femoral vein. Interpretation Summary No duplex evidence of DVT or obstruction in the right lower extremity nor in the left Common Femoral vein. Name: MAIRA ALVAREZ Age: 89 yrs Gender: Female : 1930 Patient Status: Emergency Patient Location: ER Study Date: 12/21/2019 12:52 PM Reason For Study: Pain posterior right leg history DVT Ordering Physician: JOSE PENA Performed By: Tim Bass : JOSE PENA > Talib Prasad
== END 2019-12-21 14:34 | disposition home or self-care (01) ==
LOC: ER 10:56
DX: M84.48XA Pathological fracture, other site, initial encounter for fracture (principal); E87.1 Hypo-osmolality and hyponatremia; M43.16 Spondylolisthesis, lumbar region; M54.5 Low back pain; M79.604 Pain in right leg; M25.561 Pain in right knee; Z88.7 Allergy status to serum and vaccine; R10.30 Lower abdominal pain, unspecified; I25.10 Atherosclerotic heart disease of native coronary artery without angina pectoris; I10 Essential (primary) hypertension; J44.9 Chronic obstructive pulmonary disease, unspecified; Z79.01 Long term (current) use of anticoagulants; Z86.718 Personal history of other venous thrombosis and embolism; Z88.8 Allergy status to other drugs, medicaments and biological substances; Z87.891 Personal history of nicotine dependence; Z91.040 Latex allergy status
CPT/HCPCS: 36415; 72192; 80053; 81001; 85025; 85610; 85730; 93971; 99284

== ENCOUNTER → 2019-12-26 | Outpatient (CLI) | payer MEDICARE, OTHER ==
--- NOTE | 2019-12-26 15:49 | RADIOLOGY REPORT (SQ) ---
EXAM DESCRIPTION: CT RT LOWER EXTREMITY WITHOUT COMPLETED DATE/TIME: 12/26/2019 2:54 pm REASON FOR STUDY: PAIN IN RIGHT HIP (M25.551) M25.551 PAIN IN RIGHT HIP COMPARISON: 12/21/2019 TECHNIQUE: CT scan of the right hip performed without intravenous or oral contrast. Images reviewed with soft tissue and bone windows. Reconstructed coronal and sagittal MPR images reviewed. All antonio ges stored on PACS. All CT scanners at this facility use dose modulation, iterative reconstruction, and/or weight based d osing when appropriate to reduce radiation dose to as low as reasonably achievable (ALARA). [facility]: Dose Right [facility]: CareDose [facility]: Dose Right [facility]: Teradose 4D [facility]: Decision Curve RADIATION DOSE: mGy. LIMITATIONS: None. FINDINGS: PELVIC BONES: Again seen is the right sacral ala nondisplaced insufficiency fracture. No additional fractures identified. Mild degenerative changes at the pubic symphysis and SI joint. VISUALIZED SPINE: Not imaged. SYMPTOMATIC HIP: No acute fracture identified. There is degenerative changes with joint space loss, subchondral sclerosis and osteophytosis. OPPOSITE HIP: Not imaged. SOFT TISSUES: Scattered vascular calcifications. OTHER: No other significant finding. IMPRESSION: 1. No significant change in the right sacral ala nondisplaced insufficiency fracture. 2. No additional acute bony abnormality. TECHNICAL DOCUMENTATION: JOB ID: [id number] Quality ID # [id number]: Final reports with documentation of one or more dose reduction techniques (e.g., Au tomated exposure control, adjustment of the mA and/or kV according to patient size, use of iterative reconstruction technique) 2010 [employer]- All Rights Reserved Reading location - IP/workstation name: [email or web address]
== END ==
LOC: RAD 13:54
PROVIDERS: ATTEND Orthopaedic Surgery
DX: M84.454D Pathological fracture, pelvis, subsequent encounter for fracture with routine healing (principal); M25.551 Pain in right hip

== ENCOUNTER → 2019-12-31 | Outpatient (CLI) | payer MEDICARE, OTHER ==
[2019-12-31 15:03] LABS: ABSOLUTE BASOPHILS # (AUTO) 0.1 10^3/uL (0.0-0.2); ABSOLUTE EOSINOPHILS # (AUTO) 0.4 10^3/uL (0.0-0.6); ABSOLUTE LYMPHOCYTES (AUTO) 0.9 10^3/uL (0.5-4.7); ABSOLUTE MONOCYTES (AUTO) 0.5 10^3/uL (0.1-1.4); ABSOLUTE NEUT (AUTO) 3.7 10^3/uL (1.7-8.2); BASOPHILS % (AUTO) 1.2 % (0-2); EOSINOPHILS % (AUTO) 6.6 % (0-6); HEMATOCRIT 32.8 % (36.0-47.0); HEMOGLOBIN 11.3 g/dL (12.0-15.5); LYMPHOCYTES % (AUTO) 16.3 % (13-45); MEAN CORPUSCULAR HEMOGLOBIN 31.4 pg (27.0-33.4); MEAN CORPUSCULAR HGB CONC 34.5 g/dL (32.0-36.0); MEAN CORPUSCULAR VOLUME 91 fl (80-97); PLATELET COUNT 287 10^3/uL (150-450); RED BLOOD COUNT 3.61 10^6/uL (3.72-5.28); RED CELL DISTRIBUTION WIDTH 12.5 % (11.5-14.0); SEGMENTED NEUTROPHILS % (AUTO) 66.9 % (42-78); TOTAL CELLS COUNTED % (AUTO) 100 %; WHITE BLOOD COUNT 5.5 10^3/uL (4.0-10.5)
[2019-12-31 15:09] LABS: APPEARANCE,URINE SLIGHTLY-CLOUDY; BILIRUBIN,URINE NEGATIVE (NEGATIVE); COLOR,URINE YELLOW; GLUCOSE, URINE NEGATIVE (NEGATIVE); KETONES,URINE NEGATIVE (NEGATIVE); LEUKOCYTE ESTERASE,URINE TRACE (NEGATIVE); NITRITE,URINE NEGATIVE (NEGATIVE); PROTEIN,URINE NEGATIVE (NEGATIVE); URINE SPECIFIC GRAVITY 1.014; UROBILINOGEN,URINE NEGATIVE mg/dL (<2.0)
[2019-12-31 15:22] LABS: ANION GAP 14 (5-19); BLOOD UREA NITROGEN 14 mg/dL (7-20); CALCIUM 9.2 mg/dL (8.4-10.2); CARBON DIOXIDE 23 mmol/L (22-30); CHLORIDE 93 mmol/L (98-107); GLUCOSE 109 mg/dL (75-110); POTASSIUM 4.5 mmol/L (3.6-5.0)
== END ==
LOC: OD 13:54
PROVIDERS: ATTEND Internal Medicine Nephrology
DX: I12.9 Hypertensive chronic kidney disease with stage 1 through stage 4 chronic kidney disease, or unspecified chronic kidney disease (principal); N18.2 Chronic kidney disease, stage 2 (mild); E87.1 Hypo-osmolality and hyponatremia; D64.9 Anemia, unspecified
CPT/HCPCS: 36415; 80048; 81001; 82043; 82570; 85025

== ENCOUNTER → 2020-01-13 | Outpatient (CLI) | payer MEDICARE, OTHER ==
--- NOTE | 2020-01-13 13:37 | RADIOLOGY REPORT (SQ) ---
EXAM DESCRIPTION: KUB IMAGES COMPLETED DATE/TIME: 01/13/2020 1:29 pm REASON FOR STUDY: CONSTIPATION, UNSPECIFIED K59.00 CONSTIPATION, UNSPECIFIED COMPARISON: 11/14/2019 NUMBER OF VIEWS: One view. TECHNIQUE: Supine radiographic image of the abdomen acquired. LIMITATIONS: None. FINDINGS: BOWEL GAS PATTERN: Normal bowel gas pattern. No dilated loops. CALCIFICATIONS: No suspicious calcifications. SOFT TISSUES: No gross mass or suggestion of organomegaly. HARDWARE: None in the abdomen. BONES: No acute fracture. No worrisome bone lesions. OTHER: No other significant finding. IMPRESSION: NO RADIOGRAPHIC EVIDENCE FOR ACUTE ABDOMINAL DISEASE. TECHNICAL DOCUMENTATION: JOB ID: [id number] 2010 [employer]- All Rights Reserved Reading location - IP/workstation name: [email or web address]
--- NOTE | 2020-01-13 19:10 | RADIOLOGY REPORT (SQ) ---
EXAM DESCRIPTION: CT ABD/PELVIS ORAL ONLY IMAGES COMPLETED DATE/TIME: 01/13/2020 6:13 pm REASON FOR STUDY: R10.84 GENERALIZED ABDOMINAL PAIN K59.00 CONSTIPATION, UNSPECIFIED R10.84 GENERA LIZED ABDOMINAL PAIN COMPARISON: 11/14/2019 TECHNIQUE: CT scan of the abdomen and pelvis performed without intravenous or oral contrast. Images reviewed with lung, soft tissue, and bone windows. Reconstructed coronal and sagittal MPR images revi ewed. All images stored on PACS. All CT scanners at this facility use dose modulation, iterative reconstruction, and/or weight based d osing when appropriate to reduce radiation dose to as low as reasonably achievable (ALARA). [facility]: Dose Right [facility]: CareDose [facility]: Dose Right [facility]: Teradose 4D [facility]: [employer] RADIATION DOSE: CT Rad equipment meets quality standard of care and radiation dose reduction techniq ues were employed. CTDIvol: 5.2 mGy. DLP: 234 mGy-cm. LIMITATIONS: None. FINDINGS: LOWER CHEST: A new nodular pleural based opacity periphery of the right lower lobe, axial image 16, series 4. Cardiomegaly and partially visualize cardiac pacemaker. NON-CONTRASTED LIVER, SPLEEN, ADRENALS: Splenule, normal anatomic variant. Evaluation limited by lac k of IV contrast. No identified significant masses. PANCREAS: No masses. No peripancreatic inflammatory changes. GALLBLADDER: No identified stones by CT criteria. No inflammatory changes to suggest cholecystitis. RIGHT KIDNEY AND URETER: Stable right renal cysts. Assessment limited by lack of IV contrast. No significant calcifications. No hydronephrosis or hydroureter. LEFT KIDNEY AND URETER: Stable left renal cysts. . Assessment limited by lack of IV contrast. No s ignificant calcifications. No hydronephrosis or hydroureter. AORTA AND RETROPERITONEUM: Atherosclerotic changes involving the thoracic aorta and branch vessels. No aneurysm. No retroperitoneal masses or adenopathy. BOWEL AND PERITONEAL CAVITY: No obvious masses or inflammatory changes. No free fluid. APPENDIX: Prior appendectomy. PELVIS, BLADDER, AND ABDOMINAL WALL:No abnormal masses. No free fluid. Bladder normal. BONES: The osseous structures are stable in appearance. Grade 2 anterolisthesis of L5 on S1. Scoli osis and degenerative disc disease, facet arthrosis lower lumbar spine. OTHER: No other significant finding. IMPRESSION: 1. A new nodular pleural based opacity periphery of the right lower lobe. Further eval uation with CT chest suggested. 2. Stable bilateral renal cysts. 3. Additional stable findings as above. 4. No ACUTE PROCESS IN THE ABDOMEN OR PELVIS. COMMENT: Quality ID # [id number]: Final reports with documentation of one or more dose reduction techniques (e.g., Automated exposure control, adjustment of the mA and/or kV according to patient size, use of iterative reconstruction technique) TECHNICAL DOCUMENTATION: JOB ID: [id number] 2010 [employer]- All Rights Reserved Reading location - IP/workstation name: [email or web address]
== END ==
LOC: OD 13:04
PROVIDERS: ATTEND Internal Medicine
DX: R10.84 Generalized abdominal pain (principal); K59.00 Constipation, unspecified; Z20.828 Contact with and (suspected) exposure to other viral communicable diseases
CPT/HCPCS: 87070; 87880; 87804; 74018; 74176; U0003; G0463; 87635; 99211

== ENCOUNTER → 2020-01-13 | Outpatient (CLI) | payer MEDICARE, OTHER ==
--- NOTE | 2020-01-13 11:44 | ER [facility] ASSESSMENT REPORT ---
Intake - In the Last 14 days Have you traveled outside [place]?: No Have you been in close contact with someone CONFIRMED: No Worked in Healthcare?: No - Symptoms Subjective Fever([place] feverish): Yes Chills: Yes Muscule Aches: Yes Runny Nose: Yes Cough (New or worsening chronic cough): No Shortness of breath: Yes --How many day(s)?: Reports states is short of breath because abdomen feels full --How many day(s)?: Reports vomited yesterday. Reports a history of constipation needing enema Headache: Yes Abdominal Pain: Yes --How many day(s)?: Feels full Diarrhea(3 or more loose stools in last 24 hours): No - Do you have any of the following Chronic lung disease: Asthma or emphysema or COPD: Yes Chronic Lung Disease Comment: Reports a history of asthma and COPD. States uses O2 at night and in the day as needed. Cystic Fibrosis: No Diabetes: No High Blood Pressure: No Cardiovascular Disease: Yes Cardiovascular Disease Comment: Reports has a history of hypothyroidism CHF hypertension hyperlipidemia. 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 Reports some respiratory symptoms due to seasonal allergies. Has worsening complaints of Constipation where feels full and can't take a deep breath. Patient is known to Dr. Vidal and states tried to call their office two times and he has not called back. - Related Data Allergies/Adverse Reactions: ACEINHIBITORS [DC Inhibitors] Allergy (Verified 04/19/19 10:37) latex [Latex] Allergy (Verified 04/19/19 10:37) Generalized edema Tuberculin,Ppd,Multi-Puncture [From Tuberculin PPD Jeimy Test] Allergy (Verified 04/19/19 10:37) codeine [Codeine] Adverse Reaction (Verified 04/19/19 10:37) doxycycline [Doxycycline] Adverse Reaction (Verified 04/19/19 10:37) erythromycin base [Erythromycin Base] Adverse Reaction (Verified 04/19/19 10:37) levofloxacin [From Levaquin] Adverse Reaction (Verified 04/19/19 10:37) Dizziness sacubitril [From Entresto] Adverse Reaction (Verified 04/19/19 10:37) valsartan [From Entresto] Adverse Reaction (Verified 04/19/19 10:37) codeine Allergy (Uncoded 04/19/19 10:37) Past Medical History - Social History Smoking Status: Former Smoker Family History: DM, Hypertension - Past Medical History Cardiac Medical History: Reports: Hx Congestive Heart Failure, Hx Coronary Artery Disease, Hx Hypercholesterolemia, Hx Hypertension Denies: Hx Heart Attack Pulmonary Medical History: Reports: Hx COPD Denies: Hx Asthma Neurological Medical History: Reports: Hx Migraine. Denies: Hx Cerebrovascular Accident, Hx Seizures Endocrine Medical History: Reports: Hx Hypothyroidism Renal/ Medical History: Denies: Hx Peritoneal Dialysis Malignancy Medical History: Reports: Hx Skin Cancer GI Medical History: Reports: Hx Gastritis, Hx Gastroesophageal Reflux Disease, Hx Ulcer - TREATED. Denies: Hx Hepatitis, Hx Hiatal Hernia Musculoskeletal Medical History: Reports Hx Arthritis Skin Medical History: Reports Hx Psoriasis Psychiatric Medical History: Reports: Hx Depression Denies: Hx Attention Deficit Hyperactivity Disorder Infectious Medical History: Denies: Hx Hepatitis Past Surgical History: Reports: Hx Abdominal Surgery, Hx Appendectomy, Hx Breast Surgery - bx, Hx Cardiac Catheterization - 2003--DONE IN [place], WAS NOT GIVEN AND DETAILS, Hx Cardiac Surgery - pacemaker, Hx Orthopedic Surgery - rib surgery, Hx Pacemaker - DEX. Denies: Hx Hysterectomy, Hx Mastectomy, Hx Nose Surgery, Hx Open Heart Surgery Physical Exam - General Notes: PHYSICAL EXAMINATION: GENERAL: Well-appearing and in no acute distress. Patient reporting shorness of breath due to feeling full and worsening constipation. HEAD: Atraumatic, normocephalic. EYES: sclera anicteric, conjunctiva are normal. ENT: nares patent. Moist mucous membranes lips dry. NECK: Normal range of motion, supple without lymphadenopathy LUNGS: CTAB and equal. No wheezes rales or rhonchi. HEART: Regular rate and rhythm without murmurs ABDOMEN: Soft, nontender, bowel sounds hypoactive. EXTREMITIES: Normal range of motion, no pitting edema. No cyanosis. NEUROLOGICAL: Normal speech. PSYCH: Normal mood, normal affect. SKIN: Warm, Dry, normal turgor, Diagnostic Results Laboratory Results: Patient informed of negative rapid strep negative rapid flu results. Ending strep culture. Pending Covid testing results. COVID 19 instructions provided including : As a person under investigation for Covid 19, the [facility], division of public health advises you to adhere to the following guidance until your test results are reported to you. If your test result is positive, you will receive additional information from your provider and your local health department at that time. Remain at home until you are cleared by the health provider or public health authorities. Keep a log of visitors to your home, notify any visitors to your home of your isolation status. If you plan to move to a new address or leave the county, notify the local health department in your County. Call your doctor or seek care if you have an urgent medical need. Before seeking medical care, call ahead to get instructions from the provider before arriving at the medical office clinic or hospital. Notify them that you are being tested for the virus that causes Covid 19 so that arrangements can be made, as necessary, to prevent transmission to others in the healthcare setting. Next, notify the local health department in your county. If a medical emergency arises and you need to call 911, inform the first responders that you are being tested for the virus that causes Covid 19. Next, notify the local health department in your [facility]. Patient Education/Counseling Counseling/Education: Patient presents with upper respiratory symptoms worrisome for possible Covid 19. Patient does not have emergency worring symptoms such as difficulty breathing, shortness of breath, chest pain, pressure, confusion or cyanosis. Patient appears suitable for discharge Patient's vital signs are stable and patient is nontoxic in appearance. Good return precautions have been discussed with patient, patient verbalized understanding and is agreeable with discharge plan of care at this time. Dr. Vidal called and notified of patients complaints. Instructed to have patient go directly to his office for further evaluation and consideration for direct admission. Patient drove self and states feels well enough to go to office directly from [facility]. Patient reports has been to see Dr. Vidal and is currently at [facility] for further lab/radiology testing with PCP. [facility] Discharge - Discharge Clinical Impression: COVID 19 SCREENING Upper respiratory infection Qualifiers: URI type: unspecified URI Qualified Code(s): J06.9 - Acute upper respiratory infection, unspecified Condition: Stable Disposition: Home; Selfcare - To PCP office from [facility] for further evaluation
[2020-01-13 11:46] VITALS: BP 107/55
[2020-01-13 12:06] LABS: A TYPE INFLUENZA AG NEGATIVE (NEGATIVE); B INFLUENZA AG NEGATIVE (NEGATIVE)
== END ==
LOC: RDC 10:01
PROVIDERS: ATTEND Nurse Practitioner Family
DX: J06.9 Acute upper respiratory infection, unspecified (principal)
CPT/HCPCS: 87070; 87635; 87804; 87880

== ENCOUNTER → 2020-01-29 | Outpatient (CLI) | payer MEDICARE, OTHER ==
--- NOTE | 2020-01-29 14:55 | RADIOLOGY REPORT (SQ) ---
EXAM DESCRIPTION: CT CHEST WITHOUT IMAGES COMPLETED DATE/TIME: 01/29/2020 2:23 pm REASON FOR STUDY: R93.89 ABNORMAL FINDINGS ON DX IMAGING OF [facility] BODY STRUCTURES R93.89 ABNORMAL FIN DINGS ON DX IMAGING OF OT BODY STRUCTURE COMPARISON: 08/24/2018. CT abdomen pelvis 01/13/2020. TECHNIQUE: CT scan performed of the chest without intravenous contrast. Images reviewed with lung, soft tissue and bone windows. Reconstructed coronal and sagittal MPR images reviewed. All images st ored on PACS. All CT scanners at this facility use dose modulation, iterative reconstruction, and/or weight based d osing when appropriate to reduce radiation dose to as low as reasonably achievable (ALARA). [facility]: Dose Right [facility]: CareDose [facility]: Dose Right [facility]: Teradose 4D [facility]: Everplaces RADIATION DOSE: CT Rad equipment meets quality standard of care and radiation dose reduction techniq ues were employed. CTDIvol: 4.4 mGy. DLP: 165 mGy-cm. mGy. LIMITATIONS: No technical limitations. FINDINGS: LUNGS AND PLEURA: Nodular density in the periphery of the right lower lobe on image 100 is stable since 08/24/2018 consistent with benign etiology. Additional scattered subcentimeter nodules are also stable. Mild centrilobular emphysema. No effusions. HILAR AND MEDIASTINAL STRUCTURES: No identified masses or abnormal nodes. No obvious aneurysm. HEART AND VASCULAR STRUCTURES: No aneurysm. No pericardial effusion. UPPER ABDOMEN: See separate report of the CT of the abdomen. THYROID AND OTHER SOFT TISSUES: No masses. No adenopathy. BONES: Nothing acute. HARDWARE: None in the chest. OTHER: No other significant findings. IMPRESSION: Benign pulmonary nodules. TECHNICAL DOCUMENTATION: JOB ID: [id number] Quality ID # [id number]: Final reports with documentation of one or more dose reduction techniques (e.g., Au tomated exposure control, adjustment of the mA and/or kV according to patient size, use of iterative reconstruction technique) 2010 [employer]- All Rights Reserved Reading location - IP/workstation name: [email or web address]
== END ==
LOC: RAD 13:58
PROVIDERS: ATTEND Internal Medicine
DX: J43.2 Centrilobular emphysema (principal); R91.8 Other nonspecific abnormal finding of lung field
CPT/HCPCS: 71250

== ENCOUNTER → 2020-05-25 | Outpatient (CLI) | payer MEDICARE, OTHER ==
--- NOTE | 2020-05-25 14:43 | WOMENS IMAGING REPORT ---
EXAM DESCRIPTION: BONE DENSITY HIP/SPINE IMAGES COMPLETED DATE/TIME: 05/25/2020 2:34 pm REASON FOR STUDY: N95.9 UNSPECIFIED MENOPAUSAL AND PERIMENOPAUSAL DISORDER Z12.31 ENCNTR SCREEN SALINA GERRI FOR MALIGNANT NEOPLASM OF MP N95.9 UNSPECIFIED MENOPAUSAL AND PERIMENOPAUSAL DISORDER COMPARISON: 05/01/2018. TECHNIQUE: Dual-Energy X-ray Absorptiometry (DEXA) of the AP Spine and Hip. LIMITATIONS: None. FINDINGS: LUMBAR SPINE: The bone mineral density (BMD) measured from L1-L4 in the AP projection correlates with a T-score of 0.4, which is normal as defined by the World Health Organization. BMD Change vs Baseline: 1.0%. HIP: The bone mineral density (BMD) measured in the left hip correlates with a T-score of -1.5, which is o steopenia as defined by the World Health Organization. BMD Change vs Baseline: 3.9%. 10 year Fracture Risk Assessment: Major Osteoporotic Fracture: Not available. Hip Fracture: Not available. IMPRESSION: 1. LUMBAR SPINE WHO CLASSIFICATION: NORMAL. 2. HIP WHO CLASSIFICATION: OSTEOPENIA. OVERALL ASSESSMENT: WHO CLASSIFICATION: OSTEOPENIA. COMMENT: The World Health Organization defines low BMD as follows: T-score: Normal: At or above -1.0 Osteopenia: Between -1.0 and -2.5 Osteoporosis: At or below -2.5 without fractures Established osteoporosis: At or below -2.5 with fractures In general, you may wish to consider: Diagnosis Treatment Follow-up DEXA Normal BMD Prevention 2-3 years Osteopenia Prevention/Therapy 1-2 years Osteoporosis Therapy Yearly TECHNICAL DOCUMENTATION: JOB ID: [id number] [employer]- All Rights Reserved Reading location - IP/workstation name: [email or web address]
--- NOTE | 2020-05-25 15:19 | WOMENS IMAGING REPORT ---
EXAM DESCRIPTION: 3D SCREENING MAMMO BILAT IMAGES COMPLETED DATE/TIME: 05/25/2020 2:34 pm REASON FOR STUDY: Z12.31 ENCNTR SCREEN MAMMOGRAM FOR MALIGNANT NEOPLASM OF BREAST Z12.31 ENCNTR SCR EEN MAMMOGRAM FOR MALIGNANT NEOPLASM OF MP N95.9 UNSPECIFIED MENOPAUSAL AND PERIMENOPAUSAL DISORDER COMPARISON: 05/14/2019 and 05/13/2018. EXAM PARAMETERS: Views: Standard craniocaudal and mediolateral oblique views of each breast recorded using digital acquisition and breast tomosynthesis. Read with the assistance of CAD. .[facility] - [employer] Version 9.2 LIMITATIONS: None. FINDINGS: No suspicious masses, suspicious calcifications or architectural distortion. No areas of c oncern. IMPRESSION: NEGATIVE MAMMOGRAM. BIRADS 1. BREAST DENSITY: c. The breasts are heterogeneously dense, which may obscure small masses. BIRAD: ASSESSMENT: 1 NEGATIVE RECOMMENDATION: ROUTINE SCREENING COMMENT: The patient has been notified of the results by letter per SA requirements. Additional no tification policies are in place for contacting patient with suspicious or incomplete findings. Quality ID #225: The [employer] recommends an annual screening mammogram for women aged 40 years or over. This facility utilizes a reminder system to ensure that all patients receive reminder letters, and/or direct phone calls for appointments. This includes reminders for routine scr eening mammograms, diagnostic mammograms, or other Breast Imaging Interventions when appropriate. Th is patient will be placed in the appropriate reminder system. TECHNICAL DOCUMENTATION: FINDING NUMBER: (1) ASSESSMENT: (1) JOB ID: [id number] 2010 [employer]- All Rights Reserved Reading location - IP/workstation name: [email or web address]
== END ==
LOC: WI 13:50
PROVIDERS: ATTEND Internal Medicine Hematology & Oncology
DX: Z12.31 Encounter for screening mammogram for malignant neoplasm of breast (principal); N95.9 Unspecified menopausal and perimenopausal disorder
CPT/HCPCS: 77063; 77067; 77080

== ENCOUNTER 2020-06-01 17:42 | Emergency (ER) | payer MEDICARE, OTHER ==
[2020-06-01 18:12] LABS: ABSOLUTE EOSINOPHILS # (AUTO) 0.2 10^3/uL (0.0-0.6); ABSOLUTE LYMPHOCYTES (AUTO) 1.1 10^3/uL (0.5-4.7); ABSOLUTE MONOCYTES (AUTO) 0.6 10^3/uL (0.1-1.4); ABSOLUTE NEUT (AUTO) 5.9 10^3/uL (1.7-8.2); BASOPHILS % (AUTO) 0.4 % (0-2); EOSINOPHILS % (AUTO) 2.8 % (0-6); HEMATOCRIT 31.1 % (36.0-47.0); HEMOGLOBIN 10.7 g/dL (12.0-15.5); LYMPHOCYTES % (AUTO) 14.4 % (13-45); MEAN CORPUSCULAR HEMOGLOBIN 31.3 pg (27.0-33.4); MEAN CORPUSCULAR HGB CONC 34.4 g/dL (32.0-36.0); MEAN CORPUSCULAR VOLUME 91 fl (80-97); MONOCYTES % (AUTO) 7.4 % (3-13); PLATELET COUNT 193 10^3/uL (150-450); RED BLOOD COUNT 3.42 10^6/uL (3.72-5.28); RED CELL DISTRIBUTION WIDTH 13.6 % (11.5-14.0); TOTAL CELLS COUNTED % (AUTO) 100 %; WHITE BLOOD COUNT 7.9 10^3/uL (4.0-10.5)
[2020-06-01 18:29] LABS: ALBUMIN 3.6 g/dL (3.5-5.0); ALKALINE PHOSPHATASE 81 U/L (38-126); ANION GAP 7 (5-19); ASPARTATE AMINO TRANSFERASE 50 U/L (14-36); BILIRUBIN,TOTAL 0.4 mg/dL (0.2-1.3); BLOOD UREA NITROGEN 11 mg/dL (7-20); CALCIUM 8.3 mg/dL (8.4-10.2); CARBON DIOXIDE 27 mmol/L (22-30); CHLORIDE 94 mmol/L (98-107); GLUCOSE 98 mg/dL (75-110); TOTAL PROTEIN 6.3 g/dL (6.3-8.2)
--- NOTE | 2020-06-01 18:40 | RADIOLOGY REPORT (SQ) ---
EXAM DESCRIPTION: CHEST SINGLE VIEW IMAGES COMPLETED DATE/TIME: 06/01/2020 6:10 pm REASON FOR STUDY: sob and pain COMPARISON: 02/18/2019 EXAM PARAMETERS: NUMBER OF VIEWS: One view. TECHNIQUE: Single frontal radiographic view of the chest acquired. RADIATION DOSE: NA LIMITATIONS: None. FINDINGS: LUNGS AND PLEURA: Hyperexpansion of the lungs. No infiltrate or effusion. MEDIASTINUM AND HILAR STRUCTURES: No masses. Contour normal. HEART AND VASCULAR STRUCTURES: Cardiomegaly. No pulmonary edema. BONES: No acute findings. HARDWARE: Pacemaker. OTHER: No other significant finding. IMPRESSION: Chronic lung changes. Cardiomegaly without pulmonary edema. Old right rib fractures. TECHNICAL DOCUMENTATION: JOB ID: [id number] 2010 [employer]- All Rights Reserved Reading location - IP/workstation name: [email or web address]
[2020-06-01 18:41] LABS: APPEARANCE,URINE CLEAR; BILIRUBIN,URINE NEGATIVE (NEGATIVE); COLOR,URINE YELLOW; GLUCOSE, URINE NEGATIVE (NEGATIVE); KETONES,URINE NEGATIVE (NEGATIVE); LEUKOCYTE ESTERASE,URINE NEGATIVE (NEGATIVE); NITRITE,URINE NEGATIVE (NEGATIVE); PROTEIN,URINE 30 mg/dL (NEGATIVE); URINE SPECIFIC GRAVITY 1.009; UROBILINOGEN,URINE NEGATIVE mg/dL (<2.0)
[2020-06-01 18:47] LABS: CREATINE KINASE MB 6.39 ng/mL (<4.55)
[2020-06-01 18:50] LABS: TROPONIN I 0.125 ng/mL
--- NOTE | 2020-06-01 19:33 | EKG REPORT ---
SEVERITY:- ABNORMAL ECG - ATRIAL-PACED COMPLEXES NONSPECIFIC IVCD WITH LAD LOW VOLTAGE IN FRONTAL LEADS CONSIDER INFERIOR INFARCT : Confirmed by: Russ Goodman 01-Jun-2020 19:33:03
--- NOTE | 2020-06-01 20:15 | ER Document Report ---
ED General - General Chief Complaint: Shortness Of Breath Stated Complaint: DIFFICULTY BREATHING Time Seen by Provider: 06/01/20 17:44 Primary Care Provider: DENG COLLIER MD [Primary Care Provider] - Follow up as needed Mode of Arrival: Medic Information source: Patient Notes: 89-year-old woman who presents to the emergency department with history of shortness of breath which developed while she was at the oncologist office today. She was receiving a liter of normal saline and went to the bathroom. States that she developed shortness of breath while sitting on the commode. States that she could not get her breath. [place] like she did when she had congestive heart failure in the past. She denies chest pain at this time. Patient does admit to having chest pain on Sunday and Sunday for a prolonged period and one episode of vomiting related to chest pain. She was not seen or evaluated at that time. TRAVEL OUTSIDE OF THE [place] IN LAST 30 DAYS: No - Related Data Allergies/Adverse Reactions: ACEINHIBITORS [DC Inhibitors] Allergy (Verified 04/19/19 10:37) latex [Latex] Allergy (Verified 04/19/19 10:37) Generalized edema Tuberculin,Ppd,Multi-Puncture [From Tuberculin PPD Jeimy Test] Allergy (Verified 04/19/19 10:37) codeine [Codeine] Adverse Reaction (Verified 04/19/19 10:37) doxycycline [Doxycycline] Adverse Reaction (Verified 04/19/19 10:37) erythromycin base [Erythromycin Base] Adverse Reaction (Verified 04/19/19 10:37) levofloxacin [From Levaquin] Adverse Reaction (Verified 04/19/19 10:37) Dizziness sacubitril [From Entresto] Adverse Reaction (Verified 04/19/19 10:37) valsartan [From Entresto] Adverse Reaction (Verified 04/19/19 10:37) codeine Allergy (Uncoded 04/19/19 10:37) Past Medical History - Social History Smoking Status: Never Smoker Frequency of alcohol use: None Drug Abuse: None Family History: DM, Hypertension Patient has homicidal ideation: No - Past Medical History Cardiac Medical History: Reports: Hx Congestive Heart Failure, Hx Coronary Artery Disease, Hx Hypercholesterolemia, Hx Hypertension Denies: Hx Heart Attack Pulmonary Medical History: Reports: Hx COPD Denies: Hx Asthma Neurological Medical History: Reports: Hx Migraine. Denies: Hx Cerebrovascular Accident, Hx Seizures Endocrine Medical History: Reports: Hx Hypothyroidism Renal/ Medical History: Denies: Hx Peritoneal Dialysis Malignancy Medical History: Reports: Hx Skin Cancer GI Medical History: Reports: Hx Gastritis, Hx Gastroesophageal Reflux Disease, Hx Ulcer - TREATED. Denies: Hx Hepatitis, Hx Hiatal Hernia Musculoskeletal Medical History: Reports Hx Arthritis Skin Medical History: Reports Hx Psoriasis Psychiatric Medical History: Reports: Hx Depression Denies: Hx Attention Deficit Hyperactivity Disorder Infectious Medical History: Denies: Hx Hepatitis Past Surgical History: Reports: Hx Abdominal Surgery, Hx Appendectomy, Hx Breast Surgery - bx, Hx Cardiac Catheterization - 2003--DONE IN [place], WAS NOT GIVEN AND DETAILS, Hx Cardiac Surgery - pacemaker, Hx Orthopedic Surgery - rib surgery, Hx Pacemaker - DEX. Denies: Hx Hysterectomy, Hx Mastectomy, Hx Nose Surgery, Hx Open Heart Surgery - Immunizations Immunizations up to date: No Hx Diphtheria, Pertussis, Tetanus Vaccination: Yes Hx Pneumococcal Vaccination: 07/15/12 Review of Systems - Review of Systems Notes: Constitutional: Negative for fever. HENT: Negative for sore throat. Eyes: Negative for visual changes. Cardiovascular: + Remote chest pain. Respiratory: + Shortness of breath. Gastrointestinal: Negative for abdominal pain, vomiting or diarrhea. Genitourinary: Negative for dysuria. Musculoskeletal: Negative for back pain. Skin: Negative for rash. Neurological: Negative for headaches, weakness or numbness. 10 point ROS negative except as marked above and in HPI. Physical Exam - Vital signs Vitals: Resp BP Pulse Ox 21 H 169/82 H 97 06/01/20 17:55 06/01/20 17:55 06/01/20 17:55 - Notes Notes: PHYSICAL EXAMINATION: Physical Exam: General: Well-nourished well-developed 89-year-old female in no acute distress HEENT: NC/AT, pupils equal round and reactive to light, MM moist,nares clear, oropharynx clear, airway patent, no JVD Neck: Good range of motion no masses no swelling. Lungs: Good air movement, no wheezes, no rales. CVS: Regular rate and rhythm no murmur gallop or rub Abdomen: Soft, active, nontender, no masses, no hepatosplenomegaly Ext: No edema, clubbing or cyanosis. Neuro: Alert and responsive, moving all 4 extremities on command, cranial nerves intact, no focal findings Skin: Intact no open lesions, no rash PSYCH: Normal mood, normal affect. Course - Re-evaluation Re-evalutation: 06/01/20 20:41 Patient has been noted to have depressed left ventricular ejection fraction, severe COPD and in the past and has been recommended that her CAD, prior non- STEMI being managed medically. Tonight she is not having chest pain, so no antianginal medications have been given. She does have a findings suggestive of CHF with the elevated troponin. She is given 0.5 mg of Bumex IV. I have discussed with the patient given her frail state of being in her general debilitated state that an observation. And management in the hospital may be of benefit. The patient does note that she is on Xarelto and takes that medication daily. She is also aware that she is not a candidate for major intervention, cardiac catheterization, coronary artery bypass graft surgery. She is presently in a sinus rhythm, though she has had a history of chronic atrial fibrillation in the past. 06/01/20 20:55 I have discussed the patient with the driver/refuse collector, Dr. Hartmann, he is on the believe as I agree that the patient would benefit by being sent home if she is back to her baseline. She has known chronic congestive heart failure, and is not having chest pain and is symptomatically improved. I discussed this plan with the patient and she is related to not be hospitalized. She has a medications at home which she can continue and she can follow-up with her primary care doctor Dr. Bermudez as an outpatient as needed. - Vital Signs Vital signs: Temp Pulse Resp BP Pulse Ox 97.8 F 18 179/97 H 100 06/01/20 18:57 06/01/20 20:05 06/01/20 20:05 06/01/20 20:05 - Laboratory Result Diagrams: 06/01/20 17:55 06/01/20 17:55 Laboratory results interpreted by me: 06/01/20 06/01/20 06/01/20 17:55 17:55 17:55 RBC 3.42 L Hgb 10.7 L Hct 31.1 L Sodium 127.6 L Chloride 94 L Calcium 8.3 L AST 50 H CK-MB (CK-2) 6.39 H NT-Pro-B Natriuret Pep 4090 H Urine Protein Urine Ascorbic Acid 06/01/20 18:15 RBC Hgb Hct Sodium Chloride Calcium AST CK-MB (CK-2) NT-Pro-B Natriuret Pep Urine Protein 30 H Urine Ascorbic Acid 20 H - Diagnostic Test Radiology reviewed: Image reviewed, Reports reviewed - chest x-ray: Chronic lung findings, cardiomegaly, no acute infiltrate or edema. - EKG Interpretation by [place] EKG shows normal: Sinus rhythm - EKG interpreted by Dr. Myrick: Atrial paced complexes, rate 60, nonspecific IVCD with LAD, QT interval normal,+ left axis deviation, diffuse T wave inversion anterior lateral leads. Compared to EKG dated 03/31/2019 diffuse T wave inversions are new. Critical Care Note - Critical Care Note Total time excluding time spent on procedures (mins): 45 - Critical care time spent obtaining history from patient or surrogate, discussions with consultants, development of treatment plan with patient or surrogate, evaluation of patient's response to treatment, examination of patient, ordering and performing marina tments and interventions, ordering and review of laboratory studies, re- evaluation of patient's condition, ordering and review of radiographic studies and review of old charts Discharge - Discharge Clinical Impression: Acute combined systolic and diastolic heart failure Chronic obstructive pulmonary disease Qualifiers: COPD type: unspecified COPD Qualified Code(s): J44.9 - Chronic obstructive pulmonary disease, unspecified Condition: Fair Disposition: HOME, SELF-CARE Instructions: Congestive Heart Failure ([facility]) Additional Instructions: You were seen in the emergency department tonight with congestive heart failure symptoms. Please continue your usual medications at home, follow-up with your primary care doctor as needed Dr. Bermudez. Return to the emergency department if your symptoms are worsening or if you have other concerns. HOME CARE INSTRUCTIONS & INFORMATION: Thank you for choosing us for your medical needs. We hope you're satisfied with the care you received. After you leave, you must properly care for your problem and, at the same time, observe its progress. Any condition can change. Some illnesses can change rapidly over hours or days. If your condition worsens, return to the Emergency Department or see your physician promptly. ABOUT YOUR X-RAYS AND EKG'S: If you had an EKG or X-rays taken, they have been read by the Emergency Physician. The X-rays and EKG's will also be read by a Radiologist or Sugar Mixer within 24 hours. If discrepancies are noted, you will be notified by telephone. Please be certain the ED has a correct telephone number & address where you can be reached. Also, realize that some fractures or abnormalities do not show up on initial X-rays. If your symptoms continue, see your physician. ABOUT YOUR LABORATORY TEST: If you had laboratory tests, the results have been reviewed by the Emergency Physician. Some test results (for example cultures) may not be available for several days. You will be contacted if any test result shows you need additional treatment. Please be certain the ED has a correct telephone number and address where you can be reached. ABOUT YOUR MEDICATIONS: You will receive instructions on how to take your medicine on the prescription label you receive. Additional information may be provided by the Pharmacy. If you have questions afterwards, call the ED for clarification or further instructions. Some prescribed medications may cause drowsiness. Do not perform tasks such as driving a car or operating machinery without consulting your Pharmacist. If you feel you need a refill of pain medication, your condition will need re-evaluation. Please do not call for a refill of any medication. ABOUT YOUR SIGNATURE: Signature of this document acknowledges to followin. Understanding that you received emergency treatment and that you may be released before al medical problems are known or treated. Please be certain the ED has a correct phone number & address where you can be reached. 2. Acknowledgement that you will arrange for follow-up care as recommended. 3. Authorization for the Emergency Physician to provide information to your follow-up Physician in order to maximize your care. AT ANY TIME, IF YOUR SYMPTOMS CHANGE SIGNIFICANTLY OR WORSEN OR YOU DEVELOP NEW SYMPTOMS, RETURN TO THE EMERGENCY DEPARTMENT IMMEDIATELY FOR RE-EVALUATION. OUR GOAL IS TO PROVIDE EXCELLENT MEDICAL CARE! WE HOPE THAT WE HAVE MET YOUR EXPECTATIONS DURING YOUR EMERGENCY DEPARTMENT VISIT AND THAT YOU FEEL YOU HAVE RECEIVED EXCELLENT CARE! Referrals: DENG COLLIER MD [Primary Care Provider] - Follow up as needed
[2020-06-01 21:35] VITALS: BP 179/97
[2020-06-02] MEDS ORDERED: BUMETANIDE INJ/PF 1 MG/4 ML SDV IV ONE (20:45)
== END 2020-06-01 21:34 | disposition home or self-care (01) ==
LOC: ER 17:42
DX: I11.0 Hypertensive heart disease with heart failure (principal); I50.41 Acute combined systolic (congestive) and diastolic (congestive) heart failure; J44.9 Chronic obstructive pulmonary disease, unspecified; I25.10 Atherosclerotic heart disease of native coronary artery without angina pectoris; I48.20 Chronic atrial fibrillation, unspecified; Z79.01 Long term (current) use of anticoagulants; Z95.0 Presence of cardiac pacemaker; Z88.8 Allergy status to other drugs, medicaments and biological substances; Z91.040 Latex allergy status; Z88.7 Allergy status to serum and vaccine; Z88.6 Allergy status to analgesic agent; Z88.5 Allergy status to narcotic agent
CPT/HCPCS: 36415; 71045; 80053; 81001; 82553; 83880; 84484; 85025; 93005; 93010; 99285

== ENCOUNTER → 2020-06-22 | Outpatient (CLI) | payer MEDICARE, OTHER ==
[2020-06-22 14:50] LABS: ABSOLUTE BASOPHILS # (AUTO) 0.1 10^3/uL (0.0-0.2); ABSOLUTE EOSINOPHILS # (AUTO) 0.3 10^3/uL (0.0-0.6); ABSOLUTE LYMPHOCYTES (AUTO) 0.9 10^3/uL (0.5-4.7); ABSOLUTE MONOCYTES (AUTO) 0.7 10^3/uL (0.1-1.4); ABSOLUTE NEUT (AUTO) 4.8 10^3/uL (1.7-8.2); BASOPHILS % (AUTO) 0.9 % (0-2); EOSINOPHILS % (AUTO) 4.3 % (0-6); HEMATOCRIT 32.5 % (36.0-47.0); HEMOGLOBIN 11.4 g/dL (12.0-15.5); LYMPHOCYTES % (AUTO) 13.3 % (13-45); MEAN CORPUSCULAR HEMOGLOBIN 31.4 pg (27.0-33.4); MEAN CORPUSCULAR HGB CONC 35.1 g/dL (32.0-36.0); MEAN CORPUSCULAR VOLUME 89 fl (80-97); PLATELET COUNT 327 10^3/uL (150-450); RED BLOOD COUNT 3.64 10^6/uL (3.72-5.28); RED CELL DISTRIBUTION WIDTH 13.4 % (11.5-14.0); SEGMENTED NEUTROPHILS % (AUTO) 71.5 % (42-78); TOTAL CELLS COUNTED % (AUTO) 100 %; WHITE BLOOD COUNT 6.7 10^3/uL (4.0-10.5)
[2020-06-22 15:01] LABS: APPEARANCE,URINE CLEAR; BILIRUBIN,URINE NEGATIVE (NEGATIVE); COLOR,URINE YELLOW; GLUCOSE, URINE NEGATIVE (NEGATIVE); KETONES,URINE NEGATIVE (NEGATIVE); LEUKOCYTE ESTERASE,URINE NEGATIVE (NEGATIVE); NITRITE,URINE NEGATIVE (NEGATIVE); PROTEIN,URINE NEGATIVE (NEGATIVE); UROBILINOGEN,URINE NEGATIVE mg/dL (<2.0)
[2020-06-22 15:16] LABS: ANION GAP 8 (5-19); BLOOD UREA NITROGEN 15 mg/dL (7-20); CALCIUM 9.3 mg/dL (8.4-10.2); CARBON DIOXIDE 27 mmol/L (22-30); CHLORIDE 94 mmol/L (98-107); GLUCOSE 84 mg/dL (75-110); POTASSIUM 5.6 mmol/L (3.6-5.0)
== END ==
LOC: OD 13:51
PROVIDERS: ATTEND Internal Medicine Nephrology
DX: I12.9 Hypertensive chronic kidney disease with stage 1 through stage 4 chronic kidney disease, or unspecified chronic kidney disease (principal); N18.2 Chronic kidney disease, stage 2 (mild); E87.1 Hypo-osmolality and hyponatremia
CPT/HCPCS: 36415; 80048; 81001; 85025

== ENCOUNTER → 2020-06-29 | Outpatient (CLI) | payer MEDICARE, OTHER ==
[2020-06-29 16:03] LABS: ANION GAP 9 (5-19); BLOOD UREA NITROGEN 15 mg/dL (7-20); CALCIUM 9.5 mg/dL (8.4-10.2); CARBON DIOXIDE 29 mmol/L (22-30); CHLORIDE 92 mmol/L (98-107); GLUCOSE 91 mg/dL (75-110); POTASSIUM 4.8 mmol/L (3.6-5.0); URIC ACID 2.8 mg/dL (2.5-7.5)
== END ==
LOC: OD 14:10
PROVIDERS: ATTEND Internal Medicine Nephrology
DX: N18.2 Chronic kidney disease, stage 2 (mild) (principal); E87.1 Hypo-osmolality and hyponatremia
CPT/HCPCS: 36415; 80048; 83935; 84300; 84550

== ENCOUNTER → 2020-07-13 | Outpatient (CLI) | payer MEDICARE, OTHER ==
[2020-07-13 14:04] LABS: CHLORIDE 90 mmol/L (98-107)
[2020-07-13 14:25] LABS: ANION GAP 8 (5-19); BLOOD UREA NITROGEN 11 mg/dL (7-20); CARBON DIOXIDE 27 mmol/L (22-30); GLUCOSE 106 mg/dL (75-110)
== END ==
LOC: OD 12:37
PROVIDERS: ATTEND Internal Medicine Nephrology
DX: I12.9 Hypertensive chronic kidney disease with stage 1 through stage 4 chronic kidney disease, or unspecified chronic kidney disease (principal); N18.9 Chronic kidney disease, unspecified
CPT/HCPCS: 36415; 80048

== ENCOUNTER 2020-07-16 09:42 | Outpatient (CLI) | payer MEDICARE, OTHER ==
[2020-07-16] MEDS ORDERED: NORMAL SALINE 1000 ML 1,000 ML IV PRN (10:05)
[2020-07-16 10:36] VITALS: BP 93/51
== END 2020-07-16 16:44 | disposition home or self-care (01) ==
LOC: II 09:42 → 5TH 10:35 → II 16:44
PROVIDERS: ATTEND Internal Medicine Nephrology
DX: Z79.899 Other long term (current) drug therapy (principal)
CPT/HCPCS: 96360; 96361

== ENCOUNTER → 2020-07-19 | Outpatient (CLI) | payer MEDICARE, OTHER ==
--- NOTE | 2020-07-19 11:25 | ER RDC ASSESSMENT REPORT ---
Intake - In the Last 14 days Have you traveled outside [place]?: No Have you been in close contact with someone CONFIRMED: No Worked in Healthcare?: No - Symptoms Subjective Fever([place] feverish): No Chills: Yes Muscule Aches: No Runny Nose: Yes Sore Throat: Yes Cough (New or worsening chronic cough): No Shortness of breath: Yes Nausea or Vomiting: No Headache: No Abdominal Pain: No Diarrhea(3 or more loose stools in last 24 hours): Yes - Do you have any of the following Chronic lung disease: Asthma or emphysema or COPD: Yes Chronic Lung Disease Comment: History of COPD Cystic Fibrosis: No Diabetes: No High Blood Pressure: Yes Cardiovascular Disease: Yes Cardiovascular Disease Comment: History of Congestive Heart Failure Chronic Kidney Disease: Yes Chronic Liver Disease: No Chronic blood disorder like Sickle Cell Disease: No Weak immune system due to disease or medication: No Developmental delay - Moderate to Severe: No Recent (within past 2 weeks) or current : No Morbid Obesity (>100 pounds over ideal weight): No Obesity Comment: Height 4 feet 11 inches weight 110 pounds. - Objective Temperature: 98.5 F Pulse Rate: 73 Respiratory Rate: 18 Blood Pressure: 131/59 O2 Sat by Pulse Oximetry: 95 Objective: Given above, testing performed: If Testing Performed: Test Specimen Type Sent to General - General Information source: Patient Notes: Patient here at [facility] for COVID testing patient denies any known positive exposure to COVID patient started to have symptoms of chills that lasted on and have resolved but have continued with runny nose sore throat shortness of breath and some diarrhea patient does have a history of COPD congestive heart failure. Patient was seen by Dr. Bermudez on and an x-ray was ordered patient had not done that and was seen for left lateral complains of pain to her thoracic patient plans to get x-ray today. Patient also has a pacemaker and defibrillator. - Related Data Allergies/Adverse Reactions: ACEINHIBITORS [DC Inhibitors] Allergy (Verified 04/19/19 10:37) latex [Latex] Allergy (Verified 04/19/19 10:37) Generalized edema Tuberculin,Ppd,Multi-Puncture [From Tuberculin PPD Jeimy Test] Allergy (Verified 04/19/19 10:37) codeine [Codeine] Adverse Reaction (Verified 04/19/19 10:37) doxycycline [Doxycycline] Adverse Reaction (Verified 04/19/19 10:37) erythromycin base [Erythromycin Base] Adverse Reaction (Verified 04/19/19 10:37) levofloxacin [From Levaquin] Adverse Reaction (Verified 04/19/19 10:37) Dizziness sacubitril [From Entresto] Adverse Reaction (Verified 04/19/19 10:37) valsartan [From Entresto] Adverse Reaction (Verified 04/19/19 10:37) codeine Allergy (Uncoded 04/19/19 10:37) Past Medical History - General Information source: Patient - Social History Smoking Status: Former Smoker - Quit 30 - 40 years ago Family History: DM, Hypertension - Past Medical History Cardiac Medical History: Reports: Hx Congestive Heart Failure, Hx Coronary Artery Disease, Hx Hypercholesterolemia, Hx Hypertension Denies: Hx Heart Attack Pulmonary Medical History: Reports: Hx COPD Denies: Hx Asthma Neurological Medical History: Reports: Hx Migraine. Denies: Hx Cerebrovascular Accident, Hx Seizures Endocrine Medical History: Reports: Hx Hypothyroidism Renal/ Medical History: Denies: Hx Peritoneal Dialysis Malignancy Medical History: Reports: Hx Skin Cancer GI Medical History: Reports: Hx Gastritis, Hx Gastroesophageal Reflux Disease, Hx Ulcer - TREATED. Denies: Hx Hepatitis, Hx Hiatal Hernia Musculoskeletal Medical History: Reports Hx Arthritis Skin Medical History: Reports Hx Psoriasis Psychiatric Medical History: Reports: Hx Depression Denies: Hx Attention Deficit Hyperactivity Disorder Infectious Medical History: Denies: Hx Hepatitis Past Surgical History: Reports: Hx Abdominal Surgery, Hx Appendectomy, Hx Breast Surgery - bx, Hx Cardiac Catheterization - 2003--DONE IN [place], WAS NOT GIVEN AND DETAILS, Hx Cardiac Surgery - pacemaker, Hx Orthopedic Surgery - rib surgery, Hx Pacemaker - DEX. Denies: Hx Hysterectomy, Hx Mastectomy, Hx Nose Surgery, Hx Open Heart Surgery Physical Exam - General General appearance: Appears well, Alert In distress: None Notes: PHYSICAL EXAMINATION: GENERAL: Well-appearing and in no acute distress. HEAD: Atraumatic, normocephalic. EYES: sclera anicteric, conjunctiva are normal. ENT: nares patent. Moist mucous membranes. Lips appear dry. NECK: Normal range of motion, supple without lymphadenopathy LUNGS: CTAB and equal. No wheezes rales or rhonchi. Respirations even and unlabored lung sounds clear. HEART: Regular rate and rhythm without murmurs ABDOMEN: Soft, nontender, normal bowel sounds, no guarding. EXTREMITIES: Normal range of motion, no pitting edema. No cyanosis. NEUROLOGICAL: Cranial nerves grossly intact. Normal speech. Normal gait. PSYCH: Normal mood, normal affect. SKIN: Warm, Dry, normal turgor, no rashes or lesions noted Diagnostic Results Laboratory Results: Patient informed of negative rapid strep and negative rapid flu results. Radiology Results: Pending strep culture pending COVID testing results. Patient provided instructions regarding COVID to include: As a person under investigation for Covid 19, the [facility] of Health and Human Services, division of public health advises you to adhere to the following guidance until your test results are reported to you. If your test result is positive, you will receive additional information from your provider and your local health department at that time. Remain at home until you are cleared by the health provider or public health authorities. Keep a log of visitors to your home, notify any visitors to your home of your isolation status. If you plan to move to a new address or leave the [facility], notify the local health department in your County. Call your doctor or seek care if you have an urgent medical need. Before seeking medical care, call ahead to get instructions from the provider before arriving at the medical office clinic or hospital. Notify them that you are being tested for the virus that causes Covid 19 so that arrangements can be made, as necessary, to prevent transmission to others in the healthcare setting. Next, notify the local health department in your [facility]. If a medical emergency arises and you need to call 911, inform the first responders that you are being tested for the virus that causes Covid 19. Next, notify the local health department in your [facility]. Patient Education/Counseling Counseling/Education: Patient presents with upper respiratory symptoms worrisome for possible Covid 19. Patient does not have emergency worring symptoms such as difficulty breathing, shortness of breath, chest pain, pressure, confusion or cyanosis. Patient appears suitable for discharge. Patient instructed to follow-up with PCP Dr. Bermudez today. To ED for persistent or worsening symptoms. Patient's vital signs are stable and patient is nontoxic in appearance. Good return precautions have been discussed with patient, patient verbalized understanding and is agreeable with discharge plan of care at this time. RDC Discharge - Discharge Condition: Stable Disposition: Home; Selfcare
[2020-07-19 11:29] VITALS: BP 131/59
[2020-07-19 12:33] LABS: A TYPE INFLUENZA AG NEGATIVE (NEGATIVE); B INFLUENZA AG NEGATIVE (NEGATIVE)
== END ==
LOC: RDC 10:37
PROVIDERS: ATTEND Nurse Practitioner Family
DX: Z20.828 Contact with and (suspected) exposure to other viral communicable diseases (principal)
CPT/HCPCS: 87070; 87880; 87804; U0003; C9803; 87635; 99211

== ENCOUNTER → 2020-07-19 | Outpatient (CLI) | payer MEDICARE, OTHER ==
--- NOTE | 2020-07-19 13:21 | RADIOLOGY REPORT (SQ) ---
EXAM DESCRIPTION: CHEST PA/LATERAL IMAGES COMPLETED DATE/TIME: 07/19/2020 12:38 pm REASON FOR STUDY: CHRONIC OBSTRUCTIVE PULMONARY DISEASE, UNSPECIFIED COMPARISON: 06/01/2020 EXAM PARAMETERS: NUMBER OF VIEWS: two views TECHNIQUE: Digital Frontal and Lateral radiographic views of the chest acquired. RADIATION DOSE: NA LIMITATIONS: none FINDINGS: LUNGS AND PLEURA: There is hyperexpansion of the lungs with no infiltrate, effusion, or ma ss. MEDIASTINUM AND HILAR STRUCTURES: No masses or contour abnormalities. HEART AND VASCULAR STRUCTURES: Cardiomegaly. No pulmonary edema. BONES: No acute findings. HARDWARE: Pacemaker. OTHER: No other significant finding. IMPRESSION: Cardiomegaly without pulmonary edema. Chronic lung changes. TECHNICAL DOCUMENTATION: JOB ID: [id number] 2010 [employer]- All Rights Reserved Reading location - IP/workstation name: [email or web address]
== END ==
LOC: OD 11:53
PROVIDERS: ATTEND Internal Medicine
DX: J44.9 Chronic obstructive pulmonary disease, unspecified (principal)
CPT/HCPCS: 71046